=== PATIENT | female | born 1970 | race Caucasian/White ===

== ENCOUNTER 2024-02-11 18:08 | Emergency (ER) | payer BC, SELFPAY ==
[2024-02-11 18:12] VITALS: BP 123/84
[2024-02-11 18:33] LABS: % Basophils 0.8 % (0-2); % Eosinophils 1.4 % (0-6); % Immature Granulocytes 0.2 % (0-0.5); % Lymphocytes 7.9 % (20.5-51.1); % Monocytes 6.7 % (1.7-9.3); Absolute Eosinophils 0.1 10^3/uL (0-0.7); Absolute Lymphocytes 0.4 10^3/uL (1.2-3.4); Absolute Monocytes 0.3 10^3/uL (0.1-0.6); Absolute Neutrophils 4.1 10^3/uL (1.4-6.5); Hematocrit 35.1 % (37.0-47.0); Hemoglobin 12.2 g/dL (12.0-16.0); Mean Corp Hgb Conc. 34.8 g/dL (33.0-37.0); Mean Corpuscular Hgb 34.2 pg (27.0-31.0); Mean Corpuscular Volume 98.3 fL (81.0-99.0); Mean Platelet Volume 11.1 fL (7.4-10.4); Nucleated Red Blood Cells % 0 %; Platelet Count 143 10^3/uL (130-400); Red Blood Cell Count 3.57 10^6/uL (4.20-5.40); Red Cell Dist. Width 14.7 % (11.5-14.5); White Blood Cell Count 4.9 10^3/uL (4.8-10.8)
[2024-02-11 18:45] LABS: HCG, Serum Qualitative Screen Negative
[2024-02-11 18:48] LABS: ALT (SGPT) 25 U/L (0-35); AST (SGOT) 44 U/L (14-36); Albumin 4.5 g/dl (3.5-5.0); Alkaline Phosphatase 158 U/L (38-126); Blood Urea Nitrogen 9 mg/dl (7-17); Calcium 9.7 mg/dl (8.4-10.2); Carbon Dioxide 30 mmol/L (22-30); Chloride 97 mmol/L (98-107); Glucose 111 mg/dl (70-99); Potassium 3.8 mmol/L (3.5-5.1); Sodium 135 mmol/L (135-145); Total Bilirubin 1.1 mg/dl (0.2-1.3); Total Protein 6.9 g/dl (6.3-8.2); eGFR > 60.00
[2024-02-11 18:53] LABS: Lipase 100 U/L (23-300)
[2024-02-11 19:18] VITALS: BP 136/77
[2024-02-11 19:19] VITALS: BMI 21.3
--- NOTE | 2024-02-11 19:35 | ED.GENMED ---
History of Present Illness
General
Chief Complaint: Abdominal Symptoms
Source: patient and spouse
Time Seen by Provider: 02/11/24 19:15
History of Present Illness
History of Present Illness:
53-year-old female presents to the emergency room complaining of intractable nausea and vomiting. 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 Radiation completed about 6 weeks ago or so. She is currently
receiving immunotherapy infusions with the last infusion being about 2 weeks ago. During radiation patient was experiencing significant nausea and vomiting. She has been receiving intermittent IV fluid infusions at [facility] where she has
been receiving her treatment. Her ability to tolerate oral intake seem to be improving however over the past 2 to 3 days it has been worsening again. She vomits as soon as she tends to consume any sort of liquids or solids. She is not
regurgitating secretions however. No diarrhea. No known sick contacts. No fever or chills. Patient does have a discomfort in her epigastrium which equates to a severe hunger feeling. She does not have constant nausea but rather it occurs as
soon as she consumes anything. The epigastric discomfort is constant however.
Past History
Past History
ED Past Medical History: Hypothyroidism
ED Past Surgical History: and Other (thyroid sx)
Social History
Tobacco: Non-smoker
Personal:
Living: with family
Phy Exam
Physical Exam
Physical Exam:
General: Awake, Alert, Oriented X3. No acute distress.
Vitals: unremarkable
Head: Atraumatic
Eyes: Pupils equal, EOMI
Throat: Airway intact, no exudates, somewhat dry mucosa
Neck: Trachea midline
Lungs: Clear and equal b/l
Heart: Regular rate, no murmurs
Abd: Soft, mild epigastric discomfort to palpation, no rebound, No pulsatile mass
Neuro: Nonfocal
Skin: Warm, dry, no rash
Extremities: pulses equal b/l, no edema
Course
Orders/Labs/Results
Orders:
Orders
02/11/24 18:19
Test Result ONCE
02/11/24 18:25
Complete Blood Count/With Diff Urgent
Comprehensive Metabolic Panel Urgent
HCG, Serum Qualitative Screen Urgent
Lipase Urgent
02/11/24 19:33
CT Abd/pel W Iv And Oral Contr Urgent
Comment:
Reason For Exam: intractable n/v, recent radiation to cholangiocarc
Iohexol [Omnipaque] See Protocol PO NOW STA
Ondansetron Injectable [Zofran] 8 mg IV NOW STA
Pantoprazole [Protonix IV] 40 mg IV NOW STA
02/11/24 19:34
EKG [Electrocardiogram (*1)] Urgent
Reason for Study: QTc Monitoring
02/11/24 19:35
EKG- Treatment ONCE
02/11/24 19:45
Lactated Ringers [Lr] 1,000 ml IV BOLUS
Abnormal Lab Results
02/11/24
18:25
RBC 3.57 L 10^6/uL
(4.20-5.40)
Hct 35.1 L %
(37.0-47.0)
MCH 34.2 H pg
(27.0-31.0)
RDW 14.7 H %
(11.5-14.5)
MPV 11.1 H fL
(7.4-10.4)
Absolute Lymphs (auto) 0.4 L 10^3/uL
(1.2-3.4)
Neutrophils % 83.0 H %
(42.2-75.2)
Lymphocytes % 7.9 L %
(20.5-51.1)
Chloride 97 L mmol/L
(98-107)
Glucose 111 H mg/dl
(70-99)
AST 44 H U/L
(14-36)
Alkaline Phosphatase 158 H U/L
(38-126)
02/11/24 18:25
02/11/24 18:25
Vital Signs
Initial and Last Documented VS:
Initial Vital Signs
Temp Pulse Resp BP Pulse Ox
98.4 F 97 16 123/84 99
02/11/24 18:12 02/11/24 18:12 02/11/24 18:12 02/11/24 18:12 02/11/24 18:12
Last Documented Vital Signs
Temp Pulse Resp BP Pulse Ox
98.3 F 71 18 121/80 96
02/11/24 23:15 02/12/24 00:53 02/12/24 00:53 02/12/24 00:53 02/12/24 00:53
MDM/Problems Addressed
Differential Diagnosis Includes:
Biliary obstruction, gastric outlet obstruction, gastritis, duodenal ulcer/duodenitis, viral gastritis
MDM/Problems Addressed:
Patient presents with inability to tolerate liquids. Workup here reveals a normal white blood cell count, normal hemoglobin. Chemistries are reassuring. LFTs show a very minimally elevated AST and a normal ALT. Alk phos mildly elevated. LFTs
all consistent with known cholangiocarcinoma. No evidence for biliary obstruction however. CT performed primarily to exclude gastric outlet obstruction or other bowel obstruction. Oral contrast is distributed throughout the small and large bowel.
Radiology report is negative for high-grade obstruction though they do note edematous changes at the gastric antrum and proximal duodenum. Patient is taking Protonix once a day we will have this increased to twice a day. I will also recommend a
trial of Carafate. Patient will touch base with her doctors at [facility] after [place] to discuss CT findings and further steps. Able to tolerate the oral contrast as well as liquid intake. Her total protein and albumin are normal which
is also somewhat reassuring.
*Radiology
Radiology exam reviewed: radiology read reviewed
*Pulse Oximetry
Patient hypoxic: no
*EKG
Interpreted by ED Provider?: Yes
Interpretation: normal
Heart Rate: 66
Rate: normal
Rhythm: sinus
Lapoint: normal axis
Interval: normal interval
QRS Pattern: normal QRS
Ischemia: no ischemia
*[place]er Interpretation
Rate: normal
Interpretation: normal
Heart Rate: 66
Rhythm: sinus
*Critical Care Note
Total Time (30-74mins, 75-104mins- exclusive of procedures): Not Applicable
Patient Management
Social determinants of health affecting care: Strong social support
ED Attending Note
-
Portions of this chart may have been created with voice recognition software.� Occasional wrong word or��sound alike� substitutions may have occurred due to the inherent limitations of voice recognition software.
Discharge Plan
Departure
Patient Disposition: Home (Routine Discharge)
Date of Disposition: 02/12/24
Time of Disposition: 00:41
Patient with high blood pressure during this ER visit?: No
Condition: Good
Discharge Problem:
Acute nausea with nonbilious vomiting, Gastritis and duodenitis
Instructions: Gastritis, Acute Nausea and Vomiting
Prescriptions:
New
sucralfate [Carafate] 1 gram tablet
1 g PO TID Qty: 90 0RF
No Action
prednisone 10 MG tablet
10 mg PO DAILY
levothyroxine 112 MCG tablet
112 mcg PO DAILY
Referrals:
Uriel Yanes MD [Family Provider] -
Activity Restrictions/Additional Instructions:
Increase Protonix to twice a day. I have sent a prescription for Carafate which you can take before meals (except breakfast when you are taking most of your meds) and before bedtime. Discuss things with your treatment team at [place] after the
holiday.
Interventions
Interventions:
*Risk Screen - Suicide Last Done: 02/11/24 19:19
*General Assessment Last Done: 02/11/24 19:19
*Neglect/Abuse Screening Last Done: 02/11/24 19:19
ED- Fall Risk Assessment Last Done: 02/11/24 19:19
*ED COVID-19 Vaccine History Last Done: 02/11/24 19:19
*Nursing Disposition Last Done: 02/12/24 01:16
WU-Wlfvvk-Rdrpnhiqvy Assessment Last Done: 02/11/24 19:19
Discharge Date and Time
Discharge Date/Time: 02/12/24 01:17
Print Language: PORTUGUESE
[2024-02-11 20:00] VITALS: BP 116/75
[2024-02-11] MEDS: ZOFRAN 8 MG IV (20:09)
[2024-02-11] MEDS: LR 1000 IV (20:09)
[2024-02-11] MEDS: PROTONIX IV 40 MG IV (20:11)
[2024-02-11] MEDS: OMNIPAQUE 50 ML PO (20:49)
[2024-02-11 21:00] VITALS: BP 129/74
[2024-02-11 22:41] VITALS: BP 143/85
[2024-02-11 23:15] VITALS: BP 136/78
[2024-02-12 00:53] VITALS: BP 121/80
== END 2024-02-12 01:17 | disposition home or self-care (01) ==
LOC: EMR 18:08
PROVIDERS: Emergency Medicine; EMERGENCY PHYSICIAN Emergency Medicine; FAMILY PHYSICIAN Family Medicine
DX: K29.70 Gastritis, unspecified, without bleeding (principal); K29.80 Duodenitis without bleeding; E03.9 Hypothyroidism, unspecified; Z79.899 Other long term (current) drug therapy; Z85.89 Personal history of malignant neoplasm of other organs and systems; Z92.21 Personal history of antineoplastic chemotherapy; Z92.3 Personal history of irradiation
CPT/HCPCS: 99284; 96374; 96375; 96361; 74177; 80053; 83690; 84703; 85025; 93005; Q9967

== ENCOUNTER 2024-02-29 19:25 | Inpatient (IN) | payer BC, SELFPAY ==
[2024-02-29] VITALS (10 sets, daily range): BP systolic 103–128; BP diastolic 63–84; PULSE 67–79; BMI 22.1; BMI 22.5
--- NOTE | 2024-02-29 15:12 | ED.GENMED ---
ED Provider Triage
<Jhonatan Vee PA-C - Last Filed: 02/29/24 15:13>
-
Patient seen by provider in Triage?: Seen in Triage
53-year-old female with history of cholangiocarcinoma presents in referral from oncologist for low hemoglobin. Her hemoglobin is dropped significantly more recently. Patient seen at triage stable vital signs but does appear pale
IV team was into handled the patient's port. Labs drawn including CBC CMP type and screen
Seen by provider in triage warrants further assessment
History of Present Illness
<Jhonatan Vee PA-C - Last Filed: 02/29/24 15:13>
General
Chief Complaint: Weakness
Time Seen by Provider: 02/29/24 16:13
<Leidy Escobar DO - Last Filed: 02/29/24 17:31>
History of Present Illness
History of Present Illness:
53-year-old female with history of cholangiocarcinoma status post radiation and chemotherapy presenting to the emergency department for weakness. Patient reports that she had outpatient blood testing that showed a low hemoglobin of 6.7 which has
dropped significantly from her last testing. Does also report dyspnea on exertion. Denies any history of anemia or transfusions. She notes that since getting radiation to her upper abdomen, has had issues for about 2 weeks of pain after eating.
Reports occasional vomiting, without any blood in the vomit. Does note that her stools have been dark. Denies chest pain. Denies any present abdominal pain. Was sent in by her oncologist. Denies additional acute medical complaints.
Past History
<Jhonatan Vee PA-C - Last Filed: 02/29/24 15:13>
Past History
ED Past Medical History: Hypothyroidism
ED Past Surgical History: and Other (thyroid sx)
Social History
Tobacco: Non-smoker
Personal:
Living: with family
Phy Exam
<Leidy Davala, DO - Last Filed: 02/29/24 17:31>
Physical Exam
Physical Exam:
General: Well-appearing, pale
HEENT: protecting airway
Neck: appears supple
CV: Normal heart rate, regular rhythm
Resp: No accessory muscle use, no increased work of breathing
Abd: No distention
Extremities: No deformities, no swelling
Neuro: alert, no focal neurologic deficit
: deferred
Rectal: deferred
Psych: Normal affect
Skin: Intact
Course
<Jhonatan Vee PA-C - Last Filed: 02/29/24 15:13>
Orders/Labs/Results
Orders:
Orders
02/29/24 15:10
CBC/With Diff [Complete Blood Count/With Diff] Urgent
Comprehensive Metabolic Panel Urgent
02/29/24 15:16
Type+Screen Urgent
02/29/24 16:36
* Blood Bank Products Urgent
Blood Bank Products: *Packed RBC Leuko(PRBC's)
Quantity: 2
Transfuse Today: Yes
Reason: Anemia
Abnormal Lab Results
02/29/24 02/29/24
15:10 15:16
WBC 3.4 L 10^3/uL
(4.8-10.8)
RBC 2.13 L 10^6/uL
(4.20-5.40)
Hgb 6.9 L* g/dL
(12.0-16.0)
Hct 21.2 L %
(37.0-47.0)
MCV 99.5 H fL
(81.0-99.0)
MCH 32.4 H pg
(27.0-31.0)
MCHC 32.5 L g/dL
(33.0-37.0)
Plt Count 119 L 10^3/uL
(130-400)
MPV 10.5 H fL
(7.4-10.4)
Absolute Lymphs (auto) 0.3 L 10^3/uL
(1.2-3.4)
Immature Gran % 0.6 H %
(0-0.5)
Neutrophils % 81.1 H %
(42.2-75.2)
Lymphocytes % 8.4 L %
(20.5-51.1)
Calcium 8.3 L mg/dl
(8.4-10.2)
Total Protein 5.8 L g/dl
(6.3-8.2)
Crossmatch IS Only See Detail
02/29/24 15:10
02/29/24 15:10
Vital Signs
Initial and Last Documented VS:
Initial Vital Signs
Temp Pulse Resp BP Pulse Ox
98.2 F 94 16 120/66 97
02/29/24 14:24 02/29/24 14:24 02/29/24 14:24 02/29/24 14:24 02/29/24 14:24
Last Documented Vital Signs
Temp Pulse Resp BP Pulse Ox
98.2 F 94 16 120/66 97
02/29/24 14:24 02/29/24 14:24 02/29/24 14:24 02/29/24 14:24 02/29/24 14:24
<Leidy Escobar, DO - Last Filed: 02/29/24 17:31>
Orders/Labs/Results
Orders:
Orders
02/29/24 15:10
CBC/With Diff [Complete Blood Count/With Diff] Urgent
Comprehensive Metabolic Panel Urgent
02/29/24 15:16
Type+Screen Urgent
02/29/24 16:36
* Blood Bank Products Urgent
Blood Bank Products: *Packed RBC Leuko(PRBC's)
Quantity: 2
Transfuse Today: Yes
Reason: Anemia
Abnormal Lab Results
02/29/24 02/29/24
15:10 15:16
WBC 3.4 L 10^3/uL
(4.8-10.8)
RBC 2.13 L 10^6/uL
(4.20-5.40)
Hgb 6.9 L* g/dL
(12.0-16.0)
Hct 21.2 L %
(37.0-47.0)
MCV 99.5 H fL
(81.0-99.0)
MCH 32.4 H pg
(27.0-31.0)
MCHC 32.5 L g/dL
(33.0-37.0)
Plt Count 119 L 10^3/uL
(130-400)
MPV 10.5 H fL
(7.4-10.4)
Absolute Lymphs (auto) 0.3 L 10^3/uL
(1.2-3.4)
Immature Gran % 0.6 H %
(0-0.5)
Neutrophils % 81.1 H %
(42.2-75.2)
Lymphocytes % 8.4 L %
(20.5-51.1)
Calcium 8.3 L mg/dl
(8.4-10.2)
Total Protein 5.8 L g/dl
(6.3-8.2)
Crossmatch IS Only See Detail
02/29/24 15:10
02/29/24 15:10
Vital Signs
Initial and Last Documented VS:
Initial Vital Signs
Temp Pulse Resp BP Pulse Ox
98.2 F 94 16 120/66 97
02/29/24 14:24 02/29/24 14:24 02/29/24 14:24 02/29/24 14:24 02/29/24 14:24
Last Documented Vital Signs
Temp Pulse Resp BP Pulse Ox
98.2 F 94 16 120/66 97
02/29/24 14:24 02/29/24 14:24 02/29/24 14:24 02/29/24 14:24 02/29/24 14:24
<Leidy Escobar DO - Last Filed: 02/29/24 17:31>
MDM/Problems Addressed
MDM/Problems Addressed:
53-year-old female with history of cholangiocarcinoma presenting to the emergency department with weakness and dyspnea on exertion with concern of anemia. Vital signs are normal.
On exam patient is resting comfortably, no acute distress or discomfort. Blood counts checked prior to my assessment, low at 6.9. On 02/10, blood counts are 12.2, significant drop. Patient is a lot of stomach upset with eating, status post
radiation, as well as dark schools. Patient is Hemoccult positive. Suspect a likely slow bleeding stomach ulcer. Plan for transfusion, patient consented. Discussion with GI, unlikely to get scope of the weekend, however advising admission
overnight for hemodynamic monitoring, and likely facilitation of outpatient scoping next week. Patient agreeable to plan.
<Leidy Escobar DO - Last Filed: 02/29/24 17:31>
*Critical Care Note
Total Time (30-74mins, 75-104mins- exclusive of procedures): 38
comment:
The high probability of a clinically significant, sudden or life threatening deterioration of the GI system(s), GI bleed and anemia, required my full and direct attention, intervention and personal management. The aggregate critical care time was 38
minutes. This time is in addition to time spent performing reported procedures but includes the following:
[x] Data Review and interpretation
[x] Patient assessment and monitoring of vital signs
[x] Documentation
[x] Medication orders and management
ED Attending Note
<Jhonatan Vee PA-C - Last Filed: 02/29/24 15:13>
-
Portions of this chart may have been created with voice recognition software.� Occasional wrong word or��sound alike� substitutions may have occurred due to the inherent limitations of voice recognition software.
Discharge Plan
Departure
Prescriptions:
No Action
prednisone 10 MG tablet
10 mg PO DAILY
levothyroxine 112 MCG tablet
112 mcg PO DAILY
sucralfate [Carafate] 1 gram tablet
1 g PO TID Qty: 90 0RF
Referrals:
Uriel Yanes MD [Family Provider] -
Interventions
Interventions:
*Risk Screen - Suicide Last Done: 02/29/24 14:24
*Neglect/Abuse Screening Last Done: 02/29/24 14:24
Discharge Date and Time
Print Language: LUXEMBOURGISH
[2024-02-29 15:33] LABS: ALT (SGPT) 14 U/L (0-35); AST (SGOT) 30 U/L (14-36); Albumin 3.8 g/dl (3.5-5.0); Alkaline Phosphatase 112 U/L (38-126); Blood Urea Nitrogen 11 mg/dl (7-17); Calcium 8.3 mg/dl (8.4-10.2); Carbon Dioxide 26 mmol/L (22-30); Chloride 101 mmol/L (98-107); Glucose 98 mg/dl (70-99); Potassium 3.6 mmol/L (3.5-5.1); Sodium 136 mmol/L (135-145); Total Bilirubin 0.6 mg/dl (0.2-1.3); Total Protein 5.8 g/dl (6.3-8.2); eGFR > 60.00
[2024-02-29 15:46] LABS: % Basophils 0.9 % (0-2); % Eosinophils 1.5 % (0-6); % Immature Granulocytes 0.6 % (0-0.5); % Lymphocytes 8.4 % (20.5-51.1); % Monocytes 7.5 % (1.7-9.3); % Neutrophils 81.1 % (42.2-75.2); Absolute Eosinophils 0.1 10^3/uL (0-0.7); Absolute Lymphocytes 0.3 10^3/uL (1.2-3.4); Absolute Monocytes 0.3 10^3/uL (0.1-0.6); Absolute Neutrophils 2.7 10^3/uL (1.4-6.5); Hematocrit 21.2 % (37.0-47.0); Hemoglobin 6.9 g/dL (12.0-16.0); Mean Corp Hgb Conc. 32.5 g/dL (33.0-37.0); Mean Corpuscular Hgb 32.4 pg (27.0-31.0); Mean Corpuscular Volume 99.5 fL (81.0-99.0); Mean Platelet Volume 10.5 fL (7.4-10.4); Nucleated Red Blood Cells % 0 %; Platelet Count 119 10^3/uL (130-400); Red Blood Cell Count 2.13 10^6/uL (4.20-5.40); Red Cell Dist. Width 13.7 % (11.5-14.5); White Blood Cell Count 3.4 10^3/uL (4.8-10.8)
--- NOTE | 2024-02-29 18:20 | HPS.HSE ---
Family Physician
-
Family Physician: Uriel Yanes
Chief Complaint
-
anemia
History of Present Illness
53-year-old past medical history of cholangiocarcinoma status post radiation/chemotherapy last received in November currently on immunotherapy received last week, hypothyroidism, anxiety/depression, presenting for weakness. Patient had outpatient
blood work which showed low hemoglobin 6.7. Patient has been having shortness of breath with exertion and dizziness. Denies any history of anemia or transfusion. Since getting radiation to her upper abdomen she has been having 2 weeks of
abdominal pain after eating. She has occasional vomiting without blood. Denies any blood in the vomit. Her stools have been dark. Denies chest pain.
Denies NSAID use. Denies smoking or alcohol use.
Medical History
Past Medical History
Past Medical History: Reports Other (cholangiocarcinoma status post radiation/chemotherapy last received in November currently on immunotherapy received last week, hypothyroidism, anxiety/depression)
Past Surgical History: Reports
Social History
Tobacco: Non-smoker
Alcohol: None
Drug: None
Family History
Family History: Not pertinent
Allergies / Home Medications
Allergies reflects when Allergies were last updated in [facility].
Home Medications with original date entered in [facility]
Allergy/Medication List:
Allergies
Allergy/AdvReac Type Severity Reaction Status Date / Time
No Known Allergies Allergy Verified 02/29/24 14:24
Home Medications
docusate sodium 100 mg capsule (Colace) 100 mg PO DAILYPRN PRN constipation 02/29/24
escitalopram oxalate 5 mg tablet 5 mg PO HS 02/29/24
levothyroxine 100 mcg tablet 100 mcg PO DAILY 02/29/24
ondansetron HCl 8 mg tablet 8 mg PO DAILYPRN PRN nausea 02/29/24
pantoprazole 40 mg tablet,delayed release 40 mg PO DAILY 02/29/24
Review of Systems
-
History Source: Patient
A 12 point ROS was completed and negative except as noted: Yes
Constitutional: Reports No Symptoms
EENT: Reports No Symptoms
Respiratory: Reports No Symptoms
Cardiac: Reports No Symptoms
Abdomen/GI: Reports No Symptoms
: Reports No Symptoms
Musculoskeletal: Reports No Symptoms
Skin: Reports No Symptoms
Neurological: Reports No Symptoms
Endocrine: Reports No Symptoms
Hematologic/Lymphatic: Reports No Symptoms
Psych: Reports No Symptoms
Physical Exam
Vital Signs
Vital Signs
Temp Pulse Resp BP Pulse Ox
98.5 F 83 16 119/70 98
02/29/24 18:11 02/29/24 18:11 02/29/24 18:11 02/29/24 18:11 02/29/24 17:18
Physical Exam
General: Well Developed, Well Nourished and No Apparent Distress
HEENT: NormoCephalic, Moist mucous membranes and Atraumatic
Respiratory: Clear
Cardiac: S1/S2 and Regular Rhythm; No Murmur or Rub
GI: Soft, Non Tender, Non Distended and Normal Bowel Sounds; No Organomegaly
Rectal: Deferred by Provider
Musculoskeletal: No Clubbing, No Cyanosis and No Edema
Skin: No Rash
Neuro: Nonfocal/grossly intact
Laboratory Results
-
02/29/24 15:10
02/29/24 15:10
Laboratory Results
Total Bilirubin 0.6 mg/dl (0.2-1.3) 02/29/24 15:10
AST 30 U/L (14-36) 02/29/24 15:10
ALT 14 U/L (0-35) 02/29/24 15:10
Alkaline Phosphatase 112 U/L (38-126) 02/29/24 15:10
Data Reviewed
-
Lab Data: Labs Reviewed by me
Old Records: Reviewed
Impression/Plan
-
IMPRESSION:
PLAN:
# Macrocytic anemia
# Upper GI bleeding/blood loss anemia suspect gastritis/peptic ulcer from radiation
-Hemoglobin 6.9 from 12 on 02/10
-Hemodynamically stable
-2 units of blood
-Protonix 40 IV twice daily
-Check iron studies, B12 and folate
-GI planning on outpatient endoscopy
-Clear liquid diet
Cholangiocarcinoma status post radiation/chemotherapy
-Currently on immunotherapy received last week
Hypothyroidism
-Continue levothyroxine
Anxiety/depression
-Continue Lexapro
Full code
DVT prophylaxis�SCDs
Clear liquid diet
[2024-02-29] MEDS: PROTONIX IV 40 MG IV (22:06)
[2024-02-29] MEDS: LEXAPRO 5 MG PO (22:09)
[2024-02-29] MEDS: NSS (PRESERVATIVE FREE) 10 ML IV (22:09)
[2024-02-29 23:03] LABS: Iron 49 ug/dl (37-170)
[2024-02-29 23:12] LABS: Percent Saturation 14 % (20-50); Total Iron Binding Capacity 347 ug/dl (265-497)
[2024-03-01 00:41] LABS: Folate 6.5 ng/ml (2.76-20); Vitamin B12 444 pg/ml (239-931)
[2024-03-01 01:11] LABS: Hematocrit 28.4 % (37.0-47.0); Hemoglobin 9.4 g/dL (12.0-16.0)
--- NOTE | 2024-03-01 02:27 | PTCARENOTE ---
Patient received from ED and ambulated to room. Second unit of pRBCs infusing and completed on floor. No S/S of a transfusion reaction noted. She was oriented to room and surroundings. See nursing assessment for physical findings. Patient
states pain at comfortable rate. Resting quietly with call griffith in reach.
[2024-03-01 03:00] VITALS: BP 101/66; BP 105/66; BP 110/74; PULSE 78; PULSE 88; PULSE 96
[2024-03-01 03:51] VITALS: BP 105/66
[2024-03-01] MEDS: SYNTHROID 100 MCG PO (05:57)
[2024-03-01 07:00] VITALS: BP 96/67
[2024-03-01] MEDS: PROTONIX IV 40 MG IV (08:19)
[2024-03-01] MEDS: NSS (PRESERVATIVE FREE) 10 ML IV (08:19)
[2024-03-01 09:17] LABS: % Basophils 0.4 % (0-2); % Eosinophils 1.3 % (0-6); % Immature Granulocytes 0.8 % (0-0.5); % Lymphocytes 8.4 % (20.5-51.1); % Monocytes 8.8 % (1.7-9.3); % Neutrophils 80.3 % (42.2-75.2); Absolute Lymphocytes 0.2 10^3/uL (1.2-3.4); Absolute Monocytes 0.2 10^3/uL (0.1-0.6); Absolute Neutrophils 1.9 10^3/uL (1.4-6.5); Hematocrit 29.6 % (37.0-47.0); Mean Corp Hgb Conc. 33.8 g/dL (33.0-37.0); Mean Corpuscular Volume 88.9 fL (81.0-99.0); Mean Platelet Volume 10.9 fL (7.4-10.4); Nucleated Red Blood Cells % 0 %; Platelet Count 95 10^3/uL (130-400); Red Blood Cell Count 3.33 10^6/uL (4.20-5.40); Red Cell Dist. Width 19.4 % (11.5-14.5); White Blood Cell Count 2.4 10^3/uL (4.8-10.8)
--- NOTE | 2024-03-01 09:24 | CON.GI ---
Consultation
-
Date/Time Consultation Requested: 02/29/24
Date/Time Consultation Performed: 03/01/24
Requesting Provider: Dr. Bender
Performing Provider: Dr. Bowers
Reason for Consultation: Anemia
Medical History
Chief Complaint / HPI
Chief Complaint: Anemia
History of Present Illness:
53 y.o. female with pmhx cholangiocarcinoma s/p chemo and radiation therapy currently on immunotherapy admitted with anemia, after outpatient labs demonstrated a hemoglobin of 6.7. She admits to dyspnea on exertion, dizziness, dyspepsia and
occasional non bloody emesis. She does admit to dark stool. No blood thinners or frequent NSAID use.�She admits to chronic constipation, worse since requiring Zofran for her cancer treatment. She has intermittently taken laxatives but never
regularly, feels nauseous with miralax. She sometimes only moves her bowels once weekly. She has tried colace. Preivously on Linzess but only for a week, does not recall the dose. Bowers it gave her too much diarrhea. Her oncologic care is at [facility]. No
family history of cholangio, pancreatic cancer, CRC or colon polyps. She reports previouos colonoscopy in 2021, states she had a few polyps. CT on 02/10 with findings below, concern for abnormality in gastric antrum or duodenum, felt to be possibly
related to prior treatment.
Hgb 6.9 down from 12 on 02/10, BUN 11. She was transfused with 2 units PRBC. Hemodynamically stable.�Repeat CBC showed appropriate response, 6.9 --> 9.4 --> 10.
CT A/P w/ PO and IV Contrast 02/11/24:
1. Edematous and inflamed appearance of the gastric antrum and proximal duodenum suggestive of a gastritis/duodenitis, possibly sequela of recent therapy.
2. Large ill-defined and rim-enhancing enhancing necrotic mass within the left hepatic lobe consistent with patient's history of cholangiocarcinoma.
3. Multiple soft tissue nodules within the upper abdomen suspicious for peritoneal carcinomatosis.
4. Small volume of perihepatic and pelvic ascites.
Past Medical History
Past Medical History: Other (Cholangiocarcinoma, Chronic Constipation)
Past Surgical History: Other ()
Social History
Tobacco: Non-Smoker
Alcohol: None
Drug: None
Family History
Family History: Reviewed & Not Pertinent
Allergies / Home Medications
Allergy/AdvReac Type Severity Reaction Status Date / Time
No Known Allergies Allergy Verified 02/29/24 14:24
�Medication �Instructions �Recorded
docusate sodium 100 mg capsule 100 mg PO DAILYPRN PRN constipation 02/29/24
(Colace)
escitalopram oxalate 5 mg tablet 5 mg PO HS 02/29/24
levothyroxine 100 mcg tablet 100 mcg PO DAILY 02/29/24
ondansetron HCl 8 mg tablet 8 mg PO DAILYPRN PRN nausea 02/29/24
pantoprazole 40 mg tablet,delayed 40 mg PO DAILY 02/29/24
release
Review of Systems
-
History Source: Patient
All other systems: A 12 pt ROS was Negative except as stated above in HPI
Vital Signs
Temp Pulse Resp BP Pulse Ox
98.9 F 75 18 96/67 99
03/01/24 07:00 03/01/24 07:00 03/01/24 07:00 03/01/24 07:00 03/01/24 07:00
Physical Exam
Exam
General: Well Developed, Well Nourished and No Apparent Distress
GI: Soft, Non Tender, Non Distended and Normal Bowel Sounds
Results
WBC 2.4 10^3/uL (4.8-10.8) L* 03/01/24 08:34
Hgb 10.0 g/dL (12.0-16.0) L 03/01/24 08:34
Hct 29.6 % (37.0-47.0) L 03/01/24 08:34
MCV 88.9 fL (81.0-99.0) D 03/01/24 08:34
Plt Count 95 10^3/uL (130-400) L D 03/01/24 08:34
Absolute Neuts (auto) 1.9 10^3/uL (1.4-6.5) 03/01/24 08:34
Sodium 136 mmol/L (135-145) 02/29/24 15:10
Potassium 3.6 mmol/L (3.5-5.1) 02/29/24 15:10
Chloride 101 mmol/L (98-107) 02/29/24 15:10
Carbon Dioxide 26 mmol/L (22-30) 02/29/24 15:10
BUN 11 mg/dl (7-17) 02/29/24 15:10
Creatinine 0.7 mg/dL (0.6-1.0) 02/29/24 15:10
Calcium 8.3 mg/dl (8.4-10.2) L 02/29/24 15:10
Total Bilirubin 0.6 mg/dl (0.2-1.3) 02/29/24 15:10
AST 30 U/L (14-36) 02/29/24 15:10
ALT 14 U/L (0-35) 02/29/24 15:10
Alkaline Phosphatase 112 U/L (38-126) 02/29/24 15:10
Diagnostic Image Results:
Prior GI Procedures:
EGD:
Colonoscopy:
Assessment / Plan
-
53 y.o. female with pmhx cholangiocarcinoma s/p chemo/XRT now on immunotherapy admitted with symptomatic anemia, epigastric pain and abnormal CT Scan.
A/P:
Hgb 6.9, received 2 units of PRBC with appropriate response, Hgb 10 this morning
BUN normal, expect it to be elevated in setting of upper GI bleed but could have been a slower bleed over time. Given abnormalities on CT scan as well as epigastric pain/dyspepsia, recommend EGD. She prefers outpatient since cannot perform until
Sunday given its the weekend
Will have my office obtain urgent authorization on Sunday, with plans to have Dr. Stuart perform EGD as an outpatient on Sunday (my office will contact her on Sunday). If unremarkable, would recommend outpatient colonoscopy to follow
PPI BID
Discussed bowel regimen-- 1 bottle of mag citrate followed by 2 senokot qHS
Okay for regular diet
Data Reviewed
-
CT Scan: Report Reviewed by me
-
-
Thank you for consultation and allowing me to participate in the patient's care. Please call the [facility] GI physician during the after hours with any questions or concerns.
[2024-03-01 09:25] LABS: ALT (SGPT) 12 U/L (0-35); AST (SGOT) 29 U/L (14-36); Albumin 3.4 g/dl (3.5-5.0); Alkaline Phosphatase 106 U/L (38-126); Blood Urea Nitrogen 8 mg/dl (7-17); Calcium 7.8 mg/dl (8.4-10.2); Carbon Dioxide 28 mmol/L (22-30); Chloride 104 mmol/L (98-107); Estimated Creatinine Clearance 69 ml/min; Glucose 86 mg/dl (70-99); Potassium 3.9 mmol/L (3.5-5.1); Sodium 137 mmol/L (135-145); Total Bilirubin 0.6 mg/dl (0.2-1.3); Total Protein 5.4 g/dl (6.3-8.2); eGFR > 60.00
[2024-03-01 11:00] VITALS: BP 107/73
--- NOTE | 2024-03-01 12:58 | W.PN.HOSP.TC ---
Today's Communication/Plan
-
Discharge
Assessment / Plan
Assessment / Plan
Gen-AAOx3, NAD
HEENT-NC, AT, anicteric, clear oral mm
Neck-supple
CV-reg, no M, +S1/S2
Lungs-clear B/L
Abd-soft, NT, ND
Ext-no edema
Musculoskeletal-no cyanosis, clubbing
Skin-warm and dry
Neuro-grossly non-focal
Psych-calm, cooperative
Symptomatic acute anemia -suspect multifactorial etiology including GI bleed induced acute blood loss, possible immunotherapy induced anemia, etc.
Feels much better with improvement in hemoglobin. Transfused 2 units of blood. Hemoglobin 10 today. Iron saturation 14%, ferritin pending.
Pancytopenia noted on labs. Unclear if due to immunotherapy versus other etiology. Recommend close outpatient follow-up with her oncologist. Discussed with patient.
GI bleed, subacute -heme positive stools noted in the emergency room. Differential diagnosis includes peptic ulcer disease, radiation-induced bleeding, etc. GI consult noted. Plan for outpatient EGD on Sunday, may need colonoscopy as well.
Patient prefers for outpatient workup, does not want to stay in the hospital all weekend.
Plan to discharge on Protonix twice daily. She denies NSAID use.
Has had chronic nausea relieved with Zofran.
Chronic constipation that she attributes to dehydration. Bowel regimen ordered.
Cholangiocarcinoma -treated with chemotherapy, radiation. Currently on immunotherapy. Goes to [facility].
Hypothyroidism -levothyroxine.
Full code
Dispo -stable for discharge today with outpatient follow-up with GI, oncology, PCP.
32 minutes spent in discharge process.
Anticipated Discharge: Today
Subjective/Interval History
-
Date of Service: March 01, 2024
Patient seen and examined. Feeling better. No complaints.
Objective Data
-
Labs:
Laboratory Results
03/01/24 03/01/24
00:46 08:34
WBC 2.4 L*
Hgb 9.4 L D 10.0 L
Hct 28.4 L 29.6 L
Plt Count 95 L D
Sodium 137
Potassium 3.9
Chloride 104
Carbon Dioxide 28
BUN 8
Creatinine 0.7
Glucose 86
Calcium 7.8 L
Total Bilirubin 0.6
AST 29
ALT 12
Alkaline Phosphatase 106
Vital Signs:
Vital Signs
Temp Pulse Resp BP Pulse Ox
98.9 F 75 18 96/67 99
03/01/24 07:00 03/01/24 07:00 03/01/24 07:00 03/01/24 07:00 03/01/24 07:00
I&O
02/29/24 03/01/24 03/02/24
06:59 06:59 06:59
Intake Total 500 / 500
Balance 500 / 500
Review of Systems
-
History Source: Patient
All other systems: Reviewed and negative
--- NOTE | 2024-03-01 13:54 | W.DS.TRANS ---
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
-
Discharge Instructions:
Discharge Diagnosis/Procedures Symptomatic anemia, pancytopenia, constipation
Diet Regular
Activity As tolerated
Driving Restrictions As prior to admission
Bathing Restrictions None
Instructions:
Stand-Alone Forms:
Changes to Home Medications: No
Discharge Medications:
DC Medications w/original date entered in [facility]
docusate sodium 100 mg capsule (Colace) 100 mg PO DAILYPRN PRN constipation 02/29/24
escitalopram oxalate 5 mg tablet 5 mg PO HS 02/29/24
levothyroxine 100 mcg tablet 100 mcg PO DAILY 02/29/24
ondansetron HCl 8 mg tablet 8 mg PO DAILYPRN PRN nausea 02/29/24
pantoprazole 40 mg tablet,delayed release 40 mg PO BID #60 tabs 03/01/24
Home Medication Changes
Pending Results: No
--- NOTE | 2024-03-01 14:39 | CM ---
Patient who is s/p transfusions for anemia.
Spoke with patient patient who resides with her in a 2 story house.
The patient has been independent in ADLs and ambulation.
The patient has no DME, no prior VN.
PCP - Uriel Yanes
Pharmacy - [facility]
The patient was preparing for discharge and says she feels ready for discharge home today. She plans on driving herself home.
No CM d/c needs identified.
Plan home today.
[2024-03-01 15:21] LABS: Ferritin 31.2 ng/ml (11.1-264.0)
== END 2024-03-01 15:16 | disposition home or self-care (01) | DRG 378 ==
LOC: 1 ACUTE 19:25
PROVIDERS: Emergency Medicine; Nurse Practitioner Family; ADMITTING PHYSICIAN Hospitalist; ATTENDING PHYSICIAN Hospitalist; CONSULT PHYSICIAN Internal Medicine; EMERGENCY PHYSICIAN Student in an Organized Health Care Education/Training Program; FAMILY PHYSICIAN Family Medicine
PROC: 30233N1 Transfusion of Nonautologous Red Blood Cells into Peripheral Vein, Percutaneous Approach (ICD-10-PCS; 2024-02-29)
DX: K92.2 Gastrointestinal hemorrhage, unspecified (principal); C22.1 Intrahepatic bile duct carcinoma; D61.818 Other pancytopenia; D62 Acute posthemorrhagic anemia; E03.9 Hypothyroidism, unspecified; D53.9 Nutritional anemia, unspecified; F32.A Depression, unspecified; F41.9 Anxiety disorder, unspecified; Z92.3 Personal history of irradiation; Z92.21 Personal history of antineoplastic chemotherapy
CPT/HCPCS: 36430; 80053; 82607; 82728; 82746; 83540; 83550; 85014; 85018; 85025; 86850; 86900; 86901; 86920; 99291; P9016

== ENCOUNTER 2024-03-04 06:19 | Day surgery (SDC) | payer BC, SELFPAY | END 2024-03-04 15:26 | disposition home or self-care (01) | LOC: GI 06:19 | PROVIDERS: ATTENDING PHYSICIAN Internal Medicine Gastroenterology | DX: D50.0 Iron deficiency anemia secondary to blood loss (chronic) (principal); K22.2 Esophageal obstruction; K44.9 Diaphragmatic hernia without obstruction or gangrene; K31.89 Other diseases of stomach and duodenum; K25.4 Chronic or unspecified gastric ulcer with hemorrhage | CPT/HCPCS: 43239; 88305 ==

== ENCOUNTER 2024-03-14 21:26 | Inpatient (IN) | payer BC, SELFPAY ==
[2024-03-14] VITALS (12 sets, daily range): BP systolic 106–133; BP diastolic 58–80
--- NOTE | 2024-03-14 19:37 | ED.GENMED ---
History of Present Illness
General
Chief Complaint: Abnormal Lab Value
Source: patient, records and physician (Discussed with Dr. Lara Horn, gastrointestinal oncologist, who recommends patient be admitted due to her ongoing GI bleed)
Exam Limitations: none
Time Seen by Provider: 03/14/24 19:35
Nursing documentation reviewed up to this point in time: agreed with
History of Present Illness
History of Present Illness:
53-year-old female presents emergency department due to dark black stool. She has a history of possible radiation damage from her cholangiocarcinoma. Her hemoglobin has been dropping. It was 7.5 earlier in the week, and today dropped to 6.7. She
was sent in by her oncologist.
Past History
Past History
ED Past Medical History: Hypothyroidism
ED Past Surgical History: and Other (thyroid sx)
Social History
Tobacco: Non-smoker
Personal:
Living: with family
Phy Exam
Physical Exam
Physical Exam:
Physical Exam
General: no apparent distress, pale
Neck: supple. no meningeal signs. normal posterior pharynx
Heart: s1/s2 regular rate and rhythm, no murmur. equal radial
pulses.
HEENT: Pupils equal round reactive to light, EOMI
Lungs: no acute respiratory distress. clear bilaterally
Abdomen: normal bowel sounds. not tender. no CVAT
Neuro: alert and oriented. no focal neurological deficits cranial nerves II through XII intact
Skin: no rash
Psychiatric: well kept. interactive and cooperative
Extremities: no edema. no calf tenderness. negative homans. good distal pulses
Course
Orders/Labs/Results
Orders:
Orders
03/14/24 Breakfast
Clear Liquid
03/14/24 19:35
Type And Crossmatch [Type+Screen] Urgent
Basic Metabolic Panel Urgent
Complete Blood Count/With Diff Urgent
Ferritin Urgent
Comment: ADD ON
Folate Urgent
Comment: ADD ON
Iron Urgent
Total Iron Binding Urgent
03/14/24 20:01
Blood Bank Products [* Blood Bank Products] Urgent
's Orders: 1 unit prbcs
Blood Bank Products: *Packed RBC Leuko(PRBC's)
Quantity: 1
Transfuse Today: Yes
Reason: Bleeding
03/14/24 20:06
Pantoprazole [Protonix IV] 80 mg IV NOW STA
03/14/24 21:08
Admit/Transfer Patient As Directed
Co-Sign Provider:
Level of Care: Inpatient admission
Assign to:: Telemetry
Physician / Group: michelle
Diagnosis: GI bleed
Reason for Telemetry: Other
Other Reason for Telemetry: anemia
Date to Stop Telemetry: 03/16/24
Time to Stop Telemetry: 11:00
Reason for Hospitalization: GI bleed
Expected length of stay greater than two midnights?: Yes
ELOS- Estimated Length of Stay in days: 3
I certify the patient meets the requirements for IP care: Yes
03/14/24 21:09
Code Status As Directed
Resuscitation Status: Full Code
PRN Pain Medication Management As Directed
May give lesser potent ordered pain med per pt: Yes
preference::
Protocol:: Medication orders for pain may be administered in a
manner that supports deferring to patient preference
when the pt is:
- Requesting an ordered lesser potent pain medication.
Least to most potent pain medications are defined
as: acetaminophen < NSAID < tramadol < opioids
(morphine, oxycodone, hydromorphone).
- Requesting a lesser dose of the same medication IF
ORDERED.
- Requesting a less intrusive route of administration
if both routes are prescribed by the provider (PO <
IV).
01/24/25 21:23
GASTROINTESTINAL CONSULT Routine
Consulting Provider: Damon Cadet
Was physician already notified: Yes
03/16/24 11:00
DC Protocol for Telemetry ONCE
Abnormal Lab Results
03/14/24
19:35
WBC 3.8 L 10^3/uL
(4.8-10.8)
RBC 2.36 L 10^6/uL
(4.20-5.40)
Hgb 6.8 L* g/dL
(12.0-16.0)
Hct 21.7 L %
(37.0-47.0)
MCHC 31.3 L g/dL
(33.0-37.0)
RDW 15.8 H %
(11.5-14.5)
MPV 10.9 H fL
(7.4-10.4)
Absolute Lymphs (auto) 0.3 L 10^3/uL
(1.2-3.4)
Neutrophils % 81.8 H %
(42.2-75.2)
Lymphocytes % 8.1 L %
(20.5-51.1)
Sodium 131 L mmol/L
(135-145)
Calcium 8.1 L mg/dl
(8.4-10.2)
Iron 35 L ug/dl
(37-170)
% Saturation 9 L %
(20-50)
Crossmatch IS Only See Detail
03/14/24 19:35
03/14/24 19:35
Vital Signs
Initial and Last Documented VS:
Initial Vital Signs
Temp Pulse Resp BP Pulse Ox
98.2 F 77 20 106/58 99
03/14/24 18:13 03/14/24 18:13 03/14/24 18:13 03/14/24 18:13 03/14/24 18:13
Last Documented Vital Signs
Temp Pulse Resp BP Pulse Ox
98.8 F 94 26 108/80 96
03/14/24 21:32 03/14/24 22:45 03/14/24 22:45 03/14/24 22:00 03/14/24 22:15
MDM/Problems Addressed
Differential Diagnosis Includes:
GI bleed, anemia
MDM/Problems Addressed:
53 yo female with GI bleed. 1 unit prbcs given. Admit to hospitalist.
Chronic conditions affecting care: Cancer
Acute Exacerbation and/or Progression of Chronic Illness: Cancer
*Pulse Oximetry
Patient hypoxic: no
*Critical Care Note
Total Time (30-74mins, 75-104mins- exclusive of procedures): 30
comment:
Critical care statement: A total of 30 minutes of critical care time was provided for this patient. This includes management of unstable vital signs, evaluation of the patient at bedside, reviewing the patient's pertinent medical records, discussion
with consultants, review of old EKGs and review of pertinent medical records. This time with separate from time utilized to perform the aforementioned documented procedures
Data Reviewed
Review of Other/Old Records Reveals: Testing (Endoscopy showed oozing of gastric mucosa, but no clear bleed)
Source: records
Patient Management
Social determinants of health affecting care: Living situation and Strong social support
Discussion with other providers: Hospitalist
Escalation/DeEscalation of care consider admission/obs:
Admit indicated
ED Attending Note
-
Portions of this chart may have been created with voice recognition software.� Occasional wrong word or��sound alike� substitutions may have occurred due to the inherent limitations of voice recognition software.
Discharge Plan
Departure
Patient Disposition: Admit
Date of Disposition: 03/14/24
Time of Disposition: 20:22
Admit to: Telemetry
Presentation/result/management discussed w/ accepting MD/DO: Hospitalist
Patient with high blood pressure during this ER visit?: Yes
Condition: Fair
Discharge Problem:
GI (gastrointestinal bleed), Symptomatic anemia
Interventions
Interventions:
*Risk Screen - Suicide Last Done: 03/14/24 19:40
*General Assessment Last Done: 03/14/24 18:13
*Neglect/Abuse Screening Last Done: 03/14/24 19:40
ED- Fall Risk Assessment Last Done: 03/14/24 19:40
*ED COVID-19 Vaccine History Last Done: 03/14/24 19:40
[2024-03-14 19:57] LABS: % Basophils 0.5 % (0-2); % Eosinophils 1.3 % (0-6); % Immature Granulocytes 0.5 % (0-0.5); % Lymphocytes 8.1 % (20.5-51.1); % Monocytes 7.8 % (1.7-9.3); % Neutrophils 81.8 % (42.2-75.2); Absolute Eosinophils 0.1 10^3/uL (0-0.7); Absolute Lymphocytes 0.3 10^3/uL (1.2-3.4); Absolute Monocytes 0.3 10^3/uL (0.1-0.6); Absolute Neutrophils 3.1 10^3/uL (1.4-6.5); Hematocrit 21.7 % (37.0-47.0); Hemoglobin 6.8 g/dL (12.0-16.0); Mean Corp Hgb Conc. 31.3 g/dL (33.0-37.0); Mean Corpuscular Hgb 28.8 pg (27.0-31.0); Mean Corpuscular Volume 91.9 fL (81.0-99.0); Mean Platelet Volume 10.9 fL (7.4-10.4); Nucleated Red Blood Cells % 0 %; Platelet Count 144 10^3/uL (130-400); Red Blood Cell Count 2.36 10^6/uL (4.20-5.40); Red Cell Dist. Width 15.8 % (11.5-14.5); White Blood Cell Count 3.8 10^3/uL (4.8-10.8)
[2024-03-14 20:04] LABS: Blood Urea Nitrogen 10 mg/dl (7-17); Calcium 8.1 mg/dl (8.4-10.2); Carbon Dioxide 25 mmol/L (22-30); Chloride 101 mmol/L (98-107); Glucose 95 mg/dl (70-99); Potassium 3.5 mmol/L (3.5-5.1); Sodium 131 mmol/L (135-145); eGFR > 60.00
[2024-03-14] MEDS: PROTONIX IV 80 MG IV (20:25)
--- NOTE | 2024-03-14 20:49 | HPS.HSE ---
Family Physician
-
Family Physician: ASHLY Booker
Chief Complaint
-
black stool
History of Present Illness
53-year-old female with past medical history for hypothyroidism, cholangiocarcinoma presented to us with dark black stools since December. Patient undergoing EGD on 03/04/2024 with impression of mild Schatzki ring. Small hiatal hernia in the
gastric antrum, nonbleeding clean-based gastric ulcer with no stigmata of bleeding ,Friable gastric mucosa with mild spontaneous bleeding as described. Biopsy with impression of reactive gastropathy with vascular ectasia, no evidence of
malignancy.her last colonoscopy was in 2021.patient was getting transfusion as an outpatient .her last transfusion was a week ago .she had an outpatient lab with impression of 6.8. Her oncology asked her to come to the ER for transfusion. Patient
stated dizziness when she stands up and short of breath with exertion. Patient denied any headache or syncope patient denied any fever, chills, chest pain.patient denied abdominal pain, nausea or vomiting.patient denied dysuria or hematuria.
On arrival hemoglobin is 6.8. Transfusing with 1 unit of blood
Medical History
Past Medical History
Past Medical History: Reports Other
Additional Past Medical History:
Depression
Palpitation
Hypothyroidism
Constipation
Myalgia
Anxiety
Past Surgical History: Reports Other
Additional Past Surgical History:
Thyroidectomy
Social History
Tobacco: Non-smoker
Alcohol: None
Drug: None
Family History
Family History: Not pertinent
Allergies / Home Medications
Allergies reflects when Allergies were last updated in [facility].
Home Medications with original date entered in [facility]
Allergy/Medication List:
Allergies
Allergy/AdvReac Type Severity Reaction Status Date / Time
No Known Allergies Allergy Verified 03/14/24 18:13
Home Medications
docusate sodium 100 mg capsule (Colace) 100 mg PO DAILYPRN PRN constipation 02/29/24
escitalopram oxalate 5 mg tablet 5 mg PO HS 02/29/24
levothyroxine 100 mcg tablet 100 mcg PO DAILY 02/29/24
ondansetron HCl 8 mg tablet 8 mg PO DAILYPRN PRN nausea 02/29/24
pantoprazole 40 mg tablet,delayed release 40 mg PO BID #60 tabs 03/01/24
Review of Systems
-
Constitutional: Reports No Symptoms
EENT: Reports No Symptoms
Respiratory: Reports No Symptoms
Cardiac: Reports No Symptoms
Abdomen/GI: Reports Bloody Stools
: Reports No Symptoms
Musculoskeletal: Reports No Symptoms
Skin: Reports No Symptoms
Neurological: Reports No Symptoms
Endocrine: Reports No Symptoms
Hematologic/Lymphatic: Reports No Symptoms
Psych: Reports No Symptoms
Physical Exam
Vital Signs
Vital Signs
Temp Pulse Resp BP Pulse Ox
98.2 F 77 18 123/60 100
03/14/24 18:13 03/14/24 18:13 03/14/24 19:45 03/14/24 19:44 03/14/24 19:45
Physical Exam
General: Well Developed, Well Nourished and No Apparent Distress
HEENT: NormoCephalic, Moist mucous membranes and Atraumatic
Respiratory: Clear
Cardiac: S1/S2 and Regular Rhythm; No Murmur or Rub
GI: Soft, Non Tender, Non Distended and Normal Bowel Sounds; No Organomegaly
Rectal: Deferred by Provider
Musculoskeletal: No Clubbing, No Cyanosis and No Edema
Skin: No Rash
Neuro: AO x 3 and Nonfocal/grossly intact
Psych: Calm
Laboratory Results
-
03/14/24 19:35
03/14/24 19:35
Data Reviewed
-
Lab Data: Labs Reviewed by me
Impression/Plan
-
# Acute blood loss anemia likely from upper GI bleed
-Hemoglobin 6.8
-Transfusing with 1 unit of blood
-Keep patient n.p.o.
-Trend hemoglobin
-Consult GI
-recent EGD with the impression of mild Schatzki ring. Small hiatal hernia in the gastric antrum, nonbleeding clean-based gastric ulcer with no stigmata of bleeding ,Friable gastric mucosa with mild spontaneous bleeding as described. Biopsy with
impression of reactive gastropathy with vascular ectasia, no evidence of malignancy.
-path was negative for malignancy
# Hyponatremia
-Sodium 131
#Cholangiocarcinoma
-treated with chemotherapy, radiation Goes to [facility].
#Hypothyroidism -levothyroxine.
#depression
-Lexapro continued
#DVT Prophylaxis
-scd
#Full code
patient follows [facility]. her Oncologist is Lara Horn )
--- NOTE | 2024-03-14 21:28 | W.PN.UPDATE ---
Update Note
Progress Note Update
This is an addendum to the H&P written by Colette Deluna on 03/14/2024. Patient seen and examined independently with [employer].
53-year-old female past medical history of cholangiocarcinoma status post radiation/chemotherapy last received in November currently on immunotherapy received last week, hypothyroidism, anxiety/depression, presenting with recurrent anemia and black
loose stools.
She was recently admitted here on 02/28 with similar symptoms at which time she received 2 units of blood. She underwent outpatient endoscopy on 03/04 which showed mild Schatzki's ring, small hiatal hernia, red blood in the gastric antrum,
nonbleeding clean-based superficial gastric ulcer and effects of radiation.
She subsequently received 1 more unit of blood.
Concern for recurrent blood loss anemia and symptomatic anemia secondary to gastritis/peptic ulcer related to radiation. 1 unit of blood. Clear liquid diet, n.p.o. past midnight. Protonix 40 IV twice daily. Check iron studies. GI consulted.
Patient requesting that GI contact her oncologist prior to any further interventions.
[2024-03-14 21:59] LABS: Iron 35 ug/dl (37-170)
[2024-03-14 22:09] LABS: Percent Saturation 9 % (20-50); Total Iron Binding Capacity 379 ug/dl (265-497)
[2024-03-14 23:46] LABS: Ferritin 18.5 ng/ml (11.1-264.0)
[2024-03-15] VITALS (11 sets, daily range): BP systolic 89–121; BP diastolic 56–71; PULSE 75–99; BMI 21.9
[2024-03-15 00:17] LABS: Folate 7.9 ng/ml (2.76-20)
[2024-03-15] MEDS: LEXAPRO PO (00:25)
[2024-03-15 05:46] LABS: Hematocrit 25.5 % (37.0-47.0); Hemoglobin 8.1 g/dL (12.0-16.0); Mean Corp Hgb Conc. 31.8 g/dL (33.0-37.0); Mean Corpuscular Hgb 27.9 pg (27.0-31.0); Mean Corpuscular Volume 87.9 fL (81.0-99.0); Platelet Count 97 10^3/uL (130-400); Red Cell Dist. Width 16.4 % (11.5-14.5); White Blood Cell Count 2.2 10^3/uL (4.8-10.8)
[2024-03-15 05:52] LABS: Blood Urea Nitrogen 8 mg/dl (7-17); Calcium 7.9 mg/dl (8.4-10.2); Carbon Dioxide 26 mmol/L (22-30); Chloride 102 mmol/L (98-107); Glucose 90 mg/dl (70-99); Potassium 3.9 mmol/L (3.5-5.1); Sodium 136 mmol/L (135-145); eGFR > 60.00
[2024-03-15] MEDS: SYNTHROID 100 MCG PO (08:40)
[2024-03-15] MEDS: PROTONIX IV 40 MG IV ×2 (08:41→20:03)
--- NOTE | 2024-03-15 10:18 | CON.GI ---
Consultation
-
Date/Time Consultation Requested: 03/14/24 21:23
Date/Time Consultation Performed: 03/15/24 10:18 AM
Requesting Provider: Colette Deluna
Performing Provider: Dr. Damon Cadet DO
Reason for Consultation: GI Bleed
Medical History
Chief Complaint / HPI
Chief Complaint: Melena
History of Present Illness:
Ms. Voss is a 53 y.o female with past medical history of hypothyroidism, cholangiocarcinoma (s/p chemo/radiation therapy, currently on immunotherapy), chronic anemia, and recent EGD 03/04 found to have a non-bleeding gastric ulcer with friable
mucosa (bx with benign reactive gastropathy/vascular ectasia, suspected from prior radiation) who presented with melena and low Hgb on outpatient labs. Gastroenterology has been consulted for further evaluation and management.
Patient notes ongoing dark black stools over the past several weeks to months, dating back since December. She recently was admitted at on 02/2024 where she presented with symptomatic anemia found to have a Hgb 6.7. Prior CT Abd/pelvis 02/11/24
revealed edematous and inflamed appearance of the gastric antrum and proximal duodenum suggestive of gastritis/duodenitis, possibly sequela of recent therapy along with a large ill-defined and rim-enhancing necrotic mass within the L hepatic lobe
consistent with patient's history of cholangiocarcinoma. She received 2uPRBCs and eventually underwent an EGD on 03/04/2024 which revealed red blood in the gastric antrum, one non-bleeding clean-based superficial gastric ulcer, and diffuse severely
friable mucosa with spontaneous bleeding found in the gastric antrum (biopsies benign with reactive gastropathy/vascular extasia) along with a small hiatal hernia and a mild Schatzki's ring. Her endoscopic findings were felt to be related to delayed
effects of radiation. She has been compliant with her Pantoprazole twice daily and has been taking carafate as well. Since that time, she has still had ongoing and received another 1 uPRBC last week. Additionally, she notes her previous colonoscopy
was back in 2021 (had a few polyps). Otherwise, still noted ongoing dark stools despite her last EGD. Had recent repeat blood work as an outpatient and found to have a Hgb 6.8 where her Oncologist (Dr. Horn) advised her come to the ED for further
evaluation. Does endorse symptoms consisten with symptomatic anemia but no syncopal episodes. No other hematemesis or coffee ground emesis or other abdominal pain. She has been avoiding NSAIDs and EtOH.
In the ED, patient was afebrile and HD-stable. Labs notable for Hgb 6.8 (previously 10s back on 03/01/24) with BUN 10. Iron studies with iron sat 9%, low iron 35, and ferritin 18.5. She was ordered for 1 uPRBC with appropriate correction with repeat
Hgb 8.1.
Past Medical History
Past Medical History: Other (Cholangiocarcinoma, Chronic Constipation, anemia)
Past Surgical History: Other ()
Social History
Tobacco: Non-Smoker
Alcohol: None
Drug: None
Family History
Family History: Reviewed & Not Pertinent
Allergies / Home Medications
Allergy/AdvReac Type Severity Reaction Status Date / Time
No Known Allergies Allergy Verified 03/14/24 18:13
�Medication �Instructions �Recorded
docusate sodium 100 mg capsule 100 mg PO DAILYPRN PRN constipation 02/29/24
(Colace)
escitalopram oxalate 5 mg tablet 5 mg PO HS 02/29/24
levothyroxine 100 mcg tablet 100 mcg PO DAILY 02/29/24
ondansetron HCl 8 mg tablet 8 mg PO DAILYPRN PRN nausea 02/29/24
pantoprazole 40 mg tablet,delayed 40 mg PO BID #60 tabs 03/01/24
release
Review of Systems
-
All other systems: A 12 pt ROS was Negative except as stated above in HPI
Vital Signs
Temp Pulse Resp BP Pulse Ox
98.2 F 73 18 105/56 100
03/15/24 08:51 03/15/24 06:00 03/14/24 23:45 03/15/24 05:32 03/14/24 23:45
Physical Exam
Exam
General: Well Developed, Well Nourished, No Apparent Distress and Comfortable
HEENT: Anicteric
Respiratory: Non Labored Respirations
Cardiac: Regular Rhythm
GI: Soft, Non Tender and Non Distended
Neuro: AO x 3 and Nonfocal/Grossly Intact
Psych: Calm
Results
WBC 2.2 10^3/uL (4.8-10.8) L* 03/15/24 05:08
Hgb 8.1 g/dL (12.0-16.0) L 03/15/24 05:08
Hct 25.5 % (37.0-47.0) L 03/15/24 05:08
MCV 87.9 fL (81.0-99.0) 03/15/24 05:08
Plt Count 97 10^3/uL (130-400) L D 03/15/24 05:08
Absolute Neuts (auto) 3.1 10^3/uL (1.4-6.5) 03/14/24 19:35
Sodium 136 mmol/L (135-145) 03/15/24 05:08
Potassium 3.9 mmol/L (3.5-5.1) 03/15/24 05:08
Chloride 102 mmol/L (98-107) 03/15/24 05:08
Carbon Dioxide 26 mmol/L (22-30) 03/15/24 05:08
BUN 8 mg/dl (7-17) 03/15/24 05:08
Creatinine 0.7 mg/dL (0.6-1.0) 03/15/24 05:08
Calcium 7.9 mg/dl (8.4-10.2) L 03/15/24 05:08
Diagnostic Image Results:
Prior GI Procedures:
EGD 03/04/2024- Impression:
- Mild Schatzki ring.
- Small hiatal hernia.
- Red blood in the gastric antrum.
- Non-bleeding clean-based gastric ulcer with no
stigmata of bleeding.
- Friable gastric mucosa with mild spontaneous
bleeding as described. Biopsied.
- Normal examined duodenum.
Colonoscopy in 2021, reportedly notable for colon polyps
Assessment / Plan
-
Ms. Voss is a 53 y.o female with past medical history of hypothyroidism, cholangiocarcinoma (s/p chemo/radiation therapy, currently on immunotherapy), chronic anemia, and recent EGD 03/04 found to have a non-bleeding gastric ulcer with friable
mucosa (bx with benign reactive gastropathy/vascular ectasia, suspected from prior delayed effects of radiation) who presented with melena and low Hgb on outpatient labs concerning for recurrent UGIB.
#Melena c/f
#Recurrent UGIB
#Recent Gastric Ulcer
#Friable, Oozing Mucosa (felt 2/2 Radiation during recent EGD 03/04/24)
#Acute Blood Loss Anemia
#Chronic POLINA with #Transfusion Dependence
#Hx of Cholaniogcarcinoma
Impression: Patient presenting with ongoing melena over the past several weeks along with acute on chronic anemia with transfusion dependence found to have a hemoglobin of 6's on outpatient blood work concerning for recurrent GI bleed. Last EGD
03/04/2024 revealed red blood in the gastric antrum, one nonbleeding clean-based gastric ulcer with no stigmata of bleeding, and friable gastric mucosa with mild spontaneous bleeding within the gastric antrum. Biopsies were benign with reactive
gastropathy and vascular ectasia. Counselor to be from prior delayed effects of radiation from her cholangiocarcinoma. No other NSAIDs or antiplatelets/anticoagulants. Given her recurrent bleeding she would benefit from a repeat EGD for re-evaluation
along with consideration of Hemospray and/or APC if amenable to endoscopic therapy. Last colonoscopy back on 2021 with a few colon polyps (no report of this), however given her recent EGD revealing active bleeding no concern for a lower GI bleed at
this time. Fortunately, she has responded to 1 unit of blood with appropriate correction and remains hemodynamically stable and would benefit from a repeat endoscopic evaluation.
Recommendations:
- Okay for CLD
- IV PPI 40 mg BiD
- Trend Hgb with serial CBC, transfuse as needed
- IV iron while inpatient, treat for 5 days
- Hold on oral carafate while inpatient as not to obscure visualization prior to upper endoscopy
- Plan for EGD next week on 03/17/2024. Will consider sooner EGD if needed pending clinical course. No plans for a colonoscopy at this time
- Strict avoidance of all NSAIDs
- Will reach out to patient's Oncologist as well (Dr. H[place] [facility] [place] [phone])
- Rest of care per primary team
Discussed with primary internal medicine team. GI will continue to follow.
Thank you for allowing me to participate in the care of this patient. Please do not hesitate to call for any further questions.
Data Reviewed
-
CT Scan: Image Personally Visualized and interpreted and Report Reviewed by me
Old Records: Reviewed
-
-
Thank you for consultation and allowing me to participate in the patient's care. Please call the technician support association GI physician during the after hours with any questions or concerns.
--- NOTE | 2024-03-15 12:46 | W.PN.HOSP.TC ---
Today's Communication/Plan
-
PPI twice daily IV
Clear liquid diet
Trend CBC
EGD Sunday unless rebleeding
Assessment / Plan
Assessment / Plan
#Upper GI bleed
#Iron deficiency
#Acute blood loss anemia
#H/O peptic ulcer disease
#H/O Schatzki ring
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
-Recently hospitalized with upper GI bleeding for which she went EGD showing nonbleeding gastric ulcer and signs of GAVE
-Received 2 units of PRBC on that hospital stay, was discharged that had recurrence
-Received an additional unit of PRBC here yesterday, on IV PPI twice daily now
-GI following, recommended CLD and likely EGD Sunday; will speak with oncologist prior
Plan
-Continue IV PPI twice daily and clear liquid diet
-Trend CBC and transfuse for hemoglobin <7
-IV iron x 5 days for deficiency
-Avoid NSAIDs
-Avoid chemical AC and antiplatelet
#Thrombocytopenia
-Platelet count 97, suspect this is reactive to bleeding
-Trend CBC as above
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
#Status post chemoradiation
-Follows with Dr. Hines at [facility]
-Status post chemotherapy and radiation
-Remains on immunotherapy
DVT prophylaxis: SCDs
Diet: CLD
CODE STATUS: Full code
Anticipated Discharge: > 48 hours
Subjective/Interval History
-
Date of Service: March 15, 2024
Seen and examined at the bedside. at bedside and provided update. No acute events overnight. AFVSS this morning
Status post 1 unit PRBC yesterday, hemoglobin up to 8.1. Patient denies any melena or further signs of bleeding
Denies any acute complaints today, asks when she can eat
Objective Data
-
Labs:
Laboratory Results
03/15/24
05:08
WBC 2.2 L*
Hgb 8.1 L
Hct 25.5 L
Plt Count 97 L D
Sodium 136
Potassium 3.9
Chloride 102
Carbon Dioxide 26
BUN 8
Creatinine 0.7
Glucose 90
Calcium 7.9 L
Vital Signs:
Vital Signs
Temp Pulse Resp BP Pulse Ox
98.6 F 72 18 111/71 100
03/15/24 11:40 03/15/24 11:00 03/14/24 23:45 03/15/24 08:54 03/14/24 23:45
I&O
03/14/24 03/15/24 03/16/24
06:59 06:59 06:59
Intake Total 500 / 500
Balance 500 / 500
Review of Systems
-
History Source: Patient
All other systems: Reviewed and negative
Physical Exam
-
General: Well Developed, No Apparent Distress, Comfortable, Appears Chronically Ill and Other (Thin and frail appearing)
HEENT: Normocephalic, Atraumatic, Moist Mucous Membranes and Anicteric
Respiratory: Clear to Auscultation and Non Labored Respirations
Cardiac: Regular Rhythm and S1/S2; Negative Murmur, Rub or Gallop
GI: Soft, Nontender, Nondistended and Normal Bowel Sounds
Musculoskeletal: No Clubbing, No Cyanosis and No Edema
Skin: Warm, Dry and Normal Turgor; Negative Rash
Neuro: AO x 3 and Nonfocal/Grossly Intact
Psych: Calm
[2024-03-15] MEDS: FERRLECIT 110 MG IV (14:44)
--- NOTE | 2024-03-15 14:48 | W.PN.UPDATE ---
Update Note
Progress Note Update
Spoke with patient's oncologist, Dr. Lara Horn, at [facility] this afternoon. Reviewed patient's recent hospitalization, clinical course, and confirmed prior history. Agrees with pursuing upper endoscopy while she is here at
for further evaluation given the previous concern for radiation-induced vascular ectasias seen during her prior EGD as well as the previous concern for a prior ulcer.
[2024-03-15 17:35] LABS: Hematocrit 28.9 % (37.0-47.0); Hemoglobin 9.1 g/dL (12.0-16.0); Mean Corp Hgb Conc. 31.5 g/dL (33.0-37.0); Mean Corpuscular Hgb 28.3 pg (27.0-31.0); Mean Corpuscular Volume 89.8 fL (81.0-99.0); Mean Platelet Volume 10.1 fL (7.4-10.4); Platelet Count 134 10^3/uL (130-400); Red Blood Cell Count 3.22 10^6/uL (4.20-5.40); Red Cell Dist. Width 16.9 % (11.5-14.5); White Blood Cell Count 3.4 10^3/uL (4.8-10.8)
--- NOTE | 2024-03-15 17:39 | VATNOTE ---
Called by staff interpreter that Chest film was completed, tip of Rt. subclavian port is SVC. Pt. states, 'Pain and feeling of shortness of breath when port was accessed, and every time it is accessed.' Pt. denies symptoms currently. These symptoms are
concerning for a DVT, and pt. is in agreement. The port was flushed per protocol and deaccessed. Pt. will discuss this with her Oncologist. Lab drawn peripherally and pt. has an existing peripheral IV. dredge or barge shore hand aware.
[2024-03-15] MEDS: NSS (PRESERVATIVE FREE) 10 ML IV (20:04)
[2024-03-15] MEDS: LEXAPRO 5 MG PO (21:24)
[2024-03-16] VITALS (7 sets, daily range): BP systolic 99–118; BP diastolic 58–70; PULSE 78–94
--- NOTE | 2024-03-16 06:18 | W.PN.GI.CBS2 ---
Today's Communication / Plan
-
Still with small amount of melena, Hgb remains stable. Plan for EGD with possible APC tomorrow, 03/17/2024. Keep NPO at [place]. See rest of care as outlined below.
Assessment / Plan
-
Ms. Voss is a 53 y.o female with past medical history of hypothyroidism, cholangiocarcinoma (s/p chemo/radiation therapy, currently on immunotherapy), chronic anemia, and recent EGD 03/04 found to have a non-bleeding gastric ulcer with friable
mucosa (bx with benign reactive gastropathy/vascular ectasia, suspected from prior delayed effects of radiation) who presented with melena and low Hgb on outpatient labs concerning for recurrent UGIB.
#Melena c/f
#Recurrent UGIB
#Recent Gastric Ulcer
#Friable, Oozing Mucosa (felt 2/2 Radiation during recent EGD 03/04/24)
#Acute Blood Loss Anemia
#Chronic POLINA with #Transfusion Dependence
#Hx of Cholangiocarcinoma (s/p XRT last session 12/2023, on immunotherapy)
Impression: Patient presenting with ongoing melena over the past several weeks along with acute on chronic anemia with transfusion dependence found to have a hemoglobin of 6's on outpatient blood work concerning for recurrent GI bleed. Last EGD
03/04/2024 revealed red blood in the gastric antrum, one nonbleeding clean-based gastric ulcer with no stigmata of bleeding, and friable gastric mucosa with mild spontaneous bleeding within the gastric antrum. Biopsies were benign with reactive
gastropathy and vascular ectasia. [place] to be from prior delayed effects of radiation from her cholangiocarcinoma. No other NSAIDs or antiplatelets/anticoagulants. Given her recurrent bleeding she would benefit from a repeat EGD for re-evaluation
along with consideration of Hemospray and/or APC if amenable to endoscopic therapy. Last colonoscopy back on 2021 with a few colon polyps (no report of this), however given her recent EGD revealing active bleeding no concern for a lower GI bleed at
this time. Fortunately, she has responded to 1 unit of blood with appropriate correction and remains hemodynamically stable and would benefit from a repeat endoscopic evaluation.
Hgb remains stable after recent 1 uPRBC on 03/15 with Hgb 8-9s. Still with small amount of melena but remains HD-stable without compensatory tachycardia.
Recommendations:
- Regular diet as tolerated, keep NPO at [place]
- IV PPI 40 mg BiD
- Trend Hgb with CBC q daily, transfuse as needed
- IV iron while inpatient, treat for 5 days
- Hold on oral carafate while inpatient as not to obscure visualization prior to upper endoscopy
- Plan for EGD on 03/17/2024, with possible APC if discrete vascular ectasias are visualized given concern for radiation-induced gastritis
- Discussed risks and benefits with patient, amenable to proceeding with EGD tomorrow. Discussed with patient's Oncologist as well ([place] [facility] [place] Will provide patient copies for both her records and her Oncologists records from EGD
report/pictures
- Strict avoidance of all NSAIDs
- Rest of care per primary team
Discussed with primary internal medicine team this AM. GI will continue to follow.
Subjective
Subjective
Date of Service: March 16, 2024
- S/p 1 uPRBC on 03/15 for Hgb 6.8 -> 8.1 -> -> 9.1 -> 8.6
- No acute events overnight
Feeling well, resting comfortably in bed. Had small episode of melena yesterday afternoon. Continues to deny any abdominal pain/discomfort or nausea/vomiting. Spoke with patient's Oncologist, Dr. Horn, yesterday afternoon as well.
Objective
Data Reviewed
Vital Signs and I&O:
Vital Signs
Temp Pulse Resp BP Pulse Ox
99.5 F 82 17 106/58 96
03/16/24 03:06 03/16/24 03:06 03/16/24 03:06 03/16/24 03:06 03/16/24 03:06
I&O
03/14/24 03/15/24 03/16/24
06:59 06:59 06:59
Intake Total 500 / 500 1000 / 1000
Balance 500 / 500 1000 / 1000
Physical Exam
Physical Exam
HEENT: Anicteric and Moist mucous membranes
Pulmonary: Other (Normal WOB on room air)
GI: Soft, Non Distended and Non Tender
Extremities: No Edema
Neuro: Non Focal
[2024-03-16 07:36] LABS: % Basophils 1.1 % (0-2); % Eosinophils 2.5 % (0-6); % Immature Granulocytes 0.7 % (0-0.5); % Lymphocytes 7.1 % (20.5-51.1); % Monocytes 8.2 % (1.7-9.3); % Neutrophils 80.4 % (42.2-75.2); Absolute Eosinophils 0.1 10^3/uL (0-0.7); Absolute Lymphocytes 0.2 10^3/uL (1.2-3.4); Absolute Monocytes 0.2 10^3/uL (0.1-0.6); Absolute Neutrophils 2.3 10^3/uL (1.4-6.5); Hematocrit 26.9 % (37.0-47.0); Hemoglobin 8.6 g/dL (12.0-16.0); Mean Corpuscular Hgb 28.5 pg (27.0-31.0); Mean Corpuscular Volume 89.1 fL (81.0-99.0); Mean Platelet Volume 11.4 fL (7.4-10.4); Nucleated Red Blood Cells % 0 %; Platelet Count 126 10^3/uL (130-400); Red Blood Cell Count 3.02 10^6/uL (4.20-5.40); Red Cell Dist. Width 16.7 % (11.5-14.5); White Blood Cell Count 2.8 10^3/uL (4.8-10.8)
[2024-03-16 07:53] LABS: Blood Urea Nitrogen 6 mg/dl (7-17); Carbon Dioxide 29 mmol/L (22-30); Chloride 103 mmol/L (98-107); Estimated Creatinine Clearance 61 ml/min; Glucose 94 mg/dl (70-99); Potassium 3.9 mmol/L (3.5-5.1); Sodium 138 mmol/L (135-145); eGFR > 60.00
[2024-03-16] MEDS: SYNTHROID 100 MCG PO (08:02)
[2024-03-16] MEDS: PROTONIX IV 40 MG IV ×2 (08:02→19:03)
[2024-03-16] MEDS: NSS (PRESERVATIVE FREE) 10 ML IV ×2 (08:02→19:02)
--- NOTE | 2024-03-16 12:28 | W.PN.HOSP.TC ---
Today's Communication/Plan
-
IV PPI BID
Repeat CBC at 4PM
Will de-escalate to clear liquids if hemoglobin drops or further bleeding noted
N.p.o. after midnight for EGD tomorrow
Assessment / Plan
Assessment / Plan
#Upper GI bleed
#Iron deficiency
#Acute blood loss anemia
#H/O peptic ulcer disease
#H/O Schatzki ring
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
-Recently hospitalized with upper GI bleeding for which she went EGD showing nonbleeding gastric ulcer and signs of GAVE
-Received 2 units of PRBC on that hospital stay, was discharged that had recurrence
-Received an additional unit of PRBC here yesterday, on IV PPI twice daily now
-GI following, recommended CLD and likely EGD Sunday; will speak with oncologist prior
Plan
-Continue IV PPI twice daily and regular diet for now
-Trend CBC and transfuse for hemoglobin <7
-IV iron x 5 days for deficiency
-Avoid NSAIDs
-Avoid chemical AC and antiplatelet
-CBC at 4 PM to reassess hemoglobin
#Thrombocytopenia
-Platelet count 97, suspect this is reactive to bleeding
-Has started to improve with most recent platelet count near 130
-Trend CBC as above
#Neutropenia
-CBC with WBC 2.8 today, ANC 2300
-Currently on neutropenic precautions, no fevers
-Trend CBC and temperature curve
-Consider IV cefepime if fevers present
#Pancytopenia
-Suspect this is multifactorial with POLINA/blood loss anemia, cancer history on immunotherapy s/p chemo
-As of this morning hemoglobin 8.6, platelets near 130, WBC count 2.8
-Previous labs that show iron deficiency, folate levels were adequate
-Will add on B12 levels for tomorrow labs, replete if needed
-Defer against serological workup for now, should follow-up with oncologist at [place]
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
#Status post chemoradiation
-Follows with Dr. Hines at [facility]
-Status post chemotherapy and radiation
-Remains on immunotherapy
DVT prophylaxis: SCDs
Diet: Regular, will de-escalate to CLD if further bleeding
CODE STATUS: Full code
Spoke with wire weaver helper
Anticipated Discharge: 24 - 48 hours
Subjective/Interval History
-
Date of Service: March 16, 2024
Seen and examined at the bedside. No acute events reported overnight. AFVSS this morning
Most recent hemoglobin trend 8.1�9.1�8.6. Patient states she did have a dark bowel movement this morning. Denies nausea/vomiting or abdomen pain
Denies any new complaints today
Objective Data
-
Labs:
Laboratory Results
03/16/24 03/16/24
06:43 16:00
WBC 2.8 L Pending
Hgb 8.6 L Pending
Hct 26.9 L Pending
Plt Count 126 L Pending
Sodium 138
Potassium 3.9
Chloride 103
Carbon Dioxide 29
BUN 6 L
Creatinine 0.8
Glucose 94
Calcium 8.0 L
Vital Signs:
Vital Signs
Temp Pulse Resp BP Pulse Ox
98.5 F 79 16 108/63 100
03/16/24 11:00 03/16/24 11:00 03/16/24 11:00 03/16/24 11:00 03/16/24 11:00
I&O
03/15/24 03/16/24 03/17/24
06:59 06:59 06:59
Intake Total 500 / 500 1000 / 1000
Balance 500 / 500 1000 / 1000
Review of Systems
-
History Source: Patient
All other systems: Reviewed and negative
Physical Exam
-
General: Well Developed, No Apparent Distress, Comfortable and Other (Thin appearing)
HEENT: Normocephalic, Atraumatic, Moist Mucous Membranes and Anicteric
Respiratory: Clear to Auscultation and Non Labored Respirations
Cardiac: Regular Rhythm and S1/S2; Negative Murmur, Rub or Gallop
GI: Soft, Nondistended, Normal Bowel Sounds, Tender (Mild, generalized, no peritoneal signs) and No Hepatosplenomegaly
Musculoskeletal: No Clubbing, No Cyanosis and No Edema
Skin: Warm, Dry and Normal Turgor; Negative Rash
Neuro: AO x 3 and Nonfocal/Grossly Intact
Psych: Calm
Data Reviewed
-
Labs: Labs Reviewed by me and Discussed with Patient
[2024-03-16] MEDS: FERRLECIT 110 MG IV (13:27)
[2024-03-16] MEDS: TYLENOL 650 MG PO (14:04)
--- NOTE | 2024-03-16 14:18 | CM ---
Reviewed the chart notes and spoke with the patient at the bedside. The patient anticipates going to [place] EGD with possible APC tomorrow, 03/17/2024. The patient resides with her spouse in a two story home with no steps to enter. The patient report
no DME/VN/SNF in the past. The patient confirmed her pharmacy of choice is [facility] and PCP is Lilliana Tyler, but uses her oncologist (Lara Horn) more as a PCP. CM continues to be available to patient/family and is monitoring
medical plan for needs at discharge.
Plan: Discharge to home when medically stable. No anticipated needs identified at this time.
[2024-03-16 19:20] LABS: Hematocrit 28.3 % (37.0-47.0); Hemoglobin 8.8 g/dL (12.0-16.0); Mean Corp Hgb Conc. 31.1 g/dL (33.0-37.0); Mean Corpuscular Hgb 27.7 pg (27.0-31.0); Mean Platelet Volume 10.8 fL (7.4-10.4); Platelet Count 148 10^3/uL (130-400); Red Blood Cell Count 3.18 10^6/uL (4.20-5.40); Red Cell Dist. Width 16.4 % (11.5-14.5); White Blood Cell Count 3.7 10^3/uL (4.8-10.8)
[2024-03-16] MEDS: LEXAPRO 5 MG PO (21:39)
[2024-03-17] VITALS (7 sets, daily range): BP systolic 15–131; BP diastolic 60–75
[2024-03-17 07:05] LABS: % Basophils 0.7 % (0-2); % Eosinophils 2.1 % (0-6); % Immature Granulocytes 0.3 % (0-0.5); % Lymphocytes 7.3 % (20.5-51.1); % Neutrophils 81.6 % (42.2-75.2); Absolute Eosinophils 0.1 10^3/uL (0-0.7); Absolute Lymphocytes 0.2 10^3/uL (1.2-3.4); Absolute Monocytes 0.2 10^3/uL (0.1-0.6); Absolute Neutrophils 2.3 10^3/uL (1.4-6.5); Hematocrit 27.9 % (37.0-47.0); Hemoglobin 8.7 g/dL (12.0-16.0); Mean Corp Hgb Conc. 31.2 g/dL (33.0-37.0); Mean Corpuscular Volume 89.7 fL (81.0-99.0); Mean Platelet Volume 11.6 fL (7.4-10.4); Nucleated Red Blood Cells % 0 %; Platelet Count 136 10^3/uL (130-400); Red Blood Cell Count 3.11 10^6/uL (4.20-5.40); Red Cell Dist. Width 16.6 % (11.5-14.5); White Blood Cell Count 2.9 10^3/uL (4.8-10.8)
[2024-03-17 07:42] LABS: Blood Urea Nitrogen 8 mg/dl (7-17); Calcium 8.6 mg/dl (8.4-10.2); Carbon Dioxide 29 mmol/L (22-30); Chloride 102 mmol/L (98-107); Estimated Creatinine Clearance 61 ml/min; Glucose 92 mg/dl (70-99); Potassium 4.4 mmol/L (3.5-5.1); Sodium 136 mmol/L (135-145); eGFR > 60.00
[2024-03-17] MEDS: NSS (PRESERVATIVE FREE) 10 ML IV ×2 (07:59→20:29)
[2024-03-17] MEDS: PROTONIX IV 40 MG IV ×2 (08:00→20:28)
[2024-03-17 08:30] LABS: Vitamin B12 547 pg/ml (239-931)
[2024-03-17] MEDS: ZOFRAN 4 MG IV (09:53)
[2024-03-17] MEDS: SYNTHROID 100 MCG PO (10:28)
[2024-03-17] MEDS: COMPAZINE 5 MG IV (11:21)
[2024-03-17] MEDS: TYLENOL 650 MG PO (11:22)
--- NOTE | 2024-03-17 11:56 | PTCARENOTE ---
Patient received back from EGD around 10:40 AM. She was vomiting some bile mixed with blood. Attending and GI physician Dr. Cadet made aware. Received orders for clear liquid diet and compazine. Attending physician and Dr. Cadet also came up to the
floor to assess and speak with the patient. Will monitor. Dr. Cadet indicates that the patient will not be discharged today. Updated her spouse, Demario at bedside.
--- NOTE | 2024-03-17 12:40 | W.PN.HOSP.TC ---
Today's Communication/Plan
-
Monitor vital signs see plan
Status post EGD today
Per GI keep patient on clears and monitor
Add Carafate
Repeat hemoglobin later today
Assessment / Plan
Assessment / Plan
#Upper GI bleed
#Iron deficiency
#Acute blood loss anemia
#H/O peptic ulcer disease
#H/O Schatzki ring
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
-Recently hospitalized with upper GI bleeding for which she went EGD showing nonbleeding gastric ulcer and signs of GAVE
-Received 2 units of PRBC on that hospital stay, was discharged that had recurrence
Plan
-Continue PPI twice daily. Status post EGD 03/17 with granular and hemorrhagic appearing mucosa in the cardia. Multiple bleeding angiectasia's in the stomach found. Treated with APC. Post EGD patient had episode of vomiting. GI wants to keep
patient on clear liquid diet and further monitor.
-Trend CBC and transfuse for hemoglobin <7
-IV iron x 5 days for deficiency
-Avoid NSAIDs
-Avoid chemical AC and antiplatelet
Carafate 4 times daily
#Thrombocytopenia
monitor
#Neutropenia
monitor
-Trend CBC and temperature curve
-Consider IV cefepime if fevers present
#Pancytopenia
-Suspect this is multifactorial with POLINA/blood loss anemia, cancer history on immunotherapy s/p chemo
Monitor
-Defer against serological workup for now, should follow-up with oncologist at [place]
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
#Status post chemoradiation
-Follows with Dr. Hines at [facility]
-Status post chemotherapy and radiation
-Remains on immunotherapy
DVT prophylaxis: SCDs
CODE STATUS: Full code
General: Well Developed, No Apparent Distress, Comfortable and Other (Thin appearing)
HEENT: Normocephalic, Atraumatic, Moist Mucous Membranes and Anicteric
Respiratory: Clear to Auscultation and Non Labored Respirations
Cardiac: Regular Rhythm and S1/S2; Negative Murmur, Rub or Gallop
GI: Soft, Nondistended, Normal Bowel Sounds, Tender (Mild, generalized, no peritoneal signs)
Musculoskeletal: No Edema
Skin: Warm, Dry and Normal Turgor; Negative Rash
Neuro: AO x 3 and Nonfocal/Grossly Intact
Psych: Calm
Anticipated Discharge: Within 24 hours
Subjective/Interval History
-
Date of Service: March 17, 2024
denies pain
Objective Data
-
Labs:
Laboratory Results
03/17/24
06:39
WBC 2.9 L
Hgb 8.7 L
Hct 27.9 L
Plt Count 136
Sodium 136
Potassium 4.4
Chloride 102
Carbon Dioxide 29
BUN 8
Creatinine 0.8
Glucose 92
Calcium 8.6
Vital Signs:
Vital Signs
Temp Pulse Resp BP Pulse Ox
100.1 F 77 14 131/75 98
03/17/24 10:48 03/17/24 10:48 03/17/24 10:48 03/17/24 10:48 03/17/24 10:48
I&O
03/16/24 03/17/24 03/18/24
06:59 06:59 06:59
Intake Total 1000 / 1000 1550 / 1550
Balance 1000 / 1000 1550 / 1550
[2024-03-17] MEDS: FERRLECIT 110 MG IV (13:56)
[2024-03-17] MEDS: XANAX 0.125 MG PO (15:23)
--- NOTE | 2024-03-17 16:16 | PTCARENOTE ---
Patient reported feeling restlessness, panic, and anxiety. States that in the past she has used xanax to help. Obtained an order for xanax and provided it to patient; also encouraged her to walk around the unit and journal. Patient took the
medication and walked around the unit briefly. Checked back about 45 minutes later, patient is sleeping.
[2024-03-17] MEDS: CARAFATE 1 GRAM PO ×2 (17:59→23:45)
[2024-03-17 21:30] LABS: Hematocrit 27.1 % (37.0-47.0); Hemoglobin 8.7 g/dL (12.0-16.0)
[2024-03-17] MEDS: LEXAPRO 5 MG PO (23:45)
[2024-03-18 07:17] VITALS: BP 100/66
[2024-03-18 07:23] LABS: % Basophils 0.6 % (0-2); % Eosinophils 1.1 % (0-6); % Immature Granulocytes 0.6 % (0-0.5); % Lymphocytes 5.1 % (20.5-51.1); % Neutrophils 86.6 % (42.2-75.2); Absolute Eosinophils 0.1 10^3/uL (0-0.7); Absolute Lymphocytes 0.2 10^3/uL (1.2-3.4); Absolute Monocytes 0.3 10^3/uL (0.1-0.6); Hematocrit 27.7 % (37.0-47.0); Hemoglobin 8.8 g/dL (12.0-16.0); Mean Corp Hgb Conc. 31.8 g/dL (33.0-37.0); Mean Corpuscular Hgb 28.7 pg (27.0-31.0); Mean Corpuscular Volume 90.2 fL (81.0-99.0); Mean Platelet Volume 11.3 fL (7.4-10.4); Nucleated Red Blood Cells % 0 %; Platelet Count 134 10^3/uL (130-400); Red Blood Cell Count 3.07 10^6/uL (4.20-5.40); Red Cell Dist. Width 16.9 % (11.5-14.5); White Blood Cell Count 4.7 10^3/uL (4.8-10.8)
[2024-03-18 07:39] LABS: Blood Urea Nitrogen 7 mg/dl (7-17); Calcium 8.3 mg/dl (8.4-10.2); Carbon Dioxide 24 mmol/L (22-30); Chloride 102 mmol/L (98-107); Estimated Creatinine Clearance 69 ml/min; Glucose 77 mg/dl (70-99); Potassium 3.8 mmol/L (3.5-5.1); Sodium 135 mmol/L (135-145); eGFR > 60.00
[2024-03-18] MEDS: PROTONIX IV 40 MG IV (08:07)
[2024-03-18] MEDS: NSS (PRESERVATIVE FREE) 10 ML IV (08:07)
[2024-03-18] MEDS: CARAFATE 1 GRAM PO (08:07)
[2024-03-18] MEDS: SYNTHROID 100 MCG PO (08:07)
--- NOTE | 2024-03-18 08:25 | W.PN.GI.CBS2 ---
Today's Communication / Plan
-
Hgb stable after recent EGD w/ APC without any further abdominal pain or nausea. Likely related to APC therapy and resolution of prior symptoms. Close outpatient follow-up with both Oncology along with GI. PPI 40 mg BiD along with Carafate as well.
See rest of care as outlined below. GI will sign-off, please recontact with any questions or concerns.
Assessment / Plan
-
Ms. Voss is a 53 y.o female with past medical history of hypothyroidism, cholangiocarcinoma (s/p chemo/radiation therapy, currently on immunotherapy), chronic anemia, and recent EGD 03/04 found to have a non-bleeding gastric ulcer with friable
mucosa (bx with benign reactive gastropathy/vascular ectasia, suspected from prior delayed effects of radiation) who presented with melena and low Hgb on outpatient labs concerning for recurrent UGIB.
#Melena c/f
#Recurrent UGIB
#Recent Gastric Ulcer
#Friable, Oozing Mucosa (felt 2/2 Radiation during recent EGD 03/04/24)
#Acute Blood Loss Anemia
#Chronic POLINA with #Transfusion Dependence
#Hx of Cholangiocarcinoma (s/p XRT last session 12/2023, on immunotherapy)
Impression: Patient presenting with ongoing melena over the past several weeks along with acute on chronic anemia with transfusion dependence found to have a hemoglobin of 6's on outpatient blood work concerning for recurrent GI bleed. Last EGD
03/04/2024 revealed red blood in the gastric antrum, one nonbleeding clean-based gastric ulcer with no stigmata of bleeding, and friable gastric mucosa with mild spontaneous bleeding within the gastric antrum. Biopsies were benign with reactive
gastropathy and vascular ectasia. [place] to be from prior delayed effects of radiation from her cholangiocarcinoma. No other NSAIDs or antiplatelets/anticoagulants. Given her recurrent bleeding she would benefit from a repeat EGD for re-evaluation
along with consideration of Hemospray and/or APC if amenable to endoscopic therapy. Last colonoscopy back on 2021 with a few colon polyps (no report of this), however given her recent EGD revealing active bleeding no concern for a lower GI bleed at
this time. Fortunately, she has responded to 1 unit of blood with appropriate correction and remains hemodynamically stable and would benefit from a repeat endoscopic evaluation.
Hgb remains stable after recent 1 uPRBC on 03/15 with Hgb 8-9s. Still with small amount of melena but remains HD-stable without compensatory tachycardia.
S/p EGD 03/17/24 with multiple bleeding angioectasias within the gastric antrum suspicious for delayed effects from prior radiation, s/p APC for successful hemostasis and non-bleeding, clean-based ulcer within the pre-pyloric/pyloric channel, small
amount of blood in stomach/duodenum, but otherwise grossly unremarkable
Recommendations:
- ADAT to regular diet
- Hgb stable after prior 1 uPRBC this admission with Hgb 8s
- Pantoprazole 40 mg BiD for at least 8 weeks then once daily indefinitely
- Carafate 1 gm qid (at least BiD if able)
- IV iron while inpatient
- Should have a repeat CBC in 1-2 weeks with her Oncologist along with IV iron and serial blood transfusions as needed as well
- Outpatient follow-up with GI for consideration of a repeat EGD with retreatment with APC as needed along with Oncology follow-up after discharge
- Provided patient copies (x2) of procedure report for her Oncologist as well
- Strict avoidance of all NSAIDs
- Rest of care per primary team
Discussed with primary internal medicine team this AM. GI will sign-off, please recontact with any questions or concerns.
Subjective
Subjective
Date of Service: March 18, 2024
- S/p EGD 03/17/24 with multiple bleeding angioectasias within the gastric antrum suspicious for delayed effects from prior radiation, s/p APC for successful hemostasis and non-bleeding, clean-based ulcer within the pre-pyloric/pyloric channel, small
amount of blood in stomach/duodenum, but otherwise grossly unremarkable
- Hgb stable 8s without signs of recurrent bleeding
Feeling much better this morning, denies any further abdominal pain or discomfort. No further nausea or vomiting. Discussed her likely previous discomfort and nausea from prior APC treatment. No further melena or bloody stools.
Objective
Data Reviewed
Laboratory Data:
Laboratory Results
03/18/24 05:51
03/18/24 05:51
Vital Signs and I&O:
Vital Signs
Temp Pulse Resp BP Pulse Ox
99.2 F 87 18 100/66 95
03/18/24 07:17 03/18/24 07:17 03/18/24 07:17 03/18/24 07:17 03/18/24 07:17
I&O
03/17/24 03/18/24 03/19/24
06:59 06:59 06:59
Intake Total 1550 / 1550 1120 / 1120
Balance 1550 / 1550 1120 / 1120
Physical Exam
Physical Exam
HEENT: Anicteric and Moist mucous membranes
Cardiology: Normal Sinus Rhythm
Pulmonary: Clear
GI: Soft, Non Distended and Non Tender
Extremities: No Edema
Neuro: Non Focal
--- NOTE | 2024-03-18 11:19 | W.PN.HOSP.TC ---
Today's Communication/Plan
-
Monitor vitals
See plan
Nausea much improved, hemoglobin stable
Spoke with GI, discharge today
Time of discharge 37 minutes
Assessment / Plan
Assessment / Plan
#Upper GI bleed
#Iron deficiency
#Acute blood loss anemia
#H/O peptic ulcer disease
#H/O Schatzki ring
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
-Recently hospitalized with upper GI bleeding for which she went EGD showing nonbleeding gastric ulcer and signs of GAVE
-Received 2 units of PRBC on that hospital stay, was discharged that had recurrence
Plan
-Continue PPI twice daily. Status post EGD 03/17 with granular and hemorrhagic appearing mucosa in the cardia. Multiple bleeding angiectasia's in the stomach found. Treated with APC. Post EGD patient had episode of vomiting. Now much improved.
On regular diet. Patient to follow-up with GI outpatient
-Trend CBC and transfuse for hemoglobin <7
-IV iron x 5 days for deficiency
-Avoid NSAIDs
-Avoid chemical AC and antiplatelet
Carafate 4 times daily
#Thrombocytopenia
monitor
#Neutropenia
monitor
-Trend CBC and temperature curve
-Consider IV cefepime if fevers present
#Pancytopenia
-Suspect this is multifactorial with POLINA/blood loss anemia, cancer history on immunotherapy s/p chemo
Monitor
-Defer against serological workup for now, should follow-up with oncologist at [place]
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
#Status post chemoradiation
-Follows with Dr. Hines at [facility]
-Status post chemotherapy and radiation
-Remains on immunotherapy
DVT prophylaxis: SCDs
CODE STATUS: Full code
General: Well Developed, No Apparent Distress, Comfortable and Other (Thin appearing)
HEENT: Normocephalic, Atraumatic, Moist Mucous Membranes and Anicteric
Respiratory: Clear to Auscultation and Non Labored Respirations
Cardiac: Regular Rhythm and S1/S2; Negative Murmur, Rub or Gallop
GI: Soft, Nondistended, Normal Bowel Sounds, Tender (Mild, generalized, no peritoneal signs)
Musculoskeletal: No Edema
Neuro: AO x 3 and Nonfocal/Grossly Intact
Psych: Calm
Anticipated Discharge: Today
Subjective/Interval History
-
Date of Service: March 18, 2024
Denies nausea, abdominal pain
Objective Data
-
Labs:
Laboratory Results
03/18/24
05:51
WBC 4.7 L
Hgb 8.8 L
Hct 27.7 L
Plt Count 134
Sodium 135
Potassium 3.8
Chloride 102
Carbon Dioxide 24
BUN 7
Creatinine 0.7
Glucose 77
Calcium 8.3 L
Vital Signs:
Vital Signs
Temp Pulse Resp BP Pulse Ox
99.2 F 87 18 100/66 95
03/18/24 07:17 03/18/24 07:17 03/18/24 07:17 03/18/24 07:17 03/18/24 09:29
I&O
03/17/24 03/18/24 03/19/24
06:59 06:59 06:59
Intake Total 1550 / 1550 1120 / 1120
Balance 1550 / 1550 1120 / 1120
--- NOTE | 2024-03-18 11:23 | W.DCSUMMARY ---
Discharge Summary
Discharge Data
Date of Admission: 03/14/24
Date of Discharge: 03/18/24
-
Pending Results: No
Hospital Course
53-year-old female with past medical history of peptic ulcer disease, Schatzki ring, pancytopenia, cholangiocarcinoma on immunotherapy came to the hospital with upper GI bleed. Patient underwent EGD which showed granular and hemorrhagic appearing
mucosa in the cardia and multiple bleeding angiectasia's which was treated with APC. Patient was seen by GI throughout hospitalization. For her anemia she was also started on IV iron. Over time her symptoms continue to improve and she was able to
tolerate p.o. diet. Once her bleeding stopped and her hemoglobin was stable, she was then discharged home with instructions to follow-up with all her physicians outpatient.
Discharge Plan
-
Patient Disposition: Home (Routine Discharge)
Discharge Diagnosis/Procedures: Recurrent upper GI bleed status post endoscopy
Pancytopenia
Diet: As tolerated
Activity: As tolerated
Driving Restrictions: As prior to admission
Blood Work: CBC next week with primary care provider
Activity Restrictions/Additional Instructions:
Follow-up with oncology soon outpatient
Referrals:
Lilliana Tyler CRNP [Family Provider] - in less than 1 week
Damon Cadet DO [Active] - in four to six weeks
Prescriptions:
New
sucralfate 1 gram Tablet
1 g PO ACHS 30 Days Qty: 120 0RF
Continued
levothyroxine 100 mcg Tablet
100 mcg PO DAILY
docusate sodium [Colace] 100 mg Capsule
100 mg PO DAILYPRN PRN (Reason: constipation)
escitalopram oxalate 5 mg Tablet
5 mg PO HS
ondansetron HCl 8 mg Tablet
8 mg PO DAILYPRN PRN (Reason: nausea)
pantoprazole 40 mg Tablet,Delayed Release (Dr/Ec)
40 mg PO BID Qty: 60 0RF
Discharge Orders:
Discharge Patient (As Directed); Ordered 03/18/24
Ordered By: Salvador Jiménez
Discharge Date and Time
Discharge Date/Time: 03/18/24 13:07
Print Language: BAHAMIAN
[2024-03-18 11:29] VITALS: BP 116/68
--- NOTE | 2024-03-18 14:11 | CM ---
Patient discharged today
No needs
IMM n/a
PLAN: No needs
family to transport
== END 2024-03-18 13:07 | disposition home or self-care (01) | DRG 922 ==
LOC: 2 NORTH 21:26
PROVIDERS: Internal Medicine; Registered Nurse; Student in an Organized Health Care Education/Training Program; ADMITTING PHYSICIAN Hospitalist; ATTENDING PHYSICIAN Internal Medicine; CONSULT PHYSICIAN Student in an Organized Health Care Education/Training Program; EMERGENCY PHYSICIAN Emergency Medicine; FAMILY PHYSICIAN Nurse Practitioner
PROC: 30233N1 Transfusion of Nonautologous Red Blood Cells into Peripheral Vein, Percutaneous Approach (ICD-10-PCS; 2024-03-14)
PROC: 0W3P8ZZ Control Bleeding in Gastrointestinal Tract, Via Natural or Artificial Opening Endoscopic (ICD-10-PCS; 2024-03-17)
DX: T66.XXXA Radiation sickness, unspecified, initial encounter (principal); K25.4 Chronic or unspecified gastric ulcer with hemorrhage; K31.811 Angiodysplasia of stomach and duodenum with bleeding; D61.818 Other pancytopenia; E87.1 Hypo-osmolality and hyponatremia; D62 Acute posthemorrhagic anemia; Z79.890 Hormone replacement therapy; E89.0 Postprocedural hypothyroidism; Z85.05 Personal history of malignant neoplasm of liver; K22.2 Esophageal obstruction; K44.9 Diaphragmatic hernia without obstruction or gangrene; F32.A Depression, unspecified; F41.9 Anxiety disorder, unspecified; Z92.3 Personal history of irradiation; Z92.21 Personal history of antineoplastic chemotherapy; D50.9 Iron deficiency anemia, unspecified; K59.09 Other constipation; Z86.0100 Personal history of colon polyps, unspecified; D69.6 Thrombocytopenia, unspecified; D70.9 Neutropenia, unspecified
CPT/HCPCS: 36430; 71045; 80048; 82607; 82728; 82746; 83540; 83550; 85014; 85018; 85025; 85027; 86850; 86900; 86901; 86920; 96374; 99291; J2916; P9016

== ENCOUNTER 2024-05-14 12:33 | Inpatient (IN) | payer BC, SELFPAY ==
[2024-05-14] VITALS (20 sets, daily range): BP systolic 94–131; BP diastolic 57–86; BMI 20.8; BMI 20.6
--- NOTE | 2024-05-14 07:27 | ED.GENMED ---
History of Present Illness
<Jamin Monroe PA-C - Last Filed: 05/14/24 08:54>
General
Chief Complaint: Vomiting Blood
Source: patient and records
Time Seen by Provider: 05/14/24 07:12
History of Present Illness
History of Present Illness:
53-year-old female with past medical history of cholangiocarcinoma, currently being treated at [facility], presenting to the emergency department for evaluation after she awoke this morning and had 1 episode of hematemesis described to be john
blood with 2 small clots and stating she currently feels lightheaded but otherwise without any further pain or nausea. Patient had similar episode about 2 months ago requiring hospitalization here. She underwent endoscopy and states there was an
area of bleeding but is unable to further elaborate on the findings on the endoscopy. Patient denies any use of anticoagulants. She denies any recent melena or hematochezia. Her last chemo regimen was 2 weeks ago and this was the second dose of
the chemo regimen she is currently on. She notes the first chemo session went well and she was relatively asymptomatic but states this time she feels a little bit more unwell. No reported fevers or any other concerns presently.
Past History
<Jamin Monroe PA-C - Last Filed: 05/14/24 08:54>
Past History
ED Past Medical History: Cancer and Hypothyroidism
ED Past Surgical History: and Other (thyroid sx)
Social History
Tobacco: Non-smoker
Alcohol: None
Drug: None
Personal:
Living: with family
Review of Systems
<Jamin Monroe PA-C - Last Filed: 05/14/24 08:54>
Review of Systems
All Other Systems: ROS reviewed and negative except as documented in HPI and ROS
Phy Exam
<Jamin Monroe PA-C - Last Filed: 05/14/24 08:54>
Physical Exam
Physical Exam:
GENERAL: Alert , in no apparent distress, somewhat pale
EYE: clear conjunctiva b/l
HEAD: NCAT
ENT: mmm.
CARDIAC: Borderline tachycardic rate and rhythm
LUNGS: Clear breath sounds bilaterally, no acute respiratory distress, no wheezes/rales/rhonchi
ABDOMEN: Soft, without focal tenderness, no r/g, no cvat
NEUROLOGICAL: Alert and oriented
SKIN: Warm and dry, skin intact.
MUSCULOSKELETAL: well perfused.
PSYCH: Normal and appropriate interaction.
Scores
<Jamin Monroe PA-C - Last Filed: 05/14/24 08:54>
Heart Failure Risk
Heart Failure Risk Score: Not Applicable
Heart Score for Chest Pain Patients
STEMI patient?: Not applicable
Withdrawal Assessment of Alcohol
Withdrawal Assessment Completed?: Not applicable
Course
<Jamin Monroe PA-C - Last Filed: 05/14/24 08:54>
Orders/Labs/Results
Orders:
Orders
05/14/24 07:23
Pantoprazole [Protonix IV] 80 mg IV NOW STA
05/14/24 07:26
0.9% Sodium Chloride 1000 ml [Nss] 1,000 ml IV BOLUS
05/14/24 07:30
Type+Screen Urgent
Complete Blood Count/With Diff Urgent
Comprehensive Metabolic Panel Urgent
Pantoprazole 80 mg/100 ml Nss [Protonix] 80 mg in 100 ml IV Q10H
05/14/24 07:37
EKG [Electrocardiogram (*1)] Urgent
Reason for Study: Bradycardia / Tachycardia
EKG- Treatment ONCE
05/14/24 07:59
Blood Bank Products [* Blood Bank Products] Urgent
Blood Bank Products: *Packed RBC Leuko(PRBC's)
Quantity: 1
Transfuse Today: Yes
Reason: Bleeding
05/14/24 08:00
Blood Bank Products [* Blood Bank Products] Urgent
Blood Bank Products: *Plt Single Donor Leuko
Quantity: 1
Transfuse Today: Yes
Reason: Thrombocytopenia
05/14/24 08:20
Add On- LAB Routine
Tests Added?: diff for CBC
05/14/24 08:35
HEMATOLOGY CONSULT Routine
Consulting Provider: Rakesh Bonner
Was physician already notified: Yes
Reason for consult: pancytopenia w/ hematemesis, hx/o cholangiocarcinoma, GI req hemonc
05/14/24 08:38
GASTROINTESTINAL CONSULT Routine
Consulting Provider: Cipriano Hayward
Was physician already notified: Yes
Reason for consult: hematemesis
05/14/24 08:40
Protime/PTT Urgent
Comment: REORDERED
Abnormal Lab Results
05/14/24
07:30
WBC 0.2 L* 10^3/uL
(4.8-10.8)
RBC 2.81 L 10^6/uL
(4.20-5.40)
Hgb 8.0 L g/dL
(12.0-16.0)
Hct 24.3 L %
(37.0-47.0)
MCHC 32.9 L g/dL
(33.0-37.0)
RDW 19.9 H %
(11.5-14.5)
Plt Count 14 L* 10^3/uL
(130-400)
Absolute Neuts (auto) 0.0 L* 10^3/uL
(1.4-6.5)
Absolute Lymphs (auto) 0.1 L 10^3/uL
(1.2-3.4)
Absolute Monos (auto) 0.0 L 10^3/uL
(0.1-0.6)
Neutrophils % 15.0 L %
(42.2-75.2)
Lymphocytes % 65.0 H %
(20.5-51.1)
Eosinophils % 15.0 H %
(0-6)
BUN 21 H mg/dl
(7-17)
Glucose 156 H mg/dl
(70-99)
Total Protein 5.7 L g/dl
(6.3-8.2)
05/14/24 07:30
05/14/24 07:30
Vital Signs
Initial and Last Documented VS:
Initial Vital Signs
Temp Pulse Resp BP Pulse Ox
98.3 F 107 20 111/86 100
05/14/24 07:10 05/14/24 07:10 05/14/24 07:10 05/14/24 07:10 05/14/24 07:10
Last Documented Vital Signs
Temp Pulse Resp BP Pulse Ox
98.3 F 93 16 111/86 99
05/14/24 07:10 05/14/24 07:39 05/14/24 07:39 05/14/24 07:10 05/14/24 07:41
Ambulatory Care Nurse consulted with Physician
Ambulatory Care Nurse consulted with physician?: Yes
Name of Physician Consulted: Radha
<Toan Garcia MD - Last Filed: 05/14/24 08:58>
Orders/Labs/Results
Orders:
Orders
05/14/24 07:23
Pantoprazole [Protonix IV] 80 mg IV NOW STA
05/14/24 07:26
0.9% Sodium Chloride 1000 ml [Nss] 1,000 ml IV BOLUS
05/14/24 07:30
Type+Screen Urgent
Complete Blood Count/With Diff Urgent
Comprehensive Metabolic Panel Urgent
Pantoprazole 80 mg/100 ml Nss [Protonix] 80 mg in 100 ml IV Q10H
05/14/24 07:37
EKG [Electrocardiogram (*1)] Urgent
Reason for Study: Bradycardia / Tachycardia
EKG- Treatment ONCE
05/14/24 07:59
Blood Bank Products [* Blood Bank Products] Urgent
Blood Bank Products: *Packed RBC Leuko(PRBC's)
Quantity: 1
Transfuse Today: Yes
Reason: Bleeding
05/14/24 08:00
Blood Bank Products [* Blood Bank Products] Urgent
Blood Bank Products: *Plt Single Donor Leuko
Quantity: 1
Transfuse Today: Yes
Reason: Thrombocytopenia
05/14/24 08:20
Add On- LAB Routine
Tests Added?: diff for CBC
05/14/24 08:35
HEMATOLOGY CONSULT Routine
Consulting Provider: Rakesh Bonner
Was physician already notified: Yes
Reason for consult: pancytopenia w/ hematemesis, hx/o cholangiocarcinoma, GI req hemonc
05/14/24 08:38
GASTROINTESTINAL CONSULT Routine
Consulting Provider: Cipriano Hayward
Was physician already notified: Yes
Reason for consult: hematemesis
05/14/24 08:40
Protime/PTT Urgent
Comment: REORDERED
Abnormal Lab Results
05/14/24
07:30
WBC 0.2 L* 10^3/uL
(4.8-10.8)
RBC 2.81 L 10^6/uL
(4.20-5.40)
Hgb 8.0 L g/dL
(12.0-16.0)
Hct 24.3 L %
(37.0-47.0)
MCHC 32.9 L g/dL
(33.0-37.0)
RDW 19.9 H %
(11.5-14.5)
Plt Count 14 L* 10^3/uL
(130-400)
Absolute Neuts (auto) 0.0 L* 10^3/uL
(1.4-6.5)
Absolute Lymphs (auto) 0.1 L 10^3/uL
(1.2-3.4)
Absolute Monos (auto) 0.0 L 10^3/uL
(0.1-0.6)
Neutrophils % 15.0 L %
(42.2-75.2)
Lymphocytes % 65.0 H %
(20.5-51.1)
Eosinophils % 15.0 H %
(0-6)
BUN 21 H mg/dl
(7-17)
Glucose 156 H mg/dl
(70-99)
Total Protein 5.7 L g/dl
(6.3-8.2)
05/14/24 07:30
05/14/24 07:30
Vital Signs
Initial and Last Documented VS:
Initial Vital Signs
Temp Pulse Resp BP Pulse Ox
98.3 F 107 20 111/86 100
05/14/24 07:10 05/14/24 07:10 05/14/24 07:10 05/14/24 07:10 05/14/24 07:10
Last Documented Vital Signs
Temp Pulse Resp BP Pulse Ox
98.3 F 93 16 111/86 99
05/14/24 07:10 05/14/24 07:39 05/14/24 07:39 05/14/24 07:10 05/14/24 07:41
<Jamin Monroe PA-C - Last Filed: 05/14/24 08:54>
MDM/Problems Addressed
Differential Diagnosis Includes:
Upper GI bleeding, less concern for varices, recurring gastric angioectasias, radiation changes, anemia
MDM/Problems Addressed:
53-year-old female with past medical history of cholangiocarcinoma, currently undergoing chemotherapy at [facility], history of bleeding angioectasia and a nonbleeding gastric ulcer on last endoscopy based off of record review. Patient states she
had been feeling better since her discharge from the hospital back in February. Currently without pain. Only expressing feels a little bit lightheaded at present time. Will check labs including type and screen. Protonix initiated. Will consult
with GI. Anticipate admission
Chronic conditions affecting care: Cancer
<Jamin Monroe PA-C - Last Filed: 05/14/24 08:54>
*Pulse Oximetry
Patient hypoxic: no
*Critical Care Note
Total Time (30-74mins, 75-104mins- exclusive of procedures): Not Applicable
Data Reviewed
Review of Other/Old Records Reveals: Labs, Records and Testing
Source: patient and records
<Jamin Monroe PA-C - Last Filed: 05/14/24 08:54>
Patient Management
Discussion with other providers: Hospitalist and [employer]
Escalation/DeEscalation of care consider admission/obs:
7:25 AM: Discussed with GI about initiation of octreotide given the upper GI bleed. Will hold at this time given GI states this is to prevent rebleeding with angioectasia as opposed to acute bleeding. Awaiting labs with plan to admit to
hospitalist service.
Hospitalist team notified and accepts for continued evaluation and treatment. Hematology team to be consulted as well. Patient remains hemodynamically stable.
ED Attending Note
<Jamin Monroe PA-C - Last Filed: 05/14/24 08:54>
-
Portions of this chart may have been created with voice recognition software.� Occasional wrong word or��sound alike� substitutions may have occurred due to the inherent limitations of voice recognition software.
<Toan Garcia MD - Last Filed: 05/14/24 08:58>
ED Attending Note
Patient seen and examined by attending physician: Yes
ED Attending Note:
Patient history of cholangiocarcinoma, presents to ED for evaluation, after waking up this morning with abdominal pain. Patient went to the bathroom and had a large bowel movement, when she experienced abdominal pain proceeded by 3 episodes of
vomiting, containing bright red blood. Since then, abdominal pain is resolved. Denies fever or chills. Denies chest pain or shortness of breath. Denies dizziness. Denies chest pain or shortness of breath. Denies headache. Patient
unfortunately has had similar episode in the past, requiring hospitalization during which time she received endoscopy.
Physical Exam
General: no apparent distress, not acutely ill. afebrile. pale appearing
Head: nc/at. eomi
Neck: supple. normal range of motion. normal posterior pharynx
Heart: s1/s2 regular rate and rhythm, no murmur.
Lungs: no acute respiratory distress. clear bilaterally
Abdomen: normal bowel sounds. not tender.
Neuro: alert and oriented x 3. no focal neurological deficits
Skin: no rash
Psychiatric: well kept. interactive and cooperative
Extremities: no edema. no calf tenderness.
Endoscopy result from previous admission reviewed.
History and exam consistent with hematemesis, potentially secondary to recent chemotherapy treatment versus exacerbation of previously identified gastric ulcer. Patient will be started on Protonix infusion. Patient may benefit from blood
transfusion as well.
Discussed with on-call GI physician who does not recommend octreotide infusion at this time.
Blood transfusion consent on the chart.
Discharge Plan
Departure
Patient Disposition: Admit
Date of Disposition: 05/14/24
Time of Disposition: 08:30
Presentation/result/management discussed w/ accepting MD/DO: Hospitalist
Discharge Problem:
Acute upper gastrointestinal bleeding
Prescriptions:
No Action
levothyroxine 100 mcg Tablet
100 mcg PO DAILY
docusate sodium [Colace] 100 mg Capsule
100 mg PO DAILYPRN PRN (Reason: constipation)
escitalopram oxalate 5 mg Tablet
5 mg PO HS
ondansetron HCl 8 mg Tablet
8 mg PO DAILYPRN PRN (Reason: nausea)
pantoprazole 40 mg Tablet,Delayed Release (Dr/Ec)
40 mg PO BID Qty: 60 0RF
sucralfate 1 gram Tablet
1 g PO ACHS 30 Days Qty: 120 0RF
Interventions
Interventions:
*Risk Screen - Suicide Last Done: 05/14/24 07:10
*General Assessment Last Done: 05/14/24 07:10
*Neglect/Abuse Screening Last Done: 05/14/24 07:39
*ED- Fall Risk Assessment Last Done: 05/14/24 07:39
*ED COVID-19 Vaccine History Last Done: 05/14/24 07:39
WG-Gjiscl-Arydyxillt Assessment Last Done: 05/14/24 07:42
ED- Cardiac Assessment Last Done: 05/14/24 07:41
ED- Pulmonary Assessment Last Done: 05/14/24 07:41
Discharge Date and Time
Print Language: HONG KONGER
[2024-05-14 07:50] LABS: Hematocrit 24.3 % (37.0-47.0); Mean Corp Hgb Conc. 32.9 g/dL (33.0-37.0); Mean Corpuscular Hgb 28.5 pg (27.0-31.0); Mean Corpuscular Volume 86.5 fL (81.0-99.0); Platelet Count 14 10^3/uL (130-400); Red Blood Cell Count 2.81 10^6/uL (4.20-5.40); Red Cell Dist. Width 19.9 % (11.5-14.5); White Blood Cell Count 0.2 10^3/uL (4.8-10.8)
[2024-05-14] MEDS: NSS 1000 IV ×2 (07:50→15:47)
[2024-05-14 07:53] LABS: ALT (SGPT) 21 U/L (0-35); AST (SGOT) 28 U/L (14-36); Albumin 3.8 g/dl (3.5-5.0); Alkaline Phosphatase 84 U/L (38-126); Blood Urea Nitrogen 21 mg/dl (7-17); Calcium 8.7 mg/dl (8.4-10.2); Carbon Dioxide 25 mmol/L (22-30); Chloride 105 mmol/L (98-107); Estimated Creatinine Clearance 61 ml/min; Glucose 156 mg/dl (70-99); Potassium 3.6 mmol/L (3.5-5.1); Sodium 139 mmol/L (135-145); Total Bilirubin 0.9 mg/dl (0.2-1.3); Total Protein 5.7 g/dl (6.3-8.2); eGFR > 60.00
[2024-05-14 08:38] LABS: Absolute Lymphocytes 0.1 10^3/uL (1.2-3.4); Nucleated Red Blood Cells % 0 %
--- NOTE | 2024-05-14 09:21 | CON.ONC ---
Impression
Impression
Severe pancytopenia, 2* chemotherapy
Stage IV cholangiocarcinoma, patient has been treated at multiple institutions including [facility], [facility], and currently [facility]
Hematemesis
Plan
Plan
Patient being transfused with both 1 unit platelets and 1 unit PRBCs for severe thrombocytopenia and anemia with GI bleed.
Her hematemesis seems to have improved. Patient tells me she had previous GI bleed and it may have been partially related to prior radiation exacerbated by thrombocytopenia.
At this point supportive care as you are doing with supportive care, transfusion support, and GI consultation.
Obviously her FOLFOX chemotherapy will need to be dose adjusted or completely changed to a different regimen because of the severe pancytopenia that resulted from her second cycle of treatment.
No role for inpatient G-CSF as patient was given Neulasta.
Patient History
History of Present Illness
Chief Complaint: Hematemesis
HPI: 53-year-old female with ST IV cholangiocarcinoma, currently being treated at [facility], presenting to the emergency department for evaluation with 1 episode of hematemesis feeling lightheaded but otherwise without pain or nausea. Patient had
similar episode about 2 months ago requiring hospitalization and underwent endoscopy. She is noted to be severely pancytopenic. She was treated last week (Saturday 05/06) with cycle #2 of FOLFOX chemotherapy being administered at [facility] in
[place]. She previously was treated at [facility] and [facility] more locally. She previously was treated with cisplatin + gemcitabine + Durvalumab. She also had previous radiation. Because of her young age and wishes to be aggressive, she reached out to the
[facility] team because she was hoping to be eligible for a clinical research trial but unfortunately with anemia was not eligible. She did receive Neulasta on 05/08.
Since presentation and being given IV fluid she is feeling better and has had no recurrent hematemesis. A platelet transfusion was ordered and is about to be administered.
Past-Medical/Surgical History
PMH: Cholangiocarcinoma, hypothyroidism
PSH: and thyroidectomy
Social History
Tobacco: Non-smoker
Alcohol: None
Drug: None
Personal:
Living: with family
Patient Medication
�Medication �Instructions �Recorded �Confirmed �Last Taken �Type
escitalopram oxalate 5 mg tablet 5 mg PO HS Mental Health/Anxiety 02/29/24 05/14/24 05/13/24 History
ondansetron HCl 8 mg tablet 8 mg PO DAILYPRN PRN nausea 02/29/24 05/14/24 05/12/24 History
pantoprazole 40 mg tablet,delayed 40 mg PO BID #60 tabs 03/01/24 05/14/24 05/13/24 Rx
release
levothyroxine 100 mcg tablet 100 mcg PO DAILY 05/14/24 05/14/24 05/14/24 History
(Synthroid)
sucralfate 1 gram tablet 1 g PO BID 05/14/24 05/14/24 05/13/24 History
Active Medications
Generic Name Dose Route Start Last Admin
Trade Name Freq PRN Reason Stop Dose Admin
Pantoprazole Sodium 80 mg in 100 mls @ 10 mls/hr 05/14/24 07:30
Protonix IV
Q10H MOHIT
8 MG/HR
Physical Exam
-
General: Well Developed, Well Nourished, No Apparent Distress and Comfortable
HEENT: Negative Jaundice
Cardiology: Normal Sinus Rhythm, S1 and S2
Pulmonary: Clear
GI: Soft and Normal Bowel Sounds
Extremities: No C/C/E
Skin: Warm
Labs
Lab Results
WBC 0.2 10^3/uL (4.8-10.8) L* 05/14/24 07:30
RBC 2.81 10^6/uL (4.20-5.40) L 05/14/24 07:30
Hgb 8.0 g/dL (12.0-16.0) L 05/14/24 07:30
Hct 24.3 % (37.0-47.0) L 05/14/24 07:30
MCV 86.5 fL (81.0-99.0) 05/14/24 07:30
MCH 28.5 pg (27.0-31.0) 05/14/24 07:30
MCHC 32.9 g/dL (33.0-37.0) L 05/14/24 07:30
RDW 19.9 % (11.5-14.5) H 05/14/24 07:30
Plt Count 14 10^3/uL (130-400) L* 05/14/24 07:30
MPV Not Reportable 05/14/24 07:30
Abs Immat Gran (auto) 0.0 10^3/uL (0-0.05) 05/14/24 07:30
Absolute Neuts (auto) 0.0 10^3/uL (1.4-6.5) L* 05/14/24 07:30
Absolute Lymphs (auto) 0.1 10^3/uL (1.2-3.4) L 05/14/24 07:30
Absolute Monos (auto) 0.0 10^3/uL (0.1-0.6) L 05/14/24 07:30
Absolute Eos (auto) 0.0 10^3/uL (0-0.7) 05/14/24 07:30
Absolute Basos (auto) 0.0 10^3/uL (0-0.2) 05/14/24 07:30
Immature Gran % 0.0 % (0-0.5) 05/14/24 07:30
Neutrophils % 15.0 % (42.2-75.2) L 05/14/24 07:30
Lymphocytes % 65.0 % (20.5-51.1) H 05/14/24 07:30
Monocytes % 5.0 % (1.7-9.3) 05/14/24 07:30
Eosinophils % 15.0 % (0-6) H 05/14/24 07:30
Basophils % 0.0 % (0-2) 05/14/24 07:30
Creatinine 0.8 mg/dL (0.6-1.0) 05/14/24 07:30
Vital Signs
Vital Signs
Temp Pulse Resp BP Pulse Ox
98.3 F 93 16 111/86 99
05/14/24 07:10 05/14/24 07:39 05/14/24 07:39 05/14/24 07:10 05/14/24 07:41
[2024-05-14 09:32] LABS: INR 1.35; PT 17.2 Sec (11.4-14.6)
--- NOTE | 2024-05-14 09:56 | HPS.HSE ---
Family Physician
-
Family Physician: Uriel Yanes
Chief Complaint
-
Hematemesis
History of Present Illness
Ms. Voss is a 53-year-old female with medical history of peptic ulcer disease, Schatzki ring, stage IV cholangiocarcinoma (on immunotherapy at [facility] [place] in [place]), and pancytopenia who presents with recurrent upper GI bleeding. She
experienced 2 episodes of hematemesis this morning totaling approximately 10 ounces of john red blood. She was recently hospitalized here 2 months ago where she was evaluated for upper GI bleed and underwent upper endoscopy with findings of
hemorrhagic appearing mucosa in the cardia and multiple bleeding angiectasia's which were treated with APC. She had recent follow-up with GI in the outpatient setting this past week and has had no recurrent symptoms until today. She is not
experiencing any current pain or nausea.
In the ED, her blood pressure was low but stable with a systolic around 110 which is consistent with her recent baseline. She was in sinus rhythm with controlled rate. She was afebrile and saturating appropriately on room air. Her labs were
revealing of pancytopenia including WBC 0.2, hemoglobin 8.0, and platelets of 14,000 all of which are likely related to her ongoing cancer treatments. Her chemistry panel was generally unremarkable. She was transfused 1 unit of PRBCs and 1 unit of
platelets in the ED. She has been admitted for further evaluation and management of hematemesis.
Medical History
Past Medical History
Past Medical History: Reports Cancer (Stage IV cholangiocarcinoma), Hypothyroidism, Psychiatric (Depression) and Other (Upper GI bleeding)
Past Surgical History: Reports Other (Thyroidectomy)
Social History
Tobacco: Non-smoker
Alcohol: None
Drug: None
Family History
Family History: Not pertinent
Allergies / Home Medications
Allergies reflects when Allergies were last updated in [facility].
Home Medications with original date entered in [facility]
Allergy/Medication List:
Allergies
Allergy/AdvReac Type Severity Reaction Status Date / Time
No Known Allergies Allergy Verified 05/14/24 07:11
Home Medications
escitalopram oxalate 5 mg tablet 5 mg PO HS Mental Health/Anxiety 02/29/24
ondansetron HCl 8 mg tablet 8 mg PO Q8HPRN PRN nausea 02/29/24
pantoprazole 40 mg tablet,delayed release 40 mg PO BID #60 tabs 03/01/24
levothyroxine 100 mcg tablet (Synthroid) 100 mcg PO DAILY Thyroid 05/14/24
sucralfate 1 gram tablet 1 g PO BID Gastrointestinal Issue 05/14/24
Review of Systems
-
History Source: Patient
A 12 point ROS was completed and negative except as noted: Yes
Physical Exam
Vital Signs
Vital Signs
Temp Pulse Resp BP Pulse Ox
98.0 F 79 12 117/64 99
05/14/24 09:41 05/14/24 09:41 05/14/24 09:41 05/14/24 09:41 05/14/24 09:41
Physical Exam
General: No Apparent Distress
Laboratory Results
-
05/14/24 07:30
05/14/24 07:30
Laboratory Results
PT Cancelled 05/14/24 07:30
INR Cancelled 05/14/24 07:30
APTT Cancelled 05/14/24 07:30
Total Bilirubin 0.9 mg/dl (0.2-1.3) 05/14/24 07:30
AST 28 U/L (14-36) 05/14/24 07:30
ALT 21 U/L (0-35) 05/14/24 07:30
Alkaline Phosphatase 84 U/L (38-126) 05/14/24 07:30
Impression/Plan
-
General: No Apparent Distress, Comfortable and Conversant
HEENT: NormoCephalic, Moist mucous membranes, Atraumatic
Respiratory: Clear and Non Labored Respirations
Cardiac: S1/S2 and Regular Rhythm; No Rub or Gallop
GI: Soft, Non Tender, Non Distended and Normal Bowel Sounds
Musculoskeletal: No Edema, no deformity
: NO Mckeon
Neuro: Awake, Alert, AO x 3 and Nonfocal/grossly intact
Psych: Calm and Intact Judgment/Insight
Ms. Voss is a 53-year-old female with medical history of peptic ulcer disease, Schatzki ring, stage IV cholangiocarcinoma (on immunotherapy at [facility] in [place]), and pancytopenia who presents with recurrent upper GI bleeding. She
experienced 2 episodes of hematemesis this morning totaling approximately 10 ounces of john red blood. She was recently hospitalized here 2 months ago where she was evaluated for upper GI bleed and underwent upper endoscopy with findings of
hemorrhagic appearing mucosa in the cardia and multiple bleeding angiectasia's which were treated with APC. She had recent follow-up with GI in the outpatient setting this past week and has had no recurrent symptoms until today. She is not
experiencing any current pain or nausea.
In the ED, her blood pressure was low but stable with a systolic around 110 which is consistent with her recent baseline. She was in sinus rhythm with controlled rate. She was afebrile and saturating appropriately on room air. Her labs were
revealing of pancytopenia including WBC 0.2, hemoglobin 8.0, and platelets of 14,000 all of which are likely related to her ongoing cancer treatments. Her chemistry panel was generally unremarkable. She was transfused 1 unit of PRBCs and 1 unit of
platelets in the ED. She has been admitted for further evaluation and management of hematemesis.
Hematemesis:
-Suspect recurrent bleeding from known hemorrhagic gastric mucosa
-Continue high-dose IV PPI
-Transfuse 1 unit PRBCs and 1 unit platelets in the ED considering pancytopenia in the setting of ongoing cancer treatments
-Maintain n.p.o.
-GI consult
Pancytopenia:
-Believe secondary to ongoing cancer treatments
-Initial labs showing WBC 0.2, hemoglobin 8.0, and platelets 14,000
-Was transfused 1 unit platelets and 1 unit of PRBCs in the ED
-Received Neulasta as outpatient, no need for inpatient G-CSF
-Heme-onc following, appreciate input
Cholangiocarcinoma:
-Stage IV
-Currently following at [facility] in [place] for ongoing treatment
-Inpatient heme-onc following
CODE STATUS: Full code
[2024-05-14 10:13] LABS: APTT < 20.0 Sec (23.4-35.0)
--- NOTE | 2024-05-14 12:19 | CON.GI ---
Addendum entered and electronically signed by Cipriano Hayward MD 05/14/24 19:30:
The patient was seen and examined by me independently in collaboration with the nurse practitioner.
Past medical history/social history/medications/allergies/family history reviewed.
Lab data and imaging data reviewed.
This is a 53-year-old female past medical history of cholangiocarcinoma status post chemoradiation currently on clinical trial getting chemotherapy last dose Sunday last radiation was in December, presenting with hematemesis. Of note, patient had
admission back in February 2024 when she had dark stool and drop in hemoglobin. She underwent 2 upper endoscopies first with Dr. Stuart March 04 with severe gastritis and friable mucosa with no intervention done. 1 gastric ulcer seen that was
clean-based. Blood was seen as well. Thought likely due to radiation changes. She had a repeat endoscopy done March 17 she was remitted with ongoing bleeding with Dr. Cadet who performed argon plasma coagulation in the stomach. I reviewed the
images of both upper endoscopies and there was severe gastritis and inflammation with bleeding throughout.
As above, she had 3 episodes of hematemesis this morning. I discussed with the emergency room this morning. This has since resolved. Her hemoglobin was 8 but her white blood cell count was 0.2 and her platelets were 14. This is likely due to the
sequela of her chemotherapy. Platelets have been transfused. I discussed with oncology who agrees with holding on endoscopy at this time given her severe pancytopenia. She most likely has recurrent gastritis which is now worsened in the setting
of her thrombocytopenia. Perhaps once her platelets improved, the bleeding will stop without GI intervention. For now, continue PPI and Carafate, I will advance her diet to clear liquids, trend hemoglobin, further recommendations pending clinical
course. Of note, patient has updated her oncology team.
Original Note:
Consultation
-
Date/Time Consultation Requested: 05/14/24 0830
Date/Time Consultation Performed: 05/14/24 1330
Requesting Provider: Desean Preciado DO
Performing Provider: ASHLY Blake, Molly Hayward MD
Reason for Consultation: hematemesis
Medical History
Chief Complaint / HPI
Chief Complaint: vomiting blood
History of Present Illness:
Ms. Voss is a 53 y.o female with past medical history of hypothyroidism with prior thyroidectomy, cholangiocarcinoma-diagnosed August 2022- stage IV with care at [facility] (s/p chemo/radiation therapy/ immunotherapy-- last dose 05/06 cycle 2 folfox
chemo with clinical trial drug at [facility] in [place]. She also has neulasta 05/08 and prior treatment at [facility] and [facility]), chronic anemia, and prior work up in February with rectal bleeding with noted EGD 03/04 found to have a non-bleeding gastric
ulcer with friable mucosa (bx with benign reactive gastropathy/vascular ectasia, suspected from prior radiation). She had repeat EGD 03/17/24 with normal esophagus, granular and hemorrhagic cardia, multiple bleeding angioectasia in stomach found in
antrum, c/w delayed effect from radiation. s/p APC. Non bleeding gastric ulcer with clean base forest III bx not done. She now presents with 2 episode of hematemesis. On admission noted with WBC 0.2, platelets 14,000, hbg 8, ANC 0.0 with stable
chemistry. Last hbg 9.7 on 05/06. She also receives IV iron with her chemo. She has also been on Protonix BID and carafate BID with follow up 05/08 completed in GI office with plan for hold EGD with chemo.
At this time pt admits vomited this am with 3 episode totaling about 1 cup. Along with vomiting she admits to constipation with miralax use and brown diarrhea prior to admission. She also has some nausea with use of Zofran for chemo course. She
otherwise admits to some decreased appetite, wt loss, mild odynophagia right throat with chemo but no abdominal pain, blood or black in stools. Denies NSAID or ETOH use.
Past Medical History
Past Medical History: Hypothyroidism and Other (Cholangiocarcinoma stage IV- current chemo- folfox with clinical trial drug, Chronic Constipation, anemia, GI bleed- AVM's prior radiation related PUD)
Past Surgical History: Other (, thyroidectomy for CA)
Social History
Tobacco: Non-Smoker
Alcohol: None
Drug: None
Personal:
Living: With Family
Family History
Family History: Reviewed & Not Pertinent
Allergies / Home Medications
Allergy/AdvReac Type Severity Reaction Status Date / Time
No Known Allergies Allergy Verified 05/14/24 07:11
�Medication �Instructions �Recorded
escitalopram oxalate 5 mg tablet 5 mg PO HS Mental Health/Anxiety 02/29/24
ondansetron HCl 8 mg tablet 8 mg PO Q8HPRN PRN nausea 02/29/24
pantoprazole 40 mg tablet,delayed 40 mg PO BID #60 tabs 03/01/24
release
levothyroxine 100 mcg tablet 100 mcg PO DAILY Thyroid 05/14/24
(Synthroid)
sucralfate 1 gram tablet 1 g PO BID Gastrointestinal Issue 05/14/24
Review of Systems
-
History Source: Patient
Constitutional: Reports Weight Loss
EENT: Reports Sore Throat (mild right side )
Respiratory: Reports No Symptoms
Abdomen/GI: Reports Nausea, Vomiting (hematemesis ), Diarrhea (x1 prior to admission) and Constipated
: Reports No Symptoms
Musculoskeletal: Reports No Symptoms
Skin: Reports No Symptoms
Neurological: Reports No Symptoms
Endocrine: Reports No Symptoms
Hematologic/Lymphatic: Reports Bleeding
Vital Signs
Temp Pulse Resp BP Pulse Ox
98.1 F 86 13 99/57 97
05/14/24 11:23 05/14/24 11:23 05/14/24 11:23 05/14/24 11:23 05/14/24 11:23
Physical Exam
Exam
General: Well Developed, Well Nourished and No Apparent Distress
HEENT: Normocephalic and Anicteric
Respiratory: Clear
Cardiac: Regular Rhythm
GI: Soft, Non Tender and Non Distended
Musculoskeletal: No Clubbing and No Cyanosis
Skin: Warm and Dry
Neuro: Awake, Alert and AO x 3
Psych: Calm
Results
WBC 0.2 10^3/uL (4.8-10.8) L* 05/14/24 07:30
Hgb 8.0 g/dL (12.0-16.0) L 05/14/24 07:30
Hct 24.3 % (37.0-47.0) L 05/14/24 07:30
MCV 86.5 fL (81.0-99.0) 05/14/24 07:30
Plt Count 14 10^3/uL (130-400) L* 05/14/24 07:30
Absolute Neuts (auto) 0.0 10^3/uL (1.4-6.5) L* 05/14/24 07:30
PT 17.2 Sec (11.4-14.6) H 05/14/24 09:04
INR 1.35 05/14/24 09:04
APTT < 20.0 Sec (23.4-35.0) L 05/14/24 09:04
Sodium 139 mmol/L (135-145) 05/14/24 07:30
Potassium 3.6 mmol/L (3.5-5.1) 05/14/24 07:30
Chloride 105 mmol/L (98-107) 05/14/24 07:30
Carbon Dioxide 25 mmol/L (22-30) 05/14/24 07:30
BUN 21 mg/dl (7-17) H 05/14/24 07:30
Creatinine 0.8 mg/dL (0.6-1.0) 05/14/24 07:30
Calcium 8.7 mg/dl (8.4-10.2) 05/14/24 07:30
Total Bilirubin 0.9 mg/dl (0.2-1.3) 05/14/24 07:30
AST 28 U/L (14-36) 05/14/24 07:30
ALT 21 U/L (0-35) 05/14/24 07:30
Alkaline Phosphatase 84 U/L (38-126) 05/14/24 07:30
Diagnostic Image Results:
CT Abd/pelvis 02/11/24 revealed edematous and inflamed appearance of the gastric antrum and proximal duodenum suggestive of gastritis/duodenitis, possibly sequela of recent therapy along with a large ill-defined and rim-enhancing necrotic mass
within the L hepatic lobe consistent with patient's history of cholangiocarcinoma
Prior GI Procedures:
EGD: 03/04/2024 which revealed red blood in the gastric antrum, one non-bleeding clean-based superficial gastric ulcer, and diffuse severely friable mucosa with spontaneous bleeding found in the gastric antrum (biopsies benign with reactive
gastropathy/vascular extasia) along with a small hiatal hernia and a mild Schatzki's ring. Her endoscopic findings were felt to be related to delayed effects of radiation.
EGD stone 03/17/2024- - Normal proximal esophagus, mid esophagus and distal
esophagus.
- Z-line regular, 36 cm from the incisors.
- Granular and hemorrhagic appearing mucosa in the
cardia.
- Multiple bleeding angioectasias in the stomach found
in the gastric antrum. Endoscopically, consistent with
delayed effects from prior radiation. Treated with
argon plasma coagulation (APC) with successful
hemostasis.
- Non-bleeding gastric ulcer with a clean ulcer base
(Vadim Class III). Not biopsied due to active
bleeding and previously biopsied during prior EGD.
- Otherwise, normal stomach on direct and retroflexion
views.
- Blood in the duodenal bulb.
- Otherwise, normal duodenum up to the third portion
- The examination was otherwise normal.
- No specimens collected.
Colonoscopy: 2021 (had a few polyps)
Assessment / Plan
-
Ms. Voss is a 53 y.o female with past medical history of hypothyroidism prior thyroidectomy, cholangiocarcinoma-diagnosed August 2022- stage IV with care at [facility] (s/p chemo/radiation therapy/ immunotherapy-- last dose 05/06 cycle 2 folfox chemo
with clinical trial drug at [facility] in [place]. She also has neulasta 05/08 and prior treatment at [facility] and [facility]), chronic anemia, and prior work up in February with rectal bleeding with noted EGD 03/04 found to have a non-bleeding gastric ulcer
with friable mucosa (bx with benign reactive gastropathy/vascular ectasia, suspected from prior radiation). She had repeat EGD 03/17/24 with normal esophagus, granular and hemorrhagic cardia, multiple bleeding angioectasia in stomach found in antrum,
c/w delayed effect from radiation. s/p APC. Non bleeding gastric ulcer with clean base forest III bx not done. She now presents with 2 episode of hematemesis. On admission noted with WBC 0.2, platelets 14,000, hbg 8, ANC 0.0 with stable chemistry.
Last hbg 9.7 on 05/06. She also receives IV iron with her chemo. She has also been on Protonix BID and carafate BID with follow up 05/08 completed in GI office with plan for hold EGD with chemo.
-hematemesis
-pancytopenia/neutropenia
-cholangio CA stage IV hx chemo/rad/immunotherapy current [facility] with Folfox and clinical trial drug 05/06 with Neulasta 05/08
-anemia with period iron infusion prior to admission
-hx GI bleed February with rectal bleeding- multiple angioectasia, PUD
-thyroid CA with thyroidectomy/hypothyroidism
PLAN:
etiology of bleeding related to hx angioectasia possible radiation related, PUD, esophagitis with mild odynophagia in setting of severe pancytopenia with platelets down to 14,000
agree with heme eval- transfusion/blood and platelets
follow counts -- appreciate heme for transfusion management
no bleeding since 6:30 am will trial sips clears no reds
will review with Dr. Hayward for clinical monitoring vs need for repeat EGD when counts improve
add protonix BID
cont carafate
will follow
-
-
Thank you for consultation and allowing me to participate in the patient's care. Please call the orthodontic lab technician GI physician during the after hours with any questions or concerns.
[2024-05-14] MEDS: PROTONIX IV 80 MG IV (15:43)
--- NOTE | 2024-05-14 16:55 | PTCARENOTE ---
Pt arrived to [facility] at 1600. Pt. walked from stretcher to bed. Pt. AAOX3, oriented to room. Will continue with ongoing plan of care.
[2024-05-14] MEDS: PROTONIX IV 40 MG IV (20:39)
[2024-05-14] MEDS: NSS (PRESERVATIVE FREE) 10 ML IV (20:40)
[2024-05-14] MEDS: CARAFATE 1 GRAM PO (20:42)
[2024-05-14 20:45] LABS: Hemoglobin 7.9 g/dL (12.0-16.0)
[2024-05-14] MEDS: XANAX 0.25 MG PO (23:14)
[2024-05-15] VITALS (13 sets, daily range): BP systolic 98–125; BP diastolic 50–72; BMI 20.6
[2024-05-15] MEDS: NSS 1000 IV (04:16)
[2024-05-15] MEDS: TYLENOL 650 MG PO ×3 (04:34→20:38)
[2024-05-15] MEDS: SYNTHROID 100 MCG PO (04:34)
--- NOTE | 2024-05-15 04:35 | PTCARENOTE ---
pt with 101.1 oral temp. NUCLEAR EQUIPMENT TEST ENGINEER covering house contacted. Electronic order received for 1x dose of tylenol (refer to APR)
[2024-05-15 05:33] LABS: % Eosinophils 9.1 % (0-6); % Lymphocytes 72.7 % (20.5-51.1); % Monocytes 9.1 % (1.7-9.3); % Neutrophils 9.1 % (42.2-75.2); Absolute Lymphocytes 0.1 10^3/uL (1.2-3.4); Hematocrit 21.1 % (37.0-47.0); Hemoglobin 7.1 g/dL (12.0-16.0); Mean Corp Hgb Conc. 33.6 g/dL (33.0-37.0); Mean Corpuscular Hgb 28.7 pg (27.0-31.0); Mean Corpuscular Volume 85.4 fL (81.0-99.0); Nucleated Red Blood Cells % 0 %; Platelet Count 13 10^3/uL (130-400); Red Blood Cell Count 2.47 10^6/uL (4.20-5.40); Red Cell Dist. Width 17.3 % (11.5-14.5); White Blood Cell Count 0.1 10^3/uL (4.8-10.8)
--- NOTE | 2024-05-15 05:41 | PTCARENOTE ---
Critical lab value communicated to ASHLY alexander.
[2024-05-15 05:52] LABS: Blood Urea Nitrogen 17 mg/dl (7-17); Calcium 7.3 mg/dl (8.4-10.2); Carbon Dioxide 23 mmol/L (22-30); Chloride 111 mmol/L (98-107); Estimated Creatinine Clearance 81 ml/min; Glucose 96 mg/dl (70-99); Potassium 3.8 mmol/L (3.5-5.1); Sodium 139 mmol/L (135-145); eGFR > 60.00
[2024-05-15] MEDS: CALCIUM GLUCONATE 100 IV (06:14)
--- NOTE | 2024-05-15 08:08 | W.PN.ONC2 ---
Today's Communication / Plan
-
.
Impression
Impression
Severe pancytopenia, 2* chemotherapy
neutropenic fever
Stage IV cholangiocarcinoma, patient has been treated at multiple institutions including [facility], [facility], and currently [facility] -on clinical trial, last dose 05/13, completed XRT 12/2023
Hematemesis/GIB
Plan
Plan
transfuse Hgb <7g/dL, platelets <20 with neutropenic fever, <50 if bleeding. s/p 1Unit PRBC and 1U SDP 05/14. Agree with another Unit PRBC and I will order 1U SDP.
neutropenic precautions
avoid NSAIDS, antiplatelet, anticoagulation with platelet count <50
GI following
discussed neutropenic fever with hospitalist who is planning infectious work up, broad spectrum abx, and ID consult
trial drug +FOLFOX may need adjusted based on cytopenias. Pt has been in contact with her trial coordinator
No role for inpatient G-CSF as patient was given Neulasta.
Subjective/Objective
Subjective
developing nasal congestion. denies cough or SOB. denies n/v/d or abdominal pain
Tmax 101.1F
denies overt bleeding
Vital Signs:
Vital Signs
Temp Pulse Resp BP Pulse Ox
99.8 F 90 17 98/58 97
05/15/24 07:31 05/15/24 07:31 05/15/24 07:31 05/15/24 07:31 05/15/24 07:31
Lab Results:
Laboratory Data
WBC 0.1 10^3/uL (4.8-10.8) L* 05/15/24 04:57
Hgb 7.1 g/dL (12.0-16.0) L 05/15/24 04:57
Plt Count 13 10^3/uL (130-400) L* 05/15/24 04:57
PT 17.2 Sec (11.4-14.6) H 05/14/24 09:04
INR 1.35 05/14/24 09:04
APTT < 20.0 Sec (23.4-35.0) L 05/14/24 09:04
eGFR > 60.00 05/15/24 04:57
Physical Exam
General: Well Developed, Well Nourished, No Apparent Distress and Comfortable
HEENT: Negative Jaundice
Cardiology: Normal Sinus Rhythm, S1 and S2
Pulmonary: Clear
GI: Soft and Normal Bowel Sounds
Extremities: No C/C/E
Skin: Warm
--- NOTE | 2024-05-15 08:33 | PHA.VAN.IN ---
Assessment
- Assessment
Renal Function: Appears similar to baseline
Concomitant Antimicrobials: piperacillin/tazobactam
AUC Dosing Plan
- Dosing Variables
Dosing Weight (kg): 49
Dosing CrCl (ml/min): 81
Vd coefficient (L/kg): 0.8
Used higher Vd coefficient as patients with cancer can have enhanced clearance of vancomycin (Pharmacotherapy. 2019;40(95):6845-3962)
Anticipate patient to have higher clearance than population PK predicts
- Empiric Dosing
Initial / Loading Dose: 1000mg - administer after blood cultures collected
Maintenance Regimen: Vanc 750mg Q12H starting at 1800
Estimated AUC (mcg*h/mL): 553
Estimated Peak (mcg*h/mL): 33.2
Estimated Trough (mcg/ml): 15.1
Estimated Half Life (H): 9.7
- Monitoring
No levels ordered at this time: consider levels in next few days
MRSA Screen: Ordered per protocol
Pharmacokinetics Vancomycin I
- -
Patient Age: 53
Patient Sex: Female
Vancomycin Day #: 1
Indication: Neutropenic Fever
Requesting Provider: Dr. Newby
Pertinent Antimicrobial Allergies:
NKDA
Height / Weight:
Height 5 ft 1 in
Actual Weight 49.442 kg
Pertinent Past Medical History: stage IV Cholangiocarcinoma
- Vital Signs / Lab Results
Temp Pulse Resp BP Pulse Ox
99.8 F 90 17 98/58 97
05/15/24 07:31 05/15/24 07:31 05/15/24 07:31 05/15/24 07:31 05/15/24 07:31
Lab Results - Hematology
05/14/24 05/15/24
07:30 04:57
WBC 0.2 L* 0.1 L*
Lab Results - Chemistry
05/14/24 05/15/24
07:30 04:57
BUN 21 H 17
Creatinine 0.8 0.6
Estimated Creat Clear 61 81
Albumin 3.8
[2024-05-15] MEDS: CARAFATE 1 GRAM PO ×2 (09:35→20:23)
[2024-05-15] MEDS: PROTONIX IV 40 MG IV ×2 (09:36→20:24)
[2024-05-15] MEDS: NSS (PRESERVATIVE FREE) 10 ML IV ×2 (09:36→20:24)
[2024-05-15] MEDS: ZOSYN IV ×2 (09:39→14:54)
--- NOTE | 2024-05-15 09:52 | W.PN.GI.CBS2 ---
Addendum entered and electronically signed by Cipriano Hayward MD 05/15/24 14:06:
I saw and examined the patient.
The ENCYCLOPEDIA RESEARCH WORKER or PA's note was reviewed and I agree with the note.
Comment: 53-year-old female past medical history of cholangiocarcinoma status post chemoradiation currently on clinical trial getting chemotherapy last dose Sunday last radiation was in December, presenting with hematemesis. Of note, patient had
admission back in February 2024 when she had dark stool and drop in hemoglobin. She underwent 2 upper endoscopies first with Dr. Stuart March 04 with severe gastritis and friable mucosa with no intervention done. 1 gastric ulcer seen that was
clean-based. Blood was seen as well. Thought likely due to radiation changes. She had a repeat endoscopy done March 17 she was remitted with ongoing bleeding with Dr. Cadet who performed argon plasma coagulation in the stomach. I reviewed the
images of both upper endoscopies and there was severe gastritis and inflammation with bleeding throughout.
As above, she had 3 episodes of hematemesis 05/14 am. This has since resolved. She most likely has recurrent gastritis which is now worsened in the setting of her thrombocytopenia.
Has severe pancytopenia. Perhaps once her platelets improved, the bleeding will stop without GI intervention. Hold on EGD at this time. Trend CBC.
Continue PPI, carafate.
Trial of BRAT diet ordered.
Will follow.
Original Note:
Today's Communication / Plan
-
As per plan
Assessment / Plan
-
Ms. 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 (s/p chemo/radiation therapy/ immunotherapy-- last dose 05/06 cycle 2 folfox chemo
with clinical trial drug at [facility] in [place]. She also has neulasta 05/08 and prior treatment [place] [facility] [place] chronic anemia, and prior work up in February with rectal bleeding with noted EGD 03/04 found to have a non-bleeding gastric ulcer
with friable mucosa (bx with benign reactive gastropathy/vascular ectasia, suspected from prior radiation). She had repeat EGD 03/17/24 with normal esophagus, granular and hemorrhagic cardia, multiple bleeding angioectasia in stomach found in antrum,
c/w delayed effect from radiation. s/p APC. Non bleeding gastric ulcer with clean base forest III bx not done. She now presents with 2 episode of hematemesis. On admission noted with WBC 0.2, platelets 14,000, hbg 8, ANC 0.0 with stable chemistry.
Last hbg 9.7 on 05/06. She also receives IV iron with her chemo. She has also been on Protonix BID and carafate BID with follow up 05/08 completed in GI office with plan for hold EGD with chemo.
Impression:
-hematemesis
-pancytopenia/neutropenia, PLT still 13
-cholangio CA stage IV hx chemo/rad/immunotherapy current [facility] with Folfox and clinical trial drug 05/06 with Neulasta 05/08
-anemia with period iron infusion prior to admission
-hx GI bleed February with rectal bleeding- multiple angioectasia, PUD
-thyroid CA with thyroidectomy/hypothyroidism
PLAN:
PLT and Blood transfusion per Hematology
follow counts -- appreciate heme for transfusion management
no bleeding since 6:30 am on 05/14/24
hold on EGD at present time.
Continue Pantoprazole 40 mg BID
Continue Carafate BID
Continue clear liquid diet at this time. Will Add Ensure clear. Will discuss when we can advance diet.
Workup on going for fever. ID consulted.
Subjective
Subjective
Date of Service: May 15, 2024
Patient tolerating clear liquid diet. No BM or signs of bleeding since arrival. Hgb is 7.1 down from 8.0, transfused 1 unit PRBC. PLT 13 down from 14, trf 1 unit PLT. She continues on Pantoprazole 40 mg IV BID and Carafate 1 gm BID. She did develop
temp this am at 0420 of 101.1, blood culture pending. ID consult pending. Started on Vancomycin and Zosyn. Patient asymptomatic. Patient to start another unit of PRBC now.
Objective
Data Reviewed
Laboratory Data:
Laboratory Results
05/15/24 04:57
05/15/24 04:57
Laboratory Results
PT 17.2 Sec (11.4-14.6) H 05/14/24 09:04
INR 1.35 05/14/24 09:04
APTT < 20.0 Sec (23.4-35.0) L 05/14/24 09:04
Total Bilirubin 0.9 mg/dl (0.2-1.3) 05/14/24 07:30
AST 28 U/L (14-36) 05/14/24 07:30
ALT 21 U/L (0-35) 05/14/24 07:30
Alkaline Phosphatase 84 U/L (38-126) 05/14/24 07:30
Vital Signs and I&O:
Vital Signs
Temp Pulse Resp BP Pulse Ox
99.2 F 78 16 116/50 98
05/15/24 09:47 05/15/24 09:47 05/15/24 09:47 05/15/24 09:47 05/15/24 09:20
I&O
05/14/24 05/15/24 05/16/24
06:59 06:59 06:59
Intake Total 2040
Balance 2040
Physical Exam
Physical Exam
HEENT: Anicteric
Cardiology: Normal Sinus Rhythm and Other (right chest port)
Pulmonary: Clear (mildly decreased right base)
GI: Soft, Distended (mildly distended ), Non Tender and Normal Bowel Sounds
Extremities: No Edema
Neuro: Non Focal
--- NOTE | 2024-05-15 10:21 | CON.ID ---
Consultation
-
Date/Time Consultation Requested: 05/15/24 8:20
Date/Time Consultation Performed: 05/15/24 10:21
Requesting Provider: Dr Newby
Performing Provider: Dr Salas
Reason for Consultation: neutropenic fever, hx of cholangio ca on tx
Chief Complaint / Past History
Chief Complaint
Hematemesis
History of Present Illness
Ms Voss is a 53 year old female with history of stage IV cholangiocarcinoma (cycle #2 of FOLFOX chemotherapy, neulasta 05/08 at [facility], [place]), pancytopenia, PUD who presented here today for recurrent UGI bleeding. Reports two episodes of
hematemesis yesterday AM, ~10 oz john red blood. No pain or nausea. Of note 2 months ago hospitalized here for UGI bleed and upper endoscopy showed hemorrhagic mucosa in the cardia and bleeding angiectasias that were treated. She was previously
treated treated with cisplatin + gemcitabine + Durvalumab and radiation. Overnight she noted onset of mild runny nose which is new. Also loose but not liquid stool which she normally experiences about a week after FOLFOX. No: headache, sinus
tenderness, sore throat, cough, sputum production, nausea, vomiting, constipation, dysuria, new rashes or trouble with her port. Has 3 dogs that are healthy and see vet, no farm animals, no sick contacts. Did travel to [place] last spring.
Since arrival Tmax is 101.1 once orally, bp with intermittent mild hypotension, HR 70s-80s, wbc initially 0.2 now 0.1, hgb 8.0 - baseline from late february 8.8, plt 14 baseline was normal, ANC was 0.0, INR 1.35, Na 139, cr 0.6, t bili 0.9, ast 28,
alt 21, alk phos 84, a single blood culture was done thus far, no imaging done yet, patient is currently on vancomycin and zosyn. Note a febrile transfusion reaction today with T 100.5-100.9 while getting PRBCs. ID is consulted for assistance with
management.
Past History
Additional Past Medical History:
Cancer (Stage IV cholangiocarcinoma), Hypothyroidism, Psychiatric (Depression) and Other (Upper GI bleeding)
Additional Past Surgical History:
Thyroidectomy
Port placement
Allergy History:
No Known Allergies Allergy (Verified 05/14/24 07:11)
Medications Reviewed: Yes
Social History
Tobacco: Non-Smoker
Alcohol: None
Drug: None
Family History
Family History: Not Pertinent
Review of Systems
Review of Systems
General: Fever
All systems: All other systems were reviewed and were negative
Vital Signs
Temp Pulse Resp BP Pulse Ox
99.9 F 70 16 122/69 98
05/15/24 10:08 05/15/24 10:08 05/15/24 10:08 05/15/24 10:08 05/15/24 09:20
Physical Exam
Physical Exam
Constitutional: No Acute Distress and Chronically Ill
Cardiovascular: Regular Rate and S1/S2; Negative Murmur or Rub
Pulmonary: Clear and Symmetric; Negative Wheezes, Rales or Rhonchi
Gastrointestinal: Soft, Non Tender, Non Distended and Normal Bowel Sounds
Skin: Warm and Dry; Negative Rash or Jaundice
Lab / Diagnostic Study Results
05/15/24 04:57
05/15/24 04:57
Abs Immat Gran (auto) 0.0 10^3/uL (0-0.05) 05/15/24 04:57
Absolute Neuts (auto) 0.0 10^3/uL (1.4-6.5) L* 05/15/24 04:57
Absolute Lymphs (auto) 0.1 10^3/uL (1.2-3.4) L 05/15/24 04:57
Absolute Monos (auto) 0.0 10^3/uL (0.1-0.6) L 05/15/24 04:57
Absolute Basos (auto) 0.0 10^3/uL (0-0.2) 05/15/24 04:57
Immature Gran % 0.0 % (0-0.5) 05/15/24 04:57
Neutrophils % 9.1 % (42.2-75.2) L 05/15/24 04:57
Lymphocytes % 72.7 % (20.5-51.1) H 05/15/24 04:57
Monocytes % 9.1 % (1.7-9.3) 05/15/24 04:57
Eosinophils % 9.1 % (0-6) H 05/15/24 04:57
Basophils % 0.0 % (0-2) 05/15/24 04:57
PT 17.2 Sec (11.4-14.6) H 05/14/24 09:04
INR 1.35 05/14/24 09:04
Microbiology Results
Micro:
05/15/24 08:58 Blood Culture - Pending
Blood/Venous
Assessment / Plan
Neutropenic Fever
- possible viral URI
Pancytopenia
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
Hematemsis
Port
- blood cultures x2 sets
- CXR 2 views
- ua reflex to culture
- covid, influenza and RSV swabs
- febrile transfusion reaction this afternoon noted, however 4AM fever was prior to any transfusions
- note that influenza A was positive 05/07/2019; there is declining though still persistent community spread of flu A at this time and we continue to screen as a health system at this time
- agree with vancomycin at this time
- start cefepime, stop zosyn
- follow clinically
--- NOTE | 2024-05-15 11:36 | PTCARENOTE ---
1 unit PRBC infusing. Before starting infusion, pt denied any previous reactions to blood/blood products in the past. During infusion, pt started complaining of chills, denies SOB and any other symptoms. BP 123/67, HR 73, temp 99.8, RR 16, and 99%
on RA. Pt now stating that this has actually happened to her once before and she took a Tylenol and it resolved. Infusion on hold. MD notified. Tylenol administered and transfusion restarted at lower rate per MD order. Will continue to monitor.
--- NOTE | 2024-05-15 14:12 | W.PN.HOSP.TC ---
Addendum entered and electronically signed by Desean Newby DO 05/16/24 08:11:
Correction: Patient did not have recent influenza infection
Original Note:
Today's Communication/Plan
-
Assessment / Plan
Assessment / Plan
General: No Apparent Distress, Comfortable and Conversant
HEENT: NormoCephalic, Moist mucous membranes, Atraumatic
Respiratory: Clear and Non Labored Respirations
Cardiac: S1/S2 and Regular Rhythm; No Rub or Gallop
GI: Soft, Non Tender, Non Distended and Normal Bowel Sounds
Musculoskeletal: No Edema, no deformity
: NO Mckeon
Neuro: Awake, Alert, AO x 3 and Nonfocal/grossly intact
Psych: Calm and Intact Judgment/Insight
Ms. Voss is a 53-year-old female with medical history of peptic ulcer disease, Schatzki ring, stage IV cholangiocarcinoma (on immunotherapy at [facility] in [place]), and pancytopenia who presents with recurrent upper GI bleeding. She
experienced 3 episodes of hematemesis this morning totaling approximately 10 ounces of john red blood. She was recently hospitalized here 2 months ago where she was evaluated for upper GI bleed and underwent upper endoscopy with findings of
hemorrhagic appearing mucosa in the cardia and multiple bleeding angiectasia's which were treated with APC. She had recent follow-up with GI in the outpatient setting this past week and has had no recurrent symptoms until today. She is not
experiencing any current pain or nausea.
In the ED, her blood pressure was low but stable with a systolic around 110 which is consistent with her recent baseline. She was in sinus rhythm with controlled rate. She was afebrile and saturating appropriately on room air. Her labs were
revealing of pancytopenia including WBC 0.2, hemoglobin 8.0, and platelets of 14,000 all of which are likely related to her ongoing cancer treatments. Her chemistry panel was generally unremarkable. She was transfused 1 unit of PRBCs and 1 unit of
platelets in the ED. She was admitted for further evaluation and management of hematemesis.
Hematemesis:
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
-Continue high-dose IV PPI and Carafate
-Transfused 1 unit PRBCs and 1 unit platelets in the ED, transfusing another unit PRBCs this morning
-Tolerating a p.o. diet
-Will hold off on EGD for now and monitor closely
Anemia requiring transfusions:
-Secondary to upper GI bleeding as outlined above
-Being transfused a second unit PRBCs today 05/15, first 1 was transfused yesterday in the ED at time of admission
-Became mildly febrile again with temperatures between 100.5 �F and 100.9 �F during red blood cell transfusion, Tylenol given, no respiratory complaints, transfusing continued at slower rate
Neutropenic fever:
-Febrile with a temperature of 101.7 �F this morning
-Cultures obtained and started on broad-spectrum antibiotics
-Neutropenic precautions
-ID consulted
-Became mildly febrile again with temperatures between 100.5 �F and 100.9 �F during red blood cell transfusion, Tylenol given, no respiratory complaints, transfusing continued at slower rate
-Fevers could potentially be residual from recent influenza A infection
Pancytopenia:
-Believe secondary to ongoing cancer treatments
-Initial labs showing WBC 0.2, hemoglobin 8.0, and platelets 14,000
-Repeat labs today showed WBC 0.1, hemoglobin 7.1, platelets 13,000
-Was transfused 1 unit platelets and 1 unit of PRBCs in the ED, transfusing another unit PRBCs today 05/15
-Having neutropenic fevers today as outlined above
-Receives Neulasta as outpatient, no need for inpatient G-CSF
-Heme-onc following, appreciate input
Cholangiocarcinoma:
-Stage IV
-Currently following at [facility] in [place] for ongoing treatment
-Inpatient heme-onc following
CODE STATUS: Full code
Anticipated Discharge: 24 - 48 hours
Subjective/Interval History
-
Date of Service: May 15, 2024
Patient was seen and examined at bedside this morning. No further hematemesis. She had a neutropenic fever this morning with a temperature of 101.1 �F. She has been started on broad-spectrum antibiotics after obtaining cultures. ID team has been
contacted. She is being transfused another unit PRBCs this morning.
Objective Data
-
Labs:
Laboratory Results
05/15/24
04:57
WBC 0.1 L*
Hgb 7.1 L
Hct 21.1 L
Plt Count 13 L*
Sodium 139
Potassium 3.8
Chloride 111 H
Carbon Dioxide 23
BUN 17
Creatinine 0.6
Glucose 96
Calcium 7.3 L
Vital Signs:
Vital Signs
Temp Pulse Resp BP Pulse Ox
100.5 F H 89 16 118/71 99
05/15/24 13:30 05/15/24 13:30 05/15/24 13:30 05/15/24 13:30 05/15/24 11:30
I&O
05/14/24 05/15/24 05/16/24
06:59 06:59 06:59
Intake Total 2040 250 / 250
Balance 2040 250 / 250
Review of Systems
-
History Source: Patient
All other systems: Reviewed and negative
Physical Exam
-
General: No Apparent Distress
[2024-05-15] MEDS: TYLENOL 500 MG PO (14:54)
[2024-05-15] MEDS: ZOFRAN 4 MG IV (14:56)
[2024-05-15] MEDS: ZOSYN 50 IV (15:00)
--- NOTE | 2024-05-15 15:00 | PTCARENOTE ---
pt had one episode of black tarry stool and small amount of bloody emesis. Md notified. no new orders at this time. Will continue to monitor.
--- NOTE | 2024-05-15 15:45 | CM ---
Spoke with patient's spouse to obtain information for assessment. He stated that patient lives with him in a two story home with two steps to enter. He described her as independent with ADLs, personal care, dressing and bathing. She can do household
chores, cook, clean and do laundry. She has no DME. He has never been to a SNF or had VN.
Patient uses [facility] in [place] for all of her medications.
Her PCP is Uriel Yanes.
Plan: Case management will continue to follow and assist with discharge planning. Home when stable.
[2024-05-15] MEDS: STERILE WATER FOR INJECTION 10 ML IV ×2 (17:00→23:20)
[2024-05-15] MEDS: MAXIPIME 2000 MG IV ×2 (17:00→23:19)
[2024-05-15] MEDS: VANCOCIN 150 IV (18:21)
[2024-05-15] MEDS: XANAX 0.25 MG PO (23:19)
[2024-05-16] VITALS (7 sets, daily range): BP systolic 93–114; BP diastolic 53–76
[2024-05-16] MEDS: NSS 1000 IV (00:39)
[2024-05-16 01:21] LABS: COVID-19 Antigen Negative (Negative)
[2024-05-16] MEDS: VANCOCIN 150 IV ×2 (05:18→17:54)
[2024-05-16] MEDS: SYNTHROID 100 MCG PO (05:18)
--- NOTE | 2024-05-16 06:09 | W.PN.GI.CBS2 ---
Today's Communication / Plan
-
Please see assessment and plan for details.
Assessment / Plan
-
1. GI bleed: In the setting of profound thrombocytopenia/pancytopenia secondary to chemotherapy, though has been hemodynamically stable, overall stable overnight. She responded well to APC in the past with no further bleeding after that, and doubt
any significant pathology to cause bleeding, likely spontaneous bleeding with profound thrombocytopenia. At this point we will hold on any endoscopic workup. Will continue supportive care, transfuse platelets and blood as needed per hematology.
Will continue PPI and Carafate.
Will sign off for now, please call back with any further questions or signs of significant bleeding after platelets have improved.
Subjective
Subjective
Date of Service: May 16, 2024
Patient feeling better overall, no vomiting overnight, no bowel meds. Still with some nosebleeds when wiping nose.
Objective
Data Reviewed
Laboratory Data:
Laboratory Results
PT 17.2 Sec (11.4-14.6) H 05/14/24 09:04
INR 1.35 05/14/24 09:04
APTT < 20.0 Sec (23.4-35.0) L 05/14/24 09:04
Total Bilirubin 0.9 mg/dl (0.2-1.3) 05/14/24 07:30
AST 28 U/L (14-36) 05/14/24 07:30
ALT 21 U/L (0-35) 05/14/24 07:30
Alkaline Phosphatase 84 U/L (38-126) 05/14/24 07:30
Vital Signs and I&O:
Vital Signs
Temp Pulse Resp BP Pulse Ox
100.0 F 93 16 108/59 96
05/15/24 23:03 05/15/24 23:03 05/15/24 23:03 05/15/24 23:03 05/15/24 23:03
I&O
0305/15/24 05/16/24
06:59 06:59 06:59
Intake Total 2040 908 / 908
Balance 2040 90 /
Physical Exam
Physical Exam
General: NAD
Abdomen: normal bowel sounds, soft, no tenderness, no masses or bruits, no ascites
[2024-05-16 06:30] LABS: Urine Albumin Negative (Neg - Trace); Urine Bilirubin Negative (Negative); Urine Character Clear (Clear); Urine Color Yellow; Urine Glucose Negative (Negative); Urine Ketone 1+ (Negative); Urine Leukocyte Negative (Negative); Urine Nitrite Negative (Negative); Urine Occult Blood Negative (Negative); Urine Urobilinogen Negative (Neg - 1+)
[2024-05-16] MEDS: ZOFRAN 4 MG IV (08:48)
[2024-05-16] MEDS: NSS (PRESERVATIVE FREE) 10 ML IV ×2 (08:49→20:01)
[2024-05-16] MEDS: TYLENOL 650 MG PO ×3 (08:49→23:03)
[2024-05-16] MEDS: PROTONIX IV 40 MG IV ×2 (08:49→20:02)
[2024-05-16] MEDS: CARAFATE 1 GRAM PO ×2 (08:49→20:01)
[2024-05-16 08:50] LABS: % Eosinophils 6.7 % (0-6); % Monocytes 6.7 % (1.7-9.3); % Neutrophils 6.6 % (42.2-75.2); Absolute Lymphocytes 0.1 10^3/uL (1.2-3.4); Hematocrit 21.2 % (37.0-47.0); Hemoglobin 7.4 g/dL (12.0-16.0); Mean Corp Hgb Conc. 34.9 g/dL (33.0-37.0); Mean Corpuscular Hgb 28.6 pg (27.0-31.0); Mean Corpuscular Volume 81.9 fL (81.0-99.0); Nucleated Red Blood Cells % 0 %; Platelet Count 16 10^3/uL (130-400); Red Blood Cell Count 2.59 10^6/uL (4.20-5.40); Red Cell Dist. Width 18.3 % (11.5-14.5); White Blood Cell Count 0.2 10^3/uL (4.8-10.8)
[2024-05-16] MEDS: STERILE WATER FOR INJECTION 10 ML IV ×3 (08:50→23:05)
[2024-05-16] MEDS: MAXIPIME 2000 MG IV ×3 (08:50→23:05)
[2024-05-16 09:14] LABS: Blood Urea Nitrogen 10 mg/dl (7-17); Calcium 7.1 mg/dl (8.4-10.2); Carbon Dioxide 25 mmol/L (22-30); Chloride 107 mmol/L (98-107); Estimated Creatinine Clearance 81 ml/min; Glucose 100 mg/dl (70-99); Potassium 3.3 mmol/L (3.5-5.1); Sodium 134 mmol/L (135-145); eGFR > 60.00
--- NOTE | 2024-05-16 10:12 | PHA.VAN.FU ---
Vancomycin Assessment / Plan
- Assessment
Renal Function: Stable
Neutropenia: 0.2
In the past 24 hrs, patient has been: Febrile (101)
- Dosing Plan
Continue: vancomycin 750 mg q12h
Dosing Comments: loading dose of vancomycin 1g was not given on 05/16
- Monitoring Plan
Peak Level: 05/16 @ 20:30
Trough Level: 05/17 @ 0530
- Follow Up
Pharmacy will continue to follow.
Vancomycin Follow UP
- -
Patient Age: 53
Patient Sex: Female
Vancomycin Day #: 2
Indication: Neutropenic Fever
Requesting Provider: Dr. Newby
Pertinent Antimicrobial Allergies:
NKDA
Height / Weight:
Height 5 ft 1 in
Actual Weight 49.442 kg
Pertinent Past Medical History: stage IV Cholangiocarcinoma
- Vital Signs / Lab Results
Temp Pulse Resp BP Pulse Ox
100.4 F H 107 17 114/76 97
05/16/24 07:29 05/16/24 07:29 05/16/24 07:29 05/16/24 07:29 05/16/24 07:29
Lab Results - Hematology
05/14/24 05/15/24 05/16/24
07:30 04:57 08:10
WBC 0.2 L* 0.1 L* 0.2 L*
Lab Results - Chemistry
05/14/24 05/15/24 05/16/24
07:30 04:57 08:10
BUN 21 H 17 10
Creatinine 0.8 0.6 0.6
Estimated Creat Clear 61 81 81
Albumin 3.8
Lab Results - Urine
05/16/24
06:18
Urine Nitrite (Reflex) Negative
Leukocyte Esterase Rfl Negative
Microbiology Results
05/15/24 14:34 Blood Culture - Preliminary
Blood/Venous Staphylococcus aureus
Gram Stain - Preliminary
05/15/24 08:58 Blood Culture - Preliminary
Blood/Venous No Growth in 24 hours- Final report to follow
05/15/24 23:33 Nasal Screen MRSA (PCR) - Final
Nose MRSA not detected - performed by PCR methodology.
05/15/24 23:33 Respiratory Syncytial Virus Ag - Final
Nasal Swab Negative for Respiratory Syncytial Virus.
A false negative result may be obtained with a specimen
collected early in the acute phase. If symptoms persist, a
new specimen should be tested.
05/15/24 23:33 Influenza Types A & B (CIELO) - Final
Nasal Swab Negative for Influenza A & B, NAAT
Negative results must be combined with clinical observations
and patient history.
Nucleic Acid Amplification test (NAAT)performed on the
[employer] platform.
--- NOTE | 2024-05-16 13:18 | W.PN.HOSP.TC ---
Addendum entered and electronically signed by Desean Newby DO 05/16/24 16:12:
Hypokalemia is an additional diagnosis, will replete and continue to monitor
Original Note:
Today's Communication/Plan
-
Assessment / Plan
Assessment / Plan
General: No Apparent Distress, Comfortable and Conversant
HEENT: NormoCephalic, Moist mucous membranes, Atraumatic
Respiratory: Clear and Non Labored Respirations
Cardiac: S1/S2 and Regular Rhythm; No Rub or Gallop
GI: Soft, Non Tender, Non Distended and Normal Bowel Sounds
Musculoskeletal: No Edema, no deformity
: NO Mckeon
Neuro: Awake, Alert, AO x 3 and Nonfocal/grossly intact
Psych: Calm and Intact Judgment/Insight
Ms. Voss is a 53-year-old female with medical history of peptic ulcer disease, Schatzki ring, stage IV cholangiocarcinoma (on immunotherapy at [facility] cancer [place] in [place]), and pancytopenia who presents with recurrent upper GI bleeding. She
experienced 3 episodes of hematemesis this morning totaling approximately 10 ounces of john red blood. She was recently hospitalized here 2 months ago where she was evaluated for upper GI bleed and underwent upper endoscopy with findings of
hemorrhagic appearing mucosa in the cardia and multiple bleeding angiectasia's which were treated with APC. She had recent follow-up with GI in the outpatient setting this past week and has had no recurrent symptoms until today. She is not
experiencing any current pain or nausea.
In the ED, her blood pressure was low but stable with a systolic around 110 which is consistent with her recent baseline. She was in sinus rhythm with controlled rate. She was afebrile and saturating appropriately on room air. Her labs were
revealing of pancytopenia including WBC 0.2, hemoglobin 8.0, and platelets of 14,000 all of which are likely related to her ongoing cancer treatments. Her chemistry panel was generally unremarkable. She was transfused 1 unit of PRBCs and 1 unit of
platelets in the ED. She was admitted for further evaluation and management of hematemesis.
Hematemesis:
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
-Continue high-dose IV PPI and Carafate
-Transfused total of 2 units PRBCs and 2 unit platelets
-Tolerating a p.o. diet
-No plan for endoscopy at this point, GI signing off
Anemia requiring transfusions:
-Secondary to upper GI bleeding as outlined above
-Transfused a total of 2 units PRBCs this admission
-Became mildly febrile again with temperatures between 100.5 �F and 100.9 �F during red blood cell transfusion, Tylenol given, no respiratory complaints, transfusing continued at slower rate
Neutropenic fever:
-Persistently low-grade fevers over the past 24 hours
-Blood cultures growing Staph aureus
-Continue antibiotics with vancomycin and cefepime
-Neutropenic precautions
-ID following, guidance appreciated
-COVID-19 and influenza negative (incorrectly noted yesterday that patient had a recent influenza A infection which is not true, last documented influenza infection was in April 2019)
Pancytopenia:
-Believe secondary to ongoing cancer treatments
-Initial labs showing WBC 0.2, hemoglobin 8.0, and platelets 14,000
-Repeat labs today with no significant change
-Was transfused 2 units PRBCs and 2 units platelets of for this admission
-Having neutropenic fevers today as outlined above
-Receives Neulasta as outpatient, no need for inpatient G-CSF
-Heme-onc following, appreciate input
Cholangiocarcinoma:
-Stage IV
-Currently following at [facility] in [place] for ongoing treatment
-Inpatient heme-onc following
CODE STATUS: Full code
Anticipated Discharge: > 48 hours
Subjective/Interval History
-
Date of Service: May 16, 2024
Patient was seen and examined at bedside this morning. No further chills but continues to have low-grade fevers. Had an episode of emesis overnight after bowel movement was approximately a teaspoon of john red blood. Her bowel movement did
contain melena which is likely residual from her known recent upper GI bleeding. Hemoglobin currently stable but not improved following blood transfusion again yesterday. Feeling well but worried about lack of improvement in labs.
Objective Data
-
Labs:
Laboratory Results
05/16/24
08:10
WBC 0.2 L*
Hgb 7.4 L
Hct 21.2 L
Plt Count 16 L* D
Sodium 134 L
Potassium 3.3 L
Chloride 107
Carbon Dioxide 25
BUN 10
Creatinine 0.6
Glucose 100 H
Calcium 7.1 L
Vital Signs:
Vital Signs
Temp Pulse Resp BP Pulse Ox
99.1 F 107 17 114/76 97
05/16/24 10:49 05/16/24 07:29 05/16/24 07:29 05/16/24 07:29 05/16/24 09:00
I&O
05/15/24 05/16/24 05/17/24
06:59 06:59 06:59
Intake Total 2040 1268 / 1268
Balance 2040 1268 / 1268
Review of Systems
-
History Source: Patient
All other systems: Reviewed and negative
Physical Exam
-
General: No Apparent Distress
--- NOTE | 2024-05-16 13:51 | W.PN.ONC2 ---
Today's Communication / Plan
-
.
Impression
Impression
Severe pancytopenia, 2* chemotherapy
neutropenic fever
Bcx x 1 bottle S Aureus
Stage IV cholangiocarcinoma, patient has been treated at multiple institutions including [facility], [facility], and currently -on clinical trial, last dose FOLFOX + LSTA1 on 05/13, completed XRT 12/2023
Hematemesis/GIB
Plan
Plan
transfuse Hgb <7g/dL, platelets <20 with neutropenic fever, <50 if bleeding.
neutropenic precautions
abx per ID, follow cultures
avoid NSAIDS, antiplatelet, anticoagulation with platelet count <50
GI following
trial drug +FOLFOX may need adjusted based on cytopenias. Pt has been in contact with her trial coordinator
No role for inpatient G-CSF as patient was given Neulasta.
Subjective/Objective
Subjective
no new complaints
Tmax 100.4F
Vital Signs:
Vital Signs
Temp Pulse Resp BP Pulse Ox
99.1 F 107 17 114/76 97
05/16/24 10:49 05/16/24 07:29 05/16/24 07:29 05/16/24 07:29 05/16/24 09:00
Lab Results:
Laboratory Data
WBC 0.2 10^3/uL (4.8-10.8) L* 05/16/24 08:10
Hgb 7.4 g/dL (12.0-16.0) L 05/16/24 08:10
Plt Count 16 10^3/uL (130-400) L* D 05/16/24 08:10
PT 17.2 Sec (11.4-14.6) H 05/14/24 09:04
INR 1.35 05/14/24 09:04
APTT < 20.0 Sec (23.4-35.0) L 05/14/24 09:04
eGFR > 60.00 05/16/24 08:10
Physical Exam
General: Well Developed, Well Nourished, No Apparent Distress and Comfortable
HEENT: Negative Jaundice
Cardiology: Normal Sinus Rhythm, S1 and S2
Pulmonary: Clear
GI: Soft and Normal Bowel Sounds
Extremities: No C/C/E
Skin: Warm
--- NOTE | 2024-05-16 13:54 | W.PN.ID1 ---
Date of Service
Date of Service: May 16, 2024
Today's Communication
- c/w vancomycin at this time
- c/w cefepime
Assessment / Plan
Neutropenic Fever
- possible viral URI
Pancytopenia
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
Hematemsis
Port
- 1 of 2 sets of blood cultures with S aureus
- repeat blood cultures x2 sets today - follow for clearance
- TTE when feasible
- port functional, no tenderness; with marked thrombocytopenia not currently a candidate for removal, patient is receiving antibiotics via the port
- CXR 2 views
- ua negative
- covid, influenza and RSV swabs - negative
- c/w vancomycin at this time - administer via the port
- c/w cefepime
- follow clinically
Chief Complaint
-: Bacteremia and Other (neutropenic fever)
Subjective / Review of Systems
fevers ongoing
bp stable
no rashes, wounds, and the port remains functional and nontender
Vital Signs / Physical Exam
Vital Signs
Vital Signs
Temp Pulse Resp BP Pulse Ox
99.1 F 107 17 114/76 97
05/16/24 10:49 05/16/24 07:29 05/16/24 07:29 05/16/24 07:29 05/16/24 09:00
Physical Exam
Constitutional: No Acute Distress
Cardiovascular: Regular Rate and S1/S2; Negative Murmur or Rub
Pulmonary: Clear and Symmetric; Negative Wheezes or Rales
Gastrointestinal: Soft, Non Tender, Non Distended and Normal Bowel Sounds
Skin: Warm and Dry; Negative Rash or Jaundice
Lines: Port (no tenderness or erythema)
Objective Data
Lab Data
Lab Results
05/16/24 08:10
05/16/24 08:10
PT 17.2 Sec (11.4-14.6) H 05/14/24 09:04
INR 1.35 05/14/24 09:04
APTT < 20.0 Sec (23.4-35.0) L 05/14/24 09:04
Estimated Creat Clear 81 ml/min 05/16/24 08:10
Total Bilirubin 0.9 mg/dl (0.2-1.3) 05/14/24 07:30
AST 28 U/L (14-36) 05/14/24 07:30
ALT 21 U/L (0-35) 05/14/24 07:30
Alkaline Phosphatase 84 U/L (38-126) 05/14/24 07:30
covid ag: negative
Most recent labs reviewed.
Micro Results:
05/15/24 14:34 Blood Culture - Preliminary
Blood/Venous Staphylococcus aureus
Gram Stain - Preliminary
05/15/24 08:58 Blood Culture - Preliminary
Blood/Venous No Growth in 24 hours- Final report to follow
05/15/24 23:33 Nasal Screen MRSA (PCR) - Final
Nose MRSA not detected - performed by PCR methodology.
05/15/24 23:33 Respiratory Syncytial Virus Ag - Final
Nasal Swab Negative for Respiratory Syncytial Virus.
A false negative result may be obtained with a specimen
collected early in the acute phase. If symptoms persist, a
new specimen should be tested.
05/15/24 23:33 Influenza Types A & B (CIELO) - Final
Nasal Swab Negative for Influenza A & B, NAAT
Negative results must be combined with clinical observations
and patient history.
Nucleic Acid Amplification test (NAAT)performed on the
[employer] platform.
Chest X-Ray: Image Reviewed and Report Reviewed (atelectasis)
[2024-05-16] MEDS: KCL 270 MEQ IV (14:30)
--- NOTE | 2024-05-16 15:58 | PN.CDI ---
CDI
- -
CDI:
Physician Documentation Request
Admit Date: 05/14/24 12:33
Dear Doctor Keyonna,
05/16 Potassium level 3.3
05/16 Potassium chloride 40 meq IV
Based on the above, could you clarify in the progress notes, the appropriate diagnosis, if significant, that supports the above abnormalities and additional evaluation, monitoring and/or treatment rendered:
Hypokalemia
Abnormal lab value insignificant
Other
Use of terms such as suspected, likely, concern for, or probable (associated with a specific diagnosis that is being evaluated, monitored, or treated as if it exists) are acceptable and can be coded in the inpatient setting, when documented at the
time of discharge.
Thank you,
Jolie Harris RN, BSN
CDI Specialist
Available via [employer] text
Please use your independent medical judgment in providing your response.
[2024-05-16 20:55] LABS: Vancomycin Peak 17.7 ug/ml (18-26)
[2024-05-16] MEDS: XANAX 0.25 MG PO (23:03)
[2024-05-17 05:55] LABS: Vancomycin Trough 7.6 ug/ml (5-20)
[2024-05-17] MEDS: SYNTHROID 100 MCG PO (06:01)
[2024-05-17] MEDS: VANCOCIN 150 IV ×3 (06:01→21:51)
[2024-05-17 07:00] VITALS: BP 103/58
--- NOTE | 2024-05-17 07:07 | W.PN.ONC2 ---
Today's Communication / Plan
-
HOLD additional PLT as she seems to be alloimmunized and not bleeding. RISKS>BENEFITS at this point bianca for PLT > 10K and no bleeding.
abx per ID, follow cultures
No role for inpatient G-CSF as patient was given Neulasta.
Impression
Impression
Severe pancytopenia, 2* chemotherapy
neutropenic fever
Bcx x 1 bottle S Aureus
Stage IV cholangiocarcinoma, patient has been treated at multiple institutions including [facility], [facility], and currently [facility] -on clinical trial, last dose FOLFOX + LSTA1 on 05/13, completed XRT 12/2023. Received Neulasta
Hematemesis/GIB
Plan
Plan
neutropenic precautions.
transfuse Hgb <7g/dL.
HOLD additional PLT as she seems to be alloimmunized and not bleeding. RISKS>BENEFITS at this point bianca for PLT > 10K and no bleeding.
abx per ID, follow cultures
avoid NSAIDS, antiplatelet, anticoagulation with platelet count <50
trial drug +F OLFOX may need adjusted based on cytopenias. Pt has been in contact with her trial coordinator. Suspect baased on severity of cytopenia (atypical to see with FOLFOX alone), she's getting active drug not placebo.
No role for inpatient G-CSF as patient was given Neulasta.
Subjective/Objective
Chief Complaint
ACS Heme Onc
Subjective
No bleeding or new fevers x past 24 hrs. Clarification from my original consult. She is on FOLFOX + LSTA1/placebo (not FOLFOX alone) suspect the active drug based on severe cytopenias
Vital Signs:
Vital Signs
Temp Pulse Resp BP Pulse Ox
99.2 F 104 16 102/61 98
05/16/24 23:14 05/16/24 23:14 05/16/24 23:14 05/16/24 23:14 05/16/24 23:14
Lab Results:
Laboratory Data
WBC 0.2 10^3/uL (4.8-10.8) L* 05/16/24 08:10
Hgb 7.4 g/dL (12.0-16.0) L 05/16/24 08:10
Plt Count 16 10^3/uL (130-400) L* D 05/16/24 08:10
PT 17.2 Sec (11.4-14.6) H 05/14/24 09:04
INR 1.35 05/14/24 09:04
APTT < 20.0 Sec (23.4-35.0) L 05/14/24 09:04
eGFR > 60.00 05/16/24 08:10
Physical Exam
HEENT: No Jaundice
Cardiology: S1 and S2
Pulmonary: Clear
GI: Soft
Extremities: No C/C/E
[2024-05-17] MEDS: MAXIPIME 2000 MG IV ×2 (07:49→16:22)
[2024-05-17] MEDS: CARAFATE 1 GRAM PO ×2 (07:49→19:40)
[2024-05-17] MEDS: ZOFRAN 4 MG IV (07:50)
[2024-05-17] MEDS: NSS (PRESERVATIVE FREE) 10 ML IV ×2 (07:55→19:40)
[2024-05-17] MEDS: PROTONIX IV 40 MG IV ×2 (07:56→19:40)
[2024-05-17] MEDS: STERILE WATER FOR INJECTION 10 ML IV ×2 (07:59→16:23)
--- NOTE | 2024-05-17 10:10 | PHA.VAN.FU ---
Vancomycin Assessment / Plan
- Assessment
Renal Function: No New Labs Today
In the past 24 hrs, patient has been: Afebrile
Concomitant Antimicrobials: Cefepime
- Assessment - Therapeutic Drug Monitoring
Extrapolated Cmax (mcg/mL): 20.6
Peak level was drawn: Appropriately
Extrapolated Cmin (mcg/mL): 7.2
Trough Drawn: Appropriately
Levels were drawn: At steady state
Calculated AUC (mcg*h/mL): 308
Calculated ke: 0.0955
Calculated half life (H): 7.3
Calculated Vd (L): 50.92
Calculated Vanc CL (ml/min): 81.08
- Dosing Plan
Adjust Regimen to: Vanc 750mg IV Q8H
New Regimen Predicts: AUC (485), Peak (27.6), Trough (14.1)
- Monitoring Plan
Level(s) appropriate: Recheck trough at minimum of weekly intervals, Repeat sooner for changes in renal function or clinical status
- Follow Up
Pharmacy will continue to follow.
Vancomycin Follow UP
- -
Patient Age: 53
Patient Sex: Female
Vancomycin Day #: 3
Indication: Neutropenic Fever
Requesting Provider: Dr. Newby
Pertinent Antimicrobial Allergies:
NKDA
Height / Weight:
Height 5 ft 1 in
Actual Weight 49.442 kg
Pertinent Past Medical History: stage IV Cholangiocarcinoma
- Vital Signs / Lab Results
Temp Pulse Resp BP Pulse Ox
98.6 F 89 16 103/58 100
05/17/24 07:00 05/17/24 07:00 05/17/24 07:00 05/17/24 07:00 05/17/24 07:00
Lab Results - Hematology
05/15/24 05/16/24
04:57 08:10
WBC 0.1 L* 0.2 L*
Lab Results - Chemistry
05/15/24 05/16/24
04:57 08:10
BUN 17 10
Creatinine 0.6 0.6
Estimated Creat Clear 81 81
Microbiology Results
05/15/24 08:58 Blood Culture - Preliminary
Blood/Venous No Growth in 48 hours- Final report to follow
05/15/24 14:34 Blood Culture - Preliminary
Blood/Venous Staphylococcus aureus
Gram Stain - Preliminary
05/15/24 23:33 Nasal Screen MRSA (PCR) - Final
Nose MRSA not detected - performed by PCR methodology.
05/15/24 23:33 Respiratory Syncytial Virus Ag - Final
Nasal Swab Negative for Respiratory Syncytial Virus.
A false negative result may be obtained with a specimen
collected early in the acute phase. If symptoms persist, a
new specimen should be tested.
05/15/24 23:33 Influenza Types A & B (CIELO) - Final
Nasal Swab Negative for Influenza A & B, NAAT
Negative results must be combined with clinical observations
and patient history.
Nucleic Acid Amplification test (NAAT)performed on the
[employer] platform.
Therapeutic Drug Monitoring
Vancomycin Peak 17.7 ug/ml (18-26) L 05/16/24 20:29
Vancomycin Trough 7.6 ug/ml (5-20) 05/17/24 05:20
[2024-05-17] MEDS: TYLENOL 650 MG PO ×2 (11:18→17:58)
[2024-05-17 11:25] LABS: % Eosinophils 6.3 % (0-6); % Lymphocytes 68.8 % (20.5-51.1); % Monocytes 12.5 % (1.7-9.3); % Neutrophils 12.4 % (42.2-75.2); Absolute Lymphocytes 0.1 10^3/uL (1.2-3.4); Hematocrit 18.2 % (37.0-47.0); Hemoglobin 6.4 g/dL (12.0-16.0); Mean Corp Hgb Conc. 35.2 g/dL (33.0-37.0); Mean Corpuscular Hgb 28.6 pg (27.0-31.0); Mean Corpuscular Volume 81.3 fL (81.0-99.0); Mean Platelet Volume 11.1 fL (7.4-10.4); Nucleated Red Blood Cells % 0 %; Platelet Count 28 10^3/uL (130-400); Red Blood Cell Count 2.24 10^6/uL (4.20-5.40); Red Cell Dist. Width 18.5 % (11.5-14.5); White Blood Cell Count 0.2 10^3/uL (4.8-10.8)
[2024-05-17 13:21] VITALS: BP 88/54
--- NOTE | 2024-05-17 13:35 | W.PN.HOSP.TC ---
Today's Communication/Plan
-
Assessment / Plan
Assessment / Plan
General: No Apparent Distress, Comfortable and Conversant
HEENT: NormoCephalic, Moist mucous membranes, Atraumatic
Respiratory: Clear and Non Labored Respirations
Cardiac: S1/S2 and Regular Rhythm; No Rub or Gallop
GI: Soft, Non Tender, Non Distended and Normal Bowel Sounds
Musculoskeletal: No Edema, no deformity
: NO Mckeon
Neuro: Awake, Alert, AO x 3 and Nonfocal/grossly intact
Psych: Calm and Intact Judgment/Insight
Ms. Voss is a 53-year-old female with medical history of peptic ulcer disease, Schatzki ring, stage IV cholangiocarcinoma (on immunotherapy at [facility] cancer [place] in [place]), and pancytopenia who presents with recurrent upper GI bleeding. She
experienced 3 episodes of hematemesis this morning totaling approximately 10 ounces of john red blood. She was recently hospitalized here 2 months ago where she was evaluated for upper GI bleed and underwent upper endoscopy with findings of
hemorrhagic appearing mucosa in the cardia and multiple bleeding angiectasia's which were treated with APC. She had recent follow-up with GI in the outpatient setting this past week and has had no recurrent symptoms until today. She is not
experiencing any current pain or nausea.
In the ED, her blood pressure was low but stable with a systolic around 110 which is consistent with her recent baseline. She was in sinus rhythm with controlled rate. She was afebrile and saturating appropriately on room air. Her labs were
revealing of pancytopenia including WBC 0.2, hemoglobin 8.0, and platelets of 14,000 all of which are likely related to her ongoing cancer treatments. Her chemistry panel was generally unremarkable. She was transfused 1 unit of PRBCs and 1 unit of
platelets in the ED. She was admitted for further evaluation and management of hematemesis.
Hematemesis:
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
-Continue high-dose IV PPI and Carafate
-Transfused total of 2 units PRBCs and 3 unit platelets, hemoglobin dropped to 6.4 this morning and so transfusing another unit of PRBCs (now 3 total units transfused), likely residual from prior GI bleeding
-Tolerating a p.o. diet
-No plan for endoscopy at this point, GI signing off
Anemia requiring transfusions:
-Secondary to upper GI bleeding as outlined above
-Transfusing another unit PRBCs this morning for hemoglobin of 6.4, total of 3 units PRBCs this admission
Neutropenic fever:
-Has been afebrile past 24 hours
-Blood cultures growing Staph aureus, sensitivities pending, repeat cultures negative so far
-Continue antibiotics with vancomycin and cefepime
-Neutropenic precautions
-ID following, guidance appreciated
-COVID-19 and influenza negative
Pancytopenia:
-Believe secondary to ongoing cancer treatments
-Initial labs showing WBC 0.2, hemoglobin 8.0, and platelets 14,000
-Repeat labs today show mild improvement in platelets, no change in WBCs, decreased hemoglobin to 6.4
-Now has been transfused 3 units PRBCs and 3 units platelets of for this admission
-Receives Neulasta as outpatient, no need for inpatient G-CSF
-Heme-onc following, appreciate input
Cholangiocarcinoma:
-Stage IV
-Currently following at [facility] in [place] for ongoing treatment
-Inpatient heme-onc following
CODE STATUS: Full code
Anticipated Discharge: > 48 hours
Subjective/Interval History
-
Date of Service: May 17, 2024
Patient was seen and examined at bedside this morning. Feeling well, no more chills. Still concerned about ongoing blood work abnormalities. No further hematemesis in the past 24 hours.
Objective Data
-
Labs:
Laboratory Results
05/17/24
11:03
WBC 0.2 L*
Hgb 6.4 L*
Hct 18.2 L*
Plt Count 28 L* D
Vital Signs:
Vital Signs
Temp Pulse Resp BP Pulse Ox
99.7 F 90 14 88/54 97
05/17/24 13:21 05/17/24 13:21 05/17/24 13:21 05/17/24 13:21 05/17/24 13:21
I&O
05/16/24 05/17/24 05/18/24
06:59 06:59 06:59
Intake Total 1268 / 1268 1669 / 1669 0 / 0
Balance 1268 / 1268 1669 / 1669 0 / 0
Review of Systems
-
History Source: Patient
All other systems: Reviewed and negative
Physical Exam
-
General: No Apparent Distress
[2024-05-17 15:00] VITALS: BP 106/63
[2024-05-17 16:35] VITALS: BP 99/56
[2024-05-17 22:05] VITALS: BP 106/61
[2024-05-18] MEDS: STERILE WATER FOR INJECTION 10 ML IV ×3 (00:26→15:36)
[2024-05-18] MEDS: MAXIPIME 2000 MG IV ×3 (00:26→15:35)
[2024-05-18] MEDS: VANCOCIN 150 IV (05:27)
[2024-05-18] MEDS: SYNTHROID 100 MCG PO (05:27)
[2024-05-18] MEDS: ZOFRAN 4 MG IV (05:34)
[2024-05-18 07:00] VITALS: BP 95/66
[2024-05-18 07:30] LABS: % Basophils 3.4 % (0-2); % Eosinophils 3.4 % (0-6); % Lymphocytes 41.4 % (20.5-51.1); % Monocytes 10.3 % (1.7-9.3); % Neutrophils 41.5 % (42.2-75.2); Absolute Lymphocytes 0.1 10^3/uL (1.2-3.4); Absolute Neutrophils 0.1 10^3/uL (1.4-6.5); Hemoglobin 8.2 g/dL (12.0-16.0); Mean Corp Hgb Conc. 35.7 g/dL (33.0-37.0); Mean Corpuscular Volume 84.2 fL (81.0-99.0); Nucleated Red Blood Cells % 6.9 %; Platelet Count 22 10^3/uL (130-400); Red Blood Cell Count 2.73 10^6/uL (4.20-5.40); Red Cell Dist. Width 17.5 % (11.5-14.5); White Blood Cell Count 0.3 10^3/uL (4.8-10.8)
[2024-05-18] MEDS: PROTONIX IV 40 MG IV ×2 (08:46→20:08)
[2024-05-18] MEDS: CARAFATE 1 GRAM PO ×2 (08:47→20:08)
[2024-05-18] MEDS: NSS (PRESERVATIVE FREE) 10 ML IV ×2 (08:47→20:08)
[2024-05-18] MEDS: NSS 1000 IV (10:19)
--- NOTE | 2024-05-18 14:17 | W.PN.HOSP.TC ---
Today's Communication/Plan
-
Assessment / Plan
Assessment / Plan
General: No Apparent Distress, Comfortable and Conversant
HEENT: NormoCephalic, Moist mucous membranes, Atraumatic
Respiratory: Clear and Non Labored Respirations
Cardiac: S1/S2 and Regular Rhythm; No Rub or Gallop
GI: Soft, Non Tender, Non Distended and Normal Bowel Sounds
Musculoskeletal: No Edema, no deformity
: NO Mckeon
Neuro: Awake, Alert, AO x 3 and Nonfocal/grossly intact
Psych: Calm and Intact Judgment/Insight
Ms. Voss is a 53-year-old female with medical history of peptic ulcer disease, Schatzki ring, stage IV cholangiocarcinoma (on immunotherapy at [facility] [place] in [place]), and pancytopenia who presents with recurrent upper GI bleeding. She
experienced 3 episodes of hematemesis this morning totaling approximately 10 ounces of john red blood. She was recently hospitalized here 2 months ago where she was evaluated for upper GI bleed and underwent upper endoscopy with findings of
hemorrhagic appearing mucosa in the cardia and multiple bleeding angiectasia's which were treated with APC. She had recent follow-up with GI in the outpatient setting this past week and has had no recurrent symptoms until today. She is not
experiencing any current pain or nausea.
In the ED, her blood pressure was low but stable with a systolic around 110 which is consistent with her recent baseline. She was in sinus rhythm with controlled rate. She was afebrile and saturating appropriately on room air. Her labs were
revealing of pancytopenia including WBC 0.2, hemoglobin 8.0, and platelets of 14,000 all of which are likely related to her ongoing cancer treatments. Her chemistry panel was generally unremarkable. She was transfused 1 unit of PRBCs and 1 unit of
platelets in the ED. She was admitted for further evaluation and management of hematemesis.
Hematemesis:
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
-Continue high-dose IV PPI and Carafate
-Transfused total of 3 units PRBCs and 3 unit platelets, hemoglobin improved to 8.2 this morning
-Tolerating a p.o. diet
-No plan for endoscopy at this point, GI signing off
Anemia requiring transfusions:
-Secondary to upper GI bleeding as outlined above
-Transfused a total of 3 units PRBCs this admission
MSSA bacteremia:
-Repeat cultures negative x 24 hours so far
-Continuing antibiotics with vancomycin
-Follow-up with ID regarding plan for antibiotic duration and potential need for Chemo-Port (hopefully do not need to remove it)
Neutropenic fever:
-Has been afebrile past 48 hours
-Blood cultures growing MSSA, repeat cultures negative so far
-Continue antibiotics with cefepime, discontinue vancomycin
-Neutropenic precautions
-ID following, guidance appreciated
-COVID-19 and influenza negative
Pancytopenia:
-Believe secondary to ongoing cancer treatments
-Initial labs showing WBC 0.2, hemoglobin 8.0, and platelets 14,000
-Repeat labs today show stable platelets and WBC, improved hemoglobin to 8.2
-Now has been transfused 3 units PRBCs and 3 units platelets of for this admission
-Receives Neulasta as outpatient, no need for inpatient G-CSF
-Heme-onc following, appreciate input
Cholangiocarcinoma:
-Stage IV
-Currently following at [facility] in [place] for ongoing treatment
-Inpatient heme-onc following
CODE STATUS: Full code
Anticipated Discharge: 24 - 48 hours
Subjective/Interval History
-
Date of Service: May 18, 2024
Patient was seen and examined at bedside this morning. Her hemoglobin levels have significantly improved today to 8.2. Platelet count and WBC remain low but stable. She is not experiencing any more chills, nausea, or hematemesis.
Objective Data
-
Labs:
Laboratory Results
05/18/24
06:09
WBC 0.3 L*
Hgb 8.2 L D
Hct 23.0 L
Plt Count 22 L* D
Vital Signs:
Vital Signs
Temp Pulse Resp BP Pulse Ox
98.8 F 98 16 95/66 97
05/18/24 07:00 05/18/24 07:00 05/18/24 07:00 05/18/24 07:00 05/18/24 08:50
I&O
05/17/24 05/18/24 05/19/24
06:59 06:59 06:59
Intake Total 1669 / 1669 970 / 970
Balance 1669 / 1669 970 / 970
Review of Systems
-
History Source: Patient
All other systems: Reviewed and negative
Physical Exam
-
General: No Apparent Distress
[2024-05-18 15:00] VITALS: BP 108/70
[2024-05-18] MEDS: SENOKOT-S 1 TABLET PO (15:47)
[2024-05-18] MEDS: XANAX 0.25 MG PO (22:02)
[2024-05-18 23:00] VITALS: BP 104/63
[2024-05-19] MEDS: STERILE WATER FOR INJECTION 10 ML IV ×2 (00:26→07:47)
[2024-05-19] MEDS: MAXIPIME 2000 MG IV ×2 (00:26→07:46)
[2024-05-19 05:41] LABS: Hematocrit 21.2 % (37.0-47.0); Hemoglobin 7.7 g/dL (12.0-16.0); Mean Corp Hgb Conc. 36.3 g/dL (33.0-37.0); Mean Corpuscular Hgb 30.6 pg (27.0-31.0); Mean Corpuscular Volume 84.1 fL (81.0-99.0); Platelet Count 17 10^3/uL (130-400); Red Blood Cell Count 2.52 10^6/uL (4.20-5.40); Red Cell Dist. Width 17.5 % (11.5-14.5); White Blood Cell Count 0.6 10^3/uL (4.8-10.8)
[2024-05-19] MEDS: SYNTHROID 100 MCG PO (06:30)
[2024-05-19 07:33] VITALS: BP 96/62
[2024-05-19] MEDS: NSS (PRESERVATIVE FREE) 10 ML IV ×2 (07:46→20:27)
[2024-05-19] MEDS: CARAFATE 1 GRAM PO ×2 (07:47→20:29)
[2024-05-19] MEDS: PROTONIX IV 40 MG IV ×2 (07:47→20:27)
[2024-05-19 07:57] LABS: % Basophils 1.8 % (0-2); % Eosinophils 3.5 % (0-6); % Lymphocytes 26.3 % (20.5-51.1); % Monocytes 10.5 % (1.7-9.3); % Neutrophils 50.9 % (42.2-75.2); Absolute Lymphocytes 0.2 10^3/uL (1.2-3.4); Absolute Monocytes 0.1 10^3/uL (0.1-0.6); Absolute Neutrophils 0.3 10^3/uL (1.4-6.5); Nucleated Red Blood Cells % 3.5 %
[2024-05-19] MEDS: KCL 40 MEQ PO (09:18)
--- NOTE | 2024-05-19 10:24 | W.PN.HOSP.TC ---
Addendum entered and electronically signed by Abelardo Bender DO 05/19/24 14:55:
Immunocompromised patient
Original Note:
Today's Communication/Plan
-
Bowel regimen
Ambulate
replete potassium
Check magnesium
Continue current care
Assessment / Plan
Assessment / Plan
General: No Apparent Distress, Comfortable and Conversant
HEENT: NormoCephalic, Moist mucous membranes, Atraumatic
Respiratory: Clear and Non Labored Respirations
Cardiac: S1/S2 and Regular Rhythm; No Rub or Gallop
GI: Soft, Non Tender, Non Distended and Normal Bowel Sounds
Musculoskeletal: No Edema, no deformity
: NO Mckeon
Neuro: Awake, Alert, AO x 3 and Nonfocal/grossly intact
Psych: Calm and Intact Judgment/Insight
Ms. Voss is a 53-year-old female with medical history of peptic ulcer disease, Schatzki ring, stage IV cholangiocarcinoma (on immunotherapy at [facility] [place] in [place]), and pancytopenia who presents with recurrent upper GI bleeding. She
experienced 3 episodes of hematemesis this morning totaling approximately 10 ounces of john red blood. She was recently hospitalized here 2 months ago where she was evaluated for upper GI bleed and underwent upper endoscopy with findings of
hemorrhagic appearing mucosa in the cardia and multiple bleeding angiectasia's which were treated with APC. She had recent follow-up with GI in the outpatient setting this past week and has had no recurrent symptoms until today. She is not
experiencing any current pain or nausea.
In the ED, her blood pressure was low but stable with a systolic around 110 which is consistent with her recent baseline. She was in sinus rhythm with controlled rate. She was afebrile and saturating appropriately on room air. Her labs were
revealing of pancytopenia including WBC 0.2, hemoglobin 8.0, and platelets of 14,000 all of which are likely related to her ongoing cancer treatments. Her chemistry panel was generally unremarkable. She was transfused 1 unit of PRBCs and 1 unit of
platelets in the ED. She was admitted for further evaluation and management of hematemesis.
Acute upper GI bleed due to hematemesis:
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
-Continue high-dose IV PPI and Carafate
-Transfused total of 3 units PRBCs and 3 unit platelets, hemoglobin 8.2 yesterday, 7.7 today. Has not had a bowel movement so far in the hospital. Bowel regimen ordered.
-Tolerating a p.o. diet
-No plan for endoscopy at this point, GI signing off
Anemia requiring transfusions:
-Secondary to upper GI bleeding as outlined above
-Transfused a total of 3 units PRBCs this admission
MSSA bacteremia:
-Repeat cultures negative x 48 hours so far
-Continuing antibiotics per infectious disease
-Follow-up with ID regarding plan for antibiotic duration and potential need for Chemo-Port (hopefully do not need to remove it)
Neutropenic fever:
-Has been afebrile past 48 hours
-Blood cultures growing MSSA, repeat cultures negative so far
-Continue antibiotics with cefepime, discontinue vancomycin
-Neutropenic precautions
-ID following, guidance appreciated
-COVID-19 and influenza negative
Chemotherapy induced pancytopenia:
WBC count 0.6, ANC 0.3. Platelet count 17,000.
-Now has been transfused 3 units PRBCs and 3 units platelets of for this admission
-Receives Neulasta as outpatient, no need for inpatient G-CSF
-Heme-onc following, appreciate input
Hypokalemia -replete orally. Check magnesium.
Hyponatremia - 134.
Stage IV cholangiocarcinoma:
-Currently following at [facility] in [place] for ongoing treatment
-Inpatient heme-onc following
Full code
Dispo -anticipate discharge on antibiotics per infectious disease. Patient eager to go home.
Anticipated Discharge: Within 24 hours
Subjective/Interval History
-
Date of Service: May 19, 2024
Patient seen and examined. Complaining of constipation.
Objective Data
-
Labs:
Laboratory Results
05/19/24
04:57
WBC 0.6 L*
Hgb 7.7 L
Hct 21.2 L
Plt Count 17 L* D
Vital Signs:
Vital Signs
Temp Pulse Resp BP Pulse Ox
98.8 F 80 16 96/62 98
05/19/24 07:33 05/19/24 07:33 05/19/24 07:33 05/19/24 07:33 05/19/24 07:33
I&O
05/18/24 05/19/24 05/20/24
06:59 06:59 06:59
Intake Total 970 / 970 720 / 720 1320 / 1320
Balance 970 / 970 720 / 720 1320 / 1320
Review of Systems
-
History Source: Patient
All other systems: Reviewed and negative
--- NOTE | 2024-05-19 10:39 | W.PN.ID1 ---
Date of Service
Date of Service: May 19, 2024
Today's Communication
- port functional, no tenderness; with marked thrombocytopenia not currently a candidate for removal, patient is receiving antibiotics via the port
- possible outpatient removal when thrombocytopenia improving; left message for her oncologist Drew via Mikhail Gaytan her case therapist - [phone]
- switched to cefazolin plan two weeks of therapy via port with eventual port removal and possible later replacement outpatient pending improvement of pancytopenia
Assessment / Plan
Neutropenic Fever
- possible viral URI
Pancytopenia
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
Hematemsis
Port
- 1 of 2 sets of blood cultures with MSSA
- repeat blood cultures x2 sets no growth to date at 48 hours
- TTE when feasible
- port functional, no tenderness; with marked thrombocytopenia not currently a candidate for removal, patient is receiving antibiotics via the port
- possible outpatient removal when thrombocytopenia improving; left message for her oncologist Drew via Mikhail Gaytan her case therapist - [phone]
- switched to cefazolin plan two weeks of therapy via port with eventual port removal and possible later replacement outpatient pending improvement of pancytopenia
- follow clinically
Chief Complaint
-: Bacteremia and Other (neutropenic fever)
Subjective / Review of Systems
remains afebrile
bp stable
Vital Signs / Physical Exam
Vital Signs
Vital Signs
Temp Pulse Resp BP Pulse Ox
98.8 F 80 16 96/62 98
05/19/24 07:33 05/19/24 07:33 05/19/24 07:33 05/19/24 07:33 05/19/24 07:33
Physical Exam
Constitutional: No Acute Distress
Cardiovascular: Regular Rate and S1/S2; Negative Murmur or Rub
Pulmonary: Clear and Symmetric; Negative Wheezes or Rales
Gastrointestinal: Soft, Non Tender, Non Distended and Normal Bowel Sounds
Skin: Warm and Dry; Negative Rash or Jaundice
Lines: Port (no erythema, warmth, tenderness, drainage)
Objective Data
Lab Data
Lab Results
05/19/24 04:57
05/16/24 08:10
PT 17.2 Sec (11.4-14.6) H 05/14/24 09:04
INR 1.35 05/14/24 09:04
APTT < 20.0 Sec (23.4-35.0) L 05/14/24 09:04
Estimated Creat Clear 81 ml/min 05/16/24 08:10
Total Bilirubin 0.9 mg/dl (0.2-1.3) 05/14/24 07:30
AST 28 U/L (14-36) 05/14/24 07:30
ALT 21 U/L (0-35) 05/14/24 07:30
Alkaline Phosphatase 84 U/L (38-126) 05/14/24 07:30
Most recent labs reviewed.
Micro Results:
05/15/24 08:58 Blood Culture - Preliminary
Blood/Venous No Growth in 4 days- Final report to follow
05/16/24 15:00 Blood Culture - Preliminary
Blood/Venous No Growth in 48 hours- Final report to follow
05/16/24 14:26 Blood Culture - Preliminary
Blood/Venous No Growth in 48 hours- Final report to follow
05/15/24 14:34 Blood Culture - Preliminary
Blood/Venous S aureus-Methicillin Sensitive
Gram Stain - Preliminary
05/15/24 23:33 Nasal Screen MRSA (PCR) - Final
Nose MRSA not detected - performed by PCR methodology.
05/15/24 23:33 Respiratory Syncytial Virus Ag - Final
Nasal Swab Negative for Respiratory Syncytial Virus.
A false negative result may be obtained with a specimen
collected early in the acute phase. If symptoms persist, a
new specimen should be tested.
05/15/24 23:33 Influenza Types A & B (CIELO) - Final
Nasal Swab Negative for Influenza A & B, NAAT
Negative results must be combined with clinical observations
and patient history.
Nucleic Acid Amplification test (NAAT)performed on the
[employer] platform.
[2024-05-19 10:42] LABS: Magnesium 1.7 mg/dl (1.6-2.3)
--- NOTE | 2024-05-19 10:50 | PN.CDI ---
CDI
- -
CDI:
Physician Documentation Request
Admit Date: 05/14/24 12:33
Dear Doctor Napoleon,
05/19 Hospitalist PN: 'stage IV cholangiocarcinoma (on immunotherapy at [facility] in [place])...Neutropenic fever:...Continue antibiotics with cefepime, discontinue vancomycin -Neutropenic precautions...Chemotherapy induced pancytopenia'
Based on the above, could you clarify in the progress notes, the appropriate diagnosis, if significant, that supports the above abnormalities and additional evaluation, monitoring and/or treatment rendered:
Immunocompromised
Normal immune status
Other
Use of terms such as suspected, likely, concern for, or probable (associated with a specific diagnosis that is being evaluated, monitored, or treated as if it exists) are acceptable and can be coded in the inpatient setting, when documented at the
time of discharge.
Thank you,
Jolie Harris RN, BSN
CDI Specialist
Available via [place] text
Please use your independent medical judgment in providing your response.
[2024-05-19] MEDS: DULCOLAX 10 MG PO (11:04)
[2024-05-19] MEDS: MIRALAX 17 GRAMS PO (11:05)
[2024-05-19] MEDS: ANCEF 10 IV ×2 (11:17→20:28)
[2024-05-19] MEDS: NSS 1000 IV (11:26)
--- NOTE | 2024-05-19 11:50 | CM ---
CM received Script for IV Cafazolin 2gm IV QH8H from Dr. Salas
Discussed with patient - [facility]
Faxed to Nissa at [facility] to check benefits
PLAN: home with IV antibiotic, waiting for benefits checked
[2024-05-19 15:05] VITALS: BP 106/61
[2024-05-19] MEDS: XANAX 0.25 MG PO (22:06)
[2024-05-19 23:00] VITALS: BP 96/58
--- NOTE | 2024-05-19 23:11 | W.PN.ONC2 ---
Today's Communication / Plan
-
Ideally, port would be removed but not possible with degree of neutropenia.
Wiht port still in place and potientially infected, suggest that pt remain inpt until ANC >500.
Impression
Impression
Severe pancytopenia, 2* chemotherapy
neutropenic fever
Bcx x 1 bottle S Aureus
Stage IV cholangiocarcinoma, patient has been treated at multiple institutions including [facility], [facility], and currently [facility] -on clinical trial, last dose FOLFOX + LSTA1 on 05/13, completed XRT 12/2023. Received Neulasta
Hematemesis/GIB
Plan
Plan
neutropenic precautions.
transfuse Hgb <7g/dL.
HOLD additional PLT as she seems to be alloimmunized and not bleeding. RISKS>BENEFITS at this point bianca for PLT > 10K and no bleeding.
abx per ID, follow cultures
avoid NSAIDS, antiplatelet, anticoagulation with platelet count <50
trial drug +FOLFOX may need adjusted based on cytopenias. Pt has been in contact with her trial coordinator. Suspect baased on severity of cytopenia (atypical to see with FOLFOX alone), she's getting active drug not placebo.
No role for inpatient G-CSF as patient was given Neulasta.
Subjective/Objective
Chief Complaint
Heme/Onc follow up of neutropenia
Subjective
Feels well, denies complaint, anxious to go home. Denies bleeding.
Vital Signs:
Vital Signs
Temp Pulse Resp BP Pulse Ox
98.3 F 82 18 106/61 99
05/19/24 15:05 05/19/24 15:05 05/19/24 15:05 05/19/24 15:05 05/19/24 15:05
Lab Results:
Laboratory Data
WBC 0.6 10^3/uL (4.8-10.8) L* 05/19/24 04:57
Hgb 7.7 g/dL (12.0-16.0) L 05/19/24 04:57
Plt Count 17 10^3/uL (130-400) L* D 05/19/24 04:57
PT 17.2 Sec (11.4-14.6) H 05/14/24 09:04
INR 1.35 05/14/24 09:04
APTT < 20.0 Sec (23.4-35.0) L 05/14/24 09:04
eGFR > 60.00 05/16/24 08:10
Physical Exam
Awake, alert, non-toxic appearing
[2024-05-20] VITALS (7 sets, daily range): BP systolic 90–115; BP diastolic 54–80
[2024-05-20] MEDS: SYNTHROID 100 MCG PO (05:03)
[2024-05-20] MEDS: ANCEF 10 IV ×3 (05:03→19:58)
[2024-05-20 05:24] LABS: Hemoglobin 6.8 g/dL (12.0-16.0); Mean Corp Hgb Conc. 35.8 g/dL (33.0-37.0); Mean Corpuscular Hgb 30.8 pg (27.0-31.0); Platelet Count 13 10^3/uL (130-400); Red Blood Cell Count 2.21 10^6/uL (4.20-5.40); Red Cell Dist. Width 18.1 % (11.5-14.5); White Blood Cell Count 1.3 10^3/uL (4.8-10.8)
[2024-05-20 05:33] LABS: Blood Urea Nitrogen 8 mg/dl (7-17); Calcium 7.8 mg/dl (8.4-10.2); Carbon Dioxide 28 mmol/L (22-30); Chloride 108 mmol/L (98-107); Estimated Creatinine Clearance 81 ml/min; Glucose 90 mg/dl (70-99); Potassium 3.7 mmol/L (3.5-5.1); Sodium 139 mmol/L (135-145); eGFR > 60.00
[2024-05-20] MEDS: MIRALAX 17 GRAMS PO ×2 (07:41→20:01)
[2024-05-20] MEDS: NSS (PRESERVATIVE FREE) 10 ML IV ×2 (07:42→20:01)
[2024-05-20] MEDS: CARAFATE 1 GRAM PO ×2 (07:42→19:59)
[2024-05-20] MEDS: PROTONIX IV 40 MG IV ×2 (07:42→20:01)
--- NOTE | 2024-05-20 10:40 | W.PN.HOSP.TC ---
Today's Communication/Plan
-
Increase bowel regimen
Transfuse
Assessment / Plan
Assessment / Plan
General: No Apparent Distress, Comfortable and Conversant
HEENT: NormoCephalic, Moist mucous membranes, Atraumatic
Respiratory: Clear and Non Labored Respirations
Cardiac: S1/S2 and Regular Rhythm; No Rub or Gallop
GI: Soft, Non Tender, Non Distended and Normal Bowel Sounds
Musculoskeletal: No Edema, no deformity
: NO Mckeon
Neuro: Awake, Alert, AO x 3 and Nonfocal/grossly intact
Psych: Calm and Intact Judgment/Insight
Acute upper GI bleed due to hematemesis:
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
-Continue high-dose IV PPI and Carafate
-Transfused total of 3 units PRBCs and 3 unit platelets. Hemoglobin down to 6.8 this morning, getting fourth unit of blood today. No evidence of active bleeding.
Has not had a bowel movement so far in the hospital. Bowel regimen ordered.
-Tolerating a p.o. diet
-No plan for endoscopy at this point, GI signing off
Anemia requiring transfusions:
-Secondary to upper GI bleeding as outlined above
-Transfused a total of 3 units PRBCs this admission
MSSA bacteremia:
-Repeat cultures negative x 48 hours so far
-Continuing antibiotics per infectious disease
-Follow-up with ID regarding plan for antibiotic duration and potential need for Chemo-Port (hopefully do not need to remove it)
Neutropenic fever:
-Has been afebrile past 48 hours
-Blood cultures growing MSSA, repeat cultures negative so far
-Continue antibiotics with cefepime, discontinue vancomycin
-Neutropenic precautions
-ID following, guidance appreciated
-COVID-19 and influenza negative
Chemotherapy induced pancytopenia:
WBC count improving, 1.3 today. Awaiting differential. Platelet count 13,000.
-Now has been transfused 3 units PRBCs and 3 units platelets of for this admission
-Receives Neulasta as outpatient, no need for inpatient G-CSF
-Heme-onc following, appreciate input
Constipation -will increase bowel regimen. Encourage ambulation.
Hypokalemia -improved.
Hyponatremia -improved.
Stage IV cholangiocarcinoma:
-Currently following at [facility] in [place] for ongoing treatment
-Inpatient heme-onc following
Full code
Dispo -anticipate discharge on antibiotics per infectious disease. Discharge later today if okay with hematology service.
Anticipated Discharge: Today
Subjective/Interval History
-
Date of Service: May 20, 2024
Patient seen and examined. No complaints.
Objective Data
-
Labs:
Laboratory Results
05/20/24
04:39
WBC 1.3 L*
Hgb 6.8 L*
Hct 19.0 L*
Plt Count 13 L* D
Sodium 139
Potassium 3.7
Chloride 108 H
Carbon Dioxide 28
BUN 8
Creatinine 0.6
Glucose 90
Calcium 7.8 L
Vital Signs:
Vital Signs
Temp Pulse Resp BP Pulse Ox
98.2 F 86 16 99/65 100
05/20/24 09:55 05/20/24 09:55 05/20/24 09:55 05/20/24 09:55 05/20/24 09:55
I&O
05/19/24 05/20/24 05/21/24
06:59 06:59 06:59
Intake Total 720 / 720 3120 / 3120 0 / 0
Balance 720 / 720 3120 / 3120 0 / 0
Review of Systems
-
History Source: Patient
All other systems: Reviewed and negative
--- NOTE | 2024-05-20 10:40 | W.PN.ONC ---
Today's Communication / Plan
-
Getting one unit prbcs now
No obvious bleeding (severe constipation argues against ongoing GI bleeding)
neutropenic precautions.
transfuse Hgb <7g/dL.
HOLD additional PLT as she seems to be alloimmunized and not bleeding. RISKS>BENEFITS at this point bianca for PLT > 10K and no bleeding.
abx per ID, for IV cefazolin as outpatient. Port removal to be considered pending plt recovery
trial drug +FOLFOX may need adjusted based on cytopenias. Pt has been in contact with her trial coordinator. Suspect based on severity of cytopenia (atypical to see with FOLFOX alone), she's getting active drug not placebo.
DPD gene mutation testing as outpatient (has order from her treating team). Cannot be tested here as inpatient
No role for inpatient G-CSF as patient was given Neulasta.
Okay for d/c tomorrow if hgb >/= 7.5, platelets stable/improved, and ANC >500.
Impression
Impression
Severe pancytopenia, 2* chemotherapy
neutropenic fever
Bcx x 1 bottle S Aureus
Stage IV cholangiocarcinoma, patient has been treated at multiple institutions including [facility], [facility], and currently [facility] -on clinical trial, last dose FOLFOX + LSTA1 on 05/13, completed XRT 12/2023. Received Neulasta
Hematemesis/GIB
Plan
Plan
Getting one unit prbcs now
No obvious bleeding (severe constipation argues against ongoing GI bleeding)
neutropenic precautions.
transfuse Hgb <7g/dL.
HOLD additional PLT as she seems to be alloimmunized and not bleeding. RISKS>BENEFITS at this point bianca for PLT > 10K and no bleeding.
abx per ID, for IV cefazolin as outpatient. Port removal to be considered pending plt recovery
trial drug +FOLFOX may need adjusted based on cytopenias. Pt has been in contact with her trial coordinator. Suspect based on severity of cytopenia (atypical to see with FOLFOX alone), she's getting active drug not placebo.
DPD gene mutation testing as outpatient (has order from her treating team). Cannot be tested here as inpatient
No role for inpatient G-CSF as patient was given Neulasta.
Okay for d/c tomorrow if hgb >/= 7.5, platelets stable/improved, and ANC >500.
Subjective/Objective
Subjective/Objective
only complaint is constipation
has good appetite
no signs of bleeding
Vital Signs:
Vital Signs
Temp Pulse Resp BP Pulse Ox
98.2 F 86 16 99/65 100
05/20/24 09:55 05/20/24 09:55 05/20/24 09:55 05/20/24 09:55 05/20/24 09:55
Lab Results:
Laboratory Data
WBC 1.3 10^3/uL (4.8-10.8) L* 05/20/24 04:39
Hgb 6.8 g/dL (12.0-16.0) L* 05/20/24 04:39
Plt Count 13 10^3/uL (130-400) L* D 05/20/24 04:39
PT 17.2 Sec (11.4-14.6) H 05/14/24 09:04
INR 1.35 05/14/24 09:04
APTT < 20.0 Sec (23.4-35.0) L 05/14/24 09:04
eGFR > 60.00 05/20/24 04:39
--- NOTE | 2024-05-20 10:49 | W.PN.GI.CBS2 ---
Addendum entered and electronically signed by ASHLY Olvera 05/20/24 13:16:
will sign off if continued issues with constipation or signs of active bleeding call back GI.
Original Note:
Today's Communication / Plan
-
Asked to see as patient asking about EGD with anemia and constipation
etiology of bleeding related to hx angioectasia possible radiation related, PUD, esophagitis with mild odynophagia in setting of severe pancytopenia
cont to transfuse as needed per hematology
s/p 4 unit PRBC and 3 units platelets given this admission
currently no signs of active bleeding and platelets remain 13,000-- reviewed with patient no role for EGD at this time risk greater than benefits with pancytopenia and no signs of active bleeding
cont PPI and carafate BID
if anemia or abdominal pain persists when counts improve can consider
cont neutropenic precautions
cont regular diet
pt no stool for 5 days -- some bloating may be with laxative use cont Miralax and Senna BID
if no stool by tomorrow consider X ray for stool burden and need for change in regiment
encouraged OOB as tolerated
pt did leave message for MD in [place] with persistent pancytopenia- though slight improved WBC today
Assessment / Plan
-
Pt is a 53 y.o female with past medical history of hypothyroidism prior thyroidectomy, cholangiocarcinoma-diagnosed August 2022- stage IV with care at [facility] (s/p chemo/radiation therapy/ immunotherapy-- last dose 05/06 cycle 2 folfox chemo with
clinical trial drug at [facility] in [place]. She also has neulasta 05/08 and prior treatment at [facility] and [facility]), chronic anemia, and prior work up in February with rectal bleeding with noted EGD 03/04 found to have a non-bleeding gastric ulcer with
friable mucosa (bx with benign reactive gastropathy/vascular ectasia, suspected from prior radiation). 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
delayed effect from radiation. s/p APC. Non bleeding gastric ulcer with clean [place] III bx not done. She now presents with 2 episode of hematemesis on 05/14. GI work up held with continued pancytopenia in face of recent chemo/clinical trial.
She continued with some upper abdominal discomfort, pancytopenia and now constipation with bloating.
-hematemesis on admission
-pancytopenia/neutropenia persistent
-constipation with bloating
-cholangio CA stage IV hx chemo/rad/immunotherapy current [facility] with Folfox and clinical trial drug 05/06 with Neulasta 05/08
-anemia with period iron infusion prior to admission
-hx GI bleed February with rectal bleeding- multiple angioectasia, PUD
-thyroid CA with thyroidectomy/hypothyroidism
PLAN:
Asked to see as patient asking about EGD with anemia and constipation
etiology of bleeding related to hx angioectasia possible radiation related, PUD, esophagitis with mild odynophagia in setting of severe pancytopenia
cont to transfuse as needed per hematology
s/p 4 unit PRBC and 3 units platelets given this admission
currently no signs of active bleeding and platelets remain 13,000-- reviewed with patient no role for EGD at this time risk greater than benefits with pancytopenia and no signs of active bleeding
cont PPI and carafate BID
if anemia or abdominal pain persists when counts improve can consider
cont neutropenic precautions
cont regular diet
pt no stool for 5 days -- some bloating may be with laxative use cont Miralax and Senna BID
if no stool by tomorrow consider X ray for stool burden and need for change in regiment
encouraged OOB as tolerated
pt did leave message for MD in [place] with persistent pancytopenia- though slight improved WBC today
Subjective
Subjective
Date of Service: May 20, 2024
asked to see as patient still questioning need for EGD and noted with constipation on regular diet
Objective
Data Reviewed
Laboratory Data:
Laboratory Results
05/20/24 04:39
05/20/24 04:39
Laboratory Results
PT 17.2 Sec (11.4-14.6) H 05/14/24 09:04
INR 1.35 05/14/24 09:04
APTT < 20.0 Sec (23.4-35.0) L 05/14/24 09:04
Magnesium 1.7 mg/dl (1.6-2.3) 05/19/24 10:17
Total Bilirubin 0.9 mg/dl (0.2-1.3) 05/14/24 07:30
AST 28 U/L (14-36) 05/14/24 07:30
ALT 21 U/L (0-35) 05/14/24 07:30
Alkaline Phosphatase 84 U/L (38-126) 05/14/24 07:30
Vital Signs and I&O:
Vital Signs
Temp Pulse Resp BP Pulse Ox
98.2 F 86 16 99/65 100
05/20/24 09:55 05/20/24 09:55 05/20/24 09:55 05/20/24 09:55 05/20/24 09:55
I&O
05/19/24 05/20/24 05/21/24
06:59 06:59 06:59
Intake Total 720 / 720 3120 / 3120 0 / 0
Balance 720 / 720 3120 / 3120 0 / 0
Physical Exam
Physical Exam
HEENT: Anicteric
Cardiology: Normal Sinus Rhythm
Pulmonary: Clear
GI: Soft, Distended and Non Tender
Extremities: No Edema
Neuro: Non Focal
[2024-05-20] MEDS: SENOKOT-S 1 TABLET PO ×2 (10:58→20:00)
[2024-05-20 11:13] LABS: Eosinophils 1 % (0-6); Lymphocytes 14 % (20-51); Monocytes 6 % (2-9)
[2024-05-20 11:14] LABS: Platelets Checked Yes
[2024-05-20 11:16] LABS: Normal RBC Morphology No
[2024-05-20 11:17] LABS: Anisocytosis 1+; Band Neutrophils 10 % (0-3); Hypochromasia 1+; Microcytosis 1+; Segmented Neutrophils 69 % (42-75); Total Cells Counted 100
--- NOTE | 2024-05-20 13:08 | W.PN.ID1 ---
Date of Service
Date of Service: May 20, 2024
Today's Communication
- port functional, no tenderness; with marked thrombocytopenia and neutropenia not currently a candidate for removal, patient is receiving antibiotics via the port
- possible outpatient removal when thrombocytopenia improving; left message for her oncologist Drew via [employer] - [phone], awaiting response
- switched to cefazolin plan two weeks of therapy via port with eventual port removal and possible later replacement outpatient pending improvement of pancytopenia
Assessment / Plan
Neutropenic Fever
- possible viral URI
Pancytopenia
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
Hematemsis
Port
- 1 of 2 sets of blood cultures with MSSA
- repeat blood cultures x2 sets no growth to date at 48 hours
- TTE when feasible
- port functional, no tenderness; with marked thrombocytopenia and neutropenia not currently a candidate for removal, patient is receiving antibiotics via the port
- possible outpatient removal when thrombocytopenia improving; left message for her oncologist Drew via [employer] - [phone], awaiting response
- switched to cefazolin plan two weeks of therapy via port with eventual port removal and possible later replacement outpatient pending improvement of pancytopenia
- follow clinically
Chief Complaint
-: Bacteremia and Other (neutropenic fever)
Subjective / Review of Systems
afebrile
bp stable
no complaints
port remains functional, nontender, no erythema
Vital Signs / Physical Exam
Vital Signs
Vital Signs
Temp Pulse Resp BP Pulse Ox
97.7 F 72 16 102/62 97
05/20/24 11:57 05/20/24 11:57 05/20/24 11:57 05/20/24 11:57 05/20/24 11:57
Physical Exam
Constitutional: No Acute Distress
Cardiovascular: Regular Rate and S1/S2; Negative Murmur or Rub
Pulmonary: Clear and Symmetric; Negative Wheezes or Rales
Gastrointestinal: Soft, Non Tender, Non Distended and Normal Bowel Sounds
Skin: Warm and Dry; Negative Rash or Jaundice
Lines: Port (port remains functional, nontender, no erythema)
Objective Data
Lab Data
Lab Results
05/20/24 04:39
05/20/24 04:39
PT 17.2 Sec (11.4-14.6) H 05/14/24 09:04
INR 1.35 05/14/24 09:04
APTT < 20.0 Sec (23.4-35.0) L 05/14/24 09:04
Estimated Creat Clear 81 ml/min 05/20/24 04:39
Total Bilirubin 0.9 mg/dl (0.2-1.3) 05/14/24 07:30
AST 28 U/L (14-36) 05/14/24 07:30
ALT 21 U/L (0-35) 05/14/24 07:30
Alkaline Phosphatase 84 U/L (38-126) 05/14/24 07:30
Most recent labs reviewed.
Micro Results:
05/15/24 08:58 Blood Culture - Final
Blood/Venous No Growth - Final Report
05/16/24 15:00 Blood Culture - Preliminary
Blood/Venous No Growth in 72 hours- Final report to follow
05/16/24 14:26 Blood Culture - Preliminary
Blood/Venous No Growth in 72 hours- Final report to follow
05/15/24 14:34 Blood Culture - Preliminary
Blood/Venous S aureus-Methicillin Sensitive
Gram Stain - Preliminary
05/15/24 23:33 Nasal Screen MRSA (PCR) - Final
Nose MRSA not detected - performed by PCR methodology.
05/15/24 23:33 Respiratory Syncytial Virus Ag - Final
Nasal Swab Negative for Respiratory Syncytial Virus.
A false negative result may be obtained with a specimen
collected early in the acute phase. If symptoms persist, a
new specimen should be tested.
05/15/24 23:33 Influenza Types A & B (CIELO) - Final
Nasal Swab Negative for Influenza A & B, NAAT
Negative results must be combined with clinical observations
and patient history.
Nucleic Acid Amplification test (NAAT)performed on the
[employer] platform.
--- NOTE | 2024-05-20 14:06 | PN.CDI ---
CDI
- -
CDI:
Physician Documentation Request
Admit Date: 05/14/24 12:33
Dear Doctor Napoleon,
Patient admitted for GI bleed.
05/20 Hospitalist PN: 'Anemia requiring transfusions: -Secondary to upper GI bleeding as outlined above -Transfused a total of 3 units PRBCs this admission'
Laboratory Tests
05/14/24 05/17/24 05/20/24
07:30 11:03 04:39
Hgb 8.0 L 6.4 L* 6.8 L*
Based on the above, could you clarify, in your progress note, which of the following is the most likely type of anemia you are evaluating, monitoring and/or treating?
Acute blood loss anemia
Acute blood loss anemia with baseline chronic anemia (Specify type)
Anemia of chronic disease - indicate if neoplastic disease, CKD or other
Chronic iron deficiency anemia due to blood loss
Other
Use of terms such as suspected, likely, concern for, or probable (associated with a specific diagnosis that is being evaluated, monitored, or treated as if it exists) are acceptable and can be coded in the inpatient setting, when documented at the
time of discharge.
Thank you,
Jolie Harris RN, BSN
CDI Specialist
Available via [place] text
Please use your independent medical judgment in providing your response.
--- NOTE | 2024-05-20 14:23 | CM ---
Patient seen at bedside.
transfuse today
Spoke with Nissa from [facility]
Patient is 100% covered for IV antibiotic
Notified patient
Nissa states teaching performed yesterday at bedside.
PLAN: home, with IV antibiotic when medically stable
[2024-05-20] MEDS: XANAX 0.25 MG PO (22:20)
[2024-05-21] MEDS: SYNTHROID 100 MCG PO (05:18)
[2024-05-21] MEDS: ANCEF 10 IV ×2 (05:18→11:40)
[2024-05-21 07:15] LABS: Hematocrit 23.7 % (37.0-47.0); Hemoglobin 8.2 g/dL (12.0-16.0); Mean Corp Hgb Conc. 34.6 g/dL (33.0-37.0); Mean Corpuscular Hgb 29.7 pg (27.0-31.0); Mean Corpuscular Volume 85.9 fL (81.0-99.0); Platelet Count 12 10^3/uL (130-400); Red Blood Cell Count 2.76 10^6/uL (4.20-5.40); Red Cell Dist. Width 17.1 % (11.5-14.5); White Blood Cell Count 2.3 10^3/uL (4.8-10.8)
[2024-05-21 07:20] VITALS: BP 99/67
[2024-05-21] MEDS: CARAFATE 1 GRAM PO (07:43)
[2024-05-21] MEDS: NSS (PRESERVATIVE FREE) 10 ML IV (07:43)
[2024-05-21] MEDS: PROTONIX IV 40 MG IV (07:43)
[2024-05-21] MEDS: SENOKOT-S 1 TABLET PO (07:43)
[2024-05-21] MEDS: MIRALAX 17 GRAMS PO (07:44)
[2024-05-21 08:14] LABS: Absolute Neutrophils -Man Diff 1.8 10^3/uL (1.4-6.5); Band Neutrophils 11 % (0-3); Lymphocytes 14 % (20-51); Metamyelocytes 2 % (-); Monocytes 4 % (2-9); Segmented Neutrophils 68 % (42-75)
[2024-05-21 08:15] LABS: Anisocytosis Slight; Hypochromasia 1+; Myelocytes 1 % (-); Normal RBC Morphology No; Nucleated Red Blood Cells 1 (-); Platelets Checked Yes; Polychromasia 1+; Total Cells Counted 100
--- NOTE | 2024-05-21 08:55 | W.PN.ONC2 ---
Today's Communication / Plan
-
Stable for discharge home. Oncologic follow-up with CBC testing omn 05/27 @ 230 scheduled.
Impression
Impression
Severe pancytopenia, 2* chemotherapy
neutropenic fever
Bcx x 1 bottle S Aureus
Stage IV cholangiocarcinoma, patient has been treated at multiple institutions including [facility], [facility], and currently [facility] -on clinical trial, last dose FOLFOX + LSTA1 on 05/13, completed XRT 12/2023. Received Neulasta
Hematemesis/GIB
Plan
Plan
Hgb improved following 1 unit prbcs
No obvious bleeding (severe constipation argues against ongoing GI bleeding)
neutropenic precautions.
transfuse Hgb <7g/dL.
HOLD additional PLT as she seems to be alloimmunized and not bleeding. RISKS>BENEFITS at this point bianca for PLT > 10K and no bleeding.
abx per ID, for IV cefazolin as outpatient. Port removal to be considered pending plt recovery
trial drug +FOLFOX may need adjusted based on cytopenias. Pt has been in contact with her trial coordinator. Suspect based on severity of cytopenia (atypical to see with FOLFOX alone), she's getting active drug not placebo.
DPD gene mutation testing as outpatient (has order from her treating team). Cannot be tested here as inpatient
No role for inpatient G-CSF as patient was given Neulasta.
Okay for d/c home. I will see her in follow-up next Saturday 05/27 with CBC. She is now officially off of the above study at [facility] and will be transitioning her care back to the region
Subjective/Objective
Chief Complaint
ACS heme-onc
Subjective
Feels well. No bleeding. No fevers. Currently on a 2-week course of cefazolin through her port which currently can be removed because of severe thrombocytopenia.
Vital Signs:
Vital Signs
Temp Pulse Resp BP Pulse Ox
98.2 F 90 17 99/67 99
05/21/24 07:20 05/21/24 07:20 05/21/24 07:20 05/21/24 07:20 05/21/24 07:20
Lab Results:
Laboratory Data
WBC 2.3 10^3/uL (4.8-10.8) L* 05/21/24 06:38
Hgb 8.2 g/dL (12.0-16.0) L D 05/21/24 06:38
Plt Count 12 10^3/uL (130-400) L* 05/21/24 06:38
PT 17.2 Sec (11.4-14.6) H 05/14/24 09:04
INR 1.35 05/14/24 09:04
APTT < 20.0 Sec (23.4-35.0) L 05/14/24 09:04
eGFR > 60.00 05/20/24 04:39
Physical Exam
HEENT: No Jaundice
Cardiology: S1 and S2
Pulmonary: Clear
GI: Soft
Extremities: No C/C/E
Orders
Orders
Orders From Last 24 Hours
05/21/24 06:38
CBC/With Diff [Complete Blood Count/With Diff] IN AM
Manual Differential Routine
--- NOTE | 2024-05-21 09:58 | W.PN.HOSP.TC ---
Addendum entered and electronically signed by Abelardo Bender DO 05/21/24 12:03:
Acute anemia -suspect multifactorial etiology including acute GI bleed related blood loss anemia, chemotherapy induced pancytopenia, etc.
Original Note:
Today's Communication/Plan
-
Discharge
Assessment / Plan
Assessment / Plan
General: No Apparent Distress, Comfortable and Conversant
HEENT: NormoCephalic, Moist mucous membranes, Atraumatic
Respiratory: Clear and Non Labored Respirations
Cardiac: S1/S2 and Regular Rhythm; No Rub or Gallop
GI: Soft, Non Tender, Non Distended and Normal Bowel Sounds
Musculoskeletal: No Edema, no deformity
: NO Mckeon
Neuro: Awake, Alert, AO x 3 and Nonfocal/grossly intact
Psych: Calm and Intact Judgment/Insight
Acute upper GI bleed due to hematemesis:
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
-Continue high-dose IV PPI and Carafate
-Transfused total of 4 units PRBCs and 3 unit platelets. Hemoglobin improved to 8.2 today. Platelet count stable at 12,000.
Finally had a BM this morning. Recommend twice daily MiraLAX on discharge, Colace, Senokot as needed. Discussed with patient.
-Tolerating a p.o. diet
-No plan for endoscopy at this point, GI signing off
Anemia requiring transfusions:
-Secondary to upper GI bleeding as outlined above
-Transfused a total of 4 units PRBCs this admission
MSSA bacteremia:
-Repeat cultures negative x 48 hours so far
Discharge home on IV cefazolin per infectious disease. Will use Chemo-Port for IV antibiotic administration. Possible Chemo-Port removal eventually as an outpatient once neutropenia resolved and platelet count recovered.
Neutropenic fever: Fever and neutropenia resolved.
Chemotherapy induced pancytopenia:
Counts are improving now.
-Receives Neulasta as outpatient, no need for inpatient G-CSF
-Heme-onc following, appreciate input
Constipation -improving.
Hypokalemia -improved.
Hyponatremia -improved.
Stage IV cholangiocarcinoma:
-Currently following at [facility] in [place] for ongoing treatment
-Inpatient heme-onc following
Full code
Dispo -medically stable for discharge home today. Outpatient follow-up. Discussed with nursing.
35 minutes spent in discharge process.
Anticipated Discharge: Today
Subjective/Interval History
-
Date of Service: May 21, 2024
Patient seen and examined. Finally had a bowel movement this morning. No complaints.
Objective Data
-
Labs:
Laboratory Results
05/21/24
06:38
WBC 2.3 L*
Hgb 8.2 L D
Hct 23.7 L
Plt Count 12 L*
Vital Signs:
Vital Signs
Temp Pulse Resp BP Pulse Ox
98.2 F 90 17 99/67 99
05/21/24 07:20 05/21/24 07:20 05/21/24 07:20 05/21/24 07:20 05/21/24 07:20
I&O
05/20/24 05/21/24 05/22/24
06:59 06:59 06:59
Intake Total 3120 / 3120 2350 / 2350
Balance 3120 / 3120 2350 / 2350
Review of Systems
-
History Source: Patient
All other systems: Reviewed and negative
--- NOTE | 2024-05-21 10:05 | W.DS.TRANS ---
DC Summary - Screen Tender
-
Discharge Instructions:
Discharge Diagnosis/Procedures Neutropenic fever, bacteremia, pancytopenia
Diet Regular
Activity As tolerated
Driving Restrictions As prior to admission
Bathing Restrictions None
Blood Work CBC on May 27 at 2:30 PM.
Other Services VN
Instructions:
Stand-Alone Forms:
Changes to Home Medications: No
Discharge Medications:
DC Medications w/original date entered in [facility]
escitalopram oxalate 5 mg tablet 5 mg PO HS depression/anxiety 02/29/24
ondansetron HCl 8 mg tablet 8 mg PO Q8HPRN PRN nausea 02/29/24
pantoprazole 40 mg tablet,delayed release 40 mg PO BID #60 tabs 03/01/24
alprazolam 0.25 mg tablet (Xanax) 0.25 mg PO HS PRN sleep 05/14/24
levothyroxine 100 mcg tablet (Synthroid) 100 mcg PO DAILY Thyroid 05/14/24
lorazepam 0.5 mg tablet 0.5 mg PO DAILY PRN anxiety 05/14/24
sucralfate 1 gram tablet 1 g PO BID Gastrointestinal Issue 05/14/24
cefazolin 10 gram solution for injection 2 g IV Q8H #0 ea 05/21/24
polyethylene glycol 3350 17 gram oral powder packet 17 g PO BID #0 ea 05/21/24
sennosides 8.6 mg-docusate sodium 50 mg tablet 1 tab PO BID #0 tabs 05/21/24
Home Medication Changes
Pending Results: No
--- NOTE | 2024-05-21 12:20 | CM ---
Patient seen at bedside.
Nissa from [facility] reviewed plan for home IV abx
Patient verbalizes understanding - Medication to be delivered today to home prior to evening dose.
[facility] to do virtual telehealth visit with patient for evening dose
Patient to be discharged to home after her noon dose of IV antibiotic
PLAN: home with IV antibiotic
mother in law to transport
[2024-05-21 13:20] VITALS: BP 110/69
--- NOTE | 2024-05-21 13:21 | PTCARENOTE ---
Pt left w/ subQ port accessed for home antibiotics. Oncology prefers pt to flush w/ normal saline following infusions d/t low platelet count. Spoke w/ home infusion nurse who will have orders changed to reflect this. Pt administered afternoon
dose of antibiotics herself w/o issue.
== END 2024-05-21 13:10 | disposition home health service (06) | DRG 377 ==
LOC: 3 WEST ACU 12:33
PROVIDERS: Physician Assistant Medical; ADMITTING PHYSICIAN Internal Medicine; ATTENDING PHYSICIAN Hospitalist; CONSULT PHYSICIAN Internal Medicine Gastroenterology; CONSULT PHYSICIAN Internal Medicine Hematology & Oncology; EMERGENCY PHYSICIAN Emergency Medicine; FAMILY PHYSICIAN Family Medicine; OTHER PHYSICIAN Student in an Organized Health Care Education/Training Program
PROC: 30233R1 Transfusion of Nonautologous Platelets into Peripheral Vein, Percutaneous Approach (ICD-10-PCS; 2024-05-14)
PROC: 30233N1 Transfusion of Nonautologous Red Blood Cells into Peripheral Vein, Percutaneous Approach (ICD-10-PCS; 2024-05-14)
DX: K92.2 Gastrointestinal hemorrhage, unspecified (principal); D61.810 Antineoplastic chemotherapy induced pancytopenia; C22.1 Intrahepatic bile duct carcinoma; D84.9 Immunodeficiency, unspecified; R78.81 Bacteremia; E87.1 Hypo-osmolality and hyponatremia; D62 Acute posthemorrhagic anemia; R50.81 Fever presenting with conditions classified elsewhere; D70.9 Neutropenia, unspecified; E87.6 Hypokalemia; B95.61 Methicillin susceptible Staphylococcus aureus infection as the cause of diseases classified elsewhere; K59.09 Other constipation; Z11.52 Encounter for screening for COVID-19; Z92.3 Personal history of irradiation; Z85.05 Personal history of malignant neoplasm of liver
CPT/HCPCS: 36430; 71046; 80048; 80053; 80202; 81003; 83735; 85018; 85025; 85610; 85730; 86850; 86900; 86901; 86920; 87040; 87150; 87186; 87205; 87502; 87641; 87807; 87811; 93005; 93306; 93356; 96361; 96374; 99285; P9016; P9073

== ENCOUNTER 2024-05-28 13:57 | Inpatient (IN) | payer BC, SELFPAY ==
[2024-05-28] VITALS (21 sets, daily range): BP systolic 71–114; BP diastolic 53–70; PULSE 69–82
--- NOTE | 2024-05-28 08:17 | ED.GENMED ---
History of Present Illness
General
Chief Complaint: Abnormal Lab Value
Source: patient
Time Seen by Provider: 05/28/24 08:04
History of Present Illness
History of Present Illness:
53-year-old female presents to the emergency room complaining of dizziness upon standing, shortness of breath with minimal exertion. 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
Outpatient testing showed a hemoglobin of 6.2 yesterday. Attempts were made to arrange an outpatient transfusion however the timeframe for this would be several days necessitating her trip to the emergency room. Patient continues to have some
black stool. She is known to GI and has GI follow-up as an outpatient. Additionally patient has been developing some abdominal distention over the past week.
Past History
Past History
ED Past Medical History: Cancer and Hypothyroidism
ED Past Surgical History: and Other (thyroid sx)
Social History
Tobacco: Non-smoker
Alcohol: None
Drug: None
Personal:
Living: with family
Phy Exam
Physical Exam
Physical Exam:
General: Awake, Alert, Oriented X3. No acute distress, quite pale
Vitals: unremarkable
Head: Atraumatic
Eyes: Pupils equal, EOMI
Throat: Airway intact, no exudates
Neck: Trachea midline
Lungs: Clear and equal b/l
Heart: Regular rate, no murmurs
Abd: Soft, distended nontender, No pulsatile mass
Neuro: Nonfocal
Skin: Warm, dry, no rash
Extremities: pulses equal b/l, no edema
Course
Orders/Labs/Results
Orders:
Orders
05/28/24 08:16
Blood Bank Products [* Blood Bank Products] Urgent
Blood Bank Products: *Packed RBC Leuko(PRBC's)
Quantity: 2
Transfuse Today: Yes
Reason: Anemia
US Abdomen Limited Urgent
Comment:
Reason For Exam: abd distension eval for ascities
05/28/24 08:59
Type+Screen Urgent
Complete Blood Count/With Diff Urgent
Comprehensive Metabolic Panel Urgent
Direct Bilirubin Urgent
05/28/24 Lunch
2 Gram Sodium [Sodium, 2 Gram]
05/28/24 11:21
INR [Prothrombin Time] Routine
05/28/24 12:32
Fluid Culture with Gram Stain Routine
SURYA Source: Peritoneal Fluid
Specimen Description:
Comment: Post Procedure
05/28/24 12:34
Body Fluid Albumin Routine
Fluid Source: Peritoneal (Ascites)
Body Fluid Protein Routine
Fluid Source: Peritoneal (Ascites)
Notify MD As Directed
Notify physician if: Notify GI provider rehabilitation program manager of volume removed when paracentesis complete.
IRAD Cytology Routine
Source: Peritoneal Fluid
Clinical Impression: hx cholangio
05/28/24 12:35
IRAD CONSULT Routine
Consulting Provider: Elan Graves
Was physician already notified: Yes
Reason for Consult/Procedure: paracentesis large volume as tolerated for comfort
Acknowledgement that appropriate orders are entered: Yes
Body Fluid Cell Count Routine
What is the Body Fluid: peritoneal fluid
Comment: post procedure
05/28/24 12:37
Blood Bank Products [* Blood Bank Products] Routine
's Orders: please give 1 unit platelet prior to EGD 05/29
Blood Bank Products: *Plt Single Donor Leuko
Quantity: 1
Transfuse Today: Hold for OR
If not transfusing today, when: 05/29/24 AM prior to EGD
Is product needed for scheduled surgery?: Yes
Expected Surgery Date: 05/29/24
Reason: Thrombocytopenia
Other reason: bleeding
Surgical Procedure As Directed
Surgical Procedure: EGD 05/29 will need platelet transfusion prior to procedure
05/28/24 12:[address] Non Medication Order As Directed
Physician Order: please give platelet early AM as aiming for early can in AM
05/28/24 12:56
Add On- LAB Routine
Tests Added?: LFT's
05/28/24 12:59
Admit/Transfer Patient As Directed
Co-Sign Provider:
Level of Care: Inpatient admission
Assign to:: Telemetry
Physician / Group: michelle
Diagnosis: GI bleed
Reason for Telemetry: Other
Other Reason for Telemetry: Gi bleed
Date to Stop Telemetry: 05/30/24
Time to Stop Telemetry: 11:00
Reason for Hospitalization: GI bleed
Expected length of stay greater than two midnights?: Yes
ELOS- Estimated Length of Stay in days: 3
I certify the patient meets the requirements for IP care: Yes
05/28/24 13:00
PRN Pain Medication Management As Directed
May give lesser potent ordered pain med per pt: Yes
preference::
Protocol:: Medication orders for pain may be administered in a
manner that supports deferring to patient preference
when the pt is:
- Requesting an ordered lesser potent pain medication.
Least to most potent pain medications are defined
as: acetaminophen < NSAID < tramadol < opioids
(morphine, oxycodone, hydromorphone).
- Requesting a lesser dose of the same medication IF
ORDERED.
- Requesting a less intrusive route of administration
if both routes are prescribed by the provider (PO <
IV).
05/28/24 13:02
Code Status As Directed
Resuscitation Status: Full Code
05/28/24 13:19
CeFAZolin 2 GRAM [Ancef] 2 grams in 10 ml IV NOW
05/29/24 Breakfast
NPO
Allow oral meds: Yes
Allow clear liquids: 4hrs prior to procedure
NPO for procedure after (time): midnight for GI Procedure tomorrow
Comment: may have unrestricted clear liquids up to 4 hrs prior to scheduled proc
05/30/24 11:00
DC Protocol for Telemetry ONCE
Abnormal Lab Results
05/28/24 05/28/24
08:59 11:21
RBC 1.77 L 10^6/uL
(4.20-5.40)
Hgb 5.7 L* g/dL
(12.0-16.0)
Hct 17.5 L* %
(37.0-47.0)
MCH 32.2 H pg
(27.0-31.0)
MCHC 32.6 L g/dL
(33.0-37.0)
RDW 26.3 H %
(11.5-14.5)
Plt Count 42 L 10^3/uL
(130-400)
Abs Immat Gran (auto) 0.4 H 10^3/uL
(0-0.05)
Absolute Lymphs (auto) 0.3 L 10^3/uL
(1.2-3.4)
Immature Gran % 6.8 H %
(0-0.5)
Neutrophils % 78.9 H %
(42.2-75.2)
Lymphocytes % 4.3 L %
(20.5-51.1)
PT 14.9 H Sec
(11.4-14.6)
Glucose 117 H mg/dl
(70-99)
Calcium 8.1 L mg/dl
(8.4-10.2)
Crossmatch IS Only See Detail
05/28/24 08:59
05/28/24 08:59
Vital Signs
Initial and Last Documented VS:
Initial Vital Signs
Temp Pulse Resp BP Pulse Ox
97.6 F 92 16 113/70 98
05/28/24 07:50 05/28/24 07:50 05/28/24 07:50 05/28/24 07:50 05/28/24 07:50
Last Documented Vital Signs
Temp Pulse Resp BP Pulse Ox
98.7 F 71 21 100/66 98
05/28/24 11:40 05/28/24 13:00 05/28/24 13:00 05/28/24 13:00 05/28/24 13:00
MDM/Problems Addressed
Differential Diagnosis Includes:
Symptomatic anemia from bone marrow suppression, gastritis, peptic ulcer
MDM/Problems Addressed:
Patient presents with symptomatic anemia. Hemoglobin impressively low at 5.7. Chemistries are unremarkable. Ultrasound confirms the presence of a moderate amount of ascites. GI came and evaluated patient here in the emergency room. Recommends
hospitalization as the patient will require platelet transfusion prior to endoscopy which cannot really be coordinated as an outpatient.
*Radiology
Radiology exam reviewed: radiology read reviewed
*Pulse Oximetry
Patient hypoxic: no
*Critical Care Note
Total Time (30-74mins, 75-104mins- exclusive of procedures): Not Applicable
ED Attending Note
-
Portions of this chart may have been created with voice recognition software.� Occasional wrong word or��sound alike� substitutions may have occurred due to the inherent limitations of voice recognition software.
Discharge Plan
Departure
Patient Disposition: Admit
Date of Disposition: 05/28/24
Time of Disposition: 12:37
Admit to: Med/Surg
Presentation/result/management discussed w/ accepting MD/DO: Hospitalist
Condition: Fair
Discharge Problem:
Symptomatic anemia, Upper gastrointestinal bleed
Prescriptions:
No Action
escitalopram oxalate 5 mg Tablet
5 mg PO HS
ondansetron HCl 8 mg Tablet
8 mg PO Q8HPRN PRN (Reason: nausea)
pantoprazole 40 mg Tablet,Delayed Release (Dr/Ec)
40 mg PO BID Qty: 60 0RF
levothyroxine [Synthroid] 100 mcg Tablet
100 mcg PO DAILY
sucralfate 1 gram tablet
1 g PO BID
alprazolam [Xanax] 0.25 mg Tablet
0.25 mg PO HSPRN PRN (Reason: sleep )
lorazepam 0.5 mg Tablet
0.5 mg PO DAILYPRN PRN (Reason: anxiety )
Rx Instructions:
on chemo days if needed
cefazolin 10 gram Recon Soln
2 g IV Q8H Qty: 0 0RF
polyethylene glycol 3350 17 gram powder in packet
17 g PO DAILYPRN PRN (Reason: constipation)
sennosides-docusate sodium 8.6-50 mg tablet
1 tab PO BIDPRN PRN (Reason: constipation)
Referrals:
Uriel Yanes MD [Family Provider] -
Interventions
Interventions:
*Risk Screen - Suicide Last Done: 05/28/24 07:50
*General Assessment Last Done: 05/28/24 10:00
*Neglect/Abuse Screening Last Done: 05/28/24 07:50
*ED- Fall Risk Assessment Last Done: 05/28/24 11:33
*ED COVID-19 Vaccine History Last Done: 05/28/24 10:00
Discharge Date and Time
Print Language: CANADIAN
[2024-05-28 09:25] LABS: Blood Urea Nitrogen 11 mg/dl (7-17); Calcium 8.1 mg/dl (8.4-10.2); Carbon Dioxide 27 mmol/L (22-30); Chloride 104 mmol/L (98-107); Glucose 117 mg/dl (70-99); Potassium 3.6 mmol/L (3.5-5.1); Sodium 137 mmol/L (135-145); eGFR > 60.00
[2024-05-28 09:37] LABS: Hematocrit 17.5 % (37.0-47.0); Hemoglobin 5.7 g/dL (12.0-16.0); Mean Corp Hgb Conc. 32.6 g/dL (33.0-37.0); Mean Corpuscular Hgb 32.2 pg (27.0-31.0); Mean Corpuscular Volume 98.9 fL (81.0-99.0); Platelet Count 42 10^3/uL (130-400); Red Blood Cell Count 1.77 10^6/uL (4.20-5.40); Red Cell Dist. Width 26.3 % (11.5-14.5)
[2024-05-28 10:11] LABS: % Basophils 0.5 % (0-2); % Eosinophils 0.2 % (0-6); % Immature Granulocytes 6.8 % (0-0.5); % Lymphocytes 4.3 % (20.5-51.1); % Monocytes 9.3 % (1.7-9.3); % Neutrophils 78.9 % (42.2-75.2); Absolute Immature Granulocytes 0.4 10^3/uL (0-0.05); Absolute Lymphocytes 0.3 10^3/uL (1.2-3.4); Absolute Monocytes 0.6 10^3/uL (0.1-0.6); Absolute Neutrophils 4.7 10^3/uL (1.4-6.5); Nucleated Red Blood Cells % 1.2 %
[2024-05-28 10:13] LABS: Anisocytosis 1+; Hypochromasia 1+; Macrocytosis Occasional; Normal RBC Morphology No
[2024-05-28 10:14] LABS: Polychromasia 1+; Tear Drop Red Blood Cells 1+
[2024-05-28 11:45] LABS: INR 1.11; PT 14.9 Sec (11.4-14.6)
--- NOTE | 2024-05-28 12:31 | CON.GI ---
Addendum entered and electronically signed by Jannie Friedman DO 05/28/24 15:14:
Patient seen and examined independently of ASHLY. I agree with her note with my additions below
Mrs. Voss is a 53-year-old female with history of stage IV cholangiocarcinoma now with ascites diagnosed in 2022 getting care with last dose May 06 on second cycle of FOLFOX including a clinical trial drug at [facility] in [place]. She is also
radiation and in February had a workup for rectal bleeding and had an endoscopy with a nonbleeding gastric ulcer and friable mucosa. A repeat endoscopy also in February showed multiple bleeding angioectasias consistent with radiation changes and was
APC. Nonbleeding gastric ulcer with clean base. Recent admission from 2 with hematemesis but had profound pancytopenia and was treated conservatively without endoscopic management. Also during that admission had MSSA bacteremia,
neutropenic fever, hyponatremia hypokalemia. Now returns from the outpatient setting after having symptomatic anemia with hemoglobin down to 5.7 from discharge on 05/21/2024 was 8.2. She describes shortness of breath dyspnea on exertion and some
dizziness upon standing. Also new onset ascites with abdominal distention with no prior tap in the past.
She is experiencing some melena at home
# Hemodynamically stable anemia requiring transfusion
--Likely secondary to angioectasias secondary to radiation
--Transfusion then endoscopy for tomorrow morning.
Will give her platelets prior to the endoscopy--
PPI
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
--Unclear if patient has any clot burden in her hepatic vessels or if this is just worsening tumor burden versus peritoneal carcinomatosis
--INR is normal
--Diagnostic and therapeutic paracentesis today
-
# Treat constipation
Original Note:
Consultation
-
Date/Time Consultation Requested: 05/28/24 1130
Date/Time Consultation Performed: 05/28/24 1230
Requesting Provider: Lamont Martins DO
Performing Provider: ASHLY Nicole, Jannie Friedman, DO
Reason for Consultation: anemia, dark stools, abd distention
Medical History
Chief Complaint / HPI
Chief Complaint: shortness of breath, abnormal labs
History of Present Illness:
Pt is a 53 y.o female with past medical history of hypothyroidism with prior thyroidectomy, cholangiocarcinoma-diagnosed August 2022- stage IV with care at [facility] (s/p chemo/radiation therapy/ immunotherapy-- last dose 05/06 cycle 2 folfox chemo
with clinical trial drug at [facility] in [place]. She also has Neulasta 05/08 and prior treatment at [facility] and [facility]), chronic anemia, and prior work up in February with rectal bleeding with noted EGD 03/04 found to have a non-bleeding gastric ulcer
with friable mucosa (bx with benign reactive gastropathy/vascular ectasia, suspected from prior radiation). She had repeat EGD 03/17/24 with normal esophagus, granular and hemorrhagic cardia, multiple bleeding angioectasia in stomach found in antrum,
c/w delayed effect from radiation. s/p APC. Non bleeding gastric ulcer with clean base forest III bx not done. She had admission 05/14-05/21 with hematemesis but profound pancytopenia. Scopes were held and patient also developed constipation during
admission that eventually resolved with laxatives. She was also noted with MSSA bacteremia, neutropenic fever, hyponatremia, hypokalemia during admission. She now returns with abnormal labs with hbg down to 5.7 from 8.2 on 05/21/24. She admits to
dizziness, shortness of breath and fatigue with anemia. She also admits to increased abdominal distention with US completed this am with moderate volume ascites with no prior tap in past. She has had improvement with WBC up to 6,000 and platelets
42,000 and continued to see dark stool daily. She has been eating ok and denies dysphagia, odynophagia, GERD, recurrent vomiting, constipation or red stools. hx colonoscopy 2021 with polyps. Pt is due to return to [facility] in [place] at the end
of the month to reassess treatment options.
.
Past Medical History
Past Medical History: Hypothyroidism and Other (Cholangiocarcinoma stage IV- current chemo- folfox with clinical trial drug, Chronic Constipation, anemia, GI bleed- AVM's prior radiation related PUD, recent admission with pancytopenia )
Past Surgical History: Other (, thyroidectomy for CA)
Social History
Tobacco: Non-Smoker
Alcohol: None
Drug: None
Personal:
Living: With Family
Family History
Family History: Reviewed & Not Pertinent
Allergies / Home Medications
Allergy/AdvReac Type Severity Reaction Status Date / Time
No Known Allergies Allergy Verified 05/14/24 07:11
�Medication �Instructions �Recorded
escitalopram oxalate 5 mg tablet 5 mg PO HS depression/anxiety 02/29/24
ondansetron HCl 8 mg tablet 8 mg PO Q8HPRN PRN nausea 02/29/24
pantoprazole 40 mg tablet,delayed 40 mg PO BID #60 tabs 03/01/24
release
alprazolam 0.25 mg tablet (Xanax) 0.25 mg PO HS PRN sleep 05/14/24
levothyroxine 100 mcg tablet 100 mcg PO DAILY Thyroid 05/14/24
(Synthroid)
lorazepam 0.5 mg tablet 0.5 mg PO DAILY PRN anxiety 05/14/24
sucralfate 1 gram tablet 1 g PO BID Gastrointestinal Issue 05/14/24
cefazolin 10 gram solution for 2 g IV Q8H #0 ea 05/21/24
injection
polyethylene glycol 3350 17 gram 17 g PO BID #0 ea 05/21/24
oral powder packet
sennosides 8.6 mg-docusate sodium 1 tab PO BID #0 tabs 05/21/24
50 mg tablet
Review of Systems
-
History Source: Patient
Constitutional: Reports Weight Gain (with distention)
EENT: Reports No Symptoms
Respiratory: Reports Trouble Breathing
Cardiac: Reports No Symptoms
Abdomen/GI: Reports Abdominal Pain (mild pressure ), Constipated (improved with laxative and daily stools ) and Other (dark stools )
: Reports No Symptoms
Musculoskeletal: Reports No Symptoms
Neurological: Reports Dizzy and Weakness
Endocrine: Reports No Symptoms
Hematologic/Lymphatic: Reports Bleeding
Vital Signs
Temp Pulse Resp BP Pulse Ox
98.7 F 81 22 105/62 99
05/28/24 11:40 05/28/24 12:00 05/28/24 12:00 05/28/24 11:40 05/28/24 12:00
Physical Exam
Exam
General: Other (pale appearing )
HEENT: Normocephalic and Other (pale with ? mild jaundice )
Respiratory: Clear
Cardiac: Regular Rhythm
GI: Soft, Tender (minimal ) and Distended
Musculoskeletal: No Clubbing and No Cyanosis
Skin: Warm and Dry
Neuro: Awake, Alert and AO x 3
Psych: Calm
Results
WBC 6.0 10^3/uL (4.8-10.8) 05/28/24 08:59
Hgb 5.7 g/dL (12.0-16.0) L* 05/28/24 08:59
Hct 17.5 % (37.0-47.0) L* 05/28/24 08:59
MCV 98.9 fL (81.0-99.0) 05/28/24 08:59
Plt Count 42 10^3/uL (130-400) L 05/28/24 08:59
Absolute Neuts (auto) 4.7 10^3/uL (1.4-6.5) 05/28/24 08:59
PT 14.9 Sec (11.4-14.6) H 05/28/24 11:21
INR 1.11 05/28/24 11:21
Sodium 137 mmol/L (135-145) 05/28/24 08:59
Potassium 3.6 mmol/L (3.5-5.1) 05/28/24 08:59
Chloride 104 mmol/L (98-107) 05/28/24 08:59
Carbon Dioxide 27 mmol/L (22-30) 05/28/24 08:59
BUN 11 mg/dl (7-17) 05/28/24 08:59
Creatinine 0.7 mg/dL (0.6-1.0) 05/28/24 08:59
Calcium 8.1 mg/dl (8.4-10.2) L 05/28/24 08:59
Diagnostic Image Results:
CT Abd/pelvis 02/11/24 revealed edematous and inflamed appearance of the gastric antrum and proximal duodenum suggestive of gastritis/duodenitis, possibly sequela of recent therapy along with a large ill-defined and rim-enhancing necrotic mass
within the L hepatic lobe consistent with patient's history of cholangiocarcinoma
Prior GI Procedures:
EGD: 03/04/2024 which revealed red blood in the gastric antrum, one non-bleeding clean-based superficial gastric ulcer, and diffuse severely friable mucosa with spontaneous bleeding found in the gastric antrum (biopsies benign with reactive
gastropathy/vascular extasia) along with a small hiatal hernia and a mild Schatzki's ring. Her endoscopic findings were felt to be related to delayed effects of radiation.
EGD stone 03/17/2024- - Normal proximal esophagus, mid esophagus and distal
esophagus.
- Z-line regular, 36 cm from the incisors.
- Granular and hemorrhagic appearing mucosa in the
cardia.
- Multiple bleeding angioectasias in the stomach found
in the gastric antrum. Endoscopically, consistent with
delayed effects from prior radiation. Treated with
argon plasma coagulation (APC) with successful
hemostasis.
- Non-bleeding gastric ulcer with a clean ulcer base
(Vadim Class III). Not biopsied due to active
bleeding and previously biopsied during prior EGD.
- Otherwise, normal stomach on direct and retroflexion
views.
- Blood in the duodenal bulb.
- Otherwise, normal duodenum up to the third portion
- The examination was otherwise normal.
- No specimens collected.
Colonoscopy: 2021 (had a few polyps)
Assessment / Plan
-
Pt is a 53 y.o female with past medical history of hypothyroidism with prior thyroidectomy, cholangiocarcinoma-diagnosed August 2022- stage IV with care at [facility] (s/p chemo/radiation therapy/ immunotherapy-- last dose 05/06 cycle 2 folfox chemo
with clinical trial drug at [facility] in [place]. She also has Neulasta 05/08 and prior treatment at [facility] and [facility]), chronic anemia, and prior work up in February with rectal bleeding with noted EGD 03/04 found to have a non-bleeding gastric ulcer
with friable mucosa (bx with benign reactive gastropathy/vascular ectasia, suspected from prior radiation). She had repeat EGD 03/17/24 with normal esophagus, granular and hemorrhagic cardia, multiple bleeding angioectasia in stomach found in antrum,
c/w delayed effect from radiation. s/p APC. Non bleeding gastric ulcer with clean base forest III bx not done. She had admission 05/14-05/21 with hematemesis but profound pancytopenia. Scopes were held and patient also developed constipation during
admission that eventually resolved with laxatives. She was also noted with MSSA bacteremia with IV Cefazolin use at home, neutropenic fever, hyponatremia, hypokalemia during admission. She now returns with abnormal labs with hbg down to 5.7
from 8.2 on 05/21/24. She admits to dizziness, shortness of breath and fatigue with anemia. She also admits to increased abdominal distention with US completed this am with moderate volume ascites with no prior tap in past. She has had improvement
with WBC up to 6,000 and platelets 42,000 and continued to see dark stool daily. hx colonoscopy 2021 with polyps. Pt is due to return to [facility] in [place] at the end of the month to reassess treatment options
-symptomatic anemia with persistent dark stool with pancytopenia
-recent hematemesis on prior admission
-recent admit 05/14-05/21 with pancytopenia, MSSA bacteremia (home IV cefazolin), neutropenic fever,
-cholangio CA stage IV hx chemo/rad/immunotherapy current [facility] with Folfox and clinical trial drug 05/06 with Neulasta 05/08
-new ascites
-constipation
-anemia with periodic iron infusion prior to admission
-hx GI bleed February with rectal bleeding- multiple angioectasia, PUD
-thyroid CA with thyroidectomy/hypothyroidism
PLAN:
etiology of bleeding related to hx angioectasia possible radiation related, PUD, esophagitis vs other
still drop in hbg despite some rise in platelet now up to 42 and WBC up to 6,000 on admission
agree with blood transfusion
Plan for EGD in AM with platelet transfusion prior in AM
pt with new ascites will send for paracentesis this afternoon
cont PPI and carafate (would hold AM dose prior to EGD)
abx per medical team as was on IV Cefazolin prior to admission
if anemia or abdominal pain persists when counts improve can consider
2 gram Na diet, NPO in AM
cont bowel regiment with recent constipation
reviewed with ASHLY Mccormack for admission plan
-
-
Thank you for consultation and allowing me to participate in the patient's care. Please call the contact assembler GI physician during the after hours with any questions or concerns.
--- NOTE | 2024-05-28 12:38 | HPS.HSE ---
Family Physician
-
Family Physician: Uriel Yanes
Chief Complaint
-
dizzy
sob
History of Present Illness
53-year-old female with PMH for Cholangiocarcinoma, GI bleed, MSSA bacteremia, hypothyroidism presents to the emergency room complaining of dizziness upon standing, shortness of breath with minimal exertion since Sunday. for past few days, she
noted abdominal distention and nauseous. she had an outpatient lab work with the impression of hgb 6.5. patient denied PRADO or syncope. denied fever, chills, chest pain. stated palpitation. denied abdominal pain, vomiting. she is having dark diarrhea
denied dysuria or hematuria.
US with moderate ascites. hgb of 5.7. 2 units ordered in ER. GI saw the patient. IR consulted for Para.admitting for further management.
Medical History
Past Medical History
Past Medical History: Reports Other
Additional Past Medical History:
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
Papillary thyroid carcinoma
Hypothyroidism myalgia
Constipation
Palpitation
GI bleed
Depression
Anxiety
Iron deficiency anemia
Gastric ulcer
Past Surgical History: Reports Other
Additional Past Surgical History:
Thyroidectomy
Social History
Tobacco: Non-smoker
Alcohol: None
Drug: None
Personal:
Living: With Family
Family History
Family History: Not pertinent
Allergies / Home Medications
Allergies reflects when Allergies were last updated in [employer].
Home Medications with original date entered in [employer]
Allergy/Medication List:
Allergies
Allergy/AdvReac Type Severity Reaction Status Date / Time
No Known Allergies Allergy Verified 05/14/24 07:11
Home Medications
escitalopram oxalate 5 mg tablet 5 mg PO HS depression/anxiety 02/29/24
ondansetron HCl 8 mg tablet 8 mg PO Q8HPRN PRN nausea 02/29/24
pantoprazole 40 mg tablet,delayed release 40 mg PO BID #60 tabs 03/01/24
alprazolam 0.25 mg tablet (Xanax) 0.25 mg PO HS PRN sleep 05/14/24
levothyroxine 100 mcg tablet (Synthroid) 100 mcg PO DAILY Thyroid 05/14/24
lorazepam 0.5 mg tablet 0.5 mg PO DAILY PRN anxiety 05/14/24
sucralfate 1 gram tablet 1 g PO BID Gastrointestinal Issue 05/14/24
cefazolin 10 gram solution for injection 2 g IV Q8H #0 ea 05/21/24
polyethylene glycol 3350 17 gram oral powder packet 17 g PO BID #0 ea 05/21/24
sennosides 8.6 mg-docusate sodium 50 mg tablet 1 tab PO BID #0 tabs 05/21/24
Review of Systems
-
Constitutional: Reports No Symptoms
EENT: Reports No Symptoms
Respiratory: Reports Trouble Breathing
Cardiac: Reports Palpitations
Abdomen/GI: Reports Nausea, Black Stools and Other (distention)
: Reports No Symptoms
Musculoskeletal: Reports No Symptoms
Skin: Reports No Symptoms
Neurological: Reports No Symptoms
Endocrine: Reports No Symptoms
Hematologic/Lymphatic: Reports No Symptoms
Psych: Reports No Symptoms
Physical Exam
Vital Signs
Vital Signs
Temp Pulse Resp BP Pulse Ox
98.7 F 81 22 105/62 99
05/28/24 11:40 05/28/24 12:00 05/28/24 12:00 05/28/24 11:40 05/28/24 12:00
Physical Exam
General: Well Developed, Well Nourished and No Apparent Distress
HEENT: NormoCephalic, Moist mucous membranes and Atraumatic
Respiratory: Clear
Cardiac: S1/S2 and Regular Rhythm; No Murmur or Rub
GI: Soft, Non Tender, Normal Bowel Sounds and Distended; No Organomegaly
Rectal: Deferred by Provider
Musculoskeletal: No Clubbing, No Cyanosis and No Edema
Skin: No Rash
Neuro: AO x 3 and Nonfocal/grossly intact
Psych: Calm
Laboratory Results
-
05/28/24 08:59
05/28/24 08:59
Laboratory Results
PT 14.9 Sec (11.4-14.6) H 05/28/24 11:21
INR 1.11 05/28/24 11:21
Data Reviewed
-
Ultrasound: Report Reviewed by me
Lab Data: Labs Reviewed by me
Impression/Plan
-
# Symptomatic anemia secondary to upper GI bleed
#ascites
- Hemoglobin 5.7
- Ultrasound of abdomen with impression of Moderate volume ascites most pronounced in the lower abdomen.
-transfusing with 2 unts of blood.
-IR consulted for paracentesis
-NPO after MN for repeat EGD in am
-GI consulted
# Chronic thrombocytopenia platelets
#hxt of stage IV cholangiocarcinoma
-platelets 42
-following at [facility] in [place] for ongoing treatment
-patient also follows [facility]
-platelets infusion tomorrow AM
#MSSA bacteremia
-IV Ancef (last does today)
-d/w ID, doxy from 05/29
#anxiety
-lorazepam continued'
#constipation
-bowel regimen from home continued
Full code
#DVT prophylaxis
-scd
--- NOTE | 2024-05-28 13:24 | W.PN.UPDATE ---
Update Note
Progress Note Update
This is an addendum to the H&P written by she was 05/28/2024.� Patient seen and examined independently with FINANCING ANALYST.
53-year-old female past medical history of cholangiocarcinoma status post radiation/chemotherapy on chemotherapy, GI bleeding secondary to angiectasia/PUD, thyroid cancer status post thyroidectomy, hypothyroidism, anxiety/depression, MSSA
bacteremia, chemotherapy-induced pancytopenia presenting with shortness of breath and dizziness and hemoglobin 6.2 on outpatient labs.� Also with abdominal distention.
Labs show hemoglobin 5.7.� Platelets of 42.� Abdominal ultrasound shows moderate volume ascites.
Patient with UGIB likely related to PUD/Angioectasia. Also, with ascites likely from cholangiocarcinoma.�
2 units of PRBC pending.� 1 unit of platelets pending tomorrow.� NPO past midnight.� Protonix 40 IV twice daily.� GI consulted planning on EGD tomorrow.� IR consulted for paracentesis.
Patient completes Cefazolin today for MSSA bacteremia. Discussed with ID and they want to start doxycycline tomorrow.�
[2024-05-28 13:29] LABS: ALT (SGPT) 10 U/L (0-35); AST (SGOT) 36 U/L (14-36); Albumin 2.6 g/dl (3.5-5.0); Alkaline Phosphatase 103 U/L (38-126); Direct Bilirubin 0.2 mg/dl (0.0-0.4); Total Bilirubin 0.6 mg/dl (0.2-1.3); Total Protein 4.3 g/dl (6.3-8.2)
[2024-05-28] MEDS: ANCEF 10 IV ×2 (15:18→21:14)
[2024-05-28 15:58] LABS: Body Fluid Albumin < 1.0 g/dl; Body Fluid Protein < 2.0 g/dl
[2024-05-28 16:03] LABS: Body Fluid Mononuclear 64.1 %; Body Fluid Polymorphonuclear 35.9 %; Body Fluid WBC 231 /CUMM
[2024-05-28 16:40] LABS: Body Fluid Hematocrit < 1.0 %
[2024-05-28 16:47] LABS: Body Fluid Second Tech FB
[2024-05-28] MEDS: CARAFATE 1 GRAM PO (21:12)
[2024-05-28] MEDS: LEXAPRO 5 MG PO (21:12)
[2024-05-28] MEDS: SENOKOT-S 1 TABLET PO (21:12)
[2024-05-28] MEDS: XANAX 0.25 MG PO (21:12)
[2024-05-28] MEDS: NSS (PRESERVATIVE FREE) 10 ML IV (21:13)
[2024-05-28] MEDS: PROTONIX IV 40 MG IV (21:13)
--- NOTE | 2024-05-28 22:56 | PTCARENOTE ---
Patient received in bed on unit at change of shift with 1 unit of PRB already infusing via gravity. Patient AAOx3. Denies pain or discomfort.
[2024-05-29] VITALS (14 sets, daily range): BP systolic 16–111; BP diastolic 49–74; PULSE 65–86
[2024-05-29 01:19] LABS: Hematocrit 29.2 % (37.0-47.0); Hemoglobin 9.9 g/dL (12.0-16.0)
[2024-05-29] MEDS: SYNTHROID 100 MCG PO (05:27)
[2024-05-29] MEDS: MIRALAX PO (09:06)
[2024-05-29] MEDS: VIBRAMYCIN 100 MG PO ×2 (09:06→19:59)
[2024-05-29] MEDS: SENOKOT-S 1 TABLET PO (09:06)
[2024-05-29] MEDS: PROTONIX IV 40 MG IV ×2 (09:07→19:59)
[2024-05-29] MEDS: NSS (PRESERVATIVE FREE) 10 ML IV ×2 (09:07→19:59)
[2024-05-29 09:41] LABS: INR 1.17; PT 15.4 Sec (11.4-14.6)
--- NOTE | 2024-05-29 11:44 | PTCARENOTE ---
05/29- Patient returned from EGD without issue. AAOX3; patient c/o sore throat.
--- NOTE | 2024-05-29 11:50 | W.PN.HOSP.TC ---
Today's Communication/Plan
-
repeat cbc
diflucan
Restart diet 4 hours post endoscopy monitor for tolerance
Assessment / Plan
Assessment / Plan
General: Well Developed, Well Nourished and No Apparent Distress
HEENT: NormoCephalic, Moist mucous membranes and Atraumatic
Respiratory: Clear
Cardiac: S1/S2 and Regular Rhythm; No Murmur or Rub
GI: Soft, Non Tender, Normal Bowel Sounds and Distended; No Organomegaly
Rectal: Deferred by Provider
Musculoskeletal: No Clubbing, No Cyanosis and No Edema
Skin: No Rash
Neuro: AO x 3 and Nonfocal/grossly intact
Psych: Calm
# Symptomatic anemia secondary to upper GI bleed 2/2 esophageal candidiasis
-Hemoglobin 5.7 s/p 2u of PRBC -hgb of 9.9. Repeat pending. s/p 1u of platelets.
-EGD noted
-Patient will need to be on fluconazole 200 mg loading dose today and then 100 mg daily for additional 13 days. Can start diet 4h after EGD.. EKG for Qtc
-GI consulted
#ascites ?due to malignancy
-Ultrasound of abdomen with impression of Moderate volume ascites most pronounced in the lower abdomen.
-s/p paracentesis w 2L of fluid removed
# Chronic thrombocytopenia
#hxt of stage IV cholangiocarcinoma
-following at [facility] in [place] for ongoing treatment
-[facility] also follows [facility]
#MSSA bacteremia
-s/p IV Ancef
-on Doxy 100mg BID. d/w with Dr. Salas-plan is continue doxycycline for 2 weeks for which prescription was provided by her.
#anxiety
-lorazepam continued'
#constipation
-bowel regimen from home continued
Full code
#DVT prophylaxis
-scd
d/w with GI
Anticipated Discharge: Within 24 hours
Subjective/Interval History
-
Date of Service: May 29, 2024
resting in bed comfortably
states better compared to yesterday
Objective Data
-
Labs:
Laboratory Results
05/28/24 05/29/24 05/29/24
17:55 00:44 06:00
WBC Cancelled
Hgb Cancelled 9.9 L D Cancelled
Hct Cancelled 29.2 L Cancelled
Plt Count Cancelled
PT
INR
05/29/24 05/29/24
09:22 11:49
WBC Pending
Hgb Pending
Hct Pending
Plt Count Pending
PT 15.4 H
INR 1.17
Vital Signs:
Vital Signs
Temp Pulse Resp BP Pulse Ox
98.1 F 59 17 107/58 100
05/29/24 10:46 05/29/24 11:15 05/29/24 11:15 05/29/24 11:15 05/29/24 11:15
I&O
05/28/24 05/29/24 05/30/24
06:59 06:59 06:59
Intake Total 982 / 982
Balance 982 / 982
Data Reviewed
-
Total Time Spent with Patient (in minutes): 58
[2024-05-29] MEDS: DIFLUCAN 200 MG PO (12:50)
[2024-05-29 13:01] LABS: % Basophils 0.5 % (0-2); % Eosinophils 0.1 % (0-6); % Immature Granulocytes 3.3 % (0-0.5); % Monocytes 9.4 % (1.7-9.3); % Neutrophils 83.7 % (42.2-75.2); Absolute Immature Granulocytes 0.3 10^3/uL (0-0.05); Absolute Lymphocytes 0.2 10^3/uL (1.2-3.4); Absolute Monocytes 0.7 10^3/uL (0.1-0.6); Absolute Neutrophils 6.3 10^3/uL (1.4-6.5); Hematocrit 30.2 % (37.0-47.0); Hemoglobin 10.4 g/dL (12.0-16.0); Mean Corp Hgb Conc. 34.4 g/dL (33.0-37.0); Mean Corpuscular Hgb 32.1 pg (27.0-31.0); Mean Corpuscular Volume 93.2 fL (81.0-99.0); Mean Platelet Volume 11.1 fL (7.4-10.4); Nucleated Red Blood Cells % 0.7 %; Platelet Count 42 10^3/uL (130-400); Red Blood Cell Count 3.24 10^6/uL (4.20-5.40); Red Cell Dist. Width 20.8 % (11.5-14.5); White Blood Cell Count 7.6 10^3/uL (4.8-10.8)
--- NOTE | 2024-05-29 16:55 | CM ---
program manager reviewed patient's chart and met with patient and patient lives with spouse in a 2 story home, patient is independent with adl's and ambulation, no dme,
PCP: Dr. Yanes
Pharmacy: [facility].
Plan; Home when stable.
[2024-05-29] MEDS: CARAFATE 1 GRAM PO (19:59)
[2024-05-29] MEDS: XANAX 0.25 MG PO (21:23)
[2024-05-29] MEDS: LEXAPRO 5 MG PO (21:23)
[2024-05-30 03:35] VITALS: BP 108/69
[2024-05-30 05:22] LABS: % Basophils 0.7 % (0-2); % Immature Granulocytes 2.9 % (0-0.5); % Lymphocytes 5.6 % (20.5-51.1); % Monocytes 10.3 % (1.7-9.3); % Neutrophils 80.5 % (42.2-75.2); Absolute Immature Granulocytes 0.2 10^3/uL (0-0.05); Absolute Lymphocytes 0.3 10^3/uL (1.2-3.4); Absolute Monocytes 0.6 10^3/uL (0.1-0.6); Absolute Neutrophils 4.4 10^3/uL (1.4-6.5); Hematocrit 31.2 % (37.0-47.0); Hemoglobin 10.6 g/dL (12.0-16.0); Mean Corpuscular Hgb 31.8 pg (27.0-31.0); Mean Corpuscular Volume 93.7 fL (81.0-99.0); Mean Platelet Volume 11.6 fL (7.4-10.4); Nucleated Red Blood Cells % 0.5 %; Platelet Count 51 10^3/uL (130-400); Red Blood Cell Count 3.33 10^6/uL (4.20-5.40); Red Cell Dist. Width 21.9 % (11.5-14.5); White Blood Cell Count 5.5 10^3/uL (4.8-10.8)
[2024-05-30 05:38] LABS: ALT (SGPT) < 10 U/L (0-35); AST (SGOT) 40 U/L (14-36); Albumin 2.5 g/dl (3.5-5.0); Alkaline Phosphatase 116 U/L (38-126); Blood Urea Nitrogen 7 mg/dl (7-17); Calcium 7.5 mg/dl (8.4-10.2); Carbon Dioxide 29 mmol/L (22-30); Chloride 107 mmol/L (98-107); Estimated Creatinine Clearance 69 ml/min; Glucose 87 mg/dl (70-99); Potassium 3.7 mmol/L (3.5-5.1); Sodium 138 mmol/L (135-145); Total Bilirubin 0.8 mg/dl (0.2-1.3); Total Protein 4.3 g/dl (6.3-8.2); eGFR > 60.00
[2024-05-30] MEDS: SYNTHROID 100 MCG PO (05:38)
[2024-05-30 07:30] VITALS: BP 99/69
[2024-05-30] MEDS: SENOKOT-S 1 TABLET PO (08:05)
[2024-05-30] MEDS: VIBRAMYCIN 100 MG PO (08:05)
[2024-05-30] MEDS: DIFLUCAN 100 MG PO (08:05)
[2024-05-30] MEDS: CARAFATE 1 GRAM PO (08:06)
[2024-05-30] MEDS: MIRALAX 17 GRAMS PO (08:08)
[2024-05-30] MEDS: NSS (PRESERVATIVE FREE) 10 ML IV (08:09)
[2024-05-30] MEDS: PROTONIX IV 40 MG IV (08:09)
--- NOTE | 2024-05-30 10:40 | W.PN.HOSP.TC ---
Today's Communication/Plan
-
dc home
po abx/diflucan
Assessment / Plan
Assessment / Plan
General: Well Developed, Well Nourished and No Apparent Distress
HEENT: NormoCephalic, Moist mucous membranes and Atraumatic
Respiratory: Clear
Cardiac: S1/S2 and Regular Rhythm; No Murmur or Rub
GI: Soft, Non Tender, Normal Bowel Sounds and Distended; No Organomegaly
Rectal: Deferred by Provider
Musculoskeletal: No Clubbing, No Cyanosis and No Edema
Skin: No Rash
Neuro: AO x 3 and Nonfocal/grossly intact
Psych: Calm
# Symptomatic anemia secondary to upper GI bleed 2/2 esophageal candidiasis
-Hemoglobin 5.7 s/p 2u of PRBC -hgb of 10.6 g. s/p 1u of platelets. Plt improved to 51k
-EGD noted
-Patient will need to be on fluconazole 200 mg loading dose today and then 100 mg daily for additional 13 days. Can start diet 4h after EGD.. EKG for Qtc wnl at 451
-GI consulted
#ascites ?due to malignancy
-Ultrasound of abdomen with impression of Moderate volume ascites most pronounced in the lower abdomen.
-s/p paracentesis w 2L of fluid removed
# Chronic thrombocytopenia
#hxt of stage IV cholangiocarcinoma
-following at [facility] in [place] for ongoing treatment
-[facility] Bonner
#MSSA bacteremia
-s/p IV Ancef
-on Doxy 100mg BID. d/w with Dr. Salas-plan is continue doxycycline for 2 weeks for which prescription was provided by her.
#anxiety
-lorazepam continued'
#constipation
-bowel regimen from home continued
Full code
#DVT prophylaxis
-scd
More than 30 minutes spent in discharge including
Final examination of the patient
Summarizing hospital stay
Instructions for continuing care to all relevant caregivers
Preparation of discharge records, prescriptions, and referral forms
Total time spent (in minutes): 53
Anticipated Discharge: Today
Subjective/Interval History
-
Date of Service: May 30, 2024
tolerating diet
no abd pain or epigastric pain
Objective Data
-
Labs:
Laboratory Results
05/30/24
04:55
WBC 5.5
Hgb 10.6 L
Hct 31.2 L
Plt Count 51 L D
Sodium 138
Potassium 3.7
Chloride 107
Carbon Dioxide 29
BUN 7
Creatinine 0.7
Glucose 87
Calcium 7.5 L
Total Bilirubin 0.8
AST 40 H
ALT < 10
Alkaline Phosphatase 116
Vital Signs:
Vital Signs
Temp Pulse Resp BP Pulse Ox
98.0 F 64 20 99/69 98
05/30/24 07:30 05/30/24 07:30 05/30/24 07:30 05/30/24 07:30 05/30/24 07:30
I&O
05/29/24 05/30/24 05/31/24
06:59 06:59 06:59
Intake Total 982 / 982 840 / 840
Balance 982 / 982 840 / 840
--- NOTE | 2024-05-30 10:44 | W.DCSUMMARY ---
Discharge Summary
Discharge Data
Date of Admission: 05/28/24
Date of Discharge: 05/30/24
-
Pending Results: No
Hospital Course
54 female past medical history of stage IV cholangiocarcinoma, thrombocytopenia, presenting with weakness. Patient was found to have symptomatic anemia. Patient also had abdominal distention status post paracentesis with 2 L of fluid was removed.
Gastroenterology evaluated patient. Patient was signed IV fluids. Patient underwent blood work which showed a hemoglobin of 5.7. Patient received 2 units of PRBC. Patient also received monitor platelets. Platelets and hemoglobin improved.
Patient underwent endoscopy which showed esophageal candidiasis and patient was started on fluconazole. QTc was within normal limits. Patient will be discharged on p.o. fluconazole. Patient hemoglobin remained stable to be discharged with
recommendation to follow-up with her primary oncologist Dr. Bonner. Post endoscopy patient was tolerating diet without any difficulty.
Discharge Plan
-
Patient Disposition: Home (Routine Discharge)
Discharge Diagnosis/Procedures: Symptomatic anemia status post blood transufsion and status post platelet transfusion
Thrombocytopenia
Esophageal candidiasis
Condition: Fair
Diet: Regular
Activity: As tolerated
Driving Restrictions: As prior to admission
Blood Work: CBC in 1 week with primary doctor
Activity Restrictions/Additional Instructions:
Doxycycline Precautions
�� Take with at least 6 oz H2O
�� Take with food but no calcium containing products like milk or cheese
�� Ideally you would not take any multivitamins, calcium, magnesium or zinc containing products.
�� If you must take one of these products make sure that the pills are by at least 3 hours.
�� Sit up for at least 30 minutes after each dose to prevent heartburn.
�� Your skin will be more sensitive to the sun while you are on doxycycline - it will be very easy for you to get a sunburn.
Referrals:
Uriel Yanes MD [Family Provider] - in less than 1 week
Prescriptions:
New
doxycycline hyclate 100 mg Capsule
100 mg PO Q12 13 Days Qty: 26 0RF
Rx Instructions:
Per Infectious disease recommendation
fluconazole [Diflucan] 100 mg tablet
100 mg PO DAILY Qty: 12 0RF
Continued
escitalopram oxalate 5 mg Tablet
5 mg PO HS
pantoprazole 40 mg Tablet,Delayed Release (Dr/Ec)
40 mg PO BID Qty: 60 0RF
levothyroxine [Synthroid] 100 mcg Tablet
100 mcg PO DAILY
sucralfate 1 gram tablet
1 g PO BID
alprazolam [Xanax] 0.25 mg Tablet
0.25 mg PO HSPRN PRN (Reason: sleep )
lorazepam 0.5 mg Tablet
0.5 mg PO DAILYPRN PRN (Reason: anxiety )
Rx Instructions:
on chemo days if needed
polyethylene glycol 3350 17 gram powder in packet
17 g PO DAILYPRN PRN (Reason: constipation)
sennosides-docusate sodium 8.6-50 mg tablet
1 tab PO BIDPRN PRN (Reason: constipation)
Held
ondansetron HCl 8 mg Tablet
8 mg PO Q8HPRN PRN (Reason: nausea)
Hold Instructions: Resume on 06/14/24. hold while on Diflucan
Discontinued
cefazolin 10 gram Recon Soln
2 g IV Q8H Qty: 0 0RF
Discharge Orders:
Discharge Patient (As Directed); Ordered 05/30/24
Ordered By: Meliton Gtz
Discharge Date and Time
Discharge Date/Time: 05/30/24 13:11
Print Language: KINYARWANDA
--- NOTE | 2024-05-30 10:53 | CM ---
Home today no needs, spouse to transport.
Plan; Home no needs.
[2024-05-30 11:29] VITALS: BP 108/69
== END 2024-05-30 13:11 | disposition home or self-care (01) | DRG 368 ==
LOC: 4 WEST ACU 13:57
PROVIDERS: Nurse Practitioner Adult Health; Radiology Vascular & Interventional Radiology; Registered Nurse; ADMITTING PHYSICIAN Hospitalist; ATTENDING PHYSICIAN Hospitalist; CONSULT PHYSICIAN Internal Medicine; EMERGENCY PHYSICIAN Emergency Medicine; FAMILY PHYSICIAN Family Medicine
PROC: 0W9G3ZZ Drainage of Peritoneal Cavity, Percutaneous Approach (ICD-10-PCS; 2024-05-28)
PROC: 30243N1 Transfusion of Nonautologous Red Blood Cells into Central Vein, Percutaneous Approach (ICD-10-PCS; 2024-05-28)
PROC: 0D568ZZ Destruction of Stomach, Via Natural or Artificial Opening Endoscopic (ICD-10-PCS; 2024-05-29)
PROC: 30243R1 Transfusion of Nonautologous Platelets into Central Vein, Percutaneous Approach (ICD-10-PCS; 2024-05-29)
PROC: 0D598ZZ Destruction of Duodenum, Via Natural or Artificial Opening Endoscopic (ICD-10-PCS; 2024-05-29)
DX: B37.81 Candidal esophagitis (principal); K25.4 Chronic or unspecified gastric ulcer with hemorrhage; K31.811 Angiodysplasia of stomach and duodenum with bleeding; C22.1 Intrahepatic bile duct carcinoma; R18.0 Malignant ascites; R78.81 Bacteremia; D64.81 Anemia due to antineoplastic chemotherapy; T45.1X5A Adverse effect of antineoplastic and immunosuppressive drugs, initial encounter; R79.89 Other specified abnormal findings of blood chemistry; Y92.9 Unspecified place or not applicable; D50.0 Iron deficiency anemia secondary to blood loss (chronic); E89.0 Postprocedural hypothyroidism; K44.9 Diaphragmatic hernia without obstruction or gangrene; K22.2 Esophageal obstruction; D69.6 Thrombocytopenia, unspecified; K22.89 Other specified disease of esophagus; F32.A Depression, unspecified; F41.9 Anxiety disorder, unspecified; B95.61 Methicillin susceptible Staphylococcus aureus infection as the cause of diseases classified elsewhere; Z92.3 Personal history of irradiation; Z85.850 Personal history of malignant neoplasm of thyroid; Z79.890 Hormone replacement therapy; Z86.0100 Personal history of colon polyps, unspecified
CPT/HCPCS: 88305; 36430; 49083; 76705; 80053; 82042; 82248; 84157; 85014; 85018; 85025; 85610; 86850; 86900; 86901; 86920; 87015; 87070; 87205; 88112; 89051; 93005; 99285; P9016; P9073

== ENCOUNTER → 2024-06-06 06:58 | Outpatient (REF) | payer BC, SELFPAY ==
[2024-06-06 07:20] VITALS: BP 114/77; BP_SYST 68
[2024-06-06 08:15] VITALS: BP 117/70; BP_SYST 63
[2024-06-06 08:18] VITALS: BP 117/70
[2024-06-06 09:12] LABS: Body Fluid Mononuclear 92.5 %; Body Fluid Polymorphonuclear 7.5 %; Body Fluid WBC 186 /CUMM
[2024-06-06 09:14] LABS: Body Fluid Second Tech AMA
== END ==
LOC: RADI 06:58
PROVIDERS: ATTENDING PHYSICIAN Nurse Practitioner Adult Health; FAMILY PHYSICIAN Family Medicine
DX: C22.1 Intrahepatic bile duct carcinoma (principal); R18.0 Malignant ascites
CPT/HCPCS: 88305; 49083; 87015; 87070; 87205; 88112; 89051

== ENCOUNTER → 2024-06-27 07:26 | Outpatient (REF) | payer BC, SELFPAY ==
[2024-06-27 07:45] VITALS: BP 104/77; BP_SYST 78
[2024-06-27 08:20] VITALS: BP 109/73
[2024-06-27 09:19] LABS: Body Fluid Mononuclear 87.6 %; Body Fluid Polymorphonuclear 12.4 %; Body Fluid WBC 290 /CUMM
[2024-06-27 09:50] LABS: Body Fluid Second Tech HB
== END ==
LOC: RADI 07:26
PROVIDERS: ATTENDING PHYSICIAN Internal Medicine Medical Oncology; FAMILY PHYSICIAN Nurse Practitioner
DX: C80.1 Malignant (primary) neoplasm, unspecified (principal); R18.0 Malignant ascites
CPT/HCPCS: 49083; 87015; 87070; 87205; 89051

== ENCOUNTER → 2024-07-10 09:00 | Outpatient (REF) | payer BC, SELFPAY ==
[2024-07-10 09:20] VITALS: BP 112/71; BP_SYST 75
[2024-07-10 09:55] VITALS: BP 106/75; BP_SYST 68
[2024-07-10 10:41] LABS: Body Fluid WBC 355 /CUMM
[2024-07-10 10:42] LABS: Body Fluid Mononuclear 50.8 %; Body Fluid Polymorphonuclear 49.2 %
[2024-07-10 11:02] LABS: Body Fluid Second Tech AMA
== END ==
LOC: RADI 09:00
PROVIDERS: ATTENDING PHYSICIAN Internal Medicine Medical Oncology; FAMILY PHYSICIAN Family Medicine
DX: C80.1 Malignant (primary) neoplasm, unspecified (principal); R18.0 Malignant ascites
CPT/HCPCS: 49083; 89051

== ENCOUNTER → 2024-07-23 07:14 | Outpatient (REF) | payer BC, SELFPAY ==
[2024-07-23 07:40] VITALS: BP 118/64; BP_SYST 72
[2024-07-23 08:29] VITALS: BP 124/74
[2024-07-23 09:21] LABS: Body Fluid Mononuclear 70.2 %; Body Fluid Polymorphonuclear 29.8 %; Body Fluid WBC 201 /CUMM
[2024-07-23 09:28] LABS: Body Fluid Second Tech US
== END ==
LOC: RADI 07:14
PROVIDERS: ATTENDING PHYSICIAN Internal Medicine Medical Oncology; FAMILY PHYSICIAN Family Medicine
DX: C80.1 Malignant (primary) neoplasm, unspecified (principal); R18.0 Malignant ascites
CPT/HCPCS: 49083; 89051

== ENCOUNTER → 2024-08-08 08:28 | Outpatient (REF) | payer BC, SELFPAY ==
[2024-08-08 08:41] VITALS: BP 120/75; BP_SYST 72
[2024-08-08 09:17] VITALS: BP 105/63; BP_SYST 72
[2024-08-08 10:22] LABS: Body Fluid Mononuclear 70.9 %; Body Fluid Polymorphonuclear 29.1 %; Body Fluid WBC 148 /CUMM
[2024-08-08 10:28] LABS: Body Fluid Second Tech HB
== END ==
LOC: RADI 08:28
PROVIDERS: ATTENDING PHYSICIAN Internal Medicine Medical Oncology; FAMILY PHYSICIAN Family Medicine
DX: C80.1 Malignant (primary) neoplasm, unspecified (principal); R18.0 Malignant ascites
CPT/HCPCS: 49083; 89051

== ENCOUNTER → 2024-08-20 12:07 | Outpatient (REF) | payer BC, SELFPAY ==
[2024-08-20 12:17] VITALS: BP 119/79; BP_SYST 77
[2024-08-20 13:10] VITALS: BP 106/68
[2024-08-20 14:30] LABS: Body Fluid Second Tech BGK
== END ==
LOC: RADI 12:07
PROVIDERS: Radiology Vascular & Interventional Radiology; ATTENDING PHYSICIAN Internal Medicine Medical Oncology; FAMILY PHYSICIAN Family Medicine
DX: R18.8 Other ascites (principal)
CPT/HCPCS: 49083; 89051

== ENCOUNTER → 2024-09-01 12:51 | Outpatient (REF) | payer BC, SELFPAY ==
[2024-09-01 13:07] VITALS: BP 115/77; BP_SYST 88
[2024-09-01 14:34] LABS: Body Fluid Second Tech AMA
== END ==
LOC: RADI 12:51
PROVIDERS: ATTENDING PHYSICIAN Internal Medicine Medical Oncology; FAMILY PHYSICIAN Family Medicine
DX: C80.1 Malignant (primary) neoplasm, unspecified (principal); R18.0 Malignant ascites
CPT/HCPCS: 49083; 89051

== ENCOUNTER 2024-09-01 19:54 | Emergency (ER) | payer BC, SELFPAY ==
[2024-09-01 19:57] VITALS: BP 92/63
[2024-09-01 20:25] LABS: Hematocrit 22.9 % (37.0-47.0); Hemoglobin 7.6 g/dL (12.0-16.0); Mean Corp Hgb Conc. 33.2 g/dL (33.0-37.0); Mean Corpuscular Volume 98.7 fL (81.0-99.0); Platelet Count 100 10^3/uL (130-400); Red Cell Dist. Width 22.3 % (11.5-14.5)
[2024-09-01 20:44] VITALS: BP 95/67
[2024-09-01 21:00] VITALS: BMI 20.4
--- NOTE | 2024-09-01 21:22 | ED.GENMED ---
History of Present Illness
<Bharat Gusman MD, Resident - Last Filed: 09/01/24 22:49>
General
Chief Complaint: Fever
Source: patient
Time Seen by Provider: 09/01/24 21:08
History of Present Illness
History of Present Illness:
This is a 53-year-old female with known history of thyroid cancers s/p thyroidectomy in 2009, cholangiocarcinoma currently on chemotherapy for last 2 years. She also gets paracentesis every 2 weeks. She received a session of paracentesis today
with they removed 6 L according to the patient. In the afternoon she noticed a fever of 101 she reached out to oncologist who recommended to visit the emergency department for further evaluation. She is on the way to the emergency department she
took 1 tablet of Tylenol.
Reported that her cholangiocarcinoma was not responding too well to the chemotherapy regimen and she was started on a new drug and had her first session 3 days ago on Sunday.
Denies any chest pain, denies trouble breathing, denies nausea vomiting, denies GI or any urinary symptoms, denies any headache, vision changes or any other symptoms. Denies any sick contacts or any recent sickness. Denies any recent travel
Past History
<Bharat Gusman MD, Resident - Last Filed: 09/01/24 22:49>
Past History
ED Past Medical History: Cancer (Cholangiocarcinoma, thyroid cancer), Hypothyroidism, Psychiatric and Other (Chronic anemia)
ED Past Surgical History: and Other (thyroid sx, serial paracentesis)
Patient has exhibited threatening behavior?: No
Social History
Tobacco: Non-smoker
Alcohol: None
Drug: None
Personal:
Living: with family
Family History
Family History: Other (Noncontributory)
Review of Systems
<Bharat Gusman MD, Resident - Last Filed: 09/01/24 22:49>
Review of Systems
All Other Systems: ROS reviewed and negative except as documented in HPI and ROS
Phy Exam
<Bharat Gusman MD, Resident - Last Filed: 09/01/24 22:49>
Physical Exam
Physical Exam:
General: Awake, Alert, Oriented X3. No acute distress, quite pale
Vitals: unremarkable. Known history of low blood pressure. Temperature of 100.1
Head: Atraumatic
Eyes: Pupils equal, EOMI
Throat: Airway intact, no exudates
Neck: Trachea midline
Lungs: Clear and equal b/l
Heart: Regular rate, no murmurs
Abd: Soft, distended nontender, No pulsatile mass. No signs of infection near paracentesis puncture site
Neuro: Nonfocal
Skin: Warm, dry, no rash. Port site on the right upper chest with no obvious redness.
Extremities: pulses equal b/l, no edema
Sepsis
<Bharat Gusman MD, Resident - Last Filed: 09/01/24 22:49>
Sepsis Screening
Sepsis Assessment: Sepsis Ruled Out
Sepsis Screen
Sepsis Screen: Sepsis Ruled Out
Date: 09/01/24
Time: 22:49
Course
<Bharat Gusman MD, Resident - Last Filed: 09/01/24 22:49>
Orders/Labs/Results
Orders:
Orders
09/01/24 20:06
CMP [Comprehensive Metabolic Panel] Urgent
Complete Blood Count/With Diff Urgent
Manual Differential Urgent
09/01/24 21:22
Urinalysis Reflex To Culture Urgent
Date Specimen was Collected: 09/01/24
Time Specimen was Collected: 22:32
CR Chest - 2 Views Urgent
Comment:
Reason For Exam: fever
09/01/24 21:27
Blood Culture Q30M
SURYA Source: Blood/Venous
Specimen Description:
09/01/24 21:30
Blood Culture Q30M
SURYA Source: Blood/Venous
Specimen Description:
Abnormal Lab Results
09/01/24
20:06
WBC 13.4 H 10^3/uL
(4.8-10.8)
RBC 2.32 L 10^6/uL
(4.20-5.40)
Hgb 7.6 L g/dL
(12.0-16.0)
Hct 22.9 L %
(37.0-47.0)
MCH 32.8 H pg
(27.0-31.0)
RDW 22.3 H %
(11.5-14.5)
Plt Count 100 L 10^3/uL
(130-400)
MPV 12.3 H fL
(7.4-10.4)
Abs Neuts (Manual) 13.1 H 10^3/uL
(1.4-6.5)
Segmented Neutrophils 83 H %
(42-75)
Band Neutrophils 15 H %
(0-3)
Lymphocytes (Manual) 0 L %
(20-51)
Monocytes (Manual) 0 L %
(2-9)
Sodium 133 L mmol/L
(135-145)
Glucose 141 H mg/dl
(70-99)
Calcium 7.9 L mg/dl
(8.4-10.2)
AST 133 H U/L
(14-36)
ALT 80 H U/L
(0-35)
Total Protein 4.5 L g/dl
(6.3-8.2)
Albumin 2.7 L g/dl
(3.5-5.0)
09/01/24 20:06
09/01/24 20:06
Vital Signs
Initial and Last Documented VS:
Initial Vital Signs
Temp Pulse Resp BP Pulse Ox
100.1 F 104 20 92/63 96
09/01/24 19:57 09/01/24 19:57 09/01/24 19:57 09/01/24 19:57 09/01/24 19:57
Last Documented Vital Signs
Temp Pulse Resp BP Pulse Ox
100.1 F 96 18 95/67 98
09/01/24 19:57 09/01/24 20:45 09/01/24 20:45 09/01/24 20:44 09/01/24 21:22
<Emiliano Tapia, DO - Last Filed: 09/01/24 22:44>
Orders/Labs/Results
Orders:
Orders
09/01/24 20:06
CMP [Comprehensive Metabolic Panel] Urgent
Complete Blood Count/With Diff Urgent
Manual Differential Urgent
09/01/24 21:22
Urinalysis Reflex To Culture Urgent
Date Specimen was Collected: 09/01/24
Time Specimen was Collected: 22:32
CR Chest - 2 Views Urgent
Comment:
Reason For Exam: fever
09/01/24 21:27
Blood Culture Q30M
SURYA Source: Blood/Venous
Specimen Description:
09/01/24 21:30
Blood Culture Q30M
SURYA Source: Blood/Venous
Specimen Description:
Abnormal Lab Results
09/01/24
20:06
WBC 13.4 H 10^3/uL
(4.8-10.8)
RBC 2.32 L 10^6/uL
(4.20-5.40)
Hgb 7.6 L g/dL
(12.0-16.0)
Hct 22.9 L %
(37.0-47.0)
MCH 32.8 H pg
(27.0-31.0)
RDW 22.3 H %
(11.5-14.5)
Plt Count 100 L 10^3/uL
(130-400)
MPV 12.3 H fL
(7.4-10.4)
Abs Neuts (Manual) 13.1 H 10^3/uL
(1.4-6.5)
Segmented Neutrophils 83 H %
(42-75)
Band Neutrophils 15 H %
(0-3)
Lymphocytes (Manual) 0 L %
(20-51)
Monocytes (Manual) 0 L %
(2-9)
Sodium 133 L mmol/L
(135-145)
Glucose 141 H mg/dl
(70-99)
Calcium 7.9 L mg/dl
(8.4-10.2)
AST 133 H U/L
(14-36)
ALT 80 H U/L
(0-35)
Total Protein 4.5 L g/dl
(6.3-8.2)
Albumin 2.7 L g/dl
(3.5-5.0)
09/01/24 20:06
09/01/24 20:06
Vital Signs
Initial and Last Documented VS:
Initial Vital Signs
Temp Pulse Resp BP Pulse Ox
100.1 F 104 20 92/63 96
09/01/24 19:57 09/01/24 19:57 09/01/24 19:57 09/01/24 19:57 09/01/24 19:57
Last Documented Vital Signs
Temp Pulse Resp BP Pulse Ox
100.1 F 96 18 95/67 98
09/01/24 19:57 09/01/24 20:45 09/01/24 20:45 09/01/24 20:44 09/01/24 21:22
<Bharat Gusman MD, Resident - Last Filed: 09/01/24 22:49>
MDM/Problems Addressed
Differential Diagnosis Includes:
Viral illness vs medication side effect vs other infectious causes vs fever due to malignancy
MDM/Problems Addressed:
CBC with mild elevation of WBC, patient received Neulasta with Kaochlor therapy which could potentially be the reason of elevated WBC. Hemoglobin of 7.6 she has a history of chronic anemia. Reported 2 weeks ago her hemoglobin was 8.4. Platelets
are low 100.
CMP pending.
Patient comfortable offers no complaints at this time
Obtain blood culture
Check chest x-ray
Check urine analysis
Update: Patient offers no new complaints feeling better. Remains afebrile
Chest x-ray with There is blunting of the bilateral costophrenic angles suggestive of trace bilateral pleural effusions. No focal airspace disease
Urinalysis and blood culture still pending.
Shared decision was made with the patient for discharge home. Vitals remained stable. Return precaution reviewed. Patient voiced
He agreed with the plan.
Chronic conditions affecting care: Immunosuppressed
<Bharat Gusman MD, Resident - Last Filed: 09/01/24 22:49>
*Pulse Oximetry
SaO2: 98
Oxygen Mode of Delivery: Room air
Patient hypoxic: no
*Critical Care Note
Total Time (30-74mins, 75-104mins- exclusive of procedures): Not Applicable
ED Attending Note
<Bharat Gusman MD, Resident - Last Filed: 09/01/24 22:49>
-
Portions of this chart may have been created with voice recognition software.� Occasional wrong word or��sound alike� substitutions may have occurred due to the inherent limitations of voice recognition software.
<Emiliano Tapia, DO - Last Filed: 09/01/24 22:44>
ED Attending Note
Patient seen and examined by attending physician: Yes
I performed a history and physical exam of patient and discussed management with resident, I reviewed resident's note and agree with documented findings and plan of care.: Yes
ED Attending Note:
Seen with resident examined independently 53-year-old female cholangiocarcinoma followed at both [facility] and started new chemo recently she has a port, had a paracentesis today developed fever no chest pain no shortness of breath
no abdominal pain no dysuria or frequency--apparently she get Neupogen or Neulasta, her white count is now within hemoglobin noted, has been in the 5 range before the bleeding required transfusion, she looks well here she does have a port chest
x-ray noted report noted
Tells me her blood pressure is always on the low side, she is hesitant to get much fluid as she states it tends to go right into her abdomen with her ascites
Her abdomen still has some ascites but soft and nontender
This point I believe safe to discharge her to home, have ordered blood cultures x 2, will follow-up on those
Discharge Plan
Departure
Patient Disposition: Home (Routine Discharge)
Date of Disposition: 09/01/24
Time of Disposition: 22:43
Patient with high blood pressure during this ER visit?: No
Condition: Fair
Discharge Problem:
Fever
Instructions: Fever, Adult (DC)
Prescriptions:
No Action
escitalopram oxalate 5 mg Tablet
5 mg PO HS
ondansetron HCl 8 mg Tablet
8 mg PO Q8HPRN PRN (Reason: nausea)
pantoprazole 40 mg Tablet,Delayed Release (Dr/Ec)
40 mg PO BID Qty: 60 0RF
levothyroxine [Synthroid] 100 mcg Tablet
100 mcg PO DAILY
sucralfate 1 gram tablet
1 g PO BID
alprazolam [Xanax] 0.25 mg Tablet
0.25 mg PO HSPRN PRN (Reason: sleep )
lorazepam 0.5 mg Tablet
0.5 mg PO DAILYPRN PRN (Reason: anxiety )
Rx Instructions:
on chemo days if needed
polyethylene glycol 3350 17 gram powder in packet
17 g PO DAILYPRN PRN (Reason: constipation)
sennosides-docusate sodium 8.6-50 mg tablet
1 tab PO BIDPRN PRN (Reason: constipation)
Referrals:
Uriel Yanes MD [Family Provider, Family Practice] - Follow up in 1 week
Activity Restrictions/Additional Instructions:
You were seen after [facility] emergency department with concerns of fever. While you were in the emergency department we performed blood work including a complete blood count which showed slight elevation of WBC which could be related to
response to Neulasta. CMP with borderline low sodium, liver enzymes slightly elevated AsT 133, ALt of 80.
Chest x-ray without any focal airspace disease. There is blunting of bilateral costophrenic angle suggestive of trace bilateral pleural effusion. No treatment recommended for that.
Blood cultures were also obtained; result takes few days. If there is any abnormality we will call you with information.
Your vitals remained stable during your stay in the hospital with your blood pressure slightly in the lower side with systolic blood pressure in the 90.
Please return to the emergency department if you develop any worsening, new symptoms or any worrisome symptoms. Please follow-up with your family doctor for further recommendation.
Interventions
Interventions:
*Risk Screen - Suicide Last Done: 09/01/24 19:57
*General Assessment Last Done: 09/01/24 19:57
*Neglect/Abuse Screening Last Done: 09/01/24 19:57
*ED- Fall Risk Assessment Last Done: 09/01/24 21:02
*ED COVID-19 Vaccine History Last Done: 09/01/24 19:57
ED- Neurological Assessment Last Done: 09/01/24 21:02
ED-Skin Assessment Last Done: 09/01/24 21:02
Discharge Date and Time
Print Language: ISRAELI
[2024-09-01 21:26] LABS: Absolute Neutrophils -Man Diff 13.1 10^3/uL (1.4-6.5); Anisocytosis 2+; Macrocytosis 2+; Normal RBC Morphology No; Platelets Checked Yes
[2024-09-01 21:27] LABS: Stomatocytes 1+; Tear Drop Red Blood Cells 1+; Total Cells Counted 100
[2024-09-01 21:30] LABS: ALT (SGPT) 80 U/L (0-35); AST (SGOT) 133 U/L (14-36); Albumin 2.7 g/dl (3.5-5.0); Alkaline Phosphatase 120 U/L (38-126); Blood Urea Nitrogen 17 mg/dl (7-17); Calcium 7.9 mg/dl (8.4-10.2); Carbon Dioxide 30 mmol/L (22-30); Chloride 104 mmol/L (98-107); Estimated Creatinine Clearance 69 ml/min; Glucose 141 mg/dl (70-99); Potassium 4.0 mmol/L (3.5-5.1); Sodium 133 mmol/L (135-145); Total Protein 4.5 g/dl (6.3-8.2); eGFR > 60.00
== END 2024-09-01 22:52 | disposition home or self-care (01) ==
LOC: EMR 19:54
PROVIDERS: Emergency Medicine; EMERGENCY PHYSICIAN Emergency Medicine; FAMILY PHYSICIAN Family Medicine
DX: R50.9 Fever, unspecified (principal); C22.1 Intrahepatic bile duct carcinoma; D84.81 Immunodeficiency due to conditions classified elsewhere; D84.821 Immunodeficiency due to drugs; D64.81 Anemia due to antineoplastic chemotherapy; Z85.850 Personal history of malignant neoplasm of thyroid; E89.0 Postprocedural hypothyroidism; Z79.60 Long term (current) use of unspecified immunomodulators and immunosuppressants
CPT/HCPCS: 71046; 80053; 85025; 87040; 99284

== ENCOUNTER → 2024-09-09 10:29 | Outpatient (REF) | payer BC, SELFPAY ==
[2024-09-09 10:40] VITALS: BP 126/84; BP_SYST 80
[2024-09-09 11:10] VITALS: BP 116/72; BP_SYST 78
[2024-09-09 11:25] VITALS: BP 116/72
[2024-09-09 12:52] LABS: Body Fluid Second Tech RP
== END ==
LOC: RADI 10:29
PROVIDERS: ATTENDING PHYSICIAN Internal Medicine Medical Oncology; FAMILY PHYSICIAN Family Medicine
DX: C80.1 Malignant (primary) neoplasm, unspecified (principal); R18.0 Malignant ascites
CPT/HCPCS: 49083; 89051

== ENCOUNTER → 2024-09-15 09:25 | Outpatient (REF) | payer BC, SELFPAY ==
[2024-09-15 09:30] VITALS: BP 122/83; BP_SYST 77
[2024-09-15 10:30] VITALS: BP 106/77; BP 137/79; BP_SYST 68
[2024-09-15 12:01] LABS: Body Fluid Second Tech EM
== END ==
LOC: RADI 09:25
PROVIDERS: ATTENDING PHYSICIAN Internal Medicine Medical Oncology; FAMILY PHYSICIAN Family Medicine
DX: C80.1 Malignant (primary) neoplasm, unspecified (principal); R18.0 Malignant ascites
CPT/HCPCS: 49083; 89051

== ENCOUNTER → 2024-09-22 09:34 | Outpatient (REF) | payer BC, SELFPAY ==
[2024-09-22 09:45] VITALS: BP 112/74; BP_SYST 76
[2024-09-22 10:25] VITALS: BP 97/55; BP_SYST 82
[2024-09-22 13:19] LABS: Body Fluid Second Tech AMA
== END ==
LOC: RADI 09:34
PROVIDERS: ATTENDING PHYSICIAN Internal Medicine Medical Oncology; FAMILY PHYSICIAN Family Medicine
DX: C80.1 Malignant (primary) neoplasm, unspecified (principal); R18.0 Malignant ascites
CPT/HCPCS: 49083; 89051

== ENCOUNTER → 2024-09-29 12:56 | Outpatient (REF) | payer BC, SELFPAY ==
[2024-09-29 13:10] VITALS: BP 109/72; BP_SYST 79
[2024-09-29 14:03] VITALS: BP 103/73
[2024-09-29 16:28] LABS: Body Fluid Second Tech DW
== END ==
LOC: RADI 12:56
PROVIDERS: ATTENDING PHYSICIAN Internal Medicine Medical Oncology
DX: C80.1 Malignant (primary) neoplasm, unspecified (principal); R18.0 Malignant ascites
CPT/HCPCS: 49083; 89051

== ENCOUNTER → 2024-10-06 09:25 | Outpatient (REF) | payer BC, SELFPAY ==
[2024-10-06 09:50] VITALS: BP 108/73; BP_SYST 89
[2024-10-06 10:45] VITALS: BP 94/64; BP_SYST 81
[2024-10-06 10:52] VITALS: BP 94/64
[2024-10-06 13:01] LABS: Body Fluid Second Tech EM
== END ==
LOC: RADI 09:25
PROVIDERS: ATTENDING PHYSICIAN Internal Medicine Medical Oncology; FAMILY PHYSICIAN Family Medicine
DX: C80.1 Malignant (primary) neoplasm, unspecified (principal); R18.0 Malignant ascites
CPT/HCPCS: 49083; 89051

== ENCOUNTER 2024-10-07 23:13 | Observation (INO) | payer BC, SELFPAY ==
[2024-10-07 17:04] VITALS: BP 115/72
[2024-10-07 17:25] LABS: Urine Character Clear (Clear)
[2024-10-07 17:37] LABS: INR 1.03; PT 13.8 Sec (11.4-14.6)
[2024-10-07 17:40] LABS: ALT (SGPT) 34 U/L (0-35); AST (SGOT) 44 U/L (14-36); Albumin 2.8 g/dl (3.5-5.0); Alkaline Phosphatase 347 U/L (38-126); Blood Urea Nitrogen 13 mg/dl (7-17); Calcium 8.0 mg/dl (8.4-10.2); Carbon Dioxide 26 mmol/L (22-30); Chloride 99 mmol/L (98-107); Glucose 100 mg/dl (70-99); Potassium 3.6 mmol/L (3.5-5.1); Sodium 129 mmol/L (135-145); Total Protein 4.9 g/dl (6.3-8.2); eGFR > 60.00
[2024-10-07 17:50] LABS: Absolute Neutrophils -Man Diff 19.5 10^3/uL (1.4-6.5); Hematocrit 30.2 % (37.0-47.0); Hemoglobin 9.6 g/dL (12.0-16.0); Mean Corp Hgb Conc. 31.8 g/dL (33.0-37.0); Mean Corpuscular Volume 94.7 fL (81.0-99.0); Platelet Count 125 10^3/uL (130-400); Red Cell Dist. Width 20.1 % (11.5-14.5)
[2024-10-07 17:51] LABS: Anisocytosis 2+; Hypochromasia 2+; Macrocytosis 1+; Microcytosis 1+; Normal RBC Morphology No; Platelets Checked Yes; Total Cells Counted 100
--- NOTE | 2024-10-07 18:47 | ED.GENMED ---
History of Present Illness
General
Chief Complaint: Fever
Source: patient
Exam Limitations: none
Time Seen by Provider: 10/07/24 18:45
Nursing documentation reviewed up to this point in time: agreed with
History of Present Illness
History of Present Illness:
Patient is a 54-year-old female past medical history of stage IV cholangiocarcinoma(last paracentesis October 03, 4 days ago )thyroid cancer(2009) followed by [facility] Dr. Silva presents to the ER today for fever. Patient started with fever on
Sunday 3 days ago as high as 100.5. She did have chemotherapy on Sunday and did have a Neulasta injection on Sunday
She has been feeling achy however denies any cough URI symptoms. Denies any urinary frequency urgency. Denies any rash.
She did speak with her oncologist who wanted her to go to the nearest urgent care or ER for labs. Patient did have paracentesis Sunday however denies any abdominal pain or redness to her abdomen.
Past History
Past History
ED Past Medical History: Cancer (Cholangiocarcinoma, thyroid cancer), Hypothyroidism, Psychiatric and Other (Chronic anemia)
ED Past Surgical History: and Other (thyroid sx, serial paracentesis)
Patient has exhibited threatening behavior?: No
Social History
Tobacco: Non-smoker
Alcohol: None
Drug: None
Personal:
Living: with family
Family History
Family History: Other (Noncontributory)
Phy Exam
General Physical Exam
General Presentation: no apparent distress
General age: appears stated age
General Skin: warm and dry
General Habitus: normal
General Mental: alert
General Hydration: appears well hydrated
Cardiovascular Exam
Cardiovascular Exam: regular rate/rhythm, no murmur and normal peripheral pulses
VIRGIL Score
Is patient's age greater than or equal to 65 years: No
Pulmonary Exam
Pulmonary Exam: lungs clear, no respiratory distress and other (Right chest wall with PORT in place no surrounding erythema or drainage )
Gastrointestinal Exam
Gastrointestinal Exam: non tender, soft, ascites and other (Abdomen soft nontender no erythema)
Neurological Exam
Neurological Exam: alert and oriented x3
Musculoskeletal Exam
Musculoskeletal Exam: full ROM
Skin Exam
Skin Exam: normal color and warm/dry
Psychiatric Exam
Psychiatric Exam: normal mood/affect
Course
Orders/Labs/Results
Orders:
Orders
10/07/24 17:15
Complete Blood Count/With Diff Urgent
Comprehensive Metabolic Panel Urgent
Lactic Acid Q4H
Comment: ON ICE, CANCEL 2ND ORDER IF FIRST LACTIC ACID LEVEL <2
Manual Differential Urgent
Prothrombin Time Urgent
Urinalysis Reflex To Culture Urgent
Date Specimen was Collected: 10/07/24
Time Specimen was Collected: 17:07
10/07/24 17:16
Blood Culture Q20M
SRUYA Source: Blood/Venous
Specimen Description:
Comment: Urgent from separate sites. If patient screens positive for possible sepsis
10/07/24 17:35
Blood Culture Q20M
SURYA Source: Blood/Venous
Specimen Description:
Comment: Urgent from separate sites. If patient screens positive for possible sepsis
10/07/24 19:03
0.9% Sodium Chloride 1000 ml [Nss] 1,000 ml IV BOLUS
10/07/24 19:15
COVID-19 Antigen Urgent
Source: Nasal Swab
Influenza A+B Rapid Molecular Urgent
SURYA Source: Nasal Swab
Specimen Description:
10/07/24 19:46
Chest [CR Chest - 2 Views ] Urgent
Comment:
Reason For Exam: fever
Abnormal Lab Results
10/07/24
17:15
WBC 21.3 H 10^3/uL
(4.8-10.8)
RBC 3.19 L 10^6/uL
(4.20-5.40)
Hgb 9.6 L g/dL
(12.0-16.0)
Hct 30.2 L %
(37.0-47.0)
MCHC 31.8 L g/dL
(33.0-37.0)
RDW 20.1 H %
(11.5-14.5)
Plt Count 125 L 10^3/uL
(130-400)
MPV 11.5 H fL
(7.4-10.4)
Abs Neuts (Manual) 19.5 H 10^3/uL
(1.4-6.5)
Segmented Neutrophils 77 H %
(42-75)
Band Neutrophils 15 H %
(0-3)
Lymphocytes (Manual) 2 L %
(20-51)
Sodium 129 L mmol/L
(135-145)
Glucose 100 H mg/dl
(70-99)
Calcium 8.0 L mg/dl
(8.4-10.2)
AST 44 H U/L
(14-36)
Alkaline Phosphatase 347 H U/L
(38-126)
Total Protein 4.9 L g/dl
(6.3-8.2)
Albumin 2.8 L g/dl
(3.5-5.0)
10/07/24 17:15
10/07/24 17:15
Vital Signs
Initial and Last Documented VS:
Initial Vital Signs
Temp Pulse Resp BP Pulse Ox
99.2 F 103 17 115/72 99
10/07/24 17:04 10/07/24 17:04 10/07/24 17:04 10/07/24 17:04 10/07/24 17:04
Last Documented Vital Signs
Temp Pulse Resp BP Pulse Ox
99.2 F 97 18 115/76 99
10/07/24 17:04 10/07/24 21:42 10/07/24 21:42 10/07/24 21:42 10/07/24 21:42
MDM/Problems Addressed
Differential Diagnosis Includes:
Not limited to COVID sepsis UTI pneumonia neutropenic fever/virus/nonneutropenic fever
MDM/Problems Addressed:
As documented patient is a 54-year-old female being treated for cholangiocarcinoma by [facility]. She had chemo on Sunday received Neulasta on Sunday and started with fever on Sunday. She feels achy however has no other URI symptoms. She
denies any abdominal pain UTI symptoms neck pain etc. On exam she is very well-appearing. Patient's white count is elevated at 21,000 again recent Neulasta injection her neutrophils are also elevated 19,000 with 15% bands. Her urine is negative
chest x-ray is negative for pneumonia. Her sodium is mildly low at 129.
She was given normal saline., COVID flu negative. Case reviewed with senior talent management consultant oncology fellow Dr. Thomas( senior talent management consultant for DR Ricardo Cheek )
Dr. Thomas does recommend admitting for empiric antibiotics until blood cultures are negative.
Discussed with patient plan of care if she is willing to stay
*Radiology
Radiology exam reviewed: radiology read reviewed (Small right pleural effusion slightly increased in the left lower effusion unchanged)
*Pulse Oximetry
SaO2: 99
Oxygen Mode of Delivery: Room air
Patient hypoxic: no
*Critical Care Note
Total Time (30-74mins, 75-104mins- exclusive of procedures): Not Applicable
Patient Management
Discussion with other providers: Manager Mall ([facility] )
ED Attending Note
-
Portions of this chart may have been created with voice recognition software.� Occasional wrong word or��sound alike� substitutions may have occurred due to the inherent limitations of voice recognition software.
Discharge Plan
Departure
Patient Disposition: Admit
Date of Disposition: 10/07/24
Time of Disposition: 22:18
Admit to: Med/Surg
Admit to doctor: hospitalist
Presentation/result/management discussed w/ accepting MD/DO: Hospitalist
Patient with high blood pressure during this ER visit?: No
Condition: Fair
Covid-19: Not Applicable
Discharge Problem:
Fever, Acute hyponatremia
Prescriptions:
No Action
escitalopram oxalate 5 mg Tablet
5 mg PO HS
ondansetron HCl 8 mg Tablet
8 mg PO Q8HPRN PRN (Reason: nausea)
pantoprazole 40 mg Tablet,Delayed Release (Dr/Ec)
40 mg PO BID Qty: 60 0RF
levothyroxine [Synthroid] 100 mcg Tablet
100 mcg PO DAILY
sucralfate 1 gram tablet
1 g PO BID
alprazolam [Xanax] 0.25 mg Tablet
0.25 mg PO HSPRN PRN (Reason: sleep )
lorazepam 0.5 mg Tablet
0.5 mg PO DAILYPRN PRN (Reason: anxiety )
Rx Instructions:
on chemo days if needed
polyethylene glycol 3350 17 gram powder in packet
17 g PO DAILYPRN PRN (Reason: constipation)
sennosides-docusate sodium 8.6-50 mg tablet
1 tab PO BIDPRN PRN (Reason: constipation)
Referrals:
Uriel Yanes MD [Family Provider, Family Practice]
Interventions
Interventions:
*Risk Screen - Suicide Last Done: 10/07/24 17:06
*General Assessment Last Done: 10/07/24 17:06
*Neglect/Abuse Screening Last Done: 10/07/24 17:06
*ED COVID-19 Vaccine History Last Done: 10/07/24 17:06
ED- Neurological Assessment Last Done: 10/07/24 19:41
ED-Skin Assessment Last Done: 10/07/24 19:41
Discharge Date and Time
Print Language: GUYANESE
[2024-10-07] MEDS: NSS 1000 IV (19:30)
[2024-10-07 19:42] LABS: COVID-19 Antigen Negative (Negative)
[2024-10-07 21:42] VITALS: BP 115/76
--- NOTE | 2024-10-07 22:25 | HPS.HSE ---
Family Physician
-
Family Physician: Uriel Yanes
Chief Complaint
-
fever
History of Present Illness
Patient is a 54-year-old female with past medical history significant for metastatic cholangiocarcinoma, hypothyroidism, depression/anxiety and GERD who presented to [facility] ED for evaluation of fever at recommendation of primary Oncologist at [place]. Patient reports last Chemo infusion was Sunday (3rd round) and fever started on Sunday she reports associated body aches. She reports getting a Neulasta injection on Sunday. She denies any cough, shortness of breath, nausea, vomiting,
abdominal pain, diarrhea or urinary symptoms.
Medical History
Past Medical History
Past Medical History: Reports Psychiatric
Additional Past Medical History:
metastatic cholangiocarcinoma
hypothyroidism
depression/anxiety
GERD
thyroid cancer
Hx GI bleed
Past Surgical History: Reports Other
Additional Past Surgical History:
:2001, 2000, 2007
thyroidectomy:05/2009
Social History
Tobacco: Non-smoker
Alcohol: None
Drug: None
Personal:
Living: With Family
Employment: Not Employed
Family History
Family History: Not pertinent
Allergies / Home Medications
Allergies reflects when Allergies were last updated in [facility].
Home Medications with original date entered in [facility]
Allergy/Medication List:
Allergies
Allergy/AdvReac Type Severity Reaction Status Date / Time
No Known Allergies Allergy Verified 10/07/24 17:06
Home Medications
escitalopram oxalate 5 mg tablet 5 mg PO HS depression/anxiety 02/29/24
ondansetron HCl 8 mg tablet 8 mg PO Q8HPRN PRN nausea 02/29/24
Held on 05/30/24. Instructions: Resume on 06/14/24. hold while on Diflucan
pantoprazole 40 mg tablet,delayed release 40 mg PO BID #60 tabs 03/01/24
lorazepam 0.5 mg tablet 0.5 mg PO DAILYPRN PRN anxiety 05/14/24
sucralfate 1 gram tablet 1 g PO BID Gastrointestinal Issue 05/14/24
levothyroxine 112 mcg tablet 112 mcg PO DAILY 10/07/24
Review of Systems
-
History Source: Patient
Constitutional: Reports Fever, Fatigue and Chills
EENT: Reports No Symptoms
Respiratory: Reports No Symptoms
Cardiac: Reports No Symptoms
Abdomen/GI: Reports No Symptoms
: Reports No Symptoms
Musculoskeletal: Reports No Symptoms
Skin: Reports No Symptoms
Neurological: Reports No Symptoms
Endocrine: Reports No Symptoms
Hematologic/Lymphatic: Reports No Symptoms
Psych: Reports No Symptoms
Physical Exam
Vital Signs
Vital Signs
Temp Pulse Resp BP Pulse Ox
99.2 F 97 18 115/76 99
10/07/24 17:04 10/07/24 21:42 10/07/24 21:42 10/07/24 21:42 10/07/24 21:42
Physical Exam
General: Well Developed, Well Nourished, No Apparent Distress and Appears Chronically Ill
HEENT: NormoCephalic, Moist mucous membranes and Atraumatic
Respiratory: Clear and Non Labored Respirations
Cardiac: S1/S2 and Regular Rhythm; No Murmur, Rub or Gallop
Breast: Deferred by me
GI: Soft, Non Tender, Non Distended and Normal Bowel Sounds
Rectal: Deferred by Provider
Genito-urinary: Deferred by me
Musculoskeletal: No Clubbing, No Cyanosis and No Edema
Skin: Warm and IV/Catheter Site (port RCW)
Neuro: Awake, AO x 3 and Nonfocal/grossly intact
Hematologic/Lymphatic: No Lymphadenopathy
Psych: Calm and Intact Judgment/Insight
Laboratory Results
-
10/07/24 17:15
10/07/24 17:15
Laboratory Results
PT 13.8 Sec (11.4-14.6) 10/07/24 17:15
INR 1.03 10/07/24 17:15
Lactic Acid Cancelled 10/07/24 21:15
Total Bilirubin 0.7 mg/dl (0.2-1.3) 10/07/24 17:15
AST 44 U/L (14-36) H 10/07/24 17:15
ALT 34 U/L (0-35) 10/07/24 17:15
Alkaline Phosphatase 347 U/L (38-126) H 10/07/24 17:15
Data Reviewed
-
Diagnostic Radiology: Report Reviewed by me (CXR: Small right pleural effusion, slightly increased. Tiny left pleural effusion, unchanged.)
Lab Data: Labs Reviewed by me (WBC 21.6, Na+ 129, Alk Phos 347, )
Impression/Plan
-
IMPRESSION/PLAN:
#fever
#metastatic cholangiocarcinoma
WBC 21.6, Alk Phos 347
CXR: Small right pleural effusion, slightly increased.
Tiny left pleural effusion, unchanged.
Blood Cx: pending
- Admit to med/surg
- IVF NSS 100cc/hr
- IV Zosyn
- supportive care
#hyponatremia
Na+ 129
- urine osmo and urine sodium
- monitor BMP
#hypothyroidism
- continue levothyroxine
#depression/anxiety
- continue escitalopram and PRN lorazepam
#GERD
#Hx GI bleed
- continue pantoprazole and sucralfate
Code status: full code
DVT prophylaxis: lovenox sq
[2024-10-07] MEDS: ZOSYN 50 IV (22:28)
--- NOTE | 2024-10-07 22:29 | W.PN.UPDATE ---
Update Note
Progress Note Update
Patient seen and condition with ASHLY. I agree with the findings on history and physical exam. I concur with assessment and plan.
Briefly, this is a 54-year-old female with past medical history significant for thyroid cancer, cholangiocarcinoma stage IV who is currently on chemotherapy presenting to the emergency department with fevers and chills.
She last received chemo on Sunday. She reported that she had a Neulasta injection on Sunday. She started having fevers Sunday with a temp as high as 100.5 at home. She reports generalized aches and chills. She denies any urinary symptoms. She
denies any respiratory symptoms including cough or congestion or shortness of breath. She has not had any rash. She denies any focal tenderness. She denies any intra-abdominal pain nausea vomiting or diarrhea.
Cholangiocarcinoma is complicated by recurrent ascites for which she gets routine paracenteses weekly on Mondays. She is status post paracentesis yesterday without any complications.
In the emergency department she had a temp of 99.2, blood pressure was 115/76 with a pulse of 97 and she was satting 99% on room air. Chest x-ray shows trace bilateral pleural effusions. COVID test was negative, UA was negative.
She had a white count of 21.3 with 15% bands and hemoglobin of 9.6 platelet of 125. Electrolytes notable for a sodium of 129 otherwise unremarkable. BUN and creatinine were normal. She has no elevation in total bilirubin and a normal AST and ALT.
Assessment and plan
54 y.o with h/o cholangiocarcinoma here with fevers after chemo on sunday and neulasta on sunday. She has no focal findings on hx and physical. Labs notable for leukocytosis likely 2/2 neulasta. No transaminitis or elevated bilirubin. No
abdominal pain/tenderness/nausea/vomiting to suggest and acute intraabdominal process. Had a routine paracentesis without any findings or complications
- admit to med/surg observation
- blood cultures sent
- serial examinations
- d/w her oncology fellow at [facility], recommends empiric Zosyn for now
- monitor till negative cultures x 24/48hours
- Recommend to d/w her primary Oncologist (Dr Silva at [facility] tomorrow).
Hyponatremia -Na 129. Suspect hypovolemic after infusion
- IV NS x 2 L overnight
- check urine Osm and Na
- check tsh
Hypothyroid
- continue levothyroxine
DVT PPX - lovenox sq
Code status - Full Code
[2024-10-08] MEDS: PROTONIX 40 MG PO ×3 (00:01→20:06)
[2024-10-08] MEDS: LEXAPRO 5 MG PO ×2 (00:01→21:45)
--- NOTE | 2024-10-08 02:39 | DOWNTIME ---
There was a [employer] Client Agent Broker Downtime on 10/08/2024 from 0100 to 10/08/2024 at 0235. Downtime documentation of patient's care, including medication administrations, has been reconciled in the electronic record per guidelines. Refer to the
patient's paper chart under the miscellaneous tab to see printed paper medication records and downtime forms.
[2024-10-08] MEDS: CARAFATE PO (02:54)
[2024-10-08 04:00] VITALS: BP 103/65; BMI 21.1
[2024-10-08] MEDS: ZOSYN 50 IV ×4 (04:27→21:45)
[2024-10-08] MEDS: SYNTHROID 112 MCG PO (04:28)
[2024-10-08] MEDS: ZOFRAN 8 MG PO (05:25)
[2024-10-08 05:53] LABS: Hematocrit 24.5 % (37.0-47.0); Hemoglobin 7.9 g/dL (12.0-16.0); Mean Corp Hgb Conc. 32.2 g/dL (33.0-37.0); Mean Corpuscular Volume 94.6 fL (81.0-99.0); Platelet Count 81 10^3/uL (130-400); Red Cell Dist. Width 20.3 % (11.5-14.5)
[2024-10-08 06:09] LABS: Blood Urea Nitrogen 11 mg/dl (7-17); Calcium 7.6 mg/dl (8.4-10.2); Carbon Dioxide 25 mmol/L (22-30); Chloride 103 mmol/L (98-107); Estimated Creatinine Clearance 69 ml/min; Glucose 99 mg/dl (70-99); Potassium 3.6 mmol/L (3.5-5.1); Sodium 131 mmol/L (135-145); eGFR > 60.00
[2024-10-08 07:00] VITALS: BP 93/64
[2024-10-08] MEDS: CARAFATE 1 GRAM PO ×2 (08:14→20:06)
--- NOTE | 2024-10-08 08:59 | W.PN.HOSP.TC ---
Today's Communication/Plan
-
see A/P
Assessment / Plan
Assessment / Plan
HPI: 54-year-old female with past medical history significant for metastatic cholangiocarcinoma, hypothyroidism, depression/anxiety and GERD; who was prompted by primary Oncologist at [facility] to come in for fever.
Patient reports last chemo infusion on Tuesday 10/03 (3rd round) and fever started on Thursday 10/05. She reported associated body aches. She reports getting a Neulasta injection on Sunday. She denies any cough, shortness of breath, nausea, vomiting,
abdominal pain, diarrhea or urinary symptoms.
A/P:
# fever, unknown origin, in setting of metastatic cholangiocarcinoma on chemo
Follow WBC
CXR: Small right pleural effusion, slightly increased. Tiny left pleural effusion, unchanged.
COVID/Flu negative , UA clean
Follow blood Cx
Observe off additional IVF in setting of ascites
Cont IV Zosyn
ID CS
# metastatic cholangiocarcinoma complicated by recurrent ascites for which pt gets routine paracenteses weekly on Mondays.
s/p paracentesis 10/06, no SBP
IR CS for repeat para today 10/08 for rapid reaccumulation of ascites
# hyponatremia 2/2 SIADH and possible dehydration
Sodium level improved from 129 to 131 today
DC further IVF
monitor BMP
# hypothyroidism
# h/o thyroid cancer s/p surgery
TSH 45 , FT4 at 1.3
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
# depression/anxiety
continue escitalopram and PRN lorazepam
# GERD
# Hx GI bleed
continue pantoprazole and sucralfate
Code status: full code
DVT prophylaxis: lovenox sq
total time 51 min
Anticipated Discharge: 24 - 48 hours
Subjective/Interval History
-
Date of Service: October 08, 2024
Objective Data
-
Labs:
Laboratory Results
10/08/24
05:33
WBC 22.8 H
Hgb 7.9 L
Hct 24.5 L
Plt Count 81 L D
Sodium 131 L
Potassium 3.6
Chloride 103
Carbon Dioxide 25
BUN 11
Creatinine 0.7
Glucose 99
Calcium 7.6 L
Vital Signs:
Vital Signs
Temp Pulse Resp BP Pulse Ox
37.1 C 81 18 93/64 97
10/08/24 07:00 10/08/24 07:00 10/08/24 07:00 10/08/24 07:00 10/08/24 07:00
I&O
10/07/24 10/08/24 10/09/24
06:59 06:59 06:59
Intake Total 240 / 240
Balance 240 / 240
Review of Systems
-
History Source: Patient
Abdomen/GI: Reports Other (abdomen distension)
Physical Exam
-
General: Well Developed, No Apparent Distress, Comfortable and Conversant
HEENT: Normocephalic and Atraumatic
Respiratory: Clear to Auscultation and Non Labored Respirations; Negative Accessory Resp Muscle Use
Cardiac: Regular Rhythm and S1/S2
GI: Soft, Nontender, Normal Bowel Sounds, Distended and Other (ascites)
Skin: Warm and Dry
Neuro: Awake and Alert
Psych: Calm and Intact Judgement/Insight
Data Reviewed
-
Diagnostic Radiology: Report Reviewed by me
Labs: Labs Reviewed by me
--- NOTE | 2024-10-08 10:51 | CON.ID ---
Consultation
-
Date/Time Consultation Requested: 10/08/2024 0727
Date/Time Consultation Performed: 10/08/2024 1051
Requesting Provider: Dr. Castro
Performing Provider: Dr. Mitchell
Reason for Consultation: Fever
Chief Complaint / Past History
History of Present Illness
Brenda Voss is a 54-year-old female with a significant past medical history of stage IV cholangiocarcinoma and recurrent ascites being evaluated at the request of Dr. Castro in regards to fever. History is obtained from chart review, following which
patient interview.
The patient reports that she recently received her third cycle of chemotherapy (Abraxane, gemcitabine). She also received Neulasta. She notes that on prior occasions of receiving chemotherapy she also had low-grade temperatures. Yesterday she
called her oncologist regarding the low-grade temperature, and they advised to stop taking Tylenol to see what her true temperature was. She developed a temperature to 100.5 degrees, and at that point in time they sent her to the nearest ER based
upon their protocol.
She reports that she feels somewhat improved since admission. In review of system she denies any headache. She denies any cough or congestion. She denies any abdominal pain, nausea, vomiting. She denies any difficulty with her right anterior
chest port, which has been in place for approximately 2 years.
She reports that she follows closely with [facility], but also is evaluated at in [place] every 4 months or so.
Past History
Additional Past Medical History:
Stage IV cholangiocarcinoma
Recurrent ascites
Hx papillary thyroid carcinoma (2009)
Hypothyroidism
GI bleed
Depression
Anxiety
Iron deficiency anemia
Gastric ulcer
Additional Past Surgical History:
Thyroidectomy
Port-A-Cath placement
Allergy History:
No Known Allergies Allergy (Verified 10/07/24 17:06)
Medications Reviewed: Yes
Current Antibiotics:
Zosyn 3.375 gm IV q.6 hours
Social History
Tobacco: Non-Smoker
Alcohol: None
Drug: None
Personal:
Living: With Family
Employment: Not Employed
Family History
Family History: Not Pertinent
Review of Systems
Vital Signs
Temp Pulse Resp BP Pulse Ox
98.8 F 81 18 93/64 97
10/08/24 07:00 10/08/24 07:00 10/08/24 07:00 10/08/24 07:00 10/08/24 07:00
Physical Exam
Physical Exam
Constitutional: No Acute Distress, Comfortable and Non-toxic
Head: Normocephalic and Other (Alopecia)
Eyes: Pupils Equal, Pupils Round, No Conjunctival Hemorrhage and Sclera Anicteric
Oral: No Thrush and No Ulcers
Cardiovascular: Regular Rate and S1/S2; Negative S3/S4
Pulmonary: Clear and Rhonchi; Negative Wheezes or Rales
Gastrointestinal: Soft, Distended, Normal Bowel Sounds, No Rebound and No Guarding
Extremities: Edema; Negative Cyanosis or Erythema
Skin: Warm and Dry; Negative Rash or Jaundice
Neurological: Awake and Alert
Psychological: Calm
Lab / Diagnostic Study Results
10/08/24 05:33
10/08/24 05:33
Total Counted 100 10/07/24 17:15
Abs Neuts (Manual) 19.5 10^3/uL (1.4-6.5) H 10/07/24 17:15
Segmented Neutrophils 77 % (42-75) H 10/07/24 17:15
Band Neutrophils 15 % (0-3) H 10/07/24 17:15
Lymphocytes (Manual) 2 % (20-51) L 10/07/24 17:15
PT 13.8 Sec (11.4-14.6) 10/07/24 17:15
INR 1.03 10/07/24 17:15
Lactic Acid Cancelled 10/07/24 21:15
Microbiology Results
Micro:
10/07/24 22:26 Blood Culture - Pending
Blood/Venous
10/07/24 19:15 Influenza Types A & B (CIELO) - Final
Nasal Swab Negative for Influenza A & B, NAAT
Negative results must be combined with clinical observations
and patient history.
Nucleic Acid Amplification test (NAAT)performed on the
[employer] NOW platform.
10/07/24 17:16 Blood Culture - Pending
Blood/Venous
Imaging:
10/07/2024 CXR (2 view): no significant focal parenchymal opacification or vascular congestion. Cardiomediastinal silhouette is within limits of normal. No pneumothorax or mediastinal shift. Small right pleural effusion is noted. Please see full
dictation for additional detail.
Assessment / Plan
Outpatient low-grade fever
Stage IV cholangiocarcinoma
- s/p 3rd cycle Abraxane/gemcitabine
Recent Neulasta administration
Leukocytosis
Recurrent ascites
Hx papillary thyroid carcinoma (2009)
Hypothyroidism
GI bleed
Depression
Anxiety
Iron deficiency anemia
Gastric ulcer
Recommendations:
Patient without fever since admission.
Leukocytosis noted, but likely secondary to recent Neulasta administration.
Blood cultures currently pending.
Given history of low-grade fevers after prior chemotherapy rounds, recent fever likely secondary to the same, and infection is less likely.
Continue Zosyn for now, although if blood cultures remain negative, would have no objection to discontinuing and following off of antibiotics.
--- NOTE | 2024-10-08 13:14 | CM ---
Alert awake oriented patient who lives with her Butch in a 2 story home with 3 step to enter and 12 steps to to bed/bath room. She is independent in driving and in all activities of daily living.Observation letter given explained. All
questions answered letter signed on chart. No adaptive devices.Offered VN she declined need.
No VN Hx VN/ No SNF hx
Pharmacy [facility]
PCP Dr Yanes
PLAN Home no needs
[2024-10-08 15:00] VITALS: BP 103/69
[2024-10-08 15:10] VITALS: BP 107/86; BP_SYST 85
[2024-10-08 16:08] VITALS: BP 104/65
[2024-10-08 18:18] LABS: Body Fluid Second Tech CMC
[2024-10-08 23:00] VITALS: BP 103/61
[2024-10-09] MEDS: ZOSYN 50 IV (04:37)
[2024-10-09] MEDS: SYNTHROID 112 MCG PO (04:37)
[2024-10-09 05:50] LABS: Hematocrit 25.1 % (37.0-47.0); Hemoglobin 8.2 g/dL (12.0-16.0); Mean Corp Hgb Conc. 32.7 g/dL (33.0-37.0); Mean Corpuscular Volume 94.4 fL (81.0-99.0); Platelet Count 59 10^3/uL (130-400); Red Cell Dist. Width 20.2 % (11.5-14.5)
[2024-10-09 06:02] LABS: Blood Urea Nitrogen 10 mg/dl (7-17); Calcium 8.2 mg/dl (8.4-10.2); Carbon Dioxide 26 mmol/L (22-30); Chloride 103 mmol/L (98-107); Estimated Creatinine Clearance 60 ml/min; Glucose 108 mg/dl (70-99); Magnesium 1.9 mg/dl (1.6-2.3); Potassium 3.3 mmol/L (3.5-5.1); Sodium 131 mmol/L (135-145); eGFR > 60.00
[2024-10-09 06:24] LABS: Absolute Neutrophils -Man Diff 25.1 10^3/uL (1.4-6.5); Anisocytosis 2+; Macrocytosis 3+; Normal RBC Morphology No; Platelets Checked Yes; Polychromasia 2+; Total Cells Counted 100
[2024-10-09 07:53] VITALS: BP 97/64
[2024-10-09] MEDS: PROTONIX 40 MG PO (08:27)
[2024-10-09] MEDS: KCL 40 MEQ PO (08:27)
[2024-10-09] MEDS: CARAFATE 1 GRAM PO (08:27)
--- NOTE | 2024-10-09 09:27 | W.PN.HOSP.TC ---
Today's Communication/Plan
-
DC today
Assessment / Plan
Assessment / Plan
HPI: 54-year-old female with past medical history significant for metastatic cholangiocarcinoma, hypothyroidism, depression/anxiety and GERD; who was prompted by primary Oncologist at [facility] to come in for fever.
Patient reports last chemo infusion on Tuesday 10/03 (3rd round) and fever started on Thursday 10/05. She reported associated body aches. She reports getting a Neulasta injection on Sunday. She denies any cough, shortness of breath, nausea, vomiting,
abdominal pain, diarrhea or urinary symptoms.
A/P:
# fever, unknown origin, in setting of metastatic cholangiocarcinoma on chemo
Follow WBC
CXR: Small right pleural effusion, slightly increased. Tiny left pleural effusion, unchanged.
COVID/Flu negative , UA clean , blood Cx so far negative
Observe off additional IVF in setting of ascites
DC Zosyn
appreciate ID input
# metastatic cholangiocarcinoma complicated by recurrent ascites for which pt gets routine paracenteses weekly on Mondays.
s/p paracentesis 10/06, no SBP
s/p IR repeat para 10/08 due to rapid reaccumulation of ascites, no SBP
# hyponatremia 2/2 SIADH and possible dehydration
Sodium level improved from 129 to 131 today
DC further IVF
monitor BMP
# hypothyroidism
# h/o thyroid cancer s/p surgery
TSH 45 , FT4 at 1.3
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
# depression/anxiety
continue escitalopram and PRN lorazepam
# GERD
# Hx GI bleed
continue pantoprazole and sucralfate
# Hypokalemia
replete
Check BMP in 1 week, result to PCP
Code status: full code
DVT prophylaxis: lovenox sq
Anticipated Discharge: Today
Subjective/Interval History
-
Date of Service: October 09, 2024
Objective Data
-
Labs:
Laboratory Results
10/09/24
05:16
WBC 28.6 H
Hgb 8.2 L
Hct 25.1 L
Plt Count 59 L D
Sodium 131 L
Potassium 3.3 L
Chloride 103
Carbon Dioxide 26
BUN 10
Creatinine 0.8
Glucose 108 H
Calcium 8.2 L
Vital Signs:
Vital Signs
Temp Pulse Resp BP Pulse Ox
36.7 C 79 17 97/64 96
10/09/24 07:53 10/09/24 07:53 10/09/24 07:53 10/09/24 07:53 10/09/24 07:53
I&O
10/08/24 10/09/24 10/10/24
06:59 06:59 06:59
Intake Total 240 / 240 1440 / 1440
Balance 240 / 240 1440 / 1440
Review of Systems
-
History Source: Patient
Abdomen/GI: Reports Other (abdomen distension has improved )
Physical Exam
-
General: Well Developed, No Apparent Distress, Comfortable and Conversant
HEENT: Normocephalic and Atraumatic
Respiratory: Clear to Auscultation and Non Labored Respirations; Negative Accessory Resp Muscle Use
Cardiac: Regular Rhythm and S1/S2
GI: Soft, Nontender, Normal Bowel Sounds, Distended (improved ) and Other (ascites has improved)
Skin: Warm and Dry
Neuro: Awake and Alert
Psych: Calm and Intact Judgement/Insight
Data Reviewed
-
Diagnostic Radiology: Report Reviewed by me
Labs: Labs Reviewed by me
--- NOTE | 2024-10-09 10:04 | CM ---
Md entered order for discharge.
spoke with patient in room she said she was ready for discharge and her Erik will drive her home.
She declined need for VN.
PLAN: Home no needs
[2024-10-09 10:19] VITALS: BP 100/68
--- NOTE | 2024-10-09 11:36 | W.DCSUMMARY ---
Discharge Summary
Discharge Data
Date of Admission: 10/07/24
Date of Discharge: 10/09/24
Total time spent discharging patient (in min): 40
-
Pending Results: No
Hospital Course
Principal Diagnosis:
Fever, unknown origin, in setting of metastatic cholangiocarcinoma on chemo
Chronic Diagnoses:�
Hyponatremia with SIADH and possible dehydration
Hypothyroidism (TSH 45, FT4 at 1.3)
History of thyroid cancer s/p surgery
Depression/anxiety
GERD
Hx GI bleed, continue pantoprazole and sucralfate
Consultations:�
Infectious disease
Procedures:�
None
Clinical course:�
This is a 54-year-old female with past medical history as stated above, who was prompted by her primary oncologist to come to the emergency room for fever.
Of note, she had recent chemo infusion on Tuesday 10/03 (3rd round) and fever started on Thursday 10/05. She also had Neulasta injection on Sunday.
Problem 1:
fever, unknown origin, in setting of metastatic cholangiocarcinoma on chemo.
Her WBC was significantly elevated, which could be due to the Neulasta injection.
She has had no further fever during this admission.
Her chest x-ray was unrevealing, COVID/Flu were negative, UA clean, and blood negative.
She also underwent paracentesis this admission for symptom control, and her ascites was negative for SBP.
She was very briefly on Zosyn while in the hospital, and no antibiotic was continued.
Problem 2:
Metastatic cholangiocarcinoma complicated by recurrent ascites for which pt gets routine paracenteses weekly on Mondays.
She underwent repeat paracentesis this admission on 10/08/2024, no SBP was noted.
As for the rest of her medical problems, they were stable during her hospital stay.
Discharge Plan
-
Patient Disposition: Home (Routine Discharge)
Discharge Diagnosis/Procedures: fever (none since admission, likely due to chemo);
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
metastatic cholangiocarcinoma with recurrent ascites (status post paracentesis this admission 10/08, No SBP)
Condition: Fair
Diet: As tolerated and Restrict fluids to 48 oz
Activity: As tolerated
Driving Restrictions: As prior to admission
Blood Work: CBC and BMP in 1 week, result to PCP
Referrals:
Uriel Yanes MD [Family Provider, [facility]] - in less than 1 week
Prescriptions:
New
(DME) CBC with diff
See Rx Instructions .Route .MEDSUPPLY Qty: 1 0RF
Rx Instructions:
within 1 week (10/11 to 10/17), result to PCP
# fever
(DME) BMP
See Rx Instructions .Route .MEDSUPPLY Qty: 1 0RF
Rx Instructions:
within 1 week (10/11 to 10/17), result to PCP
# Hypokalemia
Continued
escitalopram oxalate 5 mg Tablet
5 mg PO HS
ondansetron HCl 8 mg Tablet
8 mg PO Q8HPRN PRN (Reason: nausea)
pantoprazole 40 mg Tablet,Delayed Release (Dr/Ec)
40 mg PO BID Qty: 60 0RF
sucralfate 1 gram tablet
1 g PO BID
lorazepam 0.5 mg Tablet
0.5 mg PO DAILYPRN PRN (Reason: anxiety )
Rx Instructions:
on chemo days if needed
levothyroxine 112 mcg Tablet
112 mcg PO DAILY
Discharge Orders:
Discharge Patient (As Directed); Ordered 10/09/24
Ordered By: Cecille Castro
Discharge Date and Time
Discharge Date/Time: 10/09/24 11:07
Print Language: MAURITIAN
== END 2024-10-09 11:07 | disposition home or self-care (01) ==
LOC: 3 WEST ACU 23:13
PROVIDERS: Emergency Medicine; Nurse Practitioner; Nurse Practitioner Family; ADMITTING PHYSICIAN Internal Medicine; ATTENDING PHYSICIAN Internal Medicine; EMERGENCY PHYSICIAN Emergency Medicine; FAMILY PHYSICIAN Family Medicine; OTHER PHYSICIAN Internal Medicine Infectious Disease
DX: R50.9 Fever, unspecified (principal); C22.1 Intrahepatic bile duct carcinoma; C79.9 Secondary malignant neoplasm of unspecified site; E03.9 Hypothyroidism, unspecified; E87.6 Hypokalemia; E22.2 Syndrome of inappropriate secretion of antidiuretic hormone; D50.9 Iron deficiency anemia, unspecified; R18.8 Other ascites; J90 Pleural effusion, not elsewhere classified; D72.829 Elevated white blood cell count, unspecified; F32.A Depression, unspecified; F41.9 Anxiety disorder, unspecified; K21.9 Gastro-esophageal reflux disease without esophagitis; Z90.89 Acquired absence of other organs; Z87.19 Personal history of other diseases of the digestive system; Z87.11 Personal history of peptic ulcer disease; Z79.890 Hormone replacement therapy; Z85.850 Personal history of malignant neoplasm of thyroid; Z92.21 Personal history of antineoplastic chemotherapy; Z11.52 Encounter for screening for COVID-19
CPT/HCPCS: 49083; 71046; 80048; 80053; 81003; 82042; 83605; 83615; 83735; 83935; 84157; 84300; 84439; 84443; 85025; 85027; 85610; 87015; 87040; 87070; 87205; 87502; 87811; 89051; 96365; 99284; G0378

== ENCOUNTER → 2024-10-13 13:27 | Outpatient (REF) | payer BC, SELFPAY ==
[2024-10-13 14:27] VITALS: BP 116/75; BP_SYST 85
[2024-10-13 15:21] VITALS: BP 109/71; BP_SYST 71
== END ==
LOC: RADI 13:27
PROVIDERS: ATTENDING PHYSICIAN Internal Medicine Medical Oncology; FAMILY PHYSICIAN Family Medicine
DX: R18.8 Other ascites (principal)
CPT/HCPCS: 49083

== ENCOUNTER → 2024-10-21 08:53 | Outpatient (REF) | payer BC, SELFPAY ==
[2024-10-21 09:05] VITALS: BP 134/79; BP_SYST 74
[2024-10-21 10:10] VITALS: BP 110/69; BP_SYST 75
[2024-10-21 11:23] LABS: Body Fluid Second Tech EM
== END ==
LOC: RADI 08:53
PROVIDERS: ATTENDING PHYSICIAN Internal Medicine Medical Oncology
DX: R18.8 Other ascites (principal)
CPT/HCPCS: 49083; 89051

== ENCOUNTER → 2024-10-29 07:23 | Outpatient (REF) | payer BC, SELFPAY ==
[2024-10-29 07:48] VITALS: BP 138/74; BP_SYST 71
[2024-10-29 08:20] VITALS: BP 119/75; BP_SYST 71
[2024-10-29 10:35] LABS: Body Fluid Second Tech US
== END ==
LOC: RADI 07:23
PROVIDERS: ATTENDING PHYSICIAN Internal Medicine Medical Oncology; FAMILY PHYSICIAN Family Medicine
DX: C80.1 Malignant (primary) neoplasm, unspecified (principal); R18.0 Malignant ascites
CPT/HCPCS: 49083; 89051

== ENCOUNTER → 2024-11-03 10:24 | Outpatient (REF) | payer BC, SELFPAY ==
[2024-11-03 10:51] VITALS: BP 110/70; BP_SYST 98
[2024-11-03 11:20] VITALS: BP 110/61
[2024-11-03 12:37] LABS: Body Fluid Second Tech US
== END ==
LOC: RADI 10:24
PROVIDERS: Internal Medicine Medical Oncology; ATTENDING PHYSICIAN Radiology Vascular & Interventional Radiology; FAMILY PHYSICIAN Family Medicine
DX: C80.1 Malignant (primary) neoplasm, unspecified (principal); R18.0 Malignant ascites
CPT/HCPCS: 49083; 87015; 87070; 87205; 89051

== ENCOUNTER 2024-11-04 20:16 | Inpatient (IN) | payer BC, SELFPAY ==
[2024-11-04 15:02] VITALS: BP 108/71
[2024-11-04 16:44] VITALS: BP 99/68
[2024-11-04 16:46] VITALS: BMI 20.6
[2024-11-04 17:10] LABS: ALT (SGPT) 46 U/L (0-35); AST (SGOT) 35 U/L (14-36); Albumin 2.5 g/dl (3.5-5.0); Alkaline Phosphatase 411 U/L (38-126); Blood Urea Nitrogen 15 mg/dl (7-17); Calcium 7.6 mg/dl (8.4-10.2); Carbon Dioxide 27 mmol/L (22-30); Chloride 92 mmol/L (98-107); Estimated Creatinine Clearance 80 ml/min; Glucose 109 mg/dl (70-99); Potassium 3.9 mmol/L (3.5-5.1); Sodium 123 mmol/L (135-145); Total Protein 4.5 g/dl (6.3-8.2); eGFR > 60.00
--- NOTE | 2024-11-04 17:14 | ED.GENMED ---
History of Present Illness
<Jamin Monroe PA-C - Last Filed: 11/04/24 18:43>
General
Chief Complaint: Dehydration Symptoms
Source: patient and records
Time Seen by Provider: 11/04/24 16:59
History of Present Illness
History of Present Illness:
54-year-old female with past medical history of biliary duct cancer presenting to the ER at the request of her oncology team for evaluation of lightheadedness, nausea and diminished p.o. intake since her last chemotherapy regimen on Sunday with the
patient stating that her symptoms are usually improved by now, she did take a Zofran ODT prior to arrival which did help with nausea slightly but states she really has only been able to drink a proximal 30 ounces of fluids total in the last 24
hours. Patient states there is no pain associated with this. She denies any fevers, chills, rigors. She has no other concerns. Notes a history of similar in the past. Had a paracentesis performed yesterday.
Past History
<Jamin Monroe PA-C - Last Filed: 11/04/24 18:43>
Past History
ED Past Medical History: Cancer (Cholangiocarcinoma, thyroid cancer), Hypothyroidism, Psychiatric and Other (Chronic anemia)
ED Past Surgical History: and Other (thyroid sx, serial paracentesis)
Patient has exhibited threatening behavior?: No
Social History
Tobacco: Non-smoker
Alcohol: None
Drug: None
Personal:
Living: with family
Family History
Family History: Other (Noncontributory)
Review of Systems
<MARIA ELENA Pierre Last Filed: 11/04/24 18:43>
Review of Systems
All Other Systems: ROS reviewed and negative except as documented in HPI and ROS
Phy Exam
<MARIA ELENA Pierre Last Filed: 11/04/24 18:43>
Physical Exam
Physical Exam:
GENERAL: Alert , in no apparent distress, thin, slightly pale
EYE: conjunctiva clear
Head: Normocephalic atraumatic
NECK: Supple,
ENT: mmm.
LUNGS: no acute respiratory distress
HEART: Borderline tachycardic rate and rhythm, no murmur
NEUROLOGICAL: Alert and oriented
SKIN: Warm and dry, skin intact.
MUSCULOSKELETAL: well perfused.
PSYCH: Normal and appropriate interaction.
Scores
<Jamin Monroe PA-C - Last Filed: 11/04/24 18:43>
Heart Failure Risk
Heart Failure Risk Score: Not Applicable
Heart Score for Chest Pain Patients
STEMI patient?: Not applicable
Withdrawal Assessment of Alcohol
Withdrawal Assessment Completed?: Not applicable
Course
<Jamin Monroe PA-C - Last Filed: 11/04/24 18:43>
Orders/Labs/Results
Orders:
Orders
11/04/24 15:03
Electrocardiogram (*1) Urgent
Reason for Study: Vertigo / Dizzy
EKG- Treatment ONCE
11/04/24 16:42
CMP [Comprehensive Metabolic Panel] Urgent
Complete Blood Count/With Diff Urgent
Serum Osmolality Urgent
11/04/24 17:05
0.9% Sodium Chloride 1000 ml [Nss] 1,000 ml IV BOLUS
11/04/24 17:22
Add On- LAB Urgent
Tests Added?: serum osmolality
11/04/24 18:25
Osmolality, Random Urine Urgent
Date Specimen was Collected: 11/04/24
Time Specimen was Collected: 17:48
Urine Sodium Urgent
Date Specimen was Collected: 11/04/24
Time Specimen was Collected: 17:48
Abnormal Lab Results
11/04/24
16:42
RBC 2.55 L 10^6/uL
(4.20-5.40)
Hgb 8.1 L g/dL
(12.0-16.0)
Hct 24.4 L %
(37.0-47.0)
MCH 31.8 H pg
(27.0-31.0)
RDW 18.6 H %
(11.5-14.5)
Plt Count 80 L 10^3/uL
(130-400)
MPV 10.5 H fL
(7.4-10.4)
Abs Immat Gran (auto) 0.1 H 10^3/uL
(0-0.05)
Absolute Lymphs (auto) 0.1 L 10^3/uL
(1.2-3.4)
Immature Gran % 0.9 H %
(0-0.5)
Neutrophils % 95.9 H %
(42.2-75.2)
Lymphocytes % 1.3 L %
(20.5-51.1)
Monocytes % 1.5 L %
(1.7-9.3)
Sodium 123 L mmol/L
(135-145)
Chloride 92 L mmol/L
(98-107)
Glucose 109 H mg/dl
(70-99)
Serum Osmolality 259 L mOsm/kg
(275-300)
Calcium 7.6 L mg/dl
(8.4-10.2)
ALT 46 H U/L
(0-35)
Alkaline Phosphatase 411 H U/L
(38-126)
Total Protein 4.5 L g/dl
(6.3-8.2)
Albumin 2.5 L g/dl
(3.5-5.0)
11/04/24 16:42
11/04/24 16:42
Vital Signs
Initial and Last Documented VS:
Initial Vital Signs
Temp Pulse Resp BP Pulse Ox
98.2 F 94 16 108/71 100
11/04/24 15:02 11/04/24 15:02 11/04/24 15:02 11/04/24 15:02 11/04/24 15:02
Last Documented Vital Signs
Temp Pulse Resp BP Pulse Ox
98.2 F 94 16 108/71 100
11/04/24 15:02 11/04/24 15:02 11/04/24 15:02 11/04/24 15:02 11/04/24 17:19
<Traci Mckeon MD - Last Filed: 11/04/24 17:58>
Orders/Labs/Results
Orders:
Orders
11/04/24 15:03
Electrocardiogram (*1) Urgent
Reason for Study: Vertigo / Dizzy
EKG- Treatment ONCE
11/04/24 16:42
CMP [Comprehensive Metabolic Panel] Urgent
Complete Blood Count/With Diff Urgent
Serum Osmolality Urgent
11/04/24 17:05
0.9% Sodium Chloride 1000 ml [Nss] 1,000 ml IV BOLUS
11/04/24 17:22
Add On- LAB Urgent
Tests Added?: serum osmolality
11/04/24 18:25
Osmolality, Random Urine Urgent
Date Specimen was Collected: 11/04/24
Time Specimen was Collected: 17:48
Urine Sodium Urgent
Date Specimen was Collected: 11/04/24
Time Specimen was Collected: 17:48
Abnormal Lab Results
11/04/24
16:42
RBC 2.55 L 10^6/uL
(4.20-5.40)
Hgb 8.1 L g/dL
(12.0-16.0)
Hct 24.4 L %
(37.0-47.0)
MCH 31.8 H pg
(27.0-31.0)
RDW 18.6 H %
(11.5-14.5)
Plt Count 80 L 10^3/uL
(130-400)
MPV 10.5 H fL
(7.4-10.4)
Abs Immat Gran (auto) 0.1 H 10^3/uL
(0-0.05)
Absolute Lymphs (auto) 0.1 L 10^3/uL
(1.2-3.4)
Immature Gran % 0.9 H %
(0-0.5)
Neutrophils % 95.9 H %
(42.2-75.2)
Lymphocytes % 1.3 L %
(20.5-51.1)
Monocytes % 1.5 L %
(1.7-9.3)
Sodium 123 L mmol/L
(135-145)
Chloride 92 L mmol/L
(98-107)
Glucose 109 H mg/dl
(70-99)
Serum Osmolality 259 L mOsm/kg
(275-300)
Calcium 7.6 L mg/dl
(8.4-10.2)
ALT 46 H U/L
(0-35)
Alkaline Phosphatase 411 H U/L
(38-126)
Total Protein 4.5 L g/dl
(6.3-8.2)
Albumin 2.5 L g/dl
(3.5-5.0)
11/04/24 16:42
11/04/24 16:42
Vital Signs
Initial and Last Documented VS:
Initial Vital Signs
Temp Pulse Resp BP Pulse Ox
98.2 F 94 16 108/71 100
11/04/24 15:02 11/04/24 15:02 11/04/24 15:02 11/04/24 15:02 11/04/24 15:02
Last Documented Vital Signs
Temp Pulse Resp BP Pulse Ox
98.2 F 94 16 108/71 100
11/04/24 15:02 11/04/24 15:02 11/04/24 15:02 11/04/24 15:02 11/04/24 17:19
<Jamin Monroe PA-C - Last Filed: 11/04/24 18:43>
MDM/Problems Addressed
Differential Diagnosis Includes:
Dehydration
Electrolyte imbalance
Anemia
Volume depletion
ZORAIDA
Hypoalbuminemia from paracentesis
Chemotherapy side effects
MDM/Problems Addressed:
54-year-old female presenting to the ER at the request of her oncology team for possible dehydration in the setting of recent chemotherapy treatment. Patient is in no acute distress. For the most part hemodynamically stable although there is mild
tachycardia. Will check labs, EKG done. Disposition pending. Patient declining anything for nausea at time of my exam.
Chronic conditions affecting care: Cancer
Acute Exacerbation and/or Progression of Chronic Illness: Cancer
<Jamin Monroe PA-C - Last Filed: 11/04/24 18:43>
*Pulse Oximetry
SaO2: 100
Oxygen Mode of Delivery: Room air
Patient hypoxic: no
*Critical Care Note
Total Time (30-74mins, 75-104mins- exclusive of procedures): Not Applicable
Data Reviewed
Review of Other/Old Records Reveals: Labs and Records
<Jamin Monroe PA-C - Last Filed: 11/04/24 18:43>
Patient Management
Discussion with other providers: Hospitalist and Pot Room Supervisor
Escalation/DeEscalation of care consider admission/obs:
Patient sodium 123, albumin 2.5. On record review patient has intermittently had mild hyponatremia but never this low. Given her symptoms combined with difficulty tolerating p.o. presently feel it would be in patient's best interest to be admitted
for continuous observation and trending of her hyponatremia. I notified nephrology who is okay with patient continuing on normal saline. Hospitalist team is aware and accepts for continued evaluation and treatment.
ED Attending Note
<Jamin Monroe PA-C - Last Filed: 11/04/24 18:43>
-
Portions of this chart may have been created with voice recognition software.� Occasional wrong word or��sound alike� substitutions may have occurred due to the inherent limitations of voice recognition software.
<Traci Mckeon MD - Last Filed: 11/04/24 17:58>
ED Attending Note
Patient seen and examined by attending physician: Yes
I performed the substantive portion of visit, reviewed & personally made and approve the management plan that is documented in note by myself or MATTIE.: Yes
ED Attending Note:
54-year-old female 4 days status post chemo, 1 day status post paracentesis, history of cholangiocarcinoma, presents emergency department with dizziness and near syncope at home today. No actual loss of consciousness. States that she typically
feels better by now after getting chemotherapy, but continues to feel weak associated with anorexia, nausea, and intermittent dizziness. No numbness, tingling, chest pain, shortness of breath. On exam, patient awake and alert, oriented and
pleasant. New hyponatremia noted at 123 comparison is from late September at 131. We discussed with nephrology here, recommendation is for normal saline, close monitoring, careful correction. Plan is admission, discussed with hospitalist regarding
plan of care, collect urine for analysis, albumin not recommended at this time as per nephro.
Discharge Plan
Departure
Patient Disposition: Admit
Date of Disposition: 11/04/24
Time of Disposition: 18:11
Presentation/result/management discussed w/ accepting MD/DO: Hospitalist
Discharge Problem:
Acute hyponatremia, Anemia
Prescriptions:
No Action
escitalopram oxalate 5 mg Tablet
5 mg PO HS
ondansetron HCl 8 mg Tablet
8 mg PO Q8HPRN PRN (Reason: nausea)
pantoprazole 40 mg Tablet,Delayed Release (Dr/Ec)
40 mg PO BID Qty: 60 0RF
sucralfate 1 gram tablet
1 g PO BID
levothyroxine [Synthroid] 125 mcg Tablet
125 mcg PO DAILY
Referrals:
Uriel Yanes MD [Family Provider, Family Practice]
Interventions
Interventions:
*Risk Screen - Suicide Last Done: 11/04/24 15:03
*General Assessment Last Done: 11/04/24 16:37
*Neglect/Abuse Screening Last Done: 11/04/24 15:03
*ED- Fall Risk Assessment Last Done: 11/04/24 16:37
*ED COVID-19 Vaccine History Last Done: 11/04/24 16:37
ED- Cardiac Assessment Last Done: 11/04/24 16:46
ED- Neurological Assessment Last Done: 11/04/24 16:37
ED- Pulmonary Assessment Last Done: 11/04/24 16:37
Discharge Date and Time
Print Language: TAMAZIGHT
[2024-11-04] MEDS: NSS 1000 IV (17:17)
[2024-11-04 17:21] LABS: Hematocrit 24.4 % (37.0-47.0); Hemoglobin 8.1 g/dL (12.0-16.0); Mean Corp Hgb Conc. 33.2 g/dL (33.0-37.0); Mean Corpuscular Volume 95.7 fL (81.0-99.0); Nucleated Red Blood Cells % 0 %; Platelet Count 80 10^3/uL (130-400); Red Cell Dist. Width 18.6 % (11.5-14.5)
[2024-11-04 19:01] VITALS: BP 97/75
--- NOTE | 2024-11-04 19:01 | HPS.HSE ---
Family Physician
-
Family Physician: Uriel Yanes
Chief Complaint
-
Lightheadedness, nausea, decreased intake
History of Present Illness
54-year-old female complaining of lightheadedness, nausea, decreased intake since chemotherapy on October 31 her fourth round. She reports using Zofran and ODT only able to drink 30 ounces of fluids in the last 24 hours. She reports she
had paracentesis yesterday getting 3600 cc which she normally gets around 5000 cc. Her abdomen appears to be distended again. She denies fever, chills, chest pain, palpitations, cough, shortness of breath, abdominal pain, vomiting, diarrhea,
urinary symptoms, rash. She had recent elevated TSH due to taking her Synthroid with Protonix she has since corrected that over the past 3 weeks.
She had a recent admission 10/07 - 10/09/2024 secondary to fever unknown origin in setting of metastatic cholangiocarcinoma on chemo
Medical History
Past Medical History
Past Medical History: Reports Psychiatric
Additional Past Medical History:
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
Status post left sacrum radiation
Hyponatremia/SIADH
hypothyroidism
depression/anxiety
GERD
thyroid cancer
Hx GI bleed
Past Surgical History: Reports Other
Additional Past Surgical History:
:2001, 2000, 2007
thyroidectomy:05/2009
Social History
Tobacco: Non-smoker
Alcohol: None
Drug: None
Personal:
Living: With Family
Employment: Not Employed
Family History
Family History: Not pertinent
Allergies / Home Medications
Allergies reflects when Allergies were last updated in [employer].
Home Medications with original date entered in [employer]
Allergy/Medication List:
Allergies
Allergy/AdvReac Type Severity Reaction Status Date / Time
No Known Allergies Allergy Verified 10/07/24 17:06
Home Medications
escitalopram oxalate 5 mg tablet 5 mg PO HS depression/anxiety 02/29/24
ondansetron HCl 8 mg tablet 8 mg PO Q8HPRN PRN nausea 02/29/24
pantoprazole 40 mg tablet,delayed release 40 mg PO BID #60 tabs 03/01/24
sucralfate 1 gram tablet 1 g PO BID Gastrointestinal Issue 05/14/24
levothyroxine 125 mcg tablet (Synthroid) 125 mcg PO DAILY 11/04/24
Review of Systems
-
History Source: Patient and Family (Daughter)
A 12 point ROS was completed and negative except as noted: Yes
Constitutional: Denies Fatigue
EENT: Denies Sore Throat or Runny Nose
Respiratory: Denies Cough or Trouble Breathing
Cardiac: Denies Chest Pain, Diaphoresis, Palpitations or Syncope
Abdomen/GI: Reports Nausea; Denies Abdominal Pain, Vomiting, Diarrhea or Constipated
: Denies Dysuria, Frequency, Flank Pain or Incontinence
Musculoskeletal: Denies Joint Pain or Edema
Skin: Denies Itching or Rash
Neurological: Reports Dizzy and Headache
Endocrine: Reports No Symptoms
Hematologic/Lymphatic: Reports No Symptoms
Psych: Reports Calm
Physical Exam
Vital Signs
Vital Signs
Temp Pulse Resp BP Pulse Ox
98.2 F 94 16 99/68 100
11/04/24 15:02 11/04/24 15:02 11/04/24 15:02 11/04/24 16:44 11/04/24 17:19
Physical Exam
General: Comfortable and Conversant; No Pain, Fever or Chills
HEENT: NormoCephalic, Anicteric, Moist mucous membranes and PERRLA
Respiratory: Clear; No Wheezes, Rales or Rhonchi
Cardiac: S1/S2, Regular Rhythm and Other (Port right upper chest wall); No Murmur, Rub, Gallop or Peripheral Edema
Breast: Deferred by me
GI: Soft, Normal Bowel Sounds and Distended (Soft due to ascites)
Genito-urinary: Deferred by me
Musculoskeletal: No Clubbing, No Cyanosis and No Edema
Skin: Warm and Dry; No Rash or Jaundice
Neuro: AO x 3, No Motor Deficits, Nonfocal/grossly intact, Cranial Nerves Intact and No Sensory Deficits; No Slurred Speech, Facial Droop, Tremors or Sedated
Psych: Calm
Laboratory Results
-
11/04/24 16:42
11/04/24 16:42
Laboratory Results
Total Bilirubin 1.1 mg/dl (0.2-1.3) 11/04/24 16:42
AST 35 U/L (14-36) 11/04/24 16:42
ALT 46 U/L (0-35) H 11/04/24 16:42
Alkaline Phosphatase 411 U/L (38-126) H 11/04/24 16:42
Impression/Plan
-
Impression/plan:
Admit to telemetry
#Symptomatic hyponatremia
#History of hyponatremia with SIADH
NA 123
-IV NSS
- Consult nephrology
- Follow BMP
- Will give albumin IV x 1 dose 12.5 g
#History of recurrent malignant ascites requiring weekly paracentesis
#Status post paracentesis 11/03/2024 3600 cc clear brian ascitic fluid
#Metastatic cholangiocarcinoma to peritoneum and left sacral complicated with recurrent ascites gets weekly paracentesis
#Chronic chemotherapy last dose 10/31/2024 fourth round
#Status post radiation left sacrum
#Chronic elevated alk phos
- Receives Neulasta injections
#Chronic anemia/chronic thrombocytopenia on chemo
Hgb 8.1 appears stable-patient reports typically gets transfused if hemoglobin less than 8
PLT 80 appears stable for patient
Follow CBC
#History of hypothyroidism/thyroid cancer status post surgery
Recent TSH 45, free T4 1.3 Nancy visit
- Continue Synthroid 125 mcg p.o. daily this was a recent change as of 3 weeks ago
Will check TSH with free T4
#Depression/anxiety
Continue Lexapro 5 mg at bedtime
#GERD/GI bleed
Hgb 8.1 appears near baseline
-Continue Protonix 40 mg twice daily, sucralfate 1 g p.o. twice daily
DVT prophylaxis
SCDs
Full code
[2024-11-04 20:00] VITALS: BP 109/66
--- NOTE | 2024-11-04 20:06 | W.PN.UPDATE ---
Update Note
Progress Note Update
Patient seen in conjunction with [facility] [employer] OPERATOR. I agree with the findings on cervical. I concur with assessment and plan listed otherwise.
Briefly, this is a 54-year-old with past medical history is significant for metastatic cholangiocarcinoma with mets to the peritoneum complicated by malignant ascites requiring weekly large-volume paracentesis with last paracentesis yesterday
presenting to the emergency department after labs showed significant hyponatremia. She also has past medical history significant for hypothyroidism secondary to total thyroidectomy for thyroid cancer. She was found to be hypothyroid on recent
admission and that time was ultimately determined that she was taking her levothyroxine appropriately. She was taking it with pantoprazole. This was adjusted and dose increased 3 weeks ago. Patient reports that she had last came more recently
with associated nausea and vomiting and reduced p.o. intake. She he has no edema. She does have increased abdominal girth despite the paracentesis yesterday. There was no signs of an acute infection then. Patient also takes escitalopram
On arrival in the emergency department blood pressure was 100/70 with a pulse rate of 94 and she was satting 98% to 100% on room air.
There was no leukocytosis hemoglobin was 8.1 which is at baseline platelet was 80 which is also close to her baseline. Sodium 123 potassium 3.9 with electrolytes BUN/creatinine otherwise normal. ECG shows a sinus rhythm at a rate of 90. Urine
osmolality is elevated at 755 with a urine sodium that is less than 5.
Hyponatremia -she has ADH and blood likely secondary to suspect combination of hypovolemic hyponatremia from decreased p.o. intake fluid shifts and possibly hypothyroid.
-Admit to MedSurg
-Status post 1 L normal saline, continue IV with normal saline at 100 cc an hour, repeat serum sodium at 11 PM
-Additional volume resuscitation with 2.5 g of albumin after paracentesis
-Check orthostatics
-She is 3 weeks out from her levothyroxine dosage change, check TSH
-Nephrology consult
-Next paracentesis to be determined but no current tense ascites or abdominal discomfort.
DVT prophylaxis�Lovenox subcu
CODE STATUS�full code
[2024-11-04 20:15] VITALS: BP 105/68; BMI 20.2
--- NOTE | 2024-11-04 20:15 | PTCARENOTE ---
Pt arrived to [facility] from ED via stretcher. Pt able to ambulate into room 334. Pt oriented to room, call griffith within reach. AAOx3, able to make needs known, will continue to monitor.
[2024-11-04] MEDS: PROTONIX 40 MG PO (21:06)
[2024-11-04] MEDS: LEXAPRO 5 MG PO (21:06)
[2024-11-04] MEDS: CARAFATE 1 GRAM PO (21:06)
[2024-11-04] MEDS: ALBUMIN 5% 250 IV (21:06)
[2024-11-04 23:00] VITALS: BP 93/58
[2024-11-05 00:19] LABS: Blood Urea Nitrogen 11 mg/dl (7-17); Calcium 6.9 mg/dl (8.4-10.2); Carbon Dioxide 28 mmol/L (22-30); Chloride 96 mmol/L (98-107); Estimated Creatinine Clearance 80 ml/min; Glucose 104 mg/dl (70-99); Potassium 3.6 mmol/L (3.5-5.1); Sodium 126 mmol/L (135-145); eGFR > 60.00
[2024-11-05] MEDS: CALCIUM GLUCONATE 100 IV (00:37)
--- NOTE | 2024-11-05 00:48 | PTCARENOTE ---
Pt 2300 BMP resulted with a Ca of 6.9. ASHLY Ordaz notified. Calcium gluconate 1g/100 ml ordered. Care ongoing.
--- NOTE | 2024-11-05 02:21 | DOWNTIME ---
There was a [employer] Specialist Downtime on 11/05/2024 from 0100 to 11/05/2024 at 0215. Downtime documentation of patient's care, including medication administrations, has been reconciled in the electronic record per guidelines. Refer to the
patient's paper chart under the miscellaneous tab to see printed paper medication records and downtime forms.
[2024-11-05 03:00] VITALS: BP 97/63
[2024-11-05 03:54] VITALS: BMI 19.9
[2024-11-05 05:11] LABS: Hematocrit 21.5 % (37.0-47.0); Hemoglobin 7.1 g/dL (12.0-16.0); Mean Corp Hgb Conc. 33.0 g/dL (33.0-37.0); Mean Corpuscular Volume 96.0 fL (81.0-99.0); Nucleated Red Blood Cells % 0 %; Platelet Count 51 10^3/uL (130-400); Red Cell Dist. Width 18.6 % (11.5-14.5)
[2024-11-05 05:31] LABS: ALT (SGPT) 34 U/L (0-35); AST (SGOT) 32 U/L (14-36); Albumin 2.4 g/dl (3.5-5.0); Alkaline Phosphatase 325 U/L (38-126); Blood Urea Nitrogen 12 mg/dl (7-17); Calcium 7.8 mg/dl (8.4-10.2); Carbon Dioxide 27 mmol/L (22-30); Chloride 98 mmol/L (98-107); Estimated Creatinine Clearance 80 ml/min; Glucose 102 mg/dl (70-99); Potassium 3.7 mmol/L (3.5-5.1); Sodium 126 mmol/L (135-145); Total Protein 4.2 g/dl (6.3-8.2); eGFR > 60.00
[2024-11-05] MEDS: SYNTHROID 125 MCG PO (05:33)
[2024-11-05 06:00] VITALS: BMI 19.9
[2024-11-05 08:00] VITALS: BP 92/68
--- NOTE | 2024-11-05 08:17 | W.PN.HOSP.TC ---
Today's Communication/Plan
-
Repeat BMP and CBC.
Transfuse if hemoglobin drops
Nephrology consult
Assessment / Plan
Assessment / Plan
Impression:
Patient is a 54-year-old with past medical history is significant for metastatic cholangiocarcinoma with mets to the peritoneum complicated by malignant ascites requiring weekly large-volume paracentesis with last paracentesis yesterday presenting
to the emergency department after labs showed significant hyponatremia. She also has past medical history significant for hypothyroidism secondary to total thyroidectomy for thyroid cancer. She was found to be hypothyroid on recent admission and
that time was ultimately determined that she was taking her levothyroxine appropriately. She was taking it with pantoprazole. This was adjusted and dose increased 3 weeks ago. Patient reports that she had last came more recently with associated
nausea and vomiting and reduced p.o. intake. She he has no edema. She does have increased abdominal girth despite the paracentesis yesterday. There was no signs of an acute infection then. Patient also takes escitalopram, in the ER Sodium 123
potassium 3.9 with electrolytes BUN/creatinine otherwise normal. ECG shows a sinus rhythm at a rate of 90. Urine osmolality is elevated at 755 with a urine sodium that is less than 5.
Hemoglobin dropped to 7.1.
Sodium 126
Assessment/plan:
Symptomatic hyponatremia
Sodium improved to 126
Nephrology consulted
Follow BMP
Acute on Chronic anemia/chronic thrombocytopenia on chemo
Hemoglobin and platelet dropped today.
Consent obtained for blood transfusion, but will repeat hemoglobin again at 1 PM
I called the primary oncology office , waiting for callback
History of recurrent malignant ascites requiring weekly paracentesis
Status post paracentesis 11/03/2024 3600 cc clear brian ascitic fluid
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
Chronic chemotherapy last dose 10/31/2024 fourth round
Status post radiation left sacrum
Chronic elevated alk phos
Receives Neulasta injections
History of hypothyroidism/thyroid cancer status post surgery
Recent TSH 45, free T4 1.3 August visit
- Continue Synthroid 125 mcg p.o. daily this was a recent change as of 3 weeks ago
Will check TSH with free T4
Depression/anxiety
Continue Lexapro 5 mg at bedtime
GERD/GI bleed
Hgb 8.1 appears near baseline
-Continue Protonix 40 mg twice daily, sucralfate 1 g p.o. twice daily
CODE STATUS: Full code
DVT prophylaxis: SCDs
Diet: Regular diet
Disposition: Repeat BMP and CBC.
Transfuse if hemoglobin drops
Nephrology consult
Total time spent on today's encounter was 65 minutes which included time spent in counseling the patient/family regarding diagnosis and treatment plan as listed above, goals of care, and symptom management. Case was discussed with nursing staff,
specialists, and care coordinators/case management. All labs and imaging personally reviewed by me. Remainder the time spent in detailed review of previous records, lab data, imaging, and other medical provider documentation.
Anticipated Discharge: 24 - 48 hours
Subjective/Interval History
-
Date of Service: November 05, 2024
Patient seen and examined at bedside, still complaining of abdominal pain, hemoglobin dropped to 7.1, will repeat.
Objective Data
-
Labs:
Laboratory Results
11/04/24 11/05/24 11/05/24
23:45 04:48 04:49
WBC 5.2
Hgb 7.1 L
Hct 21.5 L
Plt Count 51 L D
Sodium 126 L 126 L
Potassium 3.6 3.7
Chloride 96 L 98
Carbon Dioxide 28 27
BUN 11 12
Creatinine 0.5 L 0.5 L
Glucose 104 H 102 H
Calcium 6.9 L* 7.8 L
Total Bilirubin 0.9
AST 32
ALT 34
Alkaline Phosphatase 325 H
Vital Signs:
Vital Signs
Temp Pulse Resp BP Pulse Ox
99.3 F 94 16 92/68 99
11/05/24 08:00 11/05/24 08:00 11/05/24 08:00 11/05/24 08:00 11/05/24 08:00
I&O
11/04/24 11/05/24 11/06/24
06:59 06:59 06:59
Intake Total 200 / 200
Balance 200 / 200
Physical Exam
-
General: Well Developed, Well Nourished, No Apparent Distress and Comfortable
HEENT: Normocephalic, Atraumatic, Moist Mucous Membranes, No Ptosis, PERRLA and Nose Appears Normal
Respiratory: Rales and Non Labored Respirations
Cardiac: Regular Rhythm and S1/S2
Breast: Deferred by me
GI: Tender and Distended
Genito-urinary: No Costovertebral Tender
Musculoskeletal: No Clubbing, No Cyanosis and No Edema
Skin: Warm
Neuro: Awake, Alert, Oriented, AO x 3 and No Motor Deficits
Psych: Calm
Data Reviewed
-
Diagnostic Radiology: Image personally visualized and interpreted and Report Reviewed by me
CT Scan: Image personally visualized and interpreted and Report Reviewed by me
Ultrasound: Image personally visualized and interpreted and Report Reviewed by me
MRI: Image personally visualized and interpreted and Report Reviewed by me
Medical Tests (Nuc Med, Echo etc): Image personally visualized and interpreted and Report Reviewed by me
Labs: Labs Reviewed by me
Old Records: Reviewed
[2024-11-05] MEDS: PROTONIX 40 MG PO ×2 (09:20→21:00)
[2024-11-05] MEDS: CARAFATE 1 GRAM PO ×2 (09:20→21:00)
--- NOTE | 2024-11-05 11:13 | CM ---
Patient seen at bedside on . Patient lives with her patient Butch in a 2 story home with 3 step to enter and 12 steps to to bed/bath room. Patient is independent in all activities of daily living. Patient has no DME at home and plan
is for discharge home with no needs anticipated. PCP is Dr. Yanes, and Pharmacy is [facility]. CM will continue to follow for discharge planning needs.
PLAN: Home no needs
[2024-11-05 11:31] VITALS: BP 110/65
--- NOTE | 2024-11-05 12:33 | PTOTSP ---
CHART REVIEWED. SPOKE WITH RN WHO REPORTS PATIENT INDEPENDENT IN THE ROOM, JUST FEELS TIRED AND HAS A HGB OF 7.1. PATIENT CONTACTED BEDSIDE AND REPORTS THE SAME DECLINING THE NEED FOR SKILLED ACUTE CARE P.T. AT THIS TIME. WILL DISCHARGE FROM P.T.
SERVICES. RN MADE AWARE.
[2024-11-05] MEDS: MAALOX 30 ML PO (13:04)
[2024-11-05] MEDS: BENTYL 20 MG PO (13:04)
[2024-11-05 13:39] LABS: Hematocrit 23.8 % (37.0-47.0); Hemoglobin 8.0 g/dL (12.0-16.0); Mean Corp Hgb Conc. 33.6 g/dL (33.0-37.0); Mean Corpuscular Volume 96.4 fL (81.0-99.0); Platelet Count 68 10^3/uL (130-400); Red Cell Dist. Width 18.5 % (11.5-14.5)
[2024-11-05 13:47] LABS: Blood Urea Nitrogen 11 mg/dl (7-17); Calcium 8.1 mg/dl (8.4-10.2); Estimated Creatinine Clearance 80 ml/min; Glucose 127 mg/dl (70-99); Potassium 3.7 mmol/L (3.5-5.1); Sodium 125 mmol/L (135-145); eGFR > 60.00
[2024-11-05 13:57] LABS: Carbon Dioxide 25 mmol/L (22-30); Chloride 96 mmol/L (98-107)
--- NOTE | 2024-11-05 14:58 | W.CON.NEPH ---
Addendum entered and electronically signed by Desean Greenberg MD 11/05/24 17:12:
I agree with the resident's note with the following addendum
54-year-old female with metastatic lung carcinoma since 2022 previously treated with FOLFOX but then developed significant anemia and was switched to gemcitabine and Abraxane. She is now on fourth cycle of this treatment which has taken about 10
weeks. She has required paracentesis every week for at least 15 paracenteses. Typically about 4 L is removed. She says that about 3 months ago she was also placed on Lasix 20 mg daily as well as spironolactone 50 mg daily. However she does not
take spironolactone because it does not make her feel 'right'. She also does not take Lasix on the days after chemotherapy as she is clearly dehydrated for the following week. She has hypothyroidism not optimally controlled with Synthroid therapy.
She was admitted because of lightheadedness and nausea and poor oral intake since chemotherapy. Sodium level was noted to be low 123. She also had 3.6 L of paracentesis the day prior to admission. She also reports orthostasis and lightheadedness
prior to admission.
Patient is awake alert oriented and in no distress. Mood and affect were pleasant, insight and judgment were good. Pupils are equal round and reactive to light, extraocular movements are intact, sclera were anicteric. Hearing was normal, ears and
nose are intact. Oropharynx was clear. Neck was supple with trachea midline and no thyromegaly. Heart was regular rate and rhythm without rubs. Lower extremities without edema. Lungs were clear to auscultation bilaterally and with normal
excursion. Abdomen was soft, nontender, with normal active bowel sounds, and no hepatosplenomegaly. Skin was without rash and with normal turgor.
Labs reviewed including past labs
EKG 11/04/2024 by my reading shows sinus rhythm septal Q
Assessment
Hyponatremia
Anemia
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
Hypothyroidism
Orthostasis
Plan
Additional IV fluids saline
Follow orthostasis vital signs
Follow BMP
Oral intake is improving.
If orthostasis improves but her sodium remains low we may consider Samsca.
Original Note:
Consultation
-
Date/Time Consultation Requested: 11/05/2024 12:53
Date/Time Consultation Performed: 11/05/2024 15:00
Requesting Provider: Mary Low MD
Performing Provider: Desean Greenberg MD
Reason for Consultation: Hyponatremia
Medical History
-
Chief Complaint: Hyponatremia
History of Present Illness:
This is a 54-year-old female with past medical history of metastatic cholangiocarcinoma with mets to peritoneum complicated by malignant ascites requiring large-volume paracentesis who presented to ED 11/04 for evaluation of lightheadedness,
nausea, decreased oral intake since her last chemotherapy session on Sunday.� Prior to presentation, she had paracentesis the day before, with 3600 cc of fluid drained.� In addition, she was noted to have hyponatremia on lab with sodium 123.� Other
urine studies on presentation with urine osmolality 755, urine sodium less than 5.� In addition, patient with history of hypothyroidism with�dosage increased 3 weeks ago to 125 mcg.� TSH on presentation 20.20.� Given hyponatremia, we are consulted
to evaluate patient for renal standpoint.
Past Medical History
Additional Past Medical History:
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
Status post left sacrum radiation
Hyponatremia/SIADH
hypothyroidism
depression/anxiety
GERD
thyroid cancer
Hx GI bleed
Past Surgical History: Reports Other
Additional Past Surgical History:
:2001, 2000, 2007
thyroidectomy:05/2009
Social History
Tobacco: Non-Smoker
Alcohol: None
Drug: None
Personal:
Family History
Family History: Not Pertinent
Allergies / Home Medications
Allergy/AdvReac Type Severity Reaction Status Date / Time
No Known Allergies Allergy Verified 10/07/24 17:06
�Medication �Instructions �Recorded �Confirmed �Type
escitalopram oxalate 5 mg tablet 5 mg PO HS depression/anxiety 02/29/24 11/04/24 History
ondansetron HCl 8 mg tablet 8 mg PO Q8HPRN PRN nausea 02/29/24 11/04/24 History
pantoprazole 40 mg tablet,delayed 40 mg PO BID #60 tabs 03/01/24 11/04/24 Rx
release
sucralfate 1 gram tablet 1 g PO BID Gastrointestinal Issue 05/14/24 11/04/24 History
levothyroxine 125 mcg tablet 125 mcg PO DAILY Thyroid 11/04/24 11/04/24 History
(Synthroid)
Review of Systems
-
All other systems: Negative unless noted (except as documented in HPI)
Physical Exam
Vital Signs
Vital Signs
Temp Pulse Resp BP Pulse Ox
99.5 F 91 16 110/65 98
11/05/24 11:31 11/05/24 11:31 11/05/24 11:31 11/05/24 11:31 11/05/24 11:31
Lab Results
WBC 7.1 10^3/uL (4.8-10.8) 11/05/24 13:24
RBC 2.47 10^6/uL (4.20-5.40) L 11/05/24 13:24
Hgb 8.0 g/dL (12.0-16.0) L 11/05/24 13:24
Hct 23.8 % (37.0-47.0) L 11/05/24 13:24
Plt Count 68 10^3/uL (130-400) L D 11/05/24 13:24
Sodium 125 mmol/L (135-145) L 11/05/24 13:24
Potassium 3.7 mmol/L (3.5-5.1) 11/05/24 13:24
Chloride 96 mmol/L (98-107) L 11/05/24 13:24
Carbon Dioxide 25 mmol/L (22-30) 11/05/24 13:24
BUN 11 mg/dl (7-17) 11/05/24 13:24
Creatinine 0.6 mg/dL (0.6-1.0) 11/05/24 13:24
eGFR > 60.00 11/05/24 13:24
Glucose 127 mg/dl (70-99) H 11/05/24 13:24
Calcium 8.1 mg/dl (8.4-10.2) L 11/05/24 13:24
Albumin 2.4 g/dl (3.5-5.0) L 11/05/24 04:49
Physical Exam
General: Awake, Alert and No Distress
Respiratory: Clear
Cardiac: S1/S2
Abdomen: Soft and Other (tender)
Musculoskeletal: No Edema
Assessment/Plan
-
Assessment
Hyponatremia
Anemia
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
Hypothyroidism
Plan
Urine sodium< 5, urine [id number]
Etiology likely hypovolemic hyponatremia in the setting of poor oral intake
s/p 1L Bolus NS in ED
Will start IVF NS now
Follow BMP
[2024-11-05 15:21] VITALS: BP 120/74
[2024-11-05] MEDS: NSS 1000 IV (17:57)
[2024-11-05] MEDS: TYLENOL 650 MG PO (18:03)
[2024-11-05 19:39] VITALS: BP 99/66
[2024-11-05] MEDS: LEXAPRO 5 MG PO (21:00)
[2024-11-05] MEDS: ATIVAN 0.5 MG PO (21:30)
[2024-11-05 23:00] VITALS: BP 95/59
[2024-11-06] VITALS (12 sets, daily range): BP systolic 78–123; BP diastolic 64–78; PULSE 85–98; BMI 20.5
[2024-11-06 05:09] LABS: Hematocrit 22.6 % (37.0-47.0); Hemoglobin 7.2 g/dL (12.0-16.0); Mean Corp Hgb Conc. 31.9 g/dL (33.0-37.0); Mean Corpuscular Volume 95.4 fL (81.0-99.0); Nucleated Red Blood Cells % 0 %; Platelet Count 54 10^3/uL (130-400); Red Cell Dist. Width 18.3 % (11.5-14.5)
[2024-11-06 05:21] LABS: ALT (SGPT) 33 U/L (0-35); AST (SGOT) 37 U/L (14-36); Albumin 2.3 g/dl (3.5-5.0); Alkaline Phosphatase 302 U/L (38-126); Blood Urea Nitrogen 10 mg/dl (7-17); Calcium 7.7 mg/dl (8.4-10.2); Carbon Dioxide 26 mmol/L (22-30); Chloride 99 mmol/L (98-107); Estimated Creatinine Clearance 80 ml/min; Glucose 93 mg/dl (70-99); Potassium 4.0 mmol/L (3.5-5.1); Sodium 127 mmol/L (135-145); Total Protein 4.1 g/dl (6.3-8.2); eGFR > 60.00
[2024-11-06] MEDS: SYNTHROID 125 MCG PO (06:06)
[2024-11-06] MEDS: NSS 1000 IV (06:06)
--- NOTE | 2024-11-06 07:01 | W.PN.UPDATE ---
Update Note
Progress Note Update
PT requesting xanax last night. Stated she has had script before but has not taken in a while.
PDMP checked- LOAZEPAM 0.5mg po filled jan 2024. Do not see xanax filled.
Will order one time lorazepam 0.5mg po
[2024-11-06] MEDS: PROTONIX 40 MG PO ×2 (08:27→20:23)
[2024-11-06] MEDS: CARAFATE 1 GRAM PO ×2 (08:27→20:23)
--- NOTE | 2024-11-06 10:07 | W.PN.NEPH.PH ---
Today's Communication / Plan
-
dc IVF
Assessment/Plan
-
Assessment
Hyponatremia
Anemia
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
Hypothyroidism
Plan
samsca today
check orthostatics
cap IVF
follow BMP
-
-
Date of Service: November 06, 2024
CC / HPI / ROS
-
Chief Complaint:
hyponatremia
History of Present Illness:
Na better at 127 with IVF
BP stable
Hgb low 7.7
Review of Systems:
no CP/SOB
no LH
Labs
-
Labs:
WBC 6.6 10^3/uL (4.8-10.8) 11/06/24 04:39
RBC 2.37 10^6/uL (4.20-5.40) L 11/06/24 04:39
Hgb 7.2 g/dL (12.0-16.0) L 11/06/24 04:39
Hct 22.6 % (37.0-47.0) L 11/06/24 04:39
Plt Count 54 10^3/uL (130-400) L D 11/06/24 04:39
Sodium 127 mmol/L (135-145) L 11/06/24 04:39
Potassium 4.0 mmol/L (3.5-5.1) 11/06/24 04:39
Chloride 99 mmol/L (98-107) 11/06/24 04:39
Carbon Dioxide 26 mmol/L (22-30) 11/06/24 04:39
BUN 10 mg/dl (7-17) 11/06/24 04:39
Creatinine 0.6 mg/dL (0.6-1.0) 11/06/24 04:39
eGFR > 60.00 11/06/24 04:39
Glucose 93 mg/dl (70-99) 11/06/24 04:39
Calcium 7.7 mg/dl (8.4-10.2) L 11/06/24 04:39
Albumin 2.3 g/dl (3.5-5.0) L 11/06/24 04:39
Physical Exam
-
Vital Signs:
Vital Signs
Temp Pulse Resp BP Pulse Ox
98.9 F 83 18 102/65 99
11/06/24 07:00 11/06/24 07:00 11/06/24 07:00 11/06/24 07:00 11/06/24 07:00
Cardiovascular:: Regular rate and rhythm
Respiratory:: Bilateral: CTA
Lung Excursion:: Normal
Abdomen:: Nontender and Soft
Bowel Sounds:: Normal
Extremity Edema:: None: Bilateral:
[2024-11-06] MEDS: SAMSCA 7.5 MG PO (10:48)
--- NOTE | 2024-11-06 12:04 | W.PN.HOSP.TC ---
Today's Communication/Plan
-
Monitor BMP and CBC.
Transfuse 1 unit of PRBCs
IR consult for paracentesis.
Assessment / Plan
Assessment / Plan
Impression:
Patient is a 54-year-old with past medical history is significant for metastatic cholangiocarcinoma with mets to the peritoneum complicated by malignant ascites requiring weekly large-volume paracentesis with last paracentesis yesterday presenting
to the emergency department after labs showed significant hyponatremia. She also has past medical history significant for hypothyroidism secondary to total thyroidectomy for thyroid cancer. She was found to be hypothyroid on recent admission and
that time was ultimately determined that she was taking her levothyroxine appropriately. She was taking it with pantoprazole. This was adjusted and dose increased 3 weeks ago. Patient reports that she had last came more recently with associated
nausea and vomiting and reduced p.o. intake. She he has no edema. She does have increased abdominal girth despite the paracentesis yesterday. There was no signs of an acute infection then. Patient also takes escitalopram, in the ER Sodium 123
potassium 3.9 with electrolytes BUN/creatinine otherwise normal. ECG shows a sinus rhythm at a rate of 90. Urine osmolality is elevated at 755 with a urine sodium that is less than 5.
Hemoglobin dropped, ordered blood pressure.
Sodium 127 after IV fluid, which is continued.
IR for paracentesis
Assessment/plan:
Symptomatic hyponatremia
Sodium improved to 127
Nephrology consulted
IV fluid discontinue
Follow BMP
Acute on Chronic anemia/chronic thrombocytopenia on chemo
Hemoglobin and platelet dropped again today.
Consent obtained for blood transfusion, but will repeat hemoglobin again at 1 PM
I called the primary oncology office , waiting for callback
History of recurrent malignant ascites requiring weekly paracentesis
Status post paracentesis 11/03/2024 3600 cc clear brian ascitic fluid
IR consult for therapeutic paracentesis
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
Chronic chemotherapy last dose 10/31/2024 fourth round
Status post radiation left sacrum
Chronic elevated alk phos
Receives Neulasta injections
History of hypothyroidism/thyroid cancer status post surgery
Recent TSH 45, free T4 1.3 August visit
- Continue Synthroid 125 mcg p.o. daily this was a recent change as of 3 weeks ago
Will check TSH with free T4
Depression/anxiety
Continue Lexapro 5 mg at bedtime
GERD/GI bleed
Hgb 8.1 appears near baseline
-Continue Protonix 40 mg twice daily, sucralfate 1 g p.o. twice daily
CODE STATUS: Full code
DVT prophylaxis: SCDs
Diet: Regular diet
Disposition: IR consult for paracentesis
Total time spent on today's encounter was 65 minutes which included time spent in counseling the patient/family regarding diagnosis and treatment plan as listed above, goals of care, and symptom management. Case was discussed with nursing staff,
specialists, and care coordinators/case management. All labs and imaging personally reviewed by me. Remainder the time spent in detailed review of previous records, lab data, imaging, and other medical provider documentation.
Anticipated Discharge: 24 - 48 hours
Subjective/Interval History
-
Date of Service: November 06, 2024
Patient was more abdominal distention today, dropped hemoglobin to 7.2
Objective Data
-
Labs:
Laboratory Results
11/06/24
04:39
WBC 6.6
Hgb 7.2 L
Hct 22.6 L
Plt Count 54 L D
Sodium 127 L
Potassium 4.0
Chloride 99
Carbon Dioxide 26
BUN 10
Creatinine 0.6
Glucose 93
Calcium 7.7 L
Total Bilirubin 0.8
AST 37 H
ALT 33
Alkaline Phosphatase 302 H
Vital Signs:
Vital Signs
Temp Pulse Resp BP Pulse Ox
99.1 F 85 18 106/71 96
11/06/24 10:55 11/06/24 10:55 11/06/24 10:55 11/06/24 10:55 11/06/24 10:55
I&O
11/05/24 11/06/24 11/07/24
06:59 06:59 06:59
Intake Total 440 / 440
Balance 440 / 440
Physical Exam
-
General: Well Developed, Well Nourished, No Apparent Distress and Comfortable
HEENT: Normocephalic, Atraumatic, Moist Mucous Membranes, No Ptosis, PERRLA and Nose Appears Normal
Respiratory: Rales and Non Labored Respirations
Cardiac: Regular Rhythm and S1/S2
Breast: Deferred by me
GI: Tender and Distended
Genito-urinary: No Costovertebral Tender
Musculoskeletal: No Clubbing, No Cyanosis and No Edema
Skin: Warm
Neuro: Awake, Alert, Oriented, AO x 3 and No Motor Deficits
Psych: Calm
[2024-11-06 15:03] LABS: Body Fluid Second Tech BGK
--- NOTE | 2024-11-06 15:42 | PTCARENOTE ---
1 unit PRBC transfused. Transfusion done at 15:40. VSS. Care ongoing.
[2024-11-06] MEDS: ATIVAN 0.5 MG PO (23:15)
[2024-11-06] MEDS: LEXAPRO 5 MG PO (23:15)
[2024-11-07 03:25] VITALS: BP 105/68
[2024-11-07 04:57] LABS: Hematocrit 28.2 % (37.0-47.0); Hemoglobin 9.4 g/dL (12.0-16.0); Mean Corp Hgb Conc. 33.3 g/dL (33.0-37.0); Mean Corpuscular Volume 90.4 fL (81.0-99.0); Nucleated Red Blood Cells % 0.3 %; Platelet Count 43 10^3/uL (130-400); Red Cell Dist. Width 21.9 % (11.5-14.5)
[2024-11-07 06:00] VITALS: BMI 18.8
[2024-11-07] MEDS: SYNTHROID 125 MCG PO (06:00)
[2024-11-07 06:07] LABS: ALT (SGPT) 35 U/L (0-35); AST (SGOT) 49 U/L (14-36); Albumin 2.3 g/dl (3.5-5.0); Alkaline Phosphatase 331 U/L (38-126); Blood Urea Nitrogen 7 mg/dl (7-17); Calcium 7.8 mg/dl (8.4-10.2); Carbon Dioxide 25 mmol/L (22-30); Chloride 103 mmol/L (98-107); Estimated Creatinine Clearance 80 ml/min; Glucose 101 mg/dl (70-99); Potassium 4.0 mmol/L (3.5-5.1); Sodium 129 mmol/L (135-145); Total Protein 4.2 g/dl (6.3-8.2); eGFR > 60.00
[2024-11-07 07:00] VITALS: BP 98/69
[2024-11-07] MEDS: PROTONIX 40 MG PO (08:31)
[2024-11-07] MEDS: CARAFATE 1 GRAM PO (08:31)
[2024-11-07 10:57] VITALS: BP 107/70
--- NOTE | 2024-11-07 12:41 | W.PN.HOSP.TC ---
Today's Communication/Plan
-
Discharge home if okay with nephrology.
Assessment / Plan
Assessment / Plan
Impression:
Patient is a 54-year-old with past medical history is significant for metastatic cholangiocarcinoma with mets to the peritoneum complicated by malignant ascites requiring weekly large-volume paracentesis with last paracentesis yesterday presenting
to the emergency department after labs showed significant hyponatremia. She also has past medical history significant for hypothyroidism secondary to total thyroidectomy for thyroid cancer. She was found to be hypothyroid on recent admission and
that time was ultimately determined that she was taking her levothyroxine appropriately. She was taking it with pantoprazole. This was adjusted and dose increased 3 weeks ago. Patient reports that she had last came more recently with associated
nausea and vomiting and reduced p.o. intake. She he has no edema. She does have increased abdominal girth despite the paracentesis yesterday. There was no signs of an acute infection then. Patient also takes escitalopram, in the ER Sodium 123
potassium 3.9 with electrolytes BUN/creatinine otherwise normal. ECG shows a sinus rhythm at a rate of 90. Urine osmolality is elevated at 755 with a urine sodium that is less than 5.
Hemoglobin dropped, ordered blood pressure.
Sodium 127 after IV fluid, which is continued.
Sodium improved to 129
IR consulted, status paracentesis
Assessment/plan:
Symptomatic hyponatremia
Sodium improved to 127
Nephrology consulted
IV fluid discontinue
11/07
Sodium improved to 129
Acute on Chronic anemia/chronic thrombocytopenia on chemo
Hemoglobin and platelet dropped again today.
Consent obtained for blood transfusion.
I called her primary oncology and discussed with .
Status post 1 unit of blood transfusion---> hemoglobin improved
History of recurrent malignant ascites requiring weekly paracentesis
Status post paracentesis 11/03/2024 3600 cc clear brian ascitic fluid
IR consult. s/p therapeutic paracentesis 11/06
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
Chronic chemotherapy last dose 10/31/2024 fourth round
Status post radiation left sacrum
Chronic elevated alk phos
Receives Neulasta injections
History of hypothyroidism/thyroid cancer status post surgery
Recent TSH 45, free T4 1.3 August visit
- Continue Synthroid 125 mcg p.o. daily this was a recent change as of 3 weeks ago
Will check TSH with free T4
Depression/anxiety
Continue Lexapro 5 mg at bedtime
GERD/GI bleed
Hgb 8.1 appears near baseline
-Continue Protonix 40 mg twice daily, sucralfate 1 g p.o. twice daily
CODE STATUS: Full code
DVT prophylaxis: SCDs
Diet: Regular diet
Disposition: Discharge home if okay with nephrology
Total time spent on today's encounter was 65 minutes which included time spent in counseling the patient/family regarding diagnosis and treatment plan as listed above, goals of care, and symptom management. Case was discussed with nursing staff,
specialists, and care coordinators/case management. All labs and imaging personally reviewed by me. Remainder the time spent in detailed review of previous records, lab data, imaging, and other medical provider documentation.
Anticipated Discharge: Today
Subjective/Interval History
-
Date of Service: November 07, 2024
Patient seen and examined at bedside, denies any chest pain or shortness of breath, no abdominal pain, no nausea, no vomiting, no diarrhea or constipation.
Objective Data
-
Labs:
Laboratory Results
11/07/24
04:34
WBC 5.8
Hgb 9.4 L D
Hct 28.2 L
Plt Count 43 L D
Sodium 129 L
Potassium 4.0
Chloride 103
Carbon Dioxide 25
BUN 7
Creatinine 0.6
Glucose 101 H
Calcium 7.8 L
Total Bilirubin 0.7
AST 49 H
ALT 35
Alkaline Phosphatase 331 H
Vital Signs:
Vital Signs
Temp Pulse Resp BP Pulse Ox
98.2 F 83 17 107/70 98
11/07/24 10:57 11/07/24 10:57 11/07/24 10:57 11/07/24 10:57 11/07/24 10:57
I&O
11/06/24 11/07/24 11/08/24
06:59 06:59 06:59
Intake Total 440 / 440 2290 / 2290
Balance 440 / 440 2290 / 2290
Physical Exam
-
General: Well Developed, Well Nourished, No Apparent Distress and Comfortable
HEENT: Normocephalic, Atraumatic, Moist Mucous Membranes, No Ptosis, PERRLA and Nose Appears Normal
Respiratory: Rales and Non Labored Respirations
Cardiac: Regular Rhythm and S1/S2
Breast: Deferred by me
GI: Tender and Distended (Distention improved compared to yesterday after paracentesis)
Genito-urinary: No Costovertebral Tender
Musculoskeletal: No Clubbing, No Cyanosis and No Edema
Skin: Warm
Neuro: Awake, Alert, Oriented, AO x 3 and No Motor Deficits
Psych: Calm
--- NOTE | 2024-11-07 13:05 | W.DCSUMMARY ---
Discharge Summary
Discharge Data
Date of Admission: 11/04/24
Date of Discharge: 11/07/24
Total time spent discharging patient (in min): 40
-
Pending Results: No
Hospital Course
Hospital course
Patient is a 54-year-old with past medical history is significant for metastatic cholangiocarcinoma with mets to the peritoneum complicated by malignant ascites requiring weekly large-volume paracentesis with last paracentesis yesterday presenting
to the emergency department after labs showed significant hyponatremia. She also has past medical history significant for hypothyroidism secondary to total thyroidectomy for thyroid cancer. She was found to be hypothyroid on recent admission and
that time was ultimately determined that she was taking her levothyroxine appropriately. She was taking it with pantoprazole. This was adjusted and dose increased 3 weeks ago. Patient reports that she had last came more recently with associated
nausea and vomiting and reduced p.o. intake. She he has no edema. She does have increased abdominal girth despite the paracentesis yesterday. There was no signs of an acute infection then. Patient also takes escitalopram, in the ER Sodium 123
potassium 3.9 with electrolytes BUN/creatinine otherwise normal. ECG shows a sinus rhythm at a rate of 90. Urine osmolality is elevated at 755 with a urine sodium that is less than 5.
Hemoglobin dropped, ordered blood pressure.
Sodium 127 after IV fluid, which is continued.
Sodium improved to 129
IR consulted, status paracentesis
During hospitalization patient was treated from the following
Symptomatic hyponatremia
Sodium improved to 127
Nephrology consulted
IV fluid discontinue
11/07
Sodium improved to 129
Acute on Chronic anemia/chronic thrombocytopenia on chemo
Hemoglobin and platelet dropped again today.
Consent obtained for blood transfusion.
I called her primary oncology and discussed with .
Status post 1 unit of blood transfusion---> hemoglobin improved
History of recurrent malignant ascites requiring weekly paracentesis
Status post paracentesis 11/03/2024 3600 cc clear brian ascitic fluid
IR consult. s/p therapeutic paracentesis 11/06
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
Chronic chemotherapy last dose 10/31/2024 fourth round
Status post radiation left sacrum
Chronic elevated alk phos
Receives Neulasta injections
History of hypothyroidism/thyroid cancer status post surgery
Recent TSH 45, free T4 1.3 August visit
- Continue Synthroid 125 mcg p.o. daily this was a recent change as of 3 weeks ago
Will check TSH with free T4
Depression/anxiety
Continue Lexapro 5 mg at bedtime
GERD/GI bleed
Hgb 8.1 appears near baseline
-Continue Protonix 40 mg twice daily, sucralfate 1 g p.o. twice daily
CODE STATUS: Full code
DVT prophylaxis: SCDs
Diet: Regular diet
Disposition: Discharge home.
Total time spent on today's encounter was 40 minutes which included time spent in counseling the patient/family regarding diagnosis and treatment plan as listed above, goals of care, and symptom management. Case was discussed with nursing staff,
specialists, and care coordinators/case management. All labs and imaging personally reviewed by me. Remainder the time spent in detailed review of previous records, lab data, imaging, and other medical provider documentation.
Anticipated Discharge: Today
Discharge Plan
-
Patient Disposition: Home (Routine Discharge)
Discharge Diagnosis/Procedures: Hyponatremia.
Anemia
Diet: Low Sodium
Activity: As tolerated
Blood Work: Repeat CBC and BMP after 1-2 weeks
Referrals:
Dr. Silva (oncologist) [Other]
Referral Note: As scheduled
Uriel Yanes MD [Family Provider, [facility]]
Prescriptions:
Continued
escitalopram oxalate 5 mg Tablet
5 mg PO HS
ondansetron HCl 8 mg Tablet
8 mg PO Q8HPRN PRN (Reason: nausea)
pantoprazole 40 mg Tablet,Delayed Release (Dr/Ec)
40 mg PO BID Qty: 60 0RF
sucralfate 1 gram tablet
1 g PO BID
levothyroxine [Synthroid] 125 mcg Tablet
125 mcg PO DAILY
alprazolam [Xanax] 0.25 mg Tablet
0.25 mg PO HS PRN (Reason: sleep)
Discharge Orders:
Discharge Patient (As Directed); Ordered 11/07/24
Ordered By: Mary Low
Discharge Date and Time
Print Language: SCOTTISH
--- NOTE | 2024-11-07 13:21 | W.PN.NEPH.PH ---
Today's Communication / Plan
-
Okay for discharge from renal
Assessment/Plan
-
Assessment
Hyponatremia
Anemia
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
Hypothyroidism
Plan
Sodium 129
Okay with discharge
BMP with oncology and can follow-up with us outpatient
Fluid restrict 48 ounces less
Protein increase 80+ gram
-
-
Date of Service: November 07, 2024
CC / HPI / ROS
-
Chief Complaint:
hyponatremia
History of Present Illness:
Na better at 127 with IVF
BP stable
Hgb low 7.7
Review of Systems:
no CP/SOB
no LH
Labs
-
Labs:
WBC 5.8 10^3/uL (4.8-10.8) 11/07/24 04:34
RBC 3.12 10^6/uL (4.20-5.40) L 11/07/24 04:34
Hgb 9.4 g/dL (12.0-16.0) L D 11/07/24 04:34
Hct 28.2 % (37.0-47.0) L 11/07/24 04:34
Plt Count 43 10^3/uL (130-400) L D 11/07/24 04:34
Sodium 129 mmol/L (135-145) L 11/07/24 04:34
Potassium 4.0 mmol/L (3.5-5.1) 11/07/24 04:34
Chloride 103 mmol/L (98-107) 11/07/24 04:34
Carbon Dioxide 25 mmol/L (22-30) 11/07/24 04:34
BUN 7 mg/dl (7-17) 11/07/24 04:34
Creatinine 0.6 mg/dL (0.6-1.0) 11/07/24 04:34
eGFR > 60.00 11/07/24 04:34
Glucose 101 mg/dl (70-99) H 11/07/24 04:34
Calcium 7.8 mg/dl (8.4-10.2) L 11/07/24 04:34
Albumin 2.3 g/dl (3.5-5.0) L 11/07/24 04:34
Physical Exam
-
Vital Signs:
Vital Signs
Temp Pulse Resp BP Pulse Ox
98.2 F 83 17 107/70 98
11/07/24 10:57 11/07/24 10:57 11/07/24 10:57 11/07/24 10:57 11/07/24 10:57
Cardiovascular:: Regular rate and rhythm
Respiratory:: Bilateral: CTA
Lung Excursion:: Normal
Abdomen:: Nontender and Soft
Bowel Sounds:: Normal
Extremity Edema:: None: Bilateral:
--- NOTE | 2024-11-07 13:22 | CM ---
MD entered order for discharge.
Spoke with patient in room . She said she was ready for discharge.
Her Demario will drive her home.
Offered VN she declined need.
PLAN Home no needs
[2024-11-07 15:01] VITALS: BP 100/67
== END 2024-11-07 14:47 | disposition home or self-care (01) | DRG 641 ==
LOC: 3 WEST ACU 20:16
PROVIDERS: Clinical Nurse Specialist Family Health; Physician Assistant Medical; Radiology Vascular & Interventional Radiology; ADMITTING PHYSICIAN Internal Medicine; ATTENDING PHYSICIAN General Practice; CONSULT PHYSICIAN Specialist; EMERGENCY PHYSICIAN Emergency Medicine; FAMILY PHYSICIAN Family Medicine
PROC: 0W9G3ZZ Drainage of Peritoneal Cavity, Percutaneous Approach (ICD-10-PCS; 2024-11-06)
PROC: 30243N1 Transfusion of Nonautologous Red Blood Cells into Central Vein, Percutaneous Approach (ICD-10-PCS; 2024-11-06)
DX: E87.1 Hypo-osmolality and hyponatremia (principal); C22.1 Intrahepatic bile duct carcinoma; C78.6 Secondary malignant neoplasm of retroperitoneum and peritoneum; R18.0 Malignant ascites; R18.8 Other ascites; D64.9 Anemia, unspecified; E89.0 Postprocedural hypothyroidism; F32.A Depression, unspecified; F41.9 Anxiety disorder, unspecified; K21.9 Gastro-esophageal reflux disease without esophagitis; Z85.850 Personal history of malignant neoplasm of thyroid; Z92.3 Personal history of irradiation; Z79.890 Hormone replacement therapy; D69.6 Thrombocytopenia, unspecified; Z79.899 Other long term (current) drug therapy; Z85.05 Personal history of malignant neoplasm of liver
CPT/HCPCS: 49083; 80048; 80053; 83930; 83935; 84300; 84439; 84443; 85025; 85027; 86850; 86900; 86901; 86920; 89051; 93005; 96360; 99284; P9016; P9045

== ENCOUNTER → 2024-11-13 07:57 | Outpatient (REF) | payer BC, SELFPAY ==
[2024-11-13 08:15] VITALS: BP 119/87; BP_SYST 81
[2024-11-13 09:15] VITALS: BP 112/69
[2024-11-13 10:12] LABS: Body Fluid Second Tech EF
== END ==
LOC: RADI 07:57
PROVIDERS: ATTENDING PHYSICIAN Internal Medicine Medical Oncology; FAMILY PHYSICIAN Family Medicine
DX: C80.1 Malignant (primary) neoplasm, unspecified (principal); R18.0 Malignant ascites
CPT/HCPCS: 49083; 89051

== ENCOUNTER → 2024-11-20 13:06 | Outpatient (REF) | payer BC, SELFPAY ==
[2024-11-20 13:15] VITALS: BP 119/64; BP_SYST 84
[2024-11-20 15:11] LABS: Body Fluid Second Tech FB
== END ==
LOC: RADI 13:06
PROVIDERS: ATTENDING PHYSICIAN Internal Medicine Medical Oncology; FAMILY PHYSICIAN Family Medicine
DX: R18.8 Other ascites (principal); C22.1 Intrahepatic bile duct carcinoma
CPT/HCPCS: 49083; 89051

== ENCOUNTER 2024-11-26 18:06 | Inpatient (IN) | payer BC, SELFPAY ==
[2024-11-26 12:19] VITALS: BP 110/73
[2024-11-26 12:55] LABS: Hematocrit 26.7 % (37.0-47.0); Hemoglobin 8.5 g/dL (12.0-16.0); Mean Corp Hgb Conc. 31.8 g/dL (33.0-37.0); Mean Corpuscular Volume 90.8 fL (81.0-99.0); Nucleated Red Blood Cells % 1.0 %; Platelet Count 48 10^3/uL (130-400); Red Cell Dist. Width 19.4 % (11.5-14.5)
[2024-11-26 13:03] LABS: ALT (SGPT) 111 U/L (0-35); AST (SGOT) 117 U/L (14-36); Albumin 2.8 g/dl (3.5-5.0); Alkaline Phosphatase 884 U/L (38-126); Blood Urea Nitrogen 13 mg/dl (7-17); Calcium 9.2 mg/dl (8.4-10.2); Carbon Dioxide 29 mmol/L (22-30); Chloride 91 mmol/L (98-107); Glucose 109 mg/dl (70-99); Potassium 5.3 mmol/L (3.5-5.1); Sodium 122 mmol/L (135-145); Total Protein 5.0 g/dl (6.3-8.2); eGFR > 60.00
--- NOTE | 2024-11-26 16:10 | W.CON.NEPH ---
Consultation
-
Date/Time Consultation Requested: 11/26/24 1610
Date/Time Consultation Performed: 11/26/24 1630
Requesting Provider: Jeff Boyd
Performing Provider: oscar Ware
Reason for Consultation: hyponatremia
Medical History
-
Chief Complaint: Hyponatremia
History of Present Illness:
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
feeling tired,lightheadedness, nausea, decreased oral intake since her last chemotherapy session on Last Sunday week ago.�She also with diarrhea post chemo too. Labs noted sodium 122, k 5.3. Given hyponatremia, we are consulted to evaluate patient
for renal standpoint.
She was admitted to last month for very similar complaints. Required IVF and samsca later, sodium was at 129 at d/c. Her intake is poor with GI syp. She offers no CP or sob. No cough. Abd is not quite distended for her. She is due for catheter
placement on this Sunday for ascites drainage. No fever or dysuria.
For depression /anxiety she is on Lexapro, dose noted to be higher on medlist from last d/c.
Her TSH has been abnormal high since last Sep, doses likely were adjusted last d/c.
For GERD she is on PPI BID.
Past Medical History
Additional Past Medical History:
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
Status post left sacrum radiation
Hyponatremia/SIADH
hypothyroidism
depression/anxiety
GERD
thyroid cancer
Hx GI bleed
Past Surgical History: Reports Other
Additional Past Surgical History:
:2001, 2000, 2007
thyroidectomy:05/2009
Social History
Tobacco: Non-Smoker
Alcohol: None
Drug: None
Personal:
Family History
Family History: Not Pertinent
Allergies / Home Medications
Allergy/AdvReac Type Severity Reaction Status Date / Time
No Known Allergies Allergy Verified 11/26/24 12:18
�Medication �Instructions �Recorded �Confirmed �Type
ondansetron HCl 8 mg tablet 8 mg PO Q8HPRN PRN nausea 02/29/24 11/26/24 History
pantoprazole 40 mg tablet,delayed 40 mg PO BID #60 tabs 03/01/24 11/26/24 Rx
release
alprazolam 0.25 mg tablet (Xanax) 0.125 mg PO HS sleep 11/05/24 11/26/24 History
escitalopram oxalate 10 mg tablet 10 mg PO HS 11/26/24 11/26/24 History
(Lexapro)
levothyroxine 150 mcg tablet 150 mcg PO DAILY 11/26/24 11/26/24 History
(Synthroid)
Review of Systems
-
All other systems: Negative unless noted
Physical Exam
Vital Signs
Vital Signs
Temp Pulse Resp BP Pulse Ox
98.2 F 89 18 110/73 99
11/26/24 12:19 11/26/24 12:19 11/26/24 12:19 11/26/24 12:19 11/26/24 12:19
Lab Results
WBC 6.8 10^3/uL (4.8-10.8) 11/26/24 12:28
RBC 2.94 10^6/uL (4.20-5.40) L 11/26/24 12:28
Hgb 8.5 g/dL (12.0-16.0) L 11/26/24 12:28
Hct 26.7 % (37.0-47.0) L 11/26/24 12:28
Plt Count 48 10^3/uL (130-400) L 11/26/24 12:28
Sodium 122 mmol/L (135-145) L 11/26/24 12:28
Potassium 5.3 mmol/L (3.5-5.1) H 11/26/24 12:
Chloride 91 mmol/L (98-107) L 11/26/24 12:
Carbon Dioxide 29 mmol/L (22-30) 11/26/24 12:
BUN 13 mg/dl (7-17) 11/26/24 12:
Creatinine 0.7 mg/dL (0.6-1.0) 11/26/24 12:
eGFR > 60.00 11/26/24 12:
Glucose 109 mg/dl (70-99) H 11/26/24 12:
Calcium 9.2 mg/dl (8.4-10.2) 11/26/24 12:
Albumin 2.8 g/dl (3.5-5.0) L 11/26/24 12:
Physical Exam
General: Awake, Alert, Oriented, AOx3, No Distress and Nontoxic
HEENT: Anicteric, Conjunctivae Clear and Facial Symmetry
Respiratory: Clear, Normal Excursion and Nonlabored Respirations
Cardiac: S1/S2 and Regular Rate/Rhythm
Breast: Deferred by me
Abdomen: Soft, Nontender and Other (distended)
Musculoskeletal: No Edema
Skin: No Rash
Neuro: Nonfocal/Grossly Intact
Psych: Mood/afflect pleasant, Insight/judgement good and Appropriate
Data Reviewed
-
Labs: Labs Reviewed by me and Discussed with Patient
Assessment/Plan
-
Assessment
Hyponatremia
mild hyperkalemia
Anemia
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
Hypothyroidism, thyroid cancer status post surgery
Depression/Anxiety
Plan:
Hyponatremia-aute on chronic
likely multifactorial-possible prerenal and underlying SIADH with malignancy
await urine studies, if U na low suggest isotonic IVF and follow sodium trend
if sodium decreasing try HTS
also check cortisol, update TSH
TSH was abnormal last visit, LT4 dosing per primary
maintain FR 40 ounces/day, encourage solute intake
BP are soft, may benefit from salt tab
d/w pt
She also on SSRI, if sodium difficult to manage may need to look for alternative
[2024-11-26 16:23] VITALS: BP 108/70
--- NOTE | 2024-11-26 16:58 | ED.GENMED ---
History of Present Illness
<Jamin Monroe PA-C - Last Filed: 11/26/24 17:05>
General
Chief Complaint: Abnormal Lab Value
Source: patient and records
Time Seen by Provider: 11/26/24 15:47
History of Present Illness
History of Present Illness:
54-year-old female with past medical history of cholangiocarcinoma with metastases, chronic anemia, recent complications from hyponatremia presenting to the ER for evaluation after she had repeat outpatient labs showing a drop in her hemoglobin and
recurring hyponatremia. Patient notes that for the last couple days she has felt 'awful' noting persistent nausea, diminished p.o. intake, lightheadedness and generalized weakness. She reports that she was going to be started on sodium tablets but
has yet to start this. She denies any current pain, urinary symptoms, bowel changes or any other concerns. Patient recently admitted for similar.
Past History
<MARIA ELENA Pierre Last Filed: 11/26/24 17:05>
Past History
ED Past Medical History: Cancer (Cholangiocarcinoma, thyroid cancer), Hypothyroidism, Psychiatric and Other (Chronic anemia)
ED Past Surgical History: and Other (thyroid sx, serial paracentesis)
Patient has exhibited threatening behavior?: No
Social History
Tobacco: Non-smoker
Alcohol: None
Drug: None
Personal:
Living: with family
Family History
Family History: Other (Noncontributory)
Review of Systems
<Jamin Monroe PA-C - Last Filed: 11/26/24 17:05>
Review of Systems
All Other Systems: ROS reviewed and negative except as documented in HPI and ROS
Phy Exam
<MARIA ELENA Pierre Last Filed: 11/26/24 17:05>
Physical Exam
Physical Exam:
GENERAL: Alert , in no apparent distress, Pale, thin
HEAD: Normocephalic atraumatic
EYE: conjunctiva clear
NECK: Supple
ENT: o/p clr, mmm.
CARDIAC: Regular rate and rhythm
LUNGS: Clear breath sounds bilaterally, no acute respiratory distress, no wheezes/rales/rhonchi
NEUROLOGICAL: Alert and oriented
SKIN: Warm and dry, skin intact.
MUSCULOSKELETAL: well perfused.
PSYCH: Normal and appropriate interaction.
Scores
<Jamin Monroe PA-C - Last Filed: 11/26/24 17:05>
Heart Failure Risk
Heart Failure Risk Score: Not Applicable
Heart Score for Chest Pain Patients
STEMI patient?: Not applicable
Withdrawal Assessment of Alcohol
Withdrawal Assessment Completed?: Not applicable
Course
<Jamin Monroe PA-C - Last Filed: 11/26/24 17:05>
Orders/Labs/Results
Orders:
Orders
11/26/24 12:28
Type+Screen Urgent
Complete Blood Count/With Diff Urgent
Comprehensive Metabolic Panel Urgent
Serum Osmolality Urgent
Comment: ADD ON
11/26/24 15:54
Add On- LAB Urgent
Tests Added?: serum osmolality
Urinalysis Reflex To Culture Urgent
Date Specimen was Collected: 11/26/24
Time Specimen was Collected: 16:03
11/26/24 15:55
Osmolality, Random Urine Urgent
Date Specimen was Collected: 11/26/24
Time Specimen was Collected: 16:03
11/26/24 16:44
Urine Sodium Stat
11/26/24 16:46
NEPHROLOGY CONSULT Routine
Consulting Provider: Debi Oneil
Was physician already notified: Yes
Reason for consult: Recurrent Hyponatremia, persistent diarrhea after chemo
11/26/24 16:56
Admit/Transfer Patient As Directed
Co-Sign Provider:
Level of Care: Inpatient admission
Assign to:: Telemetry
Physician / Group: Dr. Jeff Sutherland/Hospitalists
Diagnosis: Hyponatremia, persistent diarrhea after recent chemotherapy
Reason for Telemetry: Arrhythmia
Date to Stop Telemetry: 11/29/24
Time to Stop Telemetry: 11:00
Reason for Hospitalization: Hyponatremia, persistent diarrhea after recent chemotherapy
Expected length of stay greater than two midnights?: Yes
ELOS- Estimated Length of Stay in days: 3
I certify the patient meets the requirements for IP care: Yes
STOOL [C difficile Antigen & Toxins] Routine
SURYA Source: Feces/Stool
Specimen Description:
Stool Culture Routine
SURYA Source: Feces/Stool
Specimen Description:
Stool For WBC Routine
SURYA Source: Feces/Stool
Specimen Description:
11/26/24 16:59
Code Status As Directed
Resuscitation Status: Full Code
11/29/24 11:00
DC Protocol for Telemetry ONCE
Abnormal Lab Results
11/26/24
12:28
RBC 2.94 L 10^6/uL
(4.20-5.40)
Hgb 8.5 L g/dL
(12.0-16.0)
Hct 26.7 L %
(37.0-47.0)
MCHC 31.8 L g/dL
(33.0-37.0)
RDW 19.4 H %
(11.5-14.5)
Plt Count 48 L 10^3/uL
(130-400)
MPV 11.2 H fL
(7.4-10.4)
Abs Immat Gran (auto) 0.1 H 10^3/uL
(0-0.05)
Absolute Lymphs (auto) 0.2 L 10^3/uL
(1.2-3.4)
Immature Gran % 1.6 H %
(0-0.5)
Neutrophils % 85.8 H %
(42.2-75.2)
Lymphocytes % 3.1 L %
(20.5-51.1)
Sodium 122 L mmol/L
(135-145)
Potassium 5.3 H mmol/L
(3.5-5.1)
Chloride 91 L mmol/L
(98-107)
Glucose 109 H mg/dl
(70-99)
Serum Osmolality 262 L mOsm/kg
(275-300)
AST 117 H U/L
(14-36)
ALT 111 H U/L
(0-35)
Alkaline Phosphatase 884 H U/L
(38-126)
Total Protein 5.0 L g/dl
(6.3-8.2)
Albumin 2.8 L g/dl
(3.5-5.0)
11/26/24 12:28
11/26/24 12:28
Vital Signs
Initial and Last Documented VS:
Initial Vital Signs
Temp Pulse Resp BP Pulse Ox
36.8 C 89 18 110/73 99
11/26/24 12:19 11/26/24 12:19 11/26/24 12:19 11/26/24 12:19 11/26/24 12:19
Last Documented Vital Signs
Temp Pulse Resp BP Pulse Ox
36.8 C 88 16 108/70 98
11/26/24 12:19 11/26/24 16:23 11/26/24 16:23 11/26/24 16:23 11/26/24 17:04
<Adam Collins MD - Last Filed: 11/26/24 17:19>
Orders/Labs/Results
Orders:
Orders
11/26/24 12:28
Type+Screen Urgent
Complete Blood Count/With Diff Urgent
Comprehensive Metabolic Panel Urgent
Serum Osmolality Urgent
Comment: ADD ON
11/26/24 15:54
Add On- LAB Urgent
Tests Added?: serum osmolality
Urinalysis Reflex To Culture Urgent
Date Specimen was Collected: 11/26/24
Time Specimen was Collected: 16:03
11/26/24 15:55
Osmolality, Random Urine Urgent
Date Specimen was Collected: 11/26/24
Time Specimen was Collected: 16:03
11/26/24 16:44
Urine Sodium Stat
11/26/24 16:46
NEPHROLOGY CONSULT Routine
Consulting Provider: Debi Oneil
Was physician already notified: Yes
Reason for consult: Recurrent Hyponatremia, persistent diarrhea after chemo
11/26/24 16:56
Admit/Transfer Patient As Directed
Co-Sign Provider:
Level of Care: Inpatient admission
Assign to:: Telemetry
Physician / Group: Dr. Jeff Sutherland/Hospitalists
Diagnosis: Hyponatremia, persistent diarrhea after recent chemotherapy
Reason for Telemetry: Arrhythmia
Date to Stop Telemetry: 11/29/24
Time to Stop Telemetry: 11:00
Reason for Hospitalization: Hyponatremia, persistent diarrhea after recent chemotherapy
Expected length of stay greater than two midnights?: Yes
ELOS- Estimated Length of Stay in days: 3
I certify the patient meets the requirements for IP care: Yes
STOOL [C difficile Antigen & Toxins] Routine
SURYA Source: Feces/Stool
Specimen Description:
Stool Culture Routine
SURYA Source: Feces/Stool
Specimen Description:
Stool For WBC Routine
SURYA Source: Feces/Stool
Specimen Description:
11/26/24 16:59
Code Status As Directed
Resuscitation Status: Full Code
11/29/24 11:00
DC Protocol for Telemetry ONCE
Abnormal Lab Results
11/26/24
12:28
RBC 2.94 L 10^6/uL
(4.20-5.40)
Hgb 8.5 L g/dL
(12.0-16.0)
Hct 26.7 L %
(37.0-47.0)
MCHC 31.8 L g/dL
(33.0-37.0)
RDW 19.4 H %
(11.5-14.5)
Plt Count 48 L 10^3/uL
(130-400)
MPV 11.2 H fL
(7.4-10.4)
Abs Immat Gran (auto) 0.1 H 10^3/uL
(0-0.05)
Absolute Lymphs (auto) 0.2 L 10^3/uL
(1.2-3.4)
Immature Gran % 1.6 H %
(0-0.5)
Neutrophils % 85.8 H %
(42.2-75.2)
Lymphocytes % 3.1 L %
(20.5-51.1)
Sodium 122 L mmol/L
(135-145)
Potassium 5.3 H mmol/L
(3.5-5.1)
Chloride 91 L mmol/L
(98-107)
Glucose 109 H mg/dl
(70-99)
Serum Osmolality 262 L mOsm/kg
(275-300)
AST 117 H U/L
(14-36)
ALT 111 H U/L
(0-35)
Alkaline Phosphatase 884 H U/L
(38-126)
Total Protein 5.0 L g/dl
(6.3-8.2)
Albumin 2.8 L g/dl
(3.5-5.0)
11/26/24 12:28
11/26/24 12:28
Vital Signs
Initial and Last Documented VS:
Initial Vital Signs
Temp Pulse Resp BP Pulse Ox
36.8 C 89 18 110/73 99
11/26/24 12:19 11/26/24 12:19 11/26/24 12:19 11/26/24 12:19 11/26/24 12:19
Last Documented Vital Signs
Temp Pulse Resp BP Pulse Ox
36.8 C 88 16 108/70 98
11/26/24 12:19 11/26/24 16:23 11/26/24 16:23 11/26/24 16:23 11/26/24 17:04
<Jamin Monroe PA-C - Last Filed: 11/26/24 17:05>
MDM/Problems Addressed
Differential Diagnosis Includes:
Recurrent hyponatremia
SIADH
Medication side effects
Volume overload
ZORAIDA
Cancer complication
Anemia of chronic disease
MDM/Problems Addressed:
54-year-old female presenting to the ER for evaluation of recurring hyponatremia and anemia on outpatient labs. Patient notes symptoms including generalized weakness, fatigue, nausea and diminished p.o. intake. Labs initiated in triage show sodium
of 122 and a hemoglobin of 8.5. Hemoglobin appears to be rate around baseline, sodium lower than normal. Patient's liver function tests are also elevated past baseline which is likely in keeping with her known cholangiocarcinoma. Due to the
persistent symptoms combined with the recurring hyponatremia will admit to hospitalist team. Will notify nephrology as well
Chronic conditions affecting care: Cancer
Acute Exacerbation and/or Progression of Chronic Illness: Cancer
<Jamin Monroe PA-C - Last Filed: 11/26/24 17:05>
*Pulse Oximetry
SaO2: 98
Oxygen Mode of Delivery: Room air
Patient hypoxic: no
*Critical Care Note
Total Time (30-74mins, 75-104mins- exclusive of procedures): Not Applicable
Data Reviewed
Review of Other/Old Records Reveals: Labs, Records and Discharge Summary
Source: patient and records
<Jamin Monroe PA-C - Last Filed: 11/26/24 17:05>
Patient Management
Discussion with other providers: Hospitalist and Criminal Justice Faculty
ED Attending Note
<Jamin Monroe PA-C - Last Filed: 11/26/24 17:05>
-
Portions of this chart may have been created with voice recognition software.� Occasional wrong word or��sound alike� substitutions may have occurred due to the inherent limitations of voice recognition software.
<Adam Collins MD - Last Filed: 11/26/24 17:19>
ED Attending Note
Patient seen and examined by attending physician: Yes
ED Attending Note:
I have seen and evaluated the patient with a [id number] encounter. I have spoken to the advance practicer provider and involved in the medical history, the physical exam, medical decision making.
Evaluation and management service: agree unless noted differently below.
Results interpretation: agree unless noted differently below.
Focused HPI: 54-year-old female with a past medical history of metastatic cholangiocarcinoma presents to the emergency room for evaluation of abnormal labs. Patient had outpatient labs that showed anemia and severe hyponatremia. She has had this
issue in the past. She has been feeling unwell recently with nausea and poor p.o. intake recently.
Physical exam: Awake and alert, chronically ill-appearing but not in acute distress. Vital signs all within normal limits. Not edematous. Mucous membranes slightly dry.
Medical Decision Makin-year-old female with history of metastatic cholangiocarcinoma presents with acute on chronic hyponatremia and anemia. Has had recently poor p.o. intake. Hemoglobin today 8.5 appears stable from prior. She also has
thrombocytopenia which is stable. She is acute on chronic hyponatremia with a sodium of 122 today. Added urine studies. LUISA discussed with nephrology for consultation.. Discussed with hospitalist for admission.
Discharge Plan
Departure
Patient Disposition: Admit
Date of Disposition: 11/26/24
Time of Disposition: 16:58
Presentation/result/management discussed w/ accepting MD/DO: Hospitalist
Discharge Problem:
Hyponatremia, Transaminitis, Anemia
Prescriptions:
No Action
ondansetron HCl 8 mg Tablet
8 mg PO Q8HPRN PRN (Reason: nausea)
pantoprazole 40 mg Tablet,Delayed Release (Dr/Ec)
40 mg PO BID Qty: 60 0RF
alprazolam [Xanax] 0.25 mg Tablet
0.125 mg PO HS
Patient Comments:
11/26/24-earlier pdmp filled 09/26/2022 #30
levothyroxine [Synthroid] 150 mcg Tablet
150 mcg PO DAILY
escitalopram oxalate [Lexapro] 10 mg Tablet
10 mg PO HS
Referrals:
Uriel Yanes MD [Family Provider, Family Practice]
Interventions
Interventions:
*Risk Screen - Suicide Last Done: 11/26/24 12:19
*General Assessment Last Done: 11/26/24 12:19
*Neglect/Abuse Screening Last Done: 11/26/24 12:19
Discharge Date and Time
Print Language: ICELANDIC
--- NOTE | 2024-11-26 17:13 | HPS.HSE ---
Family Physician
-
Family Physician: Uriel Yanes
Chief Complaint
-
Generalized Fatigue, Hyponatremia
History of Present Illness
54-year-old with past medical history significant for chronic hyponatremia, hypothyroidism (secondary to total thyroidectomy for thyroid cancer), metastatic cholangiocarcinoma (followed with [facility] in [place], [place]) with metastases to
the peritoneum complicated by malignant ascites requiring weekly large-volume paracentesis, anemia and thrombocytopenia in the setting of cancer and chemotherapy, depression, anxiety, GERD and GI bleed history, presented to the emergency department
after labs showed significant hyponatremia. Patient said that her last chemotherapy was last Sunday and her diarrhea has persisted well beyond the 2 to 3 days it usually does after chemo, and now she has worsening hyponatremia on outpatient labs.
Her diarrhea has been loose and watery. She denied any fever or any other significant complaints except generalized fatigue.
Medical History
Past Medical History
Past Medical History: Reports Other (As per HPI above)
Past Surgical History: Reports and Other (thyroid surgery, serial paracentesis)
Social History
Tobacco: Non-smoker
Alcohol: None
Drug: None
Family History
Family History: Not pertinent
Allergies / Home Medications
Allergies reflects when Allergies were last updated in [facility].
Home Medications with original date entered in [facility]
Allergy/Medication List:
Allergies
Allergy/AdvReac Type Severity Reaction Status Date / Time
No Known Allergies Allergy Verified 11/26/24 12:18
Home Medications
ondansetron HCl 8 mg tablet 8 mg PO Q8HPRN PRN nausea 02/29/24
pantoprazole 40 mg tablet,delayed release 40 mg PO BID #60 tabs 03/01/24
alprazolam 0.25 mg tablet (Xanax) 0.125 mg PO HS sleep 11/05/24
escitalopram oxalate 10 mg tablet (Lexapro) 10 mg PO HS 11/26/24
levothyroxine 150 mcg tablet (Synthroid) 150 mcg PO DAILY 11/26/24
Review of Systems
-
A 12 point ROS was completed and negative except as noted: Yes
Physical Exam
Vital Signs
Vital Signs
Temp Pulse Resp BP Pulse Ox
98.2 F 88 16 108/70 98
11/26/24 12:19 11/26/24 16:23 11/26/24 16:23 11/26/24 16:23 11/26/24 17:04
Physical Exam
General: No Apparent Distress
HEENT: NormoCephalic
Respiratory: Clear
Cardiac: S1/S2 and Regular Rhythm
GI: Soft, Non Tender and Normal Bowel Sounds
Musculoskeletal: No Cyanosis and No Edema
Skin: Warm and Dry
Neuro: Awake, Alert, AO x 3 and Nonfocal/grossly intact
Psych: Calm and Intact Judgment/Insight
Laboratory Results
-
11/26/24 12:28
11/26/24 12:28
Laboratory Results
Total Bilirubin 0.9 mg/dl (0.2-1.3) 11/26/24 12:28
AST 117 U/L (14-36) H 11/26/24 12:28
ALT 111 U/L (0-35) H 11/26/24 12:28
Alkaline Phosphatase 884 U/L (38-126) H 11/26/24 12:28
Impression/Plan
-
Assessment/Plan
Acute on Chronic Hyponatremia
-Based on results of hyponatremia studies, normal saline for 100 cc/hr for now
-Q4H BMP checks
-If sodium is dropping, then as per my communication with on-call humid system operator, switch IV fluids to Hypertonic Saline at 15 to 20 cc/hr
Diarrhea, persistent, following chemo ~8 days prior to presentation
-Check stool studies including C. Diff
-If stool studies negative, will start Imodium
Hypothyroidism (secondary to total thyroidectomy for thyroid cancer)
-Continue home Levothyroxine
Metastatic Cholangiocarcinoma (followed with [facility] in [place], [place]) with metastases to the peritoneum complicated by malignant ascites requiring weekly large-volume paracentesis
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
Chronic chemotherapy last dose 11/18/24
Status post radiation left sacrum
Chronic elevated alk phos
Receives Neulasta injections
Chronic anemia and thrombocytopenia in the setting of cancer and chemotherapy
-Hgb at 8.5, last admission was between 7.1 and 9.4
-Plts 48, last admission was in the 40s to 80
-Continue to monitor CBC
Depression
-Continue outpatient Lexapro
Anxiety
-Continue outpatient Xanax
GERD
GI bleed history
-Continue outpatient Pantoprazole
DVT Prophylaxis: SCDs only. No chemical prophylaxis given degree of thrombocytopenia.
Code Status: Full Code
[2024-11-26 18:18] LABS: Urine Character Clear (Clear)
[2024-11-26 18:19] VITALS: BP 115/70
[2024-11-26 18:31] LABS: Urine Squamous Cell 0-2 /LPF (Few)
[2024-11-26 18:32] LABS: Urine Red Blood Cell 0-2 /HPF (0-2)
[2024-11-26 20:31] VITALS: BP 109/70
[2024-11-26] MEDS: NSS 1000 IV (20:36)
[2024-11-26 20:42] VITALS: BP 109/70
[2024-11-26 22:43] VITALS: BP 112/69; BMI 18.7
[2024-11-26] MEDS: XANAX 0.125 MG PO (22:55)
[2024-11-26] MEDS: PROTONIX 40 MG PO (22:55)
[2024-11-26] MEDS: LEXAPRO 10 MG PO (22:55)
--- NOTE | 2024-11-26 23:00 | PTCARENOTE ---
Patient received from ED 2230 via stretcher w/ NaCl IVF infusing at 100mls via R subq port. Telemetry order> NSR on monitor, strip placed in patient's chart. VSS. Pt AAOx3, steady on feet. Plan of care discussed including Q4 BMP monitoring. PMH
history/ medications reviewed by this RN and patient.
[2024-11-26 23:27] LABS: Blood Urea Nitrogen 14 mg/dl (7-17); Calcium 8.5 mg/dl (8.4-10.2); Carbon Dioxide 26 mmol/L (22-30); Chloride 93 mmol/L (98-107); Estimated Creatinine Clearance 64 ml/min; Glucose 94 mg/dl (70-99); Potassium 5.2 mmol/L (3.5-5.1); Sodium 120 mmol/L (135-145); eGFR > 60.00
[2024-11-27] VITALS (9 sets, daily range): BP systolic 94–124; BP diastolic 64–75; BMI 18.7
[2024-11-27] MEDS: SODIUM CHLORIDE 3% 250 IV ×2 (00:44→18:46)
--- NOTE | 2024-11-27 00:49 | PTCARENOTE ---
Addendum entered by Talia Hutchison RN 11/27/24 01:14:
Per TIRE INSPECTOR, next BMP for 329
Original Note:
3% Sodium chloride hung per order. Next BMP scheduled 315- confirmed w/ House TIRE INSPECTOR. Plan of care discussed with patient.
[2024-11-27] MEDS: ZOFRAN 8 MG PO (03:28)
[2024-11-27 04:13] LABS: Blood Urea Nitrogen 14 mg/dl (7-17); Calcium 8.5 mg/dl (8.4-10.2); Carbon Dioxide 25 mmol/L (22-30); Chloride 96 mmol/L (98-107); Estimated Creatinine Clearance 64 ml/min; Glucose 104 mg/dl (70-99); Potassium 5.1 mmol/L (3.5-5.1); Sodium 123 mmol/L (135-145); eGFR > 60.00
[2024-11-27] MEDS: SYNTHROID 150 MCG PO (05:49)
--- NOTE | 2024-11-27 07:34 | W.PN.HOSP.TC ---
Today's Communication/Plan
-
See plan
Assessment / Plan
Assessment / Plan
Physical Exam
General: No Apparent Distress
HEENT: NormoCephalic
Respiratory: Clear
Cardiac: S1/S2 and Regular Rhythm
GI: Soft, Non Tender and Normal Bowel Sounds
Musculoskeletal: No Cyanosis and No Edema
Skin: Warm and Dry
Neuro: Awake, Alert, AO x 3 and Nonfocal/grossly intact
Psych: Calm and Intact Judgment/Insight
Assessment/Plan
54-year-old with past medical history significant for chronic hyponatremia, hypothyroidism (secondary to total thyroidectomy for thyroid cancer), metastatic cholangiocarcinoma (followed with [facility] in [place], [place]) with metastases to
the peritoneum complicated by malignant ascites requiring weekly large-volume paracentesis, anemia and thrombocytopenia in the setting of cancer and chemotherapy, depression, anxiety, GERD and GI bleed history, presented to the emergency department
after labs showed significant hyponatremia. Patient said that her last chemotherapy was last Sunday and her diarrhea has persisted well beyond the 2 to 3 days it usually does after chemo, and now she has worsening hyponatremia on outpatient labs.
Her diarrhea has been loose and watery. She denied any fever or any other significant complaints except generalized fatigue.
Acute on Chronic Hyponatremia
-Based on results of hyponatremia studies, normal saline for 100 cc/hr for now
-Q4H BMP checks
-If sodium is dropping, then as per my communication with on-call blow torch burner, switch IV fluids to Hypertonic Saline at 15 to 20 cc/hr
-Continue hypertonic saline with goal of sodium up to 128-130 meq by tonight -- goal of correction of serum sodium is 6-8meq/day
Diarrhea, persistent, following chemo ~8 days prior to presentation
-Diarrhea has resolved
-Patient stated that diarrhea alternates with constipation for her
-Check stool studies including C. Diff, if patient's diarrhea comes back -- in such a case, if C. Diff negative, then can do Imodium
Hypothyroidism (secondary to total thyroidectomy for thyroid cancer)
-Continue home Levothyroxine
Metastatic Cholangiocarcinoma (followed with [facility] in [place], [place]) with metastases to the peritoneum complicated by malignant ascites requiring weekly large-volume paracentesis
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
Chronic chemotherapy last dose 11/18/24
Status post radiation left sacrum
Chronic elevated alk phos
Receives Neulasta injections
-Patient is supposed to get external catheter for paracentesis outpatient tomorrow, but she started she would like it this admission, consulted IR
Chronic anemia and thrombocytopenia in the setting of cancer and chemotherapy
-Hgb dropped to 6.5 today, transfused 1 unit PRBC
-Continue to monitor CBC, and transfuse PRBCs to maintain Hgb
Depression
-Continue outpatient Lexapro
Anxiety
-Continue outpatient Xanax
GERD
GI bleed history
-Continue outpatient Pantoprazole
DVT Prophylaxis: SCDs only. No chemical prophylaxis given degree of thrombocytopenia.
Code Status: Full Code
Anticipated Discharge: Within 24 hours
Subjective/Interval History
-
Date of Service: November 27, 2024
Patient was seen and examined. She reported that her diarrhea has resolved, she denied any abdominal pain, fever or any other complaints.
Objective Data
-
Labs:
Laboratory Results
11/26/24 11/26/24 11/27/24
22:46 23:16 03:34
WBC
Hgb
Hct
Plt Count
Sodium 120 L Cancelled 123 L
Potassium 5.2 H Cancelled 5.1
Chloride 93 L Cancelled 96 L
Carbon Dioxide 26 Cancelled 25
BUN 14 Cancelled 14
Creatinine 0.7 Cancelled 0.7
Glucose 94 Cancelled 104 H
Calcium 8.5 Cancelled 8.5
Total Bilirubin
AST
ALT
Alkaline Phosphatase
11/27/24 11/27/24 11/27/24
06:00 07:16 11:16
WBC Pending
Hgb Pending
Hct Pending
Plt Count Pending
Sodium Pending Pending Pending
Potassium Pending Pending Pending
Chloride Pending Pending Pending
Carbon Dioxide Pending Pending Pending
BUN Pending Pending Pending
Creatinine Pending Pending Pending
Glucose Pending Pending Pending
Calcium Pending Pending Pending
Total Bilirubin Pending
AST Pending
ALT Pending
Alkaline Phosphatase Pending
11/27/24 11/27/24 11/27/24
15:16 19:16 23:16
WBC
Hgb
Hct
Plt Count
Sodium Pending Pending Pending
Potassium Pending Pending Pending
Chloride Pending Pending Pending
Carbon Dioxide Pending Pending Pending
BUN Pending Pending Pending
Creatinine Pending Pending Pending
Glucose Pending Pending Pending
Calcium Pending Pending Pending
Total Bilirubin
AST
ALT
Alkaline Phosphatase
Vital Signs:
Vital Signs
Temp Pulse Resp BP Pulse Ox
98.3 F 85 16 96/64 100
11/27/24 07:29 11/27/24 07:29 11/27/24 07:29 11/27/24 07:29 11/27/24 07:29
I&O
11/26/24 11/27/24 11/28/24
06:59 06:59 06:59
Intake Total 850 / 850
Balance 850 / 850
[2024-11-27] MEDS: PROTONIX 40 MG PO ×2 (08:21→21:00)
[2024-11-27 09:16] LABS: Hematocrit 22.1 % (37.0-47.0); Hemoglobin 6.9 g/dL (12.0-16.0); Mean Corp Hgb Conc. 31.2 g/dL (33.0-37.0); Mean Corpuscular Volume 91.3 fL (81.0-99.0); Nucleated Red Blood Cells % 0.7 %; Platelet Count 35 10^3/uL (130-400); Red Cell Dist. Width 19.7 % (11.5-14.5)
--- NOTE | 2024-11-27 09:32 | CM ---
CM following re: discharge planning.
Reviewed pt's chart, met with pt.
Pt is a 54 year old female, admitted with primary dx of Acute on Chronic Hyponatremia. PMH: chronic hyponatremia, hypothyroidism (secondary to total thyroidectomy for thyroid cancer), metastatic cholangiocarcinoma (followed with [facility] in
[place], [place]) with metastases to the peritoneum complicated by malignant ascites requiring weekly large-volume paracentesis, anemia and thrombocytopenia in the setting of cancer and chemotherapy, depression, anxiety, GERD and GI bleed history.
Pt reports she lives with and 3 children 2SH, 3 steps to enter. 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 No DME, VN or SNF history.
PCP: Uriel Yanes
Pharmacy: [facility]
D/C plan: home with anticipated no needs. to transport at discharge.
CM will follow with discharge plan updates as hospitalization progresses
[2024-11-27 09:45] LABS: Blood Urea Nitrogen 14 mg/dl (7-17); Calcium 8.3 mg/dl (8.4-10.2); Carbon Dioxide 27 mmol/L (22-30); Chloride 97 mmol/L (98-107); Estimated Creatinine Clearance 64 ml/min; Glucose 94 mg/dl (70-99); Potassium 4.8 mmol/L (3.5-5.1); Sodium 125 mmol/L (135-145); eGFR > 60.00
[2024-11-27 09:47] LABS: ALT (SGPT) 74 U/L (0-35); AST (SGOT) 63 U/L (14-36); Albumin 2.3 g/dl (3.5-5.0); Alkaline Phosphatase 587 U/L (38-126); Blood Urea Nitrogen 14 mg/dl (7-17); Calcium 8.3 mg/dl (8.4-10.2); Carbon Dioxide 26 mmol/L (22-30); Chloride 98 mmol/L (98-107); Estimated Creatinine Clearance 64 ml/min; Glucose 92 mg/dl (70-99); Magnesium 2.2 mg/dl (1.6-2.3); Potassium 4.9 mmol/L (3.5-5.1); Sodium 125 mmol/L (135-145); Total Protein 4.3 g/dl (6.3-8.2); eGFR > 60.00
[2024-11-27 11:54] LABS: Hematocrit 20.2 % (37.0-47.0); Hemoglobin 6.5 g/dL (12.0-16.0); Mean Corp Hgb Conc. 32.2 g/dL (33.0-37.0); Mean Corpuscular Volume 90.6 fL (81.0-99.0); Platelet Count 34 10^3/uL (130-400); Red Cell Dist. Width 19.9 % (11.5-14.5)
--- NOTE | 2024-11-27 12:17 | W.PN.NEPH.PH ---
Today's Communication / Plan
-
cont HTS wiht goal of sodium upto 128-130 by tonight
Assessment/Plan
-
Assessment
Hyponatremia
mild hyperkalemia
Anemia
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
Hypothyroidism, thyroid cancer status post surgery
Depression/Anxiety
Plan:
Hyponatremia-aute on chronic
likely multifactorial-possible prerenal and underlying SIADH with malignancy
U osmo high 646, U na <5, sodium decrease with NS hence now on HTS
sodium improving to 125 this morning
goal of correction 6-8meq/day
check cortisol, TSH was abnormal last visit, LT4 dosing per primary
maintain FR 40 ounces/day, encourage solute intake
BP are soft, may benefit from salt tab
likely need PRBC for anemia
d/w pt
She also on SSRI, if sodium difficult to manage may need to look for alternative
-
-
Date of Service: November 27, 2024
CC / HPI / ROS
-
Chief Complaint:
hyponatremia
History of Present Illness:
Na better at 125 with HTS 20cc/hr
BP stable
Hgb low 6.5, plt low 34
Review of Systems:
no CP/SOB
not out of bed yet, over all feels fine
Labs
-
Labs:
WBC 4.8 10^3/uL (4.8-10.8) 11/27/24 11:25
RBC 2.23 10^6/uL (4.20-5.40) L 11/27/24 11:25
Hgb 6.5 g/dL (12.0-16.0) L* 11/27/24 11:25
Hct 20.2 % (37.0-47.0) L* 11/27/24 11:25
Plt Count 34 10^3/uL (130-400) L 11/27/24 11:25
eGFR Cancelled 11/27/24 11:25
Albumin 2.3 g/dl (3.5-5.0) L 11/27/24 08:11
Physical Exam
-
Vital Signs:
Vital Signs
Temp Pulse Resp BP Pulse Ox
98.3 F 85 16 96/64 100
11/27/24 07:29 11/27/24 07:29 11/27/24 07:29 11/27/24 07:29 11/27/24 07:29
Cardiovascular:: Regular rate and rhythm
Respiratory:: Bilateral: CTA
Lung Excursion:: Normal
Abdomen:: Distended, Nontender and Soft
Bowel Sounds:: Normal
Extremity Edema:: None: Bilateral:
Mckeon Catheter: No
[2024-11-27 12:50] LABS: Blood Urea Nitrogen 14 mg/dl (7-17); Calcium 8.3 mg/dl (8.4-10.2); Carbon Dioxide 25 mmol/L (22-30); Chloride 97 mmol/L (98-107); Estimated Creatinine Clearance 64 ml/min; Glucose 94 mg/dl (70-99); Potassium 4.9 mmol/L (3.5-5.1); Sodium 123 mmol/L (135-145); eGFR > 60.00
[2024-11-27 14:44] LABS: Blood Urea Nitrogen 13 mg/dl (7-17); Calcium 8.2 mg/dl (8.4-10.2); Carbon Dioxide 26 mmol/L (22-30); Chloride 97 mmol/L (98-107); Estimated Creatinine Clearance 64 ml/min; Glucose 110 mg/dl (70-99); Potassium 5.0 mmol/L (3.5-5.1); Sodium 124 mmol/L (135-145); eGFR > 60.00
[2024-11-27 15:02] LABS: Cortisol, Random 20.3 ug/dl
[2024-11-27 19:15] LABS: Blood Urea Nitrogen 14 mg/dl (7-17); Calcium 8.1 mg/dl (8.4-10.2); Carbon Dioxide 25 mmol/L (22-30); Chloride 96 mmol/L (98-107); Estimated Creatinine Clearance 64 ml/min; Glucose 103 mg/dl (70-99); Potassium 5.0 mmol/L (3.5-5.1); Sodium 123 mmol/L (135-145); eGFR > 60.00
[2024-11-27] MEDS: LEXAPRO 10 MG PO (21:14)
[2024-11-27] MEDS: XANAX 0.125 MG PO (21:14)
[2024-11-27] MEDS: LASIX 20 MG PO (22:02)
[2024-11-27 22:37] LABS: Hematocrit 25.0 % (37.0-47.0); Hemoglobin 8.2 g/dL (12.0-16.0); Mean Corp Hgb Conc. 32.9 g/dL (33.0-37.0); Mean Corpuscular Volume 86.8 fL (81.0-99.0); Platelet Count 34 10^3/uL (130-400); Red Cell Dist. Width 20.0 % (11.5-14.5)
[2024-11-27 22:38] LABS: Blood Urea Nitrogen 14 mg/dl (7-17); Calcium 8.2 mg/dl (8.4-10.2); Carbon Dioxide 24 mmol/L (22-30); Chloride 98 mmol/L (98-107); Estimated Creatinine Clearance 64 ml/min; Glucose 106 mg/dl (70-99); Potassium 4.8 mmol/L (3.5-5.1); Sodium 123 mmol/L (135-145); eGFR > 60.00
[2024-11-28] VITALS (10 sets, daily range): BP systolic 79–130; BP diastolic 63–81
[2024-11-28] MEDS: MIRALAX 17 GRAMS PO (01:18)
[2024-11-28 04:05] LABS: Blood Urea Nitrogen 15 mg/dl (7-17); Calcium 8.1 mg/dl (8.4-10.2); Carbon Dioxide 23 mmol/L (22-30); Chloride 100 mmol/L (98-107); Estimated Creatinine Clearance 64 ml/min; Glucose 96 mg/dl (70-99); Potassium 4.7 mmol/L (3.5-5.1); Sodium 126 mmol/L (135-145); eGFR > 60.00
[2024-11-28] MEDS: SODIUM CHLORIDE 3% 250 IV (04:31)
[2024-11-28] MEDS: SYNTHROID 150 MCG PO (04:33)
--- NOTE | 2024-11-28 07:39 | W.PN.HOSP.TC ---
Today's Communication/Plan
-
Paracentesis today
Salt tablets -- watching for sodium improvement going into tomorrow
See plan
Assessment / Plan
Assessment / Plan
Physical Exam
General: No Apparent Distress
HEENT: NormoCephalic
Respiratory: Clear
Cardiac: S1/S2 and Regular Rhythm
GI: Soft, Non Tender and Normal Bowel Sounds
Musculoskeletal: No Cyanosis and No Edema
Skin: Warm and Dry
Neuro: Awake, Alert, AO x 3 and Nonfocal/grossly intact
Psych: Calm and Intact Judgment/Insight
Assessment/Plan
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
the peritoneum complicated by malignant ascites requiring weekly large-volume paracentesis, anemia and thrombocytopenia in the setting of cancer and chemotherapy, depression, anxiety, GERD and GI bleed history, presented to the emergency department
after labs showed significant hyponatremia. Patient said that her last chemotherapy was last Sunday and her diarrhea has persisted well beyond the 2 to 3 days it usually does after chemo, and now she has worsening hyponatremia on outpatient labs.
Her diarrhea has been loose and watery. She denied any fever or any other significant complaints except generalized fatigue.
Acute on Chronic Hyponatremia
-Based on results of hyponatremia studies, normal saline for 100 cc/hr for now
-Q4H BMP checks
-If sodium is dropping, then as per my communication with on-call mail sorting supervisor, switch IV fluids to Hypertonic Saline at 15 to 20 cc/hr
-Hypertonic saline previously given.
-Now salt tablets started.
Diarrhea, persistent, following chemo ~8 days prior to presentation
-Diarrhea stopped but then came back as loose stools
-Patient stated that diarrhea alternates with constipation for her
-C. diff negative, follow remaining stool studies
Hypothyroidism (secondary to total thyroidectomy for thyroid cancer)
-Continue home Levothyroxine
Metastatic Cholangiocarcinoma (followed with [facility] in [place], [place]) with metastases to the peritoneum complicated by malignant ascites requiring weekly large-volume paracentesis
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
Chronic chemotherapy last dose 11/18/24
Status post radiation left sacrum
Chronic elevated alk phos
Receives Neulasta injections
-IR paracentesis on 11/28/24 with 4000 mL of serosanguineous fluid removal
Chronic anemia and thrombocytopenia in the setting of cancer and chemotherapy
-Hgb dropped to 6.5 11/27/24, transfused 1 unit PRBC with good improvement in Hgb
-Continue to monitor CBC, and transfuse PRBCs to maintain Hgb
Depression
-Continue outpatient Lexapro
Anxiety
-Continue outpatient Xanax
GERD
GI bleed history
-Continue outpatient Pantoprazole
DVT Prophylaxis: SCDs only. No chemical prophylaxis given degree of thrombocytopenia.
Code Status: Full Code
Anticipated Discharge: Within 24 hours
Subjective/Interval History
-
Date of Service: November 28, 2024
Patient was seen and examined. Some nausea and indigestion with eating but denied any other symptoms or complaints.
Objective Data
-
Labs:
Laboratory Results
11/27/24 11/27/24 11/28/24
19:16 22:17 02:45
WBC 4.6 L
Hgb 8.2 L D
Hct 25.0 L
Plt Count 34 L
Sodium Cancelled 123 L 126 L
Potassium Cancelled 4.8 4.7
Chloride Cancelled 98 100
Carbon Dioxide Cancelled 24 23
BUN Cancelled 14 15
Creatinine Cancelled 0.7 0.7
Glucose Cancelled 106 H 96
Calcium Cancelled 8.2 L 8.1 L
11/28/24 11/28/24
06:00 06:45
WBC Pending
Hgb Pending
Hct Pending
Plt Count Pending
Sodium Pending
Potassium Pending
Chloride Pending
Carbon Dioxide Pending
BUN Pending
Creatinine Pending
Glucose Pending
Calcium Pending
Vital Signs:
Vital Signs
Temp Pulse Resp BP Pulse Ox
98.6 F 80 16 111/66 100
11/28/24 03:35 11/28/24 03:35 11/28/24 03:35 11/28/24 03:35 11/28/24 03:35
I&O
11/27/24 11/28/24 11/29/24
06:59 06:59 06:59
Intake Total 850 / 850 1490 / 1490
Balance 850 / 850 1490 / 1490
[2024-11-28] MEDS: PROTONIX 40 MG PO ×2 (08:11→20:26)
[2024-11-28 09:26] LABS: Hematocrit 25.2 % (37.0-47.0); Hemoglobin 8.1 g/dL (12.0-16.0); Mean Corp Hgb Conc. 32.1 g/dL (33.0-37.0); Mean Corpuscular Volume 88.4 fL (81.0-99.0); Nucleated Red Blood Cells % 0 %; Platelet Count 35 10^3/uL (130-400); Red Cell Dist. Width 20.6 % (11.5-14.5)
[2024-11-28 09:30] LABS: Blood Urea Nitrogen 13 mg/dl (7-17); Calcium 8.1 mg/dl (8.4-10.2); Carbon Dioxide 24 mmol/L (22-30); Chloride 100 mmol/L (98-107); Estimated Creatinine Clearance 64 ml/min; Glucose 110 mg/dl (70-99); Magnesium 1.9 mg/dl (1.6-2.3); Potassium 4.4 mmol/L (3.5-5.1); Sodium 126 mmol/L (135-145); eGFR > 60.00
[2024-11-28] MEDS: MAALOX 30 ML PO ×2 (11:37→18:42)
--- NOTE | 2024-11-28 13:42 | W.PN.NEPH.PH ---
Today's Communication / Plan
-
follow BMP
Assessment/Plan
-
Assessment
Hyponatremia
mild hyperkalemia
Anemia
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
Hypothyroidism, thyroid cancer status post surgery
Depression/Anxiety
Plan:
repeat BMP on 3%may benefit from samsca later
ask CM to check cooper of samsca
plan for lasix and salt tabs tomorrow
-
-
Date of Service: November 28, 2024
CC / HPI / ROS
-
Chief Complaint:
hyponatremia
History of Present Illness:
Na 126
Bp stable
Hgb up to 8.1
Review of Systems:
no CP/SOB
Labs
-
Labs:
WBC 4.5 10^3/uL (4.8-10.8) L 11/28/24 08:47
RBC 2.85 10^6/uL (4.20-5.40) L 11/28/24 08:47
Hgb 8.1 g/dL (12.0-16.0) L 11/28/24 08:47
Hct 25.2 % (37.0-47.0) L 11/28/24 08:47
Plt Count 35 10^3/uL (130-400) L 11/28/24 08:47
Sodium 126 mmol/L (135-145) L 11/28/24 08:47
Potassium 4.4 mmol/L (3.5-5.1) 11/28/24 08:47
Chloride 100 mmol/L (98-107) 11/28/24 08:47
Carbon Dioxide 24 mmol/L (22-30) 11/28/24 08:47
BUN 13 mg/dl (7-17) 11/28/24 08:47
Creatinine 0.7 mg/dL (0.6-1.0) 11/28/24 08:47
eGFR > 60.00 11/28/24 08:47
Glucose 110 mg/dl (70-99) H 11/28/24 08:47
Calcium 8.1 mg/dl (8.4-10.2) L 11/28/24 08:47
Albumin 2.3 g/dl (3.5-5.0) L 11/27/24 08:11
Physical Exam
-
Vital Signs:
Vital Signs
Temp Pulse Resp BP Pulse Ox
98.8 F 82 16 112/73 100
11/28/24 11:46 11/28/24 11:46 11/28/24 11:46 11/28/24 11:46 11/28/24 11:46
Cardiovascular:: Regular rate and rhythm
Respiratory:: Bilateral: CTA
Lung Excursion:: Normal
Abdomen:: Distended, Nontender and Soft
Bowel Sounds:: Normal
Extremity Edema:: None: Bilateral:
--- NOTE | 2024-11-28 14:37 | CM ---
CM following re: discharge planning.
Reviewed pt's chart, met with pt.
Per chart review, paracentesis today, continue supportive care
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
D/C plan: home with anticipated no needs. to transport at discharge.
CM will follow with discharge plan updates as hospitalization progresses
--- NOTE | 2024-11-28 14:48 | VATNOTE ---
Called to obtain labs. Pt. is off the floor in IR.
[2024-11-28 15:40] LABS: Blood Urea Nitrogen 13 mg/dl (7-17); Calcium 8.0 mg/dl (8.4-10.2); Carbon Dioxide 25 mmol/L (22-30); Chloride 100 mmol/L (98-107); Estimated Creatinine Clearance 64 ml/min; Glucose 115 mg/dl (70-99); Potassium 4.0 mmol/L (3.5-5.1); Sodium 126 mmol/L (135-145); eGFR > 60.00
[2024-11-28 16:11] LABS: Body Fluid Second Tech DW
[2024-11-28 18:56] LABS: Blood Urea Nitrogen 13 mg/dl (7-17); Calcium 7.9 mg/dl (8.4-10.2); Carbon Dioxide 25 mmol/L (22-30); Chloride 100 mmol/L (98-107); Estimated Creatinine Clearance 64 ml/min; Glucose 104 mg/dl (70-99); Potassium 4.2 mmol/L (3.5-5.1); Sodium 125 mmol/L (135-145); eGFR > 60.00
[2024-11-28] MEDS: XANAX 0.125 MG PO (21:44)
[2024-11-28] MEDS: SAMSCA 30 MG PO (21:47)
[2024-11-28] MEDS: LEXAPRO 10 MG PO (21:47)
[2024-11-29 03:03] VITALS: BP 98/60
[2024-11-29 04:45] LABS: Hematocrit 25.5 % (37.0-47.0); Hemoglobin 8.4 g/dL (12.0-16.0); Mean Corp Hgb Conc. 32.9 g/dL (33.0-37.0); Mean Corpuscular Volume 89.5 fL (81.0-99.0); Nucleated Red Blood Cells % 0.8 %; Platelet Count 39 10^3/uL (130-400); Red Cell Dist. Width 20.2 % (11.5-14.5)
[2024-11-29 05:03] LABS: Blood Urea Nitrogen 12 mg/dl (7-17); Calcium 7.9 mg/dl (8.4-10.2); Carbon Dioxide 24 mmol/L (22-30); Chloride 104 mmol/L (98-107); Estimated Creatinine Clearance 64 ml/min; Glucose 101 mg/dl (70-99); Magnesium 2.1 mg/dl (1.6-2.3); Potassium 4.7 mmol/L (3.5-5.1); Sodium 129 mmol/L (135-145); eGFR > 60.00
[2024-11-29] MEDS: SYNTHROID 150 MCG PO (05:06)
[2024-11-29 07:01] VITALS: BP 98/62
--- NOTE | 2024-11-29 07:26 | W.PN.HOSP.TC ---
Addendum entered and electronically signed by Jeff Sutherland MD 12/01/24 14:39:
Severe protein calorie malnutrition
Original Note:
Today's Communication/Plan
-
Discharge today
Assessment / Plan
Assessment / Plan
Physical Exam
General: No Apparent Distress
HEENT: NormoCephalic
Respiratory: Clear
Cardiac: S1/S2 and Regular Rhythm
GI: Soft, Non Tender and Normal Bowel Sounds
Musculoskeletal: No Cyanosis and No Edema
Skin: Warm and Dry
Neuro: Awake, Alert, AO x 3 and Nonfocal/grossly intact
Psych: Calm and Intact Judgment/Insight
Assessment/Plan
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 in [place], [place]) with metastases to
the peritoneum complicated by malignant ascites requiring weekly large-volume paracentesis, anemia and thrombocytopenia in the setting of cancer and chemotherapy, depression, anxiety, GERD and GI bleed history, presented to the emergency department
after labs showed significant hyponatremia. Patient said that her last chemotherapy was last Sunday and her diarrhea has persisted well beyond the 2 to 3 days it usually does after chemo, and now she has worsening hyponatremia on outpatient labs.
Her diarrhea has been loose and watery. She denied any fever or any other significant complaints except generalized fatigue.
Acute on Chronic Hyponatremia
-Hypertonic saline previously given.
-I communicated with vegetable vendor Dr. Greenberg today, and I confirmed that patient's discharge medication regimen for hyponatremia should include Lasix 20 mg PO daily and Sodium Chloride 0.5 gram PO BID
Diarrhea, persistent, following chemo ~8 days prior to presentation -- IMPROVED
-Diarrhea stopped but then came back as loose stools
-Patient stated that diarrhea alternates with constipation for her
-C. diff negative, follow remaining stool studies
Premature Supraventricular Complexes
-Outpatient follow-up
Hypothyroidism (secondary to total thyroidectomy for thyroid cancer)
-Continue home Levothyroxine
Metastatic Cholangiocarcinoma (followed with [facility] in [place], [place]) with metastases to the peritoneum complicated by malignant ascites requiring weekly large-volume paracentesis
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
Chronic chemotherapy last dose 11/18/24
Status post radiation left sacrum
Chronic elevated alk phos
Receives Neulasta injections
-IR paracentesis on 11/28/24 with 4000 mL of serosanguineous fluid removal
Chronic anemia and thrombocytopenia in the setting of cancer and chemotherapy
-Hgb dropped to 6.5 11/27/24, transfused 1 unit PRBC with good improvement in Hgb
-Continue to monitor CBC, and transfuse PRBCs to maintain Hgb
Depression
-Continue outpatient Lexapro
Anxiety
-Continue outpatient Xanax
GERD
GI bleed history
-Continue outpatient Pantoprazole
DVT Prophylaxis: SCDs only. No chemical prophylaxis given degree of thrombocytopenia.
Code Status: Full Code
More than 30 minutes spent in discharge including
Final examination of the patient
Summarizing hospital stay
Instructions for continuing care to all relevant caregivers
Preparation of discharge records, prescriptions, and referral forms
Total time spent (in minutes): 35
Anticipated Discharge: Today
Subjective/Interval History
-
Date of Service: November 29, 2024
Patient was seen and examined. She denied any new significant complaints or symptoms, had an unremarkable bowel movement overnight.
Objective Data
-
Labs:
Laboratory Results
11/29/24
04:35
WBC 3.8 L
Hgb 8.4 L
Hct 25.5 L
Plt Count 39 L
Sodium 129 L
Potassium 4.7
Chloride 104
Carbon Dioxide 24
BUN 12
Creatinine 0.7
Glucose 101 H
Calcium 7.9 L
Vital Signs:
Vital Signs
Temp Pulse Resp BP Pulse Ox
98.5 F 85 16 98/60 97
11/29/24 03:03 11/29/24 03:03 11/29/24 03:03 11/29/24 03:03 11/29/24 03:03
I&O
11/28/24 11/29/24 11/30/24
06:59 06:59 06:59
Intake Total 1490 / 1490 1010 / 1010
Balance 1490 / 1490 1010 / 1010
[2024-11-29] MEDS: PROTONIX 40 MG PO (08:40)
[2024-11-29] MEDS: SODIUM CHLORIDE 0.5 GRAM PO (08:40)
[2024-11-29] MEDS: LASIX 20 MG PO (08:53)
[2024-11-29 11:08] VITALS: BP 97/64
[2024-11-29] MEDS: SAMSCA 30 MG PO (11:50)
--- NOTE | 2024-11-29 14:52 | W.PN.NEPH.PH ---
Today's Communication / Plan
-
dc
Assessment/Plan
-
Assessment
Hyponatremia
mild hyperkalemia
Anemia
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
Hypothyroidism, thyroid cancer status post surgery
Depression/Anxiety
Plan:
samsca today
d/c on salt 0.5mg bid and lasix 20mg daily
BMP next week out office will order
has OP f/u 12/09
-
-
Date of Service: November 29, 2024
CC / HPI / ROS
-
Chief Complaint:
hyponatremia
History of Present Illness:
Na up to 129 with samsca
Bp stable
Hgb up to 8.4
Review of Systems:
no CP/SOB
Labs
-
Labs:
WBC 3.8 10^3/uL (4.8-10.8) L 11/29/24 04:35
RBC 2.85 10^6/uL (4.20-5.40) L 11/29/24 04:35
Hgb 8.4 g/dL (12.0-16.0) L 11/29/24 04:35
Hct 25.5 % (37.0-47.0) L 11/29/24 04:35
Plt Count 39 10^3/uL (130-400) L 11/29/24 04:35
Sodium 129 mmol/L (135-145) L 11/29/24 04:35
Potassium 4.7 mmol/L (3.5-5.1) 11/29/24 04:35
Chloride 104 mmol/L (98-107) 11/29/24 04:35
Carbon Dioxide 24 mmol/L (22-30) 11/29/24 04:35
BUN 12 mg/dl (7-17) 11/29/24 04:35
Creatinine 0.7 mg/dL (0.6-1.0) 11/29/24 04:35
eGFR > 60.00 11/29/24 04:35
Glucose 101 mg/dl (70-99) H 11/29/24 04:35
Calcium 7.9 mg/dl (8.4-10.2) L 11/29/24 04:35
Albumin 2.3 g/dl (3.5-5.0) L 11/27/24 08:11
Physical Exam
-
Vital Signs:
Vital Signs
Temp Pulse Resp BP Pulse Ox
98.9 F 84 16 97/64 99
11/29/24 11:08 11/29/24 11:08 11/29/24 11:08 11/29/24 11:08 11/29/24 11:08
Cardiovascular:: Regular rate and rhythm
Respiratory:: Bilateral: CTA
Lung Excursion:: Normal
Abdomen:: Distended, Nontender and Soft
Bowel Sounds:: Normal
Extremity Edema:: None: Bilateral:
[2024-11-29 15:19] VITALS: BP 102/65
--- NOTE | 2024-11-29 16:09 | W.DCSUMMARY ---
Discharge Summary
Discharge Data
Date of Admission: 11/26/24
Date of Discharge: 11/29/24
Total time spent discharging patient (in min): 35
-
Pending Results: No
Hospital Course
54-year-old female with past medical history significant for chronic hyponatremia, hypothyroidism (secondary to total thyroidectomy for thyroid cancer), metastatic cholangiocarcinoma (followed with [facility] in [place], [place]) with
metastases to the peritoneum complicated by malignant ascites requiring weekly large-volume paracentesis, anemia and thrombocytopenia in the setting of cancer and chemotherapy, depression, anxiety, GERD and gastrointestinal bleeding history,
presented to the emergency department after labs showed significant hyponatremia. Patient said that her last chemotherapy was about a week prior, and her diarrhea has persisted well beyond the 2 to 3 days it usually does after chemo, and now she was
having worsening hyponatremia on outpatient labs. Her diarrhea had been loose and watery. She denied any fever or any other significant complaints except generalized fatigue. Patient was initially started on normal saline intravenous fluids but this
was later changed to 3% saline IV fluids. Patient also received Samsca to help improve her sodium Her sodium levels improved, and eventually she was placed on salt tablets and Lasix. Nephrology was consulted. Patient's diarrhea improved. Patient had
paracentesis during this hospitalization, and 4000 cc of peritoneal fluid was removed. She was doing better and stable for discharge, with close outpatient follow-up.
Discharge Plan
-
Patient Disposition: Home (Routine Discharge)
Discharge Diagnosis/Procedures: Acute on Chronic Hyponatremia
Diarrhea, persistent, following chemo ~8 days prior to presentation -- IMPROVED
Premature Supraventricular Complexes
Hypothyroidism (secondary to total thyroidectomy for thyroid cancer)
Metastatic Cholangiocarcinoma (followed with [facility] in [place], [place]) with metastases to the peritoneum complicated by malignant ascites requiring weekly large-volume paracentesis
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
Chronic chemotherapy
Status post radiation left sacrum
Chronic elevated alk phos
Chronic anemia and thrombocytopenia in the setting of cancer and chemotherapy
Depression
Anxiety
GERD
History of Gastrointestinal bleeding
Condition: Good
Diet: Other diet
Additional Diets: Daily oral fluid restriction of 40 ounces daily
Activity: As tolerated
Blood Work: CBC, CMP and Serum Albumin with your primary care provider in 3 to 4 days
Referrals:
Uriel Yanes MD [Family Provider, [facility]] - in less than 1 week
Referral Note: Hospitalization Follow-Up
Additional Discharge Medication Instructions: You may need to get refills of Furosemide and Sodium Chloride Tablets from [place] Dr. Desean Greenberg's office
Prescriptions:
New
furosemide 20 mg Tablet
20 mg PO DAILY Qty: 30 0RF
sodium chloride 1,000 mg Tablet,Soluble
500 mg PO BID Qty: 30 1RF
Continued
ondansetron HCl 8 mg Tablet
8 mg PO Q8HPRN PRN (Reason: nausea)
pantoprazole 40 mg Tablet,Delayed Release (Dr/Ec)
40 mg PO BID Qty: 60 0RF
alprazolam [Xanax] 0.25 mg Tablet
0.125 mg PO HS
Patient Comments:
11/26/24-earlier pdmp filled 09/26/2022 #30
levothyroxine [Synthroid] 150 mcg Tablet
150 mcg PO DAILY
escitalopram oxalate [Lexapro] 10 mg Tablet
10 mg PO HS
Discharge Orders:
Discharge Patient (As Directed); Ordered 11/29/24
Ordered By: Jeff Sutherland
Discharge Date and Time
Discharge Date/Time: 11/29/24 18:30
Print Language: DJIBOUTIAN
--- NOTE | 2024-12-01 07:33 | PN.CDI ---
CDI
- -
CDI:
Physician Documentation Request
Admit Date: 11/26/24 18:06
Dear Doctor Ena,
Please review the following and provide your response in the progress notes.
Clinical Indicators:
- 11/27 Global Lead note indicates severe protein calorie malnutrition
- Unintentional weight loss >5% in 1 month
- Nutrient intake </= 75% estimated energy needs, >/= 1 month
- Moderate subcutaneous loss over orbital
- Severe muscle loss over buccal, temporal
Based on the above information and your assessment, which of the following most accurately represents the patient's nutritional status?
Severe protein calorie malnutrition
Other (please specify)
Angela Criteria ([facility] Hospitalist 2017)
2 or more criteria must be present for either
non severe or severe malnutrition
Note that the criteria differs related to the
presence of an acute or chronic illness
Acute Illness Chronic Illness
Energy Intake Non Severe: <75% for >7 days Non Severe: <75% for >1 month
Severe: <50% for >5 days Severe: <75% for >1 month
Weight Loss Non Severe: 1-2% over 1 week Non Severe: 5% over 1 month
5% over 1 month 7.5% over 3 months
7.5% over 3 months 10% over 6 months
1 year N/A 20% over 1 year
Severe: >2% over 1 week Severe: >5% over 1 month
>5% over 1 month >7.5% over 3 months
>7.5% over 3 months >10% over 6 months
1 year N/A >20% over 1 year
Body Fat Non Severe: Mild Decrease Non Severe: Mild Loss
Severe: Moderate Decrease Severe: Severe Loss
Muscle Mass Non Severe: Mild Decrease Non Severe: Mild Loss
Severe: Moderate Decrease Severe: Severe Loss
Fluid Accumulation Non Severe: Mild Accumulation Non Severe: Mild Accumulation
Severe: Moderate to severe Severe: Moderate to severe
accumulation accumulation
Reduced Ediphone Operator Strength Non Severe: N/A Non Severe: N/A
Severe: Measurably reduced Severe: Measurably reduced
Additional criteria that can be used to Determine if Mild or Moderate Malnutrition ([employer]ck Manual 2018)
Mild Moderate Severe
Albumin gm/dl <3.0 gm/dl <2.5 gm/dl <2.0 gm/dl
Pre Albumin mg/dl <15 gm/dl <10 mg/dl <5.0 mg/dl
BMI <18.5 <17 <16
Use of terms such as suspected, likely, concern for, or probable (associated with a specific diagnosis that is being evaluated, monitored, or treated as if it exists) are acceptable and can be coded in the inpatient setting, when documented at the
time of discharge.
Thank you,
Ronit Live RN
CDI Specialist
Please use your independent medical judgment in providing your response.
== END 2024-11-29 18:30 | disposition home or self-care (01) | DRG 643 ==
LOC: 2 NORTH 18:06
PROVIDERS: Emergency Medicine; Physician Assistant Medical; Radiology Vascular & Interventional Radiology; Specialist; ADMITTING PHYSICIAN Hospitalist; CONSULT PHYSICIAN Internal Medicine; EMERGENCY PHYSICIAN Emergency Medicine; FAMILY PHYSICIAN Family Medicine
PROC: 30243N1 Transfusion of Nonautologous Red Blood Cells into Central Vein, Percutaneous Approach (ICD-10-PCS; 2024-11-27)
PROC: 0W9G3ZZ Drainage of Peritoneal Cavity, Percutaneous Approach (ICD-10-PCS; 2024-11-28)
DX: E22.2 Syndrome of inappropriate secretion of antidiuretic hormone (principal); E43 Unspecified severe protein-calorie malnutrition; C22.1 Intrahepatic bile duct carcinoma; C78.6 Secondary malignant neoplasm of retroperitoneum and peritoneum; C79.51 Secondary malignant neoplasm of bone; R18.0 Malignant ascites; I47.10 Supraventricular tachycardia, unspecified; Z68.1 Body mass index [BMI] 19.9 or less, adult; D64.81 Anemia due to antineoplastic chemotherapy; Z85.850 Personal history of malignant neoplasm of thyroid; E89.0 Postprocedural hypothyroidism; F32.A Depression, unspecified; F41.9 Anxiety disorder, unspecified; K21.9 Gastro-esophageal reflux disease without esophagitis; E87.5 Hyperkalemia; R19.7 Diarrhea, unspecified; R74.8 Abnormal levels of other serum enzymes; D69.59 Other secondary thrombocytopenia; T45.1X5A Adverse effect of antineoplastic and immunosuppressive drugs, initial encounter; Z92.3 Personal history of irradiation; Z79.899 Other long term (current) drug therapy; Z79.890 Hormone replacement therapy
CPT/HCPCS: 49083; 80048; 80053; 81003; 81015; 82533; 83735; 83930; 83935; 84300; 85025; 85027; 86850; 86900; 86901; 86920; 87045; 87046; 87077; 87086; 87088; 87186; 87324; 87427; 87449; 89051; 89055; 93005; 99285; P9016

== ENCOUNTER → 2024-12-05 12:15 | Outpatient (REF) | payer BC, SELFPAY ==
[2024-12-05 12:58] VITALS: BP 107/70; BP_SYST 100
[2024-12-05] MEDS: ANCEF 10 IV (13:27)
[2024-12-05] MEDS: ATIVAN 0.5 MG PO (13:30)
[2024-12-05 15:40] VITALS: BP 110/76
== END ==
LOC: RADI 12:15
PROVIDERS: ATTENDING PHYSICIAN Internal Medicine Medical Oncology; FAMILY PHYSICIAN Family Medicine
DX: R18.8 Other ascites (principal); C22.1 Intrahepatic bile duct carcinoma
CPT/HCPCS: 32550; 49418; 99152; 99153; C1729; C1769

== ENCOUNTER 2024-12-08 21:19 | Inpatient (IN) | payer BC, SELFPAY ==
[2024-12-08 17:51] VITALS: BP 103/70; BMI 18.3
--- NOTE | 2024-12-08 17:51 | EDRN ---
IV team has been paged to access the pts [facility] SQ Port
[2024-12-08 18:34] LABS: Hematocrit 22.2 % (37.0-47.0); Hemoglobin 7.0 g/dL (12.0-16.0); Mean Corp Hgb Conc. 31.5 g/dL (33.0-37.0); Mean Corpuscular Volume 90.6 fL (81.0-99.0); Platelet Count 10 10^3/uL (130-400); Red Cell Dist. Width 20.4 % (11.5-14.5)
--- NOTE | 2024-12-08 18:39 | ED.GENMED ---
History of Present Illness
<Amando Valentin MD, Resident - Last Filed: 12/08/24 19:39>
General
Chief Complaint: Dizziness
Time Seen by Provider: 12/08/24 18:14
History of Present Illness
History of Present Illness:
Patient is a 54-year-old female with PMH of metastatic cholangiocarcinoma s/p radiation and currently on chemotherapy, anemia, thrombocytopenia, and hyponatremia who presented to the [facility] ED for dizziness. Since yesterday, patient has experienced
dizziness with sitting or standing. Patient also endorses chest palpitations, chest tightness, nausea, and dyspnea on exertion (takes patient 30 minutes to walk up flight of steps). Patient has required numerous blood transfusions for anemia
related to her chemotherapy. She has also required numerous paracenteses, which prompted placement of the peritoneal catheter last Sunday. Patient's most recent round of chemotherapy was last Sunday, at which time she had an Hgb of 8.2. Per
patient, her oncologist keeps her Hgb above 8.0. Patient is on her fourth different chemotherapy regimen. Patient states she has a history of GI bleed 2/2 radiation. Denies fever, chills, cough, wheezing, recent illness, vomiting, bleeding, or
easy bruising.
Past History
<Amando Valentin MD, Resident - Last Filed: 12/08/24 19:39>
Past History
ED Past Medical History: Cancer (Metastatic cholangiocarcinoma, thyroid cancer), Hypothyroidism, Psychiatric and Other (Chronic anemia)
ED Past Surgical History: and Other (thyroid sx, serial paracentesis)
Patient has exhibited threatening behavior?: No
Social History
Tobacco: Non-smoker
Alcohol: None
Drug: None
Personal:
Living: with family
Family History
Family History: Other (Noncontributory)
Review of Systems
<Amando Valentin MD, Resident - Last Filed: 12/08/24 19:39>
Review of Systems
Constitutional: Reports fatigue; Denies fever or chills
Respiratory: Reports other (Dyspnea on exertion); Denies cough or hemoptysis
Cardiac: Reports palpitations
ABD/GI: Reports nausea and diarrhea; Denies vomiting or bloody stools
: Denies bleeding
Musculoskeletal: Denies edema
Hematologic/Lymphatic: Denies bleeding or bruising
Phy Exam
<Amando Valentin MD, Resident - Last Filed: 12/08/24 19:39>
Physical Exam
Physical Exam:
General: Appears chronically ill. No acute distress. Conversant.
CV: Mildly tachycardic (100s). S1, S2 noted. No M/R/G. No lower extremity edema.
Pulm: CTAB. No crackles or wheezing.
GI: Soft, distended, mildly TTP. PD catheter in place, no surrounding erythema.
Heme: No jaundice, bruises, or petechiae.
Neuro: A&O x 3. No focal deficits. CN II through XII grossly intact.
Course
<Amando Valentin MD, Resident - Last Filed: 12/08/24 19:39>
Orders/Labs/Results
Orders:
Orders
12/08/24 17:50
EKG [Electrocardiogram (*1)] Urgent
Reason for Study: Vertigo / Dizzy
EKG- Treatment ONCE
12/08/24 18:09
Complete Blood Count/With Diff Urgent
Comprehensive Metabolic Panel Urgent
Magnesium Urgent
Serum Osmolality Urgent
Comment: ADD ON
12/08/24 18:36
CR Chest - 2 Views Urgent
Comment:
Reason For Exam: SOB
12/08/24 19:02
Add On- LAB Urgent
Tests Added?: serum osmolality
12/08/24 19:22
* Blood Bank Products Urgent
Blood Bank Products: *Packed RBC Leuko (PRBC's
Quantity: 1
Transfuse Today: Yes
Reason: Anemia
12/08/24 19:36
Type And Crossmatch [Type+Screen] Urgent
12/08/24 20:00
3% Sodium Chloride 250 ml [Sodium Chloride 3%] 250 ml IV ONCE
Abnormal Lab Results
12/08/24
18:09
RBC 2.45 L 10^6/uL
(4.20-5.40)
Hgb 7.0 L g/dL
(12.0-16.0)
Hct 22.2 L %
(37.0-47.0)
MCHC 31.5 L g/dL
(33.0-37.0)
RDW 20.4 H %
(11.5-14.5)
Plt Count 10 L* 10^3/uL
(130-400)
Sodium 118 L* mmol/L
(135-145)
Chloride 92 L mmol/L
(98-107)
Serum Osmolality 257 L mOsm/kg
(275-300)
Calcium 7.4 L mg/dl
(8.4-10.2)
Total Bilirubin 1.9 H mg/dl
(0.2-1.3)
AST 330 H U/L
(14-36)
ALT 123 H U/L
(0-35)
Alkaline Phosphatase 904 H U/L
(38-126)
Total Protein 3.9 L g/dl
(6.3-8.2)
Albumin 1.9 L g/dl
(3.5-5.0)
12/08/24 18:09
12/08/24 18:09
Vital Signs
Initial and Last Documented VS:
Initial Vital Signs
Temp Pulse Resp BP Pulse Ox
98.8 F 94 16 103/70 100
12/08/24 17:51 10/20/25 17:51 12/08/24 17:51 12/08/24 17:51 12/08/24 17:51
Last Documented Vital Signs
Temp Pulse Resp BP Pulse Ox
98.8 F 93 16 103/70 100
12/08/24 17:51 12/08/24 18:00 12/08/24 17:51 12/08/24 17:51 12/08/24 18:46
<Leidysay Escobar, DO - Last Filed: 12/08/24 19:56>
Orders/Labs/Results
Orders:
Orders
12/08/24 17:50
EKG [Electrocardiogram (*1)] Urgent
Reason for Study: Vertigo / Dizzy
EKG- Treatment ONCE
12/08/24 18:09
Complete Blood Count/With Diff Urgent
Comprehensive Metabolic Panel Urgent
Magnesium Urgent
Serum Osmolality Urgent
Comment: ADD ON
12/08/24 18:36
CR Chest - 2 Views Urgent
Comment:
Reason For Exam: SOB
12/08/24 19:02
Add On- LAB Urgent
Tests Added?: serum osmolality
12/08/24 19:22
* Blood Bank Products Urgent
Blood Bank Products: *Packed RBC Leuko (PRBC's
Quantity: 1
Transfuse Today: Yes
Reason: Anemia
12/08/24 19:36
Type And Crossmatch [Type+Screen] Urgent
12/08/24 20:00
3% Sodium Chloride 250 ml [Sodium Chloride 3%] 250 ml IV ONCE
Abnormal Lab Results
12/08/24
18:09
RBC 2.45 L 10^6/uL
(4.20-5.40)
Hgb 7.0 L g/dL
(12.0-16.0)
Hct 22.2 L %
(37.0-47.0)
MCHC 31.5 L g/dL
(33.0-37.0)
RDW 20.4 H %
(11.5-14.5)
Plt Count 10 L* 10^3/uL
(130-400)
Sodium 118 L* mmol/L
(135-145)
Chloride 92 L mmol/L
(98-107)
Serum Osmolality 257 L mOsm/kg
(275-300)
Calcium 7.4 L mg/dl
(8.4-10.2)
Total Bilirubin 1.9 H mg/dl
(0.2-1.3)
AST 330 H U/L
(14-36)
ALT 123 H U/L
(0-35)
Alkaline Phosphatase 904 H U/L
(38-126)
Total Protein 3.9 L g/dl
(6.3-8.2)
Albumin 1.9 L g/dl
(3.5-5.0)
12/08/24 18:09
12/08/24 18:09
Vital Signs
Initial and Last Documented VS:
Initial Vital Signs
Temp Pulse Resp BP Pulse Ox
98.8 F 94 16 103/70 100
12/08/24 17:51 12/08/24 17:51 12/08/24 17:51 12/08/24 17:51 12/08/24 17:51
Last Documented Vital Signs
Temp Pulse Resp BP Pulse Ox
98.8 F 93 16 103/70 100
12/08/24 17:51 12/08/24 18:00 12/08/24 17:51 12/08/24 17:51 12/08/24 18:46
<Amando Valentin MD, Resident - Last Filed: 12/08/24 19:39>
MDM/Problems Addressed
Differential Diagnosis Includes:
Hyponatremia
Anemia
Thrombocytopenia
MDM/Problems Addressed:
Assessment:
#Hyponatremia
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
Patient also has malignant ascites with a PD catheter, which is likely contributing to her hyponatremia
#Anemia
Suspected acute on chronic anemia 2/2 chemotherapy and chronic disease
Hgb 7.0, decreased from Hgb 8.2 at time of last chemotherapy 12/02 (per patient)
#Thrombocytopenia
Suspected acute on chronic thrombocytopenia 2/2 chemotherapy
Plt 10, decreased from 39 on 11/29
No current signs of bleeding or easy bruising
Plan:
Labs: CBC, CMP, mg
Imaging: Chest x-ray
Other: EKG
Nephrology consulted
Per nephro, hypertonic (3%) saline
1 unit PRBCs ordered, pending
Transfuse Hgb <8.0
Transfuse plt <10, or plt <50 if bleeding present
Chronic conditions affecting care: Cancer (Metastatic cholangiocarcinoma s/p radiation and currently on chemotherapy)
<Amando Valentin MD, Resident - Last Filed: 12/08/24 19:39>
*Pulse Oximetry
SaO2: 100
Oxygen Mode of Delivery: Room air
Patient hypoxic: no
*Critical Care Note
Total Time (30-74mins, 75-104mins- exclusive of procedures): Not Applicable
<Leidy Escobar DO - Last Filed: 12/08/24 19:56>
*EKG
Interpreted by ED Provider?: Yes
EKG Intrepretation Date: 12/08/24
EKG Intrepretation Time: 19:53
Interpretation: normal
Heart Rate: 92
Rate: normal
Rhythm: sinus
[place]: normal axis
Interval: normal interval
QRS Pattern: normal QRS
Ischemia: no ischemia
*Critical Care Note
Total Time (30-74mins, 75-104mins- exclusive of procedures): 37
comment:
The high probability of a clinically significant, sudden or life threatening deterioration of the metabolic system(s) required my full and direct attention, intervention and personal management. The aggregate critical care time was 37 minutes. This
time is in addition to time spent performing reported procedures but includes the following:
[x] Data Review and interpretation
[x] Patient assessment and monitoring of vital signs
[x] Documentation
[x] Medication orders and management
ED Attending Note
<Amando Valentin MD, Resident - Last Filed: 12/08/24 19:39>
-
Portions of this chart may have been created with voice recognition software.� Occasional wrong word or��sound alike� substitutions may have occurred due to the inherent limitations of voice recognition software.
<Leidy Escobar DO - Last Filed: 12/08/24 19:56>
ED Attending Note
Patient seen and examined by attending physician: Yes
I performed the substantive portion of visit, reviewed & personally made and approve the management plan that is documented in note by myself or MATTIE.: Yes
I performed a history and physical exam of patient and discussed management with resident, I reviewed resident's note and agree with documented findings and plan of care.: Yes
ED Attending Note:
54-year-old female with history of metastatic cholangiocarcinoma, following at [facility], presenting to the emergency department for dizziness and lightheadedness. Patient reports symptoms started yesterday, worsened by any type of exertion
or standing up. Notes that she has had dizziness in the past, however this is worse than typical. Last chemotherapy was about a week ago. 3 days ago she had a peritoneal catheter placed due to abdominal ascites. She had been getting about 3-1/2
to 5 L removed every week, and now is getting about a liter removed every other day. She had a liter removed yesterday by her nurse. She notes that she got the catheter in hopes of reducing episodes of hyponatremia. Patient was last admitted at
to the hospital at the beginning of the month for hyponatremia, which time her sodium was about 125. Patient was also anemic at 6.5, requiring blood transfusion. She notes that her oncologist wants her hemoglobin above 8. Denies fever or chest
pain. Does note some palpitations. Vital signs on arrival are normal.
On exam, patient resting comfortably, no acute distress. Unremarkable cardiac and pulmonary exam with mild tachycardia. Mild abdominal distention which patient reports is chronic, no significant tenderness to palpation. Differential
considerations include symptomatic hyponatremia and symptomatic anemia, given prior history. Plan for laboratory analysis. EKG obtained, nonischemic, no arrhythmia.
19:50 - Labs show severe hyponatremia of 118 which I suspect is contributing to patient's symptoms. On review of prior nephrology notes, during recent hospitalization patient was administered hypertonic saline for suspicion of component of SIADH
from her metastatic disease. Did again discuss case with nephrology, recommends hypertonic saline at 20 cc an hour. Hemoglobin is 7, which is a drop. She notes that her hemoglobin was 8.2 1-week ago. Will transfuse. Platelets have also dropped
at 10. Possibly secondary to recent chemotherapy. Patient denies any bleeding. No hemodynamic instability. Will hold platelet transfusion. Plan for admission for symptomatic
Discharge Plan
Departure
Prescriptions:
No Action
ondansetron HCl 8 mg Tablet
8 mg PO Q8HPRN PRN (Reason: nausea)
pantoprazole 40 mg Tablet,Delayed Release (Dr/Ec)
40 mg PO BID Qty: 60 0RF
alprazolam [Xanax] 0.25 mg Tablet
0.125 mg PO HS
Patient Comments:
11/26/24-earlier pdmp filled 09/26/2022 #30
levothyroxine [Synthroid] 150 mcg Tablet
150 mcg PO DAILY
escitalopram oxalate [Lexapro] 10 mg Tablet
10 mg PO HS
furosemide 20 mg Tablet
20 mg PO DAILY Qty: 30 0RF
sodium chloride 1,000 mg Tablet,Soluble
500 mg PO BID Qty: 30 1RF
Referrals:
Uriel Yanse MD [Family Provider, Family Practice]
Interventions
Interventions:
*Risk Screen - Suicide Last Done: 12/08/24 17:51
*General Assessment Last Done: 12/08/24 17:51
*Neglect/Abuse Screening Last Done: 12/08/24 17:51
*ED- Fall Risk Assessment Last Done: 12/08/24 17:51
*ED COVID-19 Vaccine History Last Done: 12/08/24 17:51
*ED Influenza Vaccine History Last Done: 12/08/24 17:51
ED- Neurological Assessment Last Done: 12/08/24 17:51
ED- Cardiac Assessment Last Done: 12/08/24 17:51
ED Swallowing Screen Last Done: 12/08/24 17:51
Discharge Date and Time
Print Language: PERSIAN
[2024-12-08 18:50] LABS: ALT (SGPT) 123 U/L (0-35); AST (SGOT) 330 U/L (14-36); Albumin 1.9 g/dl (3.5-5.0); Alkaline Phosphatase 904 U/L (38-126); Blood Urea Nitrogen 13 mg/dl (7-17); Calcium 7.4 mg/dl (8.4-10.2); Carbon Dioxide 24 mmol/L (22-30); Chloride 92 mmol/L (98-107); Estimated Creatinine Clearance 63 ml/min; Glucose 75 mg/dl (70-99); Magnesium 1.9 mg/dl (1.6-2.3); Potassium 4.3 mmol/L (3.5-5.1); Sodium 118 mmol/L (135-145); Total Protein 3.9 g/dl (6.3-8.2); eGFR > 60.00
[2024-12-08] MEDS: SODIUM CHLORIDE 3% 250 IV (19:45)
[2024-12-08 20:17] LABS: Anisocytosis 2+; Hypochromasia 1+; Macrocytosis 2+; Normal RBC Morphology No; Nucleated Red Blood Cells % 0.5 %; Spherocytes 1+; Stomatocytes 1+; Target Cells Occasional
--- NOTE | 2024-12-08 20:37 | HPS.HSE ---
Addendum entered and electronically signed by Louise Ram MD 12/08/24 23:24:
1 unit platelets ordered.
Original Note:
Family Physician
-
Family Physician: Uriel Yanes
Chief Complaint
-
dizziness
History of Present Illness
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
secondary to angiectasia/PUD, thyroid cancer status post thyroidectomy, hypothyroidism, anxiety/depression, MSSA bacteremia, chemotherapy-induced pancytopenia, hyponatremia presenting to emergency room for dizziness and near syncope starting
yesterday. Since yesterday she has been experiencing dizziness with sitting or standing. She also has chest palpitations, chest tightness nausea and shortness of breath with exertion. She denies fevers or chills, vomiting, bleeding in the stool
or black stool.
Patient typically has diarrhea in the days after chemotherapy but denies any diarrhea currently. Last bowel movement 2 days ago.
She recently received chemotherapy last week at which time she had hemoglobin of 8.2.
She was recently hospitalized for hyponatremia. She received hypertonic saline and Samsca and was eventually placed on salt tablets and Lasix. She follows 48 ounce fluid restriction
She recently had peritoneal catheter placed for weekly paracentesis placed 3 days ago, with instructions for the home visiting nurse to drain 1 L every other day which was performed yesterday. He has some abdominal soreness from this.
She does not smoke or drink alcohol.
Medical History
Past Medical History
Past Medical History: Reports Other (metastatic cholangiocarcinoma with metastasis to peritoneum complicated by malignant ascites requiring weekly large-volume paracentesis, status post radiation/chemotherapy on chemotherapy, GI bleeding secondary
to angiectasia/PUD, thyroid cancer status post thyroidectomy, hypothyroidism, anxiety/dep)
Past Surgical History: Reports Other ( and Other (thyroid sx, serial paracentesis))
Social History
Tobacco: Non-smoker
Alcohol: None
Drug: None
Family History
Family History: Not pertinent
Allergies / Home Medications
Allergies reflects when Allergies were last updated in [employer].
Home Medications with original date entered in [employer]
Allergy/Medication List:
Allergies
Allergy/AdvReac Type Severity Reaction Status Date / Time
No Known Allergies Allergy Verified 11/26/24 12:18
Home Medications
ondansetron HCl 8 mg tablet 8 mg PO Q8HPRN PRN nausea 02/29/24
pantoprazole 40 mg tablet,delayed release 40 mg PO BID #60 tabs 03/01/24
alprazolam 0.25 mg tablet (Xanax) 0.125 mg PO HS sleep 11/05/24
escitalopram oxalate 10 mg tablet (Lexapro) 10 mg PO HS Depression 11/26/24
levothyroxine 150 mcg tablet (Synthroid) 150 mcg PO DAILY Thyroid 11/26/24
furosemide 20 mg tablet 20 mg PO DAILY #30 tabs 11/29/24
sodium chloride 1,000 mg soluble tablet 500 mg (1/2 x 1,000 mg) PO BID #30 tabs 11/29/24
Review of Systems
-
History Source: Patient
A 12 point ROS was completed and negative except as noted: Yes
Constitutional: Reports No Symptoms
EENT: Reports No Symptoms
Respiratory: Reports No Symptoms
Cardiac: Reports No Symptoms
Abdomen/GI: Reports No Symptoms
: Reports No Symptoms
Musculoskeletal: Reports No Symptoms
Skin: Reports No Symptoms
Neurological: Reports No Symptoms
Endocrine: Reports No Symptoms
Hematologic/Lymphatic: Reports No Symptoms
Psych: Reports No Symptoms
Physical Exam
Vital Signs
Vital Signs
Temp Pulse Resp BP Pulse Ox
98.8 F 93 16 103/70 100
12/08/24 17:51 12/08/24 18:00 12/08/24 17:51 12/08/24 17:51 12/08/24 18:46
Physical Exam
General: Well Developed, Well Nourished and No Apparent Distress
HEENT: NormoCephalic, Moist mucous membranes and Atraumatic
Respiratory: Clear
Cardiac: S1/S2 and Regular Rhythm; No Murmur or Rub
GI: Soft, Non Tender, Non Distended and Normal Bowel Sounds; No Organomegaly
Rectal: Deferred by Provider
Musculoskeletal: No Clubbing, No Cyanosis and No Edema
Skin: No Rash
Neuro: Nonfocal/grossly intact
Laboratory Results
-
12/08/24 18:09
12/08/24 18:09
Laboratory Results
Total Bilirubin 1.9 mg/dl (0.2-1.3) H 12/08/24 18:09
AST 330 U/L (14-36) H 12/08/24 18:09
ALT 123 U/L (0-35) H 12/08/24 18:09
Alkaline Phosphatase 904 U/L (38-126) H 12/08/24 18:09
Data Reviewed
-
Lab Data: Labs Reviewed by me
Old Records: Reviewed
Impression/Plan
-
IMPRESSION:
PLAN:
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
- Sodium 118 from 129 on recent discharge
- Check urine sodium, osmolality, TSH
- Hypertonic saline
- Check BMP in 4 hours
-Continue Lasix
-Hold sodium tablet for now
-Continue 48 ounce fluid restriction
- Nephrology consulted
# Symptomatic normocytic anemia secondary to chemotherapy
- Hemoglobin of 7 from 8.4 previous
- Goal hemoglobin greater than 8
- 1 unit of blood transfusion
# Severe thrombocytopenia secondary to chemotherapy
- Platelets of 10 from 39 previously
- No bleeding
# Metastatic cholangiocarcinoma status post radiation/chemotherapy with metastasis to peritoneum complicated by malignant ascites requiring weekly paracentesis
- Recently had peritoneal catheter placed 3 days ago
- Had 1 L drained yesterday and supposed to have 1 L drained every other day so we will need to have IR arrange for this tomorrow
# Worsening transaminitis
- Unclear etiology, continue to monitor
History of GI bleeding secondary to radiation/angiectasia/PUD
- Continue Protonix
Thyroid cancer status post thyroidectomy
Hypothyroidism
- Continue levothyroxine
Anxiety/depression
- Continue Xanax, Lexapro
History of MSSA bacteremia
Full code
DVT prophylaxis- heparin
Regular diet
DVT prophylaxis�SCDs
Full code
[2024-12-08 21:32] VITALS: BP 102/65
[2024-12-08 21:50] VITALS: BP 99/73
[2024-12-08 23:00] VITALS: BP 115/75
[2024-12-08 23:31] VITALS: BP 115/75
--- NOTE | 2024-12-08 23:45 | PTCARENOTE ---
Pt arrived to unit from ED via stretcher. Assisted to bed by staff due to pt reporting weakness. PRBC transfusion in progress upon arrival and completed. Platelets ordered and transfusion initiated by this RN. Pt A&Ox3. VSS. No complaints at this
time. Plan of care ongoing.
[2024-12-08 23:59] VITALS: BP 113/72
[2024-12-09] VITALS (8 sets, daily range): BP systolic 93–113; BP diastolic 53–72; BMI 18.2
[2024-12-09] MEDS: XANAX 0.125 MG PO ×2 (00:07→21:24)
[2024-12-09] MEDS: LIDOCAINE 4% PATCH 1 PATCH TOPICAL ×2 (01:52→21:25)
[2024-12-09 04:56] LABS: Blood Urea Nitrogen 15 mg/dl (7-17); Calcium 7.2 mg/dl (8.4-10.2); Carbon Dioxide 24 mmol/L (22-30); Chloride 97 mmol/L (98-107); Estimated Creatinine Clearance 63 ml/min; Glucose 82 mg/dl (70-99); Potassium 4.5 mmol/L (3.5-5.1); Sodium 123 mmol/L (135-145); eGFR > 60.00
[2024-12-09] MEDS: SYNTHROID 150 MCG PO (05:36)
--- NOTE | 2024-12-09 05:58 | PTCARENOTE ---
Pt Na up from 118 to 123. Pt still getting continuous 3% sodium chloride infusion. ASHLY Yoo notified. Advised to change AM comprehensive metabolic panel to 0700. Plan of care ongoing.
[2024-12-09 07:19] LABS: Absolute Neutrophils -Man Diff 10.4 10^3/uL (1.4-6.5); Hematocrit 24.7 % (37.0-47.0); Hemoglobin 8.0 g/dL (12.0-16.0); Mean Corp Hgb Conc. 32.4 g/dL (33.0-37.0); Mean Corpuscular Volume 87.0 fL (81.0-99.0); Platelet Count 38 10^3/uL (130-400); Red Cell Dist. Width 19.3 % (11.5-14.5)
[2024-12-09 07:20] LABS: Anisocytosis 1+; Normal RBC Morphology No; Platelets Checked Yes; Polychromasia Slight; Total Cells Counted 100
[2024-12-09] MEDS: LASIX 20 MG PO (07:48)
[2024-12-09] MEDS: PROTONIX 40 MG PO ×2 (07:48→20:07)
--- NOTE | 2024-12-09 07:53 | W.PN.HOSP.TC ---
Today's Communication/Plan
-
See plan
Assessment / Plan
Assessment / Plan
Physical Exam
General: Well Developed, Well Nourished and No Apparent Distress
HEENT: Normocephalic, Moist mucous membranes and Atraumatic
Respiratory: Clear
Cardiac: S1/S2 and Regular Rhythm; No Murmur or Rub
GI: Soft, Non Tender, Non Distended and Normal Bowel Sounds
Musculoskeletal: No Cyanosis and No Edema
Skin: Warm. Dry.
Neuro: Nonfocal/grossly intact
Assessment/Plan
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
secondary to angiectasia/PUD, thyroid cancer status post thyroidectomy, hypothyroidism, anxiety/depression, MSSA bacteremia, chemotherapy-induced pancytopenia, hyponatremia presenting to emergency room for dizziness and near syncope starting
yesterday. Since yesterday she has been experiencing dizziness with sitting or standing. She also has chest palpitations, chest tightness nausea and shortness of breath with exertion. She denies fevers or chills, vomiting, bleeding in the stool
or black stool. Patient typically has diarrhea in the days after chemotherapy but denies any diarrhea currently. Last bowel movement 2 days ago. She recently received chemotherapy last week at which time she had hemoglobin of 8.2. She was recently
hospitalized for hyponatremia. She received hypertonic saline and Samsca and was eventually placed on salt tablets and Lasix. She follows 48 ounce fluid restriction. She recently had peritoneal catheter placed for weekly paracentesis placed 3 days
ago, with instructions for the home visiting nurse to drain 1 L every other day which was performed yesterday. He has some abdominal soreness from this. She does not smoke or drink alcohol.
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
- Sodium 118 from 129 on recent discharge
- Hypotension coming in this admission --> worsening ADH levels --> worsened hyponatremia
- Check urine sodium, osmolality, TSH
- Hypertonic saline
- Check BMP in 4 hours
-Continue Lasix
-Continue 48 ounce fluid restriction and Salt tablets
- Nephrology consulted
-Consider decreasing/stopping Lexapro
#Presentation with near syncope, orthostasis symptoms, chest tightness, chest palpitations, dyspnea on exertion
#Hypotension
#Hypoalbuminemia
- EKG and troponins do not suggest ACS
- CT chest with no PE
- Check echo
- Could be from hypoalbuminemia, orthostatic hypotension, chemo
- Stop Lasix (which was started last admission for hyponatremia)
- Provide IV Albumin
# Symptomatic normocytic anemia secondary to chemotherapy
- Hemoglobin of 7 from 8.4 previous
- Goal hemoglobin greater than 8
- 1 unit of blood transfusion on 12/08/24
- Monitor CBC, would transfuse if hgb <8, platelets < 15
- Dr. Martins reached out to her oncologist, Dr. Silva, with update on 12/09/24 -- unfortunately, hospice has been recommended and patient not yet accepting
# Severe thrombocytopenia secondary to chemotherapy
- Platelets of 10 initially. 1 unit platelets have been given this hospitalization.
- No bleeding
# Metastatic cholangiocarcinoma status post radiation/chemotherapy with metastasis to peritoneum complicated by malignant ascites requiring weekly paracentesis
- Recently had peritoneal catheter placed ~3 days prior to presentation
- Had 1 L drained 12/07/24 and supposed to have 1 L drained every other day so IR consult placed
# Worsening transaminitis
- Unclear etiology, continue to monitor
- RUQ ultrasound
History of GI bleeding secondary to radiation/angiectasia/PUD
- Continue Protonix
Thyroid cancer status post thyroidectomy
Hypothyroidism
- Continue levothyroxine
Anxiety/depression
- Continue Xanax, Lexapro
History of MSSA bacteremia
Full code
DVT prophylaxis- heparin
Regular diet
DVT prophylaxis�SCDs
Full code
Anticipated Discharge: 24 - 48 hours
Subjective/Interval History
-
Date of Service: December 09, 2024
Patient was seen and examined. No new symptoms or complaints.
Objective Data
-
Labs:
Laboratory Results
12/09/24 12/09/24 12/09/24
00:00 04:12 06:00
WBC 12.0 H
Hgb 8.0 L
Hct 24.7 L
Plt Count 38 L D
Sodium Cancelled 123 L Cancelled
Potassium Cancelled 4.5 Cancelled
Chloride Cancelled 97 L Cancelled
Carbon Dioxide Cancelled 24 Cancelled
BUN Cancelled 15 Cancelled
Creatinine Cancelled 0.7 Cancelled
Glucose Cancelled 82 Cancelled
Calcium Cancelled 7.2 L Cancelled
Total Bilirubin Cancelled
AST Cancelled
ALT Cancelled
Alkaline Phosphatase Cancelled
12/09/24
07:00
WBC
Hgb
Hct
Plt Count
Sodium Pending
Potassium Pending
Chloride Pending
Carbon Dioxide Pending
BUN Pending
Creatinine Pending
Glucose Pending
Calcium Pending
Total Bilirubin Pending
AST Pending
ALT Pending
Alkaline Phosphatase Pending
Vital Signs:
Vital Signs
Temp Pulse Resp BP Pulse Ox
99.3 F 104 18 101/70 98
12/09/24 07:25 12/09/24 07:48 12/09/24 07:25 12/09/24 07:48 12/09/24 07:25
I&O
12/08/24 12/09/24 12/10/24
06:59 06:59 06:59
Intake Total 1008 / 1008
Balance 1008 / 1008
[2024-12-09 08:49] LABS: ALT (SGPT) 114 U/L (0-35); AST (SGOT) 305 U/L (14-36); Albumin 2.0 g/dl (3.5-5.0); Alkaline Phosphatase 1003 U/L (38-126); Blood Urea Nitrogen 14 mg/dl (7-17); Calcium 7.1 mg/dl (8.4-10.2); Carbon Dioxide 24 mmol/L (22-30); Chloride 98 mmol/L (98-107); Estimated Creatinine Clearance 63 ml/min; Glucose 107 mg/dl (70-99); Potassium 4.5 mmol/L (3.5-5.1); Sodium 124 mmol/L (135-145); Total Protein 3.9 g/dl (6.3-8.2); eGFR > 60.00
--- NOTE | 2024-12-09 08:54 | VNURNOTE ---
Addendum entered by Lenore Nguyen RN 12/09/24 10:48:
[facility] Resumption referral placed in [facility].
Original Note:
Chart reviewed. Patient is current with [facility]. Will continue to follow hospital course and DC plans.
[2024-12-09 08:59] LABS: Troponin I 0.014 ng/ml
--- NOTE | 2024-12-09 09:06 | W.CON.NEPH ---
Consultation
-
Date/Time Consultation Requested: 12/09/2024 7:30 AM
Date/Time Consultation Performed: 12/09/2024 9:00 AM
Requesting Provider: Dr. Jones
Performing Provider: Dr. Lacey
Reason for Consultation: Hyponatremia
Medical History
-
Chief Complaint: Hyponatremia
History of Present Illness:
This is a 54-year-old female with past medical history of metastatic cholangiocarcinoma with mets to peritoneum complicated by malignant ascites requiring large-volume paracentesis weekly, chronic hyponatremia siadh, who presented to ED today for
feeling for dizziness and presyncopal episode. Her sodium on admission was 118. I had instructed hypertonic saline infusion last evening when contacted by the ER. She had been seen by our practice a couple weeks prior when she was admitted to the
hospital for hyponatremia. She was eventually discharged on a fluid restriction salt tablets and Lasix. Her discharge sodium was 129 on 11/29/24.
She was admitted to last month for very similar complaints. Required IVF and samsca .
For depression /anxiety she is on Lexapro, dose noted to be higher on medlist from last d/c.
Past Medical History
Additional Past Medical History:
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
Status post left sacrum radiation
Hyponatremia/SIADH
hypothyroidism
depression/anxiety
GERD
thyroid cancer
Hx GI bleed
Past Surgical History: Reports Other
Additional Past Surgical History:
:2001, 2000, 2007
thyroidectomy:05/2009
Social History
Tobacco: Non-Smoker
Alcohol: None
Drug: None
Personal:
Family History
Family History: Not Pertinent
Allergies / Home Medications
Allergy/AdvReac Type Severity Reaction Status Date / Time
No Known Allergies Allergy Verified 11/26/24 12:18
�Medication �Instructions �Recorded �Confirmed �Type
ondansetron HCl 8 mg tablet 8 mg PO Q8HPRN PRN nausea 02/29/24 12/08/24 History
pantoprazole 40 mg tablet,delayed 40 mg PO BID #60 tabs 03/01/24 12/08/24 Rx
release
alprazolam 0.25 mg tablet (Xanax) 0.125 mg PO HS sleep 11/05/24 12/08/24 History
escitalopram oxalate 10 mg tablet 10 mg PO HS Depression 11/26/24 12/08/24 History
(Lexapro)
levothyroxine 150 mcg tablet 150 mcg PO DAILY Thyroid 11/26/24 12/08/24 History
(Synthroid)
furosemide 20 mg tablet 20 mg PO DAILY #30 tabs 11/29/24 12/08/24 Rx
sodium chloride 1,000 mg soluble 500 mg (1/2 x 1,000 mg) PO BID #30 11/29/24 12/08/24 Rx
tablet tabs
Review of Systems
-
Abdomen/GI: Other (Abdominal distention paracentesis catheter/ascites)
Neurological: Dizzy and Weakness
Physical Exam
Vital Signs
Vital Signs
Temp Pulse Resp BP Pulse Ox
99.3 F 104 18 101/70 98
12/09/24 07:25 12/09/24 07:48 12/09/24 07:25 12/09/24 07:48 12/09/24 08:14
Lab Results
WBC 12.0 10^3/uL (4.8-10.8) H 12/09/24 04:12
RBC 2.84 10^6/uL (4.20-5.40) L 12/09/24 04:12
Hgb 8.0 g/dL (12.0-16.0) L 12/09/24 04:12
Hct 24.7 % (37.0-47.0) L 12/09/24 04:12
Plt Count 38 10^3/uL (130-400) L D 12/09/24 04:12
Sodium 124 mmol/L (135-145) L 12/09/24 08:15
Potassium 4.5 mmol/L (3.5-5.1) 12/09/24 08:15
Chloride 98 mmol/L (98-107) 12/09/24 08:15
Carbon Dioxide 24 mmol/L (22-30) 12/09/24 08:15
BUN 14 mg/dl (7-17) 12/09/24 08:15
Creatinine 0.7 mg/dL (0.6-1.0) 12/09/24 08:15
eGFR > 60.00 12/09/24 08:15
Glucose 107 mg/dl (70-99) H 12/09/24 08:15
Calcium 7.1 mg/dl (8.4-10.2) L 12/09/24 08:15
Albumin 2.0 g/dl (3.5-5.0) L 12/09/24 08:15
Physical Exam
General: AOx3, No Distress and Other (Chronically ill-appearing)
HEENT: PERRL, EOMI, Anicteric, Conjunctivae Clear, Ear/Nose Intact, Hearing Normal, Oropharynx Clear/Moist, Dentition Intact, Facial Symmetry and No JVD
Respiratory: Clear, Normal Excursion and Nonlabored Respirations
Cardiac: S1/S2 and Regular Rate/Rhythm
Breast: Deferred by me
Abdomen: Soft, Nontender and Other (distended)
Rectal: Deferred by Provider
Genito-urinary: No Costovertebral Tender
Musculoskeletal: No Clubbing, No Cyanosis and No Edema
Skin: No Rash, Warm, Dry and No Cyanosis
Neuro: Nonfocal/Grossly Intact
Psych: Mood/afflect pleasant, Insight/judgement good and Appropriate
Data Reviewed
-
Medical Tests (Nuc Med, Echo etc): Other (EKG report reviewed personally sinus rhythm 98 bpm)
Labs: Labs Reviewed by me (BMP CBC urine osmolality urine sodium)
Old Records: Reviewed (Reviewed previous consultation from November 2024 as well as previous sodium level of 129 at discharge on 11/29/2024)
Assessment/Plan
-
Assessment
Hyponatremia
Anemia
Thrombocytopenia
Transaminitis
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
Hypothyroidism, thyroid cancer status post surgery
Depression/Anxiety
Plan:
Status post hypertonic saline infusion last evening
Maintain sodium chloride tabs and fluid restriction
I would withhold her Lasix at this time given her low urine sodium which is consistent with intravascular volume depletion as well as her ongoing hypotension
Hypotension likely precipitating escalated ADH
I will provide IV albumin boluses in the setting of hypoalbuminemia and hypotension
Hypertonic saline infusion completed with sodium rise of 118-124
No further hypertonic indicated following a 6 rise in serum sodium level
If required Samsca can be utilized again was during her last admission she has significant
I would strongly recommend titrating back her Lexapro in the setting of her hyponatremia
--- NOTE | 2024-12-09 09:42 | CON.ONC ---
Consultation
-
Date Consultation Requested: 12/09/24
Date Consultation Performed: 12/09/24
Requesting Provider: Dr Jeff Pham
Performing Provider: Dr Ivon Martins
Reason for Consultation: cholangiocarcinoma
Impression
Impression
metastatic cholangiocarcinoma, malignant ascites, with indwelling abd catheter
symptomatic hyponatremia
anemia, thrombocytopenia from chemo
Plan
Plan
Mgmt of hyponatremia per renal, including albumin infusion
QOD ascites drainage x1 L
Monitor CBC, would transfuse if hgb <8, platelets < 15
I reached out to her oncologist, Dr. Silva, with update. Unfortunately, hospice has been recommended and patient not yet accepting
Brenda to f/u with Dr. Silva for outpatient mgmt
Will sign off, please call with questions
Patient History
History of Present Illness
Brenda is seen today for medical oncology evaluation regarding cholangiocarcinoma.
She is treated by Dr. Silva., At [facility], currently on every other week gemcitabine and Abraxane chemotherapy, most recently given 1 week ago. She has struggled with recurrent malignant ascites, previously undergoing large-volume
paracenteses weekly. An abdominal drainage catheter was placed last week, and she has home visiting nurses to drain her ascites every other day, 1 L at a time.
She presented to the emergency room yesterday with dizziness in the setting of significant hyponatremia, and a sodium of 118. CBC showed hemoglobin of 7 and platelet count of 10 at admission. She was transfused packed red cells and platelets and
CBC this morning shows hemoglobin of 8 and platelet count of 38. Her sodium is up to 124. LFTs are noted for total bilirubin of 3.9, alkaline phosphatase of 1003, AST is 305 and ALT is 114.
Past-Medical/Surgical History
Additional Past Medical History:
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
Status post left sacrum radiation
Hyponatremia/SIADH
hypothyroidism
depression/anxiety
GERD
thyroid cancer
Hx GI bleed
Past Surgical History: Reports Other
Additional Past Surgical History:
:2001, 2000, 2007
thyroidectomy:05/2009
Social History
Tobacco: Non-Smoker
Alcohol: None
Drug: None
Personal:
Family History
Family History: Not Pertinent
Patient Medication
�Medication �Instructions �Recorded �Confirmed �Last Taken �Type
ondansetron HCl 8 mg tablet 8 mg PO Q8HPRN PRN nausea 02/29/24 12/08/24 12/05/24 History
pantoprazole 40 mg tablet,delayed 40 mg PO BID #60 tabs 03/01/24 12/08/24 12/04/24 Rx
release
alprazolam 0.25 mg tablet (Xanax) 0.125 mg PO HS sleep 11/05/24 12/08/24 11/25/24 History
escitalopram oxalate 10 mg tablet 10 mg PO HS Depression 11/26/24 12/08/24 12/04/24 History
(Lexapro)
levothyroxine 150 mcg tablet 150 mcg PO DAILY Thyroid 11/26/24 12/08/24 12/05/24 History
(Synthroid)
furosemide 20 mg tablet 20 mg PO DAILY #30 tabs 11/29/24 12/08/24 12/04/24 Rx
sodium chloride 1,000 mg soluble 500 mg (1/2 x 1,000 mg) PO BID #30 11/29/24 12/08/24 12/04/24 Rx
tablet tabs
Active Medications
Generic Name Dose Route Start Last Admin
Trade Name Freq PRN Reason Stop Dose Admin
Alprazolam 0.125 mg 12/08/24 23:00 12/09/24 00:07
Alprazolam 0.25 Mg Tablet PO 01/05/25 22:59 0.125 mg
HS MOHIT Administration
Escitalopram Oxalate 10 mg 12/09/24 22:00
Escitalopram 10 Mg Tablet PO 01/06/25 21:59
HS MOHIT
Albumin Human 12.5 grams in 50 mls @ 60 mls/hr 12/09/24 09:45
Flexbumin IV 12/09/24 22:34
Q4H MOHIT
Levothyroxine Sodium 150 mcg 12/09/24 06:00 12/09/24 05:36
Levothyroxine 150 Mcg Tablet PO 01/06/25 05:59 150 mcg
DAILY@0600 MOHIT Administration
Ondansetron HCl 8 mg 12/08/24 22:51
Ondansetron 4 Mg Tablet PO 01/05/25 22:50
Q8HPRN PRN
nausea
Pantoprazole Sodium 40 mg 12/09/24 08:00 12/09/24 07:48
Pantoprazole 40 Mg Delayed Release Tablet PO 01/06/25 07:59 40 mg
BID MOHIT Administration
Sodium Chloride 0 flush 12/09/24 02:00
Sodium Chloride 0.9% (Flush) Syringe IV 01/06/25 01:59
PER PROTOCOL MOHIT
Sodium Chloride 1 gram 12/09/24 10:00
Sodium Chloride 1 Gram Tablet PO 01/06/25 09:59
BID MOHIT
Review of Systems
-
All Other Systems: Not reviewed unless documented
Physical Exam
-
General: No Apparent Distress, Conversant and Cachetic
GI: Distended and Tense
Skin: Warm and Dry
Psych: Calm and Intact Judgement/Insight
Labs
Lab Results
WBC 12.0 10^3/uL (4.8-10.8) H 12/09/24 04:12
RBC 2.84 10^6/uL (4.20-5.40) L 12/09/24 04:12
Hgb 8.0 g/dL (12.0-16.0) L 12/09/24 04:12
Hct 24.7 % (37.0-47.0) L 12/09/24 04:12
MCV 87.0 fL (81.0-99.0) 12/09/24 04:12
MCH 28.2 pg (27.0-31.0) 12/09/24 04:12
MCHC 32.4 g/dL (33.0-37.0) L 12/09/24 04:12
RDW 19.3 % (11.5-14.5) H 12/09/24 04:12
Plt Count 38 10^3/uL (130-400) L D 12/09/24 04:12
MPV 11.8 fL (7.4-10.4) H 12/09/24 04:12
Abs Immat Gran (auto) 0.5 10^3/uL (0-0.05) H 12/08/24 18:09
Absolute Neuts (auto) 4.8 10^3/uL (1.4-6.5) 12/08/24 18:09
Absolute Lymphs (auto) 0.2 10^3/uL (1.2-3.4) L 12/08/24 18:09
Absolute Monos (auto) 0.9 10^3/uL (0.1-0.6) H 12/08/24 18:09
Absolute Eos (auto) 0.0 10^3/uL (0-0.7) 12/08/24 18:09
Absolute Basos (auto) 0.0 10^3/uL (0-0.2) 12/08/24 18:09
Immature Gran % 8.0 % (0-0.5) H 12/08/24 18:09
Neutrophils % 74.7 % (42.2-75.2) 12/08/24 18:09
Lymphocytes % 2.3 % (20.5-51.1) L 12/08/24 18:09
Monocytes % 14.1 % (1.7-9.3) H 12/08/24 18:09
Eosinophils % 0.3 % (0-6) 12/08/24 18:09
Basophils % 0.6 % (0-2) 12/08/24 18:09
Creatinine 0.7 mg/dL (0.6-1.0) 12/09/24 08:15
Vital Signs
Vital Signs
Temp Pulse Resp BP Pulse Ox
99.3 F 104 18 101/70 98
12/09/24 07:25 12/09/24 07:48 12/09/24 07:25 12/09/24 07:48 12/09/24 08:14
[2024-12-09] MEDS: FLEXBUMIN 50 IV ×4 (10:12→21:26)
[2024-12-09] MEDS: SODIUM CHLORIDE 1 GRAM PO ×2 (10:13→20:07)
--- NOTE | 2024-12-09 10:40 | CM ---
patient seen at bedside
IA completed
Dx: hyponatremia, anemia
PMH: metastatic cholangiocarcinoma with mets to peritoneum complicated by malignant ascites requiring large-volume paracentesis weekly, chronic hyponatremia siadh
Lives with and children in a 2 story home, 2 NAR[place], flight to bed bath, powder room on 1st floor
PLOF: Independent
Denies DME
Current with [facility], Denies rehab
patient reports she gets treatment at [facility] every other week
PLAN: NAVID with [facility] when stable
[2024-12-09 15:09] LABS: Troponin I < 0.012 ng/ml
[2024-12-09] MEDS: LEXAPRO 10 MG PO (21:25)
[2024-12-09 21:29] LABS: Troponin I < 0.012 ng/ml
[2024-12-10] VITALS (10 sets, daily range): BP systolic 98–118; BP diastolic 54–73
[2024-12-10 02:36] LABS: Hematocrit 20.0 % (37.0-47.0); Hemoglobin 6.5 g/dL (12.0-16.0); Mean Corp Hgb Conc. 32.5 g/dL (33.0-37.0); Mean Corpuscular Volume 87.3 fL (81.0-99.0); Platelet Count 25 10^3/uL (130-400); Red Cell Dist. Width 20.2 % (11.5-14.5)
[2024-12-10 02:41] LABS: ALT (SGPT) 81 U/L (0-35); AST (SGOT) 201 U/L (14-36); Albumin 2.8 g/dl (3.5-5.0); Alkaline Phosphatase 952 U/L (38-126); Blood Urea Nitrogen 12 mg/dl (7-17); Calcium 7.9 mg/dl (8.4-10.2); Carbon Dioxide 23 mmol/L (22-30); Chloride 98 mmol/L (98-107); Estimated Creatinine Clearance 73 ml/min; Glucose 89 mg/dl (70-99); Potassium 3.8 mmol/L (3.5-5.1); Sodium 124 mmol/L (135-145); Total Protein 4.5 g/dl (6.3-8.2); eGFR > 60.00
--- NOTE | 2024-12-10 02:41 | DOWNTIME ---
There was a [employer] Downtime on 12/10/2024 from 0100 to 12/10/2024 at 0215. Downtime documentation of patient's care, including medication administrations, has been reconciled in the electronic record per guidelines. Refer to the
patient's paper chart under the miscellaneous tab to see printed paper medication records and downtime forms.
--- NOTE | 2024-12-10 02:47 | W.PN.UPDATE ---
Update Note
Progress Note Update
AM Critical labs: Hgb 6.5/Hct 20.0, ordered 1 unit PRBC's to transfuse today. Repeat H&H ordered 2 hours post transfusion completion.
[2024-12-10 02:54] LABS: Troponin I < 0.012 ng/ml
[2024-12-10 03:05] LABS: Absolute Neutrophils -Man Diff 16.8 10^3/uL (1.4-6.5); Normal RBC Morphology No
[2024-12-10 03:06] LABS: Anisocytosis 2+; Macrocytosis 1+; Poikilocytosis 1+; Stomatocytes 1+
[2024-12-10 03:11] LABS: Total Cells Counted 100
[2024-12-10 03:12] LABS: Platelets Checked Yes
[2024-12-10] MEDS: SYNTHROID 125 MCG PO (05:38)
[2024-12-10] MEDS: PROTONIX 40 MG PO ×2 (07:53→20:40)
[2024-12-10] MEDS: SODIUM CHLORIDE 1 GRAM PO ×2 (07:53→20:39)
--- NOTE | 2024-12-10 08:09 | W.PN.HOSP.TC ---
Today's Communication/Plan
-
3% saline
IR to drain peritoneal fluid via patient's catheter today
PRBC transfusion
Assessment / Plan
Assessment / Plan
Physical Exam
General: Well Developed, Well Nourished and No Apparent Distress
HEENT: Normocephalic, Moist mucous membranes and Atraumatic
Respiratory: Clear
Cardiac: S1/S2 and Regular Rhythm
GI: Soft, Non Tender, Non Distended and Normal Bowel Sounds
Musculoskeletal: No Cyanosis and No Edema
Skin: Warm. Dry.
Neuro: Nonfocal/grossly intact
Assessment/Plan
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
secondary to angiectasia/PUD, thyroid cancer status post thyroidectomy, hypothyroidism, anxiety/depression, MSSA bacteremia, chemotherapy-induced pancytopenia, hyponatremia presenting to emergency room for dizziness and near syncope starting
yesterday. Since yesterday she has been experiencing dizziness with sitting or standing. She also has chest palpitations, chest tightness nausea and shortness of breath with exertion. She denies fevers or chills, vomiting, bleeding in the stool
or black stool. Patient typically has diarrhea in the days after chemotherapy but denies any diarrhea currently. Last bowel movement 2 days ago. She recently received chemotherapy last week at which time she had hemoglobin of 8.2. She was recently
hospitalized for hyponatremia. She received hypertonic saline and Samsca and was eventually placed on salt tablets and Lasix. She follows 48 ounce fluid restriction. She recently had peritoneal catheter placed for weekly paracentesis placed 3 days
ago, with instructions for the home visiting nurse to drain 1 L every other day which was performed yesterday. He has some abdominal soreness from this. She does not smoke or drink alcohol.
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
- Sodium 118 from 129 on recent discharge
- Hypotension coming in this admission --> worsening ADH levels --> worsened hyponatremia
- Hypertonic saline
- Monitor BMP
- Continue Lasix
- Continue 48 ounce fluid restriction and Salt tablets
- Nephrology consulted
- Consider decreasing/stopping Lexapro
#Presentation with near syncope, orthostasis symptoms, chest tightness, chest palpitations, dyspnea on exertion
#Hypotension
#Hypoalbuminemia
- EKG and troponins do not suggest ACS
- CT chest with no PE
- Echo unrevealing, and similar to previous
- Could be from hypoalbuminemia, orthostatic hypotension, chemo
- Stop Lasix (which was started last admission for hyponatremia)
- Provide IV Albumin
# Symptomatic normocytic anemia secondary to chemotherapy
- Initial hemoglobin of 7 from 8.4 previous
- Goal hemoglobin greater than 8
- 1 unit of red blood cells transfusion given on 12/08/24 and a 2nd unit given on 12/10/24
- Monitor CBC, would transfuse if hgb <8, platelets < 15
- Dr. Martins reached out to her oncologist, Dr. Silva, with update on 12/09/24 -- unfortunately, hospice has been recommended and patient not yet accepting
# Severe thrombocytopenia secondary to chemotherapy
- Platelets of 10 initially. 1 unit platelets have been given this hospitalization on 12/08/24
- No bleeding
# Metastatic cholangiocarcinoma status post radiation/chemotherapy with metastasis to peritoneum complicated by malignant ascites requiring weekly paracentesis
- Recently had peritoneal catheter placed ~3 days prior to presentation
- Had 1 L drained 12/07/24 and supposed to have 1 L drained every other day so IR consult placed
# Worsening transaminitis
- Unclear etiology, continue to monitor
- RUQ ultrasound 12/10/24 showed, as per radiologist's report: hepatic masses most in keeping with the patient's known cholangiocarcinoma, gallbladder wall thickening is favored to be reactive, gallbladder sludge and mild
abdominal ascites.
#History of GI bleeding secondary to radiation/angiectasia/PUD
- Continue Protonix
#Thyroid cancer status post thyroidectomy
#Hypothyroidism
- Continue levothyroxine
#Anxiety/depression
- Continue Xanax, Lexapro -- but consider tapering Lexapro given low sodium
#History of MSSA bacteremia
Full code
DVT prophylaxis- heparin
Regular diet
DVT prophylaxis�SCDs
Full code
Anticipated Discharge: 24 - 48 hours
Subjective/Interval History
-
Date of Service: December 10, 2024
Patient was seen and examined. No new significant symptoms or complaints.
Objective Data
-
Labs:
Laboratory Results
12/10/24 12/10/24
02:15 08:00
WBC 20.1 H
Hgb 6.5 L* Pending
Hct 20.0 L* Pending
Plt Count 25 L* D
Sodium 124 L
Potassium 3.8
Chloride 98
Carbon Dioxide 23
BUN 12
Creatinine 0.6
Glucose 89
Calcium 7.9 L
Total Bilirubin 2.7 H
AST 201 H
ALT 81 H
Alkaline Phosphatase 952 H
Vital Signs:
Vital Signs
Temp Pulse Resp BP Pulse Ox
98.9 F 100 18 118/65 98
12/10/24 06:07 12/10/24 06:07 12/10/24 06:07 12/10/24 06:07 12/10/24 07:56
I&O
12/09/24 12/10/24 12/11/24
06:59 06:59 06:59
Intake Total 1008 / 1008 950 / 950
Balance 1008 / 1008 950 / 950
[2024-12-10 08:42] LABS: Hematocrit 26.0 % (37.0-47.0); Hemoglobin 8.8 g/dL (12.0-16.0)
[2024-12-10] MEDS: REMOVE LIDOCAINE PATCH 1 PATCH REMOVE (09:57)
[2024-12-10] MEDS: MAALOX 30 ML PO ×3 (12:55→23:38)
--- NOTE | 2024-12-10 13:19 | W.PN.NEPH.PH ---
Today's Communication / Plan
-
Hypertonic
Assessment/Plan
-
Assessment
Hyponatremia
Anemia
Thrombocytopenia
Transaminitis
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
Hypothyroidism, thyroid cancer status post surgery
Depression/Anxiety
Plan:
Status post hypertonic saline infusion last evening
Maintain sodium chloride tabs and fluid restriction
Hypotension likely precipitating escalated ADH
Suggest holding Lasix for now
Will restart hypertonic saline
-
-
Date of Service: December 10, 2024
CC / HPI / ROS
-
Chief Complaint:
Hyponatremia
History of Present Illness:
Recurrent hyponatremia in the setting of malignant
Review of Systems:
Abdominal distention
Labs
-
Labs:
WBC 20.1 10^3/uL (4.8-10.8) H 12/10/24 02:15
RBC 2.29 10^6/uL (4.20-5.40) L 12/10/24 02:15
Hgb 8.8 g/dL (12.0-16.0) L D 12/10/24 08:23
Hct 26.0 % (37.0-47.0) L 12/10/24 08:23
Plt Count 25 10^3/uL (130-400) L* D 12/10/24 02:15
Sodium 124 mmol/L (135-145) L 12/10/24 02:15
Potassium 3.8 mmol/L (3.5-5.1) 12/10/24 02:15
Chloride 98 mmol/L (98-107) 12/10/24 02:15
Carbon Dioxide 23 mmol/L (22-30) 12/10/24 02:15
BUN 12 mg/dl (7-17) 12/10/24 02:15
Creatinine 0.6 mg/dL (0.6-1.0) 12/10/24 02:15
eGFR > 60.00 12/10/24 02:15
Glucose 89 mg/dl (70-99) 12/10/24 02:15
Calcium 7.9 mg/dl (8.4-10.2) L 12/10/24 02:15
Albumin 2.8 g/dl (3.5-5.0) L 12/10/24 02:15
Physical Exam
-
Vital Signs:
Vital Signs
Temp Pulse Resp BP Pulse Ox
99.3 F 100 16 106/73 96
12/10/24 11:00 12/10/24 11:00 12/10/24 11:00 12/10/24 11:00 12/10/24 11:00
Cardiovascular:: Regular rate and rhythm
Respiratory:: Bilateral: CTA
Lung Excursion:: Normal
Abdomen:: Distended, Nontender and Soft
Bowel Sounds:: Normal
Extremity Edema:: None: Bilateral:
[2024-12-10] MEDS: SODIUM CHLORIDE 3% 250 IV (13:48)
--- NOTE | 2024-12-10 13:48 | PN.IRAD.UPD ---
Update Note - IRAD
- -
1600 ML BLOODY FLUID REMOVED VIA PERITONEAL ASEPT CATHETER AT BEDSIDE. NEW,CLEAN,DRY DRESSING PLACED OVER SITE. PATIENT TOLERATED PROCEDURE WELL.
--- NOTE | 2024-12-10 15:38 | CM ---
patient chart reviewed
per IRAD note-1600 ML BLOODY FLUID REMOVED VIA PERITONEAL ASEPT CATHETER AT BEDSIDE
Current with [facility]
PLAN: home with [facility] when stable
--- NOTE | 2024-12-10 17:03 | PN.CDI ---
CDI
- -
CDI:
Physician Documentation Request
Admit Date: 12/08/24 21:19
Dear Doctor Ena,
Please review the following and provide your response in the progress notes.
Clinical Indicators:
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
Documented in the record cachexia/BMI 18.2
Nutrition consult 12/09,' CBW (12/09) 96 lbs 2oz BMI 18.2 underweight, Last admission (11/26) 99lb BMI 18.7 underwt/ht, Per RD note from last admission wt 1 month ago reported to be 112lb- reflecting significant 14% wt loss x `1month.....Pt meets
criteria for severe protein calorie malnutrition of chronic illness with>5% wt loss x 1 month, prolonged inadequate po intake <75% for >1 month, Per previous RD note pt does not want supplements. Pt encouraged to try small frequent meals, pt did
state trying to follow tips from dietitian who spoke to her previous admission....'
Based on the above information and your assessment, which of the following most accurately represents the patient's nutritional status?
Severe Protein Calorie Malnutrition
Other (please specify)
[place] Criteria ([facility] 2017)
2 or more criteria must be present for either
non severe or severe malnutrition
Note that the criteria differs related to the
presence of an acute or chronic illness
Acute Illness Chronic Illness
Energy Intake Non Severe: <75% for >7 days Non Severe: <75% for >1 month
Severe: <50% for >5 days Severe: <75% for >1 month
Weight Loss Non Severe: 1-2% over 1 week Non Severe: 5% over 1 month
5% over 1 month 7.5% over 3 months
7.5% over 3 months 10% over 6 months
1 year N/A 20% over 1 year
Severe: >2% over 1 week Severe: >5% over 1 month
>5% over 1 month >7.5% over 3 months
>7.5% over 3 months >10% over 6 months
1 year N/A >20% over 1 year
Body Fat Non Severe: Mild Decrease Non Severe: Mild Loss
Severe: Moderate Decrease Severe: Severe Loss
Muscle Mass Non Severe: Mild Decrease Non Severe: Mild Loss
Severe: Moderate Decrease Severe: Severe Loss
Fluid Accumulation Non Severe: Mild Accumulation Non Severe: Mild Accumulation
Severe: Moderate to severe Severe: Moderate to severe
accumulation accumulation
Reduced High Voltage Electrician Strength Non Severe: N/A Non Severe: N/A
Severe: Measurably reduced Severe: Measurably reduced
Use of terms such as suspected, likely, concern for, or probable (associated with a specific diagnosis that is being evaluated, monitored, or treated as if it exists) are acceptable and can be coded in the inpatient setting, when documented at the
time of discharge.
Thank you,
Haily Ortiz RN
CDI Specialist
[facility]
Please use your independent medical judgment in providing your response.
[2024-12-10] MEDS: LIDOCAINE 4% PATCH 1 PATCH TOPICAL (20:54)
[2024-12-10] MEDS: LEXAPRO 10 MG PO (21:31)
[2024-12-10] MEDS: XANAX 0.125 MG PO (21:31)
[2024-12-11 03:00] VITALS: BP 101/62
[2024-12-11] MEDS: SYNTHROID 125 MCG PO (04:50)
[2024-12-11] MEDS: IMODIUM 2 MG PO ×2 (04:50→14:08)
--- NOTE | 2024-12-11 05:13 | PTCARENOTE ---
Pt having multiple loose stools. Stated MD instructed her to ask for Imodium if diarrhea begins. TUFTING MACHINE FIXER notifed, Imodium 2mg ordered. Call griffith within reach and plan of care ongoing.
[2024-12-11 06:40] LABS: Hematocrit 24.7 % (37.0-47.0); Hemoglobin 8.4 g/dL (12.0-16.0); Mean Corp Hgb Conc. 34.0 g/dL (33.0-37.0); Mean Corpuscular Volume 86.7 fL (81.0-99.0); Red Cell Dist. Width 19.7 % (11.5-14.5)
[2024-12-11 06:42] LABS: ALT (SGPT) 63 U/L (0-35); AST (SGOT) 122 U/L (14-36); Albumin 2.4 g/dl (3.5-5.0); Blood Urea Nitrogen 10 mg/dl (7-17); Calcium 7.9 mg/dl (8.4-10.2); Carbon Dioxide 26 mmol/L (22-30); Chloride 101 mmol/L (98-107); Estimated Creatinine Clearance 73 ml/min; Glucose 117 mg/dl (70-99); Potassium 3.8 mmol/L (3.5-5.1); Sodium 126 mmol/L (135-145); Total Protein 4.2 g/dl (6.3-8.2); eGFR > 60.00
[2024-12-11 06:52] LABS: Alkaline Phosphatase 1192 U/L (38-126)
[2024-12-11 07:00] VITALS: BP 84/62
[2024-12-11 07:26] LABS: Absolute Neutrophils -Man Diff 23.2 10^3/uL (1.4-6.5); Normal RBC Morphology No; Platelets Checked Yes; Total Cells Counted 100
[2024-12-11 07:27] LABS: Anisocytosis 2+; Hypochromasia Slight; Macrocytosis 1+
[2024-12-11 08:34] LABS: Platelet Count 24 10^3/uL (130-400)
[2024-12-11] MEDS: SODIUM CHLORIDE 1 GRAM PO ×2 (08:34→21:03)
[2024-12-11] MEDS: PROTONIX 40 MG PO ×2 (08:34→21:03)
--- NOTE | 2024-12-11 09:40 | W.PN.HOSP.TC ---
Today's Communication/Plan
-
IR to drain 1 Liter tomorrow from patient's abdomen -- does NOT need to be NPO for this
Samsca to help bring up sodium more
Midodrine to help improve blood pressure
Assessment / Plan
Assessment / Plan
Physical Exam
General: Well Developed, Well Nourished and No Apparent Distress
HEENT: Normocephalic, Moist mucous membranes and Atraumatic
Respiratory: Clear
Cardiac: S1/S2 and Regular Rhythm
GI: Soft, Non Tender, Non Distended and Normal Bowel Sounds
Musculoskeletal: No Cyanosis and No Edema
Skin: Warm. Dry.
Neuro: Nonfocal/grossly intact
Assessment/Plan
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
secondary to angiectasia/PUD, thyroid cancer status post thyroidectomy, hypothyroidism, anxiety/depression, MSSA bacteremia, chemotherapy-induced pancytopenia, hyponatremia presenting to emergency room for dizziness and near syncope starting
yesterday. Since yesterday she has been experiencing dizziness with sitting or standing. She also has chest palpitations, chest tightness nausea and shortness of breath with exertion. She denies fevers or chills, vomiting, bleeding in the stool
or black stool. Patient typically has diarrhea in the days after chemotherapy but denies any diarrhea currently. Last bowel movement 2 days ago. She recently received chemotherapy last week at which time she had hemoglobin of 8.2. She was recently
hospitalized for hyponatremia. She received hypertonic saline and Samsca and was eventually placed on salt tablets and Lasix. She follows 48 ounce fluid restriction. She recently had peritoneal catheter placed for weekly paracentesis placed 3 days
ago, with instructions for the home visiting nurse to drain 1 L every other day which was performed yesterday. He has some abdominal soreness from this. She does not smoke or drink alcohol.
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
- Sodium 118 from 129 on recent discharge
- Hypotension coming in this admission --> worsening ADH levels --> worsened hyponatremia
- Hypertonic saline
- Monitor BMP
- Continue Lasix
- Continue 48 ounce fluid restriction and Salt tablets
- Samsca on 12/11/24
- Nephrology consulted
- Consider decreasing/stopping Lexapro
#Presentation with near syncope, orthostasis symptoms, chest tightness, chest palpitations, dyspnea on exertion
#Hypotension
#Hypoalbuminemia
- EKG and troponins do not suggest ACS
- CT chest with no PE
- Echo unrevealing, and similar to previous
- Could be from hypoalbuminemia, orthostatic hypotension, chemo
- Stop Lasix (which was started last admission for hyponatremia)
- Received IV Albumin this hospitalization
# Symptomatic normocytic anemia secondary to chemotherapy
- Initial hemoglobin of 7 from 8.4 previous
- Goal hemoglobin greater than 8
- 1 unit of red blood cells transfusion given on 12/08/24 and a 2nd unit given on 12/10/24
- Monitor CBC, would transfuse if hgb <8, platelets < 15
- Dr. Martins reached out to her oncologist, Dr. Silva, with update on 12/09/24 -- unfortunately, hospice has been recommended and patient not yet accepting
# Severe thrombocytopenia secondary to chemotherapy
- Platelets of 10 initially
- 1 unit of platelets have been given this hospitalization on 12/08/24
- No bleeding
# Metastatic cholangiocarcinoma status post radiation/chemotherapy with metastasis to peritoneum complicated by malignant ascites requiring weekly paracentesis
- Recently had peritoneal catheter placed ~3 days prior to presentation
- Had 1 L drained 12/07/24 and supposed to have 1 L drained every other day so IR consult placed -- 1 L drained by IR on 12/10/24
# Transaminitis
- Suspected from hepatic metastases
- RUQ ultrasound 12/10/24 showed, as per radiologist's report: hepatic masses most in keeping with the patient's known cholangiocarcinoma, gallbladder wall thickening is favored to be reactive, gallbladder sludge and mild
abdominal ascites.
#History of GI bleeding secondary to radiation/angiectasia/PUD
- Continue Protonix
#Thyroid cancer status post thyroidectomy
#Hypothyroidism
- Continue levothyroxine
#Anxiety/depression
- Continue Xanax, Lexapro -- but consider tapering Lexapro given low sodium
#History of MSSA bacteremia
#Severe Protein Calorie Malnutrition
Regular diet
DVT prophylaxis�SCDs
Full code
Anticipated Discharge: 24 - 48 hours
Subjective/Interval History
-
Date of Service: December 11, 2024
Patient was seen and examined. She had some diarrhea and also some back pain.
Objective Data
-
Labs:
Laboratory Results
12/11/24
06:08
WBC 24.2 H
Hgb 8.4 L
Hct 24.7 L
Plt Count 24 L*
Sodium 126 L
Potassium 3.8
Chloride 101
Carbon Dioxide 26
BUN 10
Creatinine 0.5 L
Glucose 117 H
Calcium 7.9 L
Total Bilirubin 1.8 H
AST 122 H
ALT 63 H
Alkaline Phosphatase 1192 H
Vital Signs:
Vital Signs
Temp Pulse Resp BP Pulse Ox
99.0 F 97 17 84/62 95
12/11/24 07:00 12/11/24 07:00 12/11/24 07:00 12/11/24 07:00 12/11/24 07:00
I&O
12/10/24 12/11/24 12/12/24
06:59 06:59 06:59
Intake Total 950 / 950 620 / 620 480 / 480
Balance 950 / 950 620 / 620 480 / 480
[2024-12-11 11:00] VITALS: BP 101/69
[2024-12-11] MEDS: REMOVE LIDOCAINE PATCH 1 PATCH REMOVE (12:51)
[2024-12-11] MEDS: ROXICODONE 5 MG PO (14:09)
[2024-12-11] MEDS: MAALOX 30 ML PO (14:13)
[2024-12-11 14:52] VITALS: BP 116/62
--- NOTE | 2024-12-11 15:50 | W.PN.NEPH.PH ---
Today's Communication / Plan
-
Samsca
Assessment/Plan
-
Assessment
Hyponatremia
Anemia
Thrombocytopenia
Transaminitis
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
Hypothyroidism, thyroid cancer status post surgery
Depression/Anxiety
Plan:
fluid restriction
Remains on salt tab
Hypotension likely precipitating escalated ADH
Suggest holding Lasix for now
Sodium improved with hypertonic saline
Will give Samsca x 1
-
-
Date of Service: December 11, 2024
CC / HPI / ROS
-
Chief Complaint:
Hyponatremia
History of Present Illness:
Recurrent hyponatremia in the setting of malignant
Review of Systems:
Abdominal distention
Labs
-
Labs:
WBC 24.2 10^3/uL (4.8-10.8) H 12/11/24 06:08
RBC 2.85 10^6/uL (4.20-5.40) L 12/11/24 06:08
Hgb 8.4 g/dL (12.0-16.0) L 12/11/24 06:08
Hct 24.7 % (37.0-47.0) L 12/11/24 06:08
Plt Count 24 10^3/uL (130-400) L* 12/11/24 06:08
Sodium 126 mmol/L (135-145) L 12/11/24 06:08
Potassium 3.8 mmol/L (3.5-5.1) 12/11/24 06:08
Chloride 101 mmol/L (98-107) 12/11/24 06:08
Carbon Dioxide 26 mmol/L (22-30) 12/11/24 06:08
BUN 10 mg/dl (7-17) 12/11/24 06:08
Creatinine 0.5 mg/dL (0.6-1.0) L 12/11/24 06:08
eGFR > 60.00 12/11/24 06:08
Glucose 117 mg/dl (70-99) H 12/11/24 06:08
Calcium 7.9 mg/dl (8.4-10.2) L 12/11/24 06:08
Albumin 2.4 g/dl (3.5-5.0) L 12/11/24 06:08
Physical Exam
-
Vital Signs:
Vital Signs
Temp Pulse Resp BP Pulse Ox
98.5 F 89 17 116/62 99
12/11/24 14:52 12/11/24 14:52 12/11/24 14:52 12/11/24 14:52 12/11/24 14:52
Cardiovascular:: Regular rate and rhythm
Respiratory:: Bilateral: CTA
Lung Excursion:: Normal
Abdomen:: Distended, Nontender and Soft
Bowel Sounds:: Normal
Extremity Edema:: None: Bilateral:
--- NOTE | 2024-12-11 16:34 | CM ---
Patient chart reviewed
current with [facility]
referral in [facility]
PLAN: Home, [facility] with [facility] when stable
[2024-12-11] MEDS: SAMSCA 30 MG PO (17:39)
[2024-12-11 19:28] VITALS: BP 106/66
[2024-12-11] MEDS: LEXAPRO 10 MG PO (21:03)
[2024-12-11] MEDS: LIDOCAINE 4% PATCH 1 PATCH TOPICAL (21:03)
[2024-12-11] MEDS: XANAX 0.125 MG PO (22:02)
[2024-12-11 23:39] VITALS: BP 102/66
[2024-12-12] VITALS (10 sets, daily range): BP systolic 98–113; BP diastolic 58–73; PULSE 83–104; O2SAT 99
[2024-12-12] MEDS: SYNTHROID 125 MCG PO (05:36)
[2024-12-12] MEDS: MAALOX 30 ML PO ×2 (06:05→12:39)
[2024-12-12 06:52] LABS: ALT (SGPT) 50 U/L (0-35); AST (SGOT) 63 U/L (14-36); Albumin 2.5 g/dl (3.5-5.0); Alkaline Phosphatase 1067 U/L (38-126); Blood Urea Nitrogen 8 mg/dl (7-17); Calcium 8.5 mg/dl (8.4-10.2); Carbon Dioxide 27 mmol/L (22-30); Chloride 102 mmol/L (98-107); Estimated Creatinine Clearance 73 ml/min; Glucose 98 mg/dl (70-99); Potassium 4.3 mmol/L (3.5-5.1); Sodium 129 mmol/L (135-145); Total Protein 4.5 g/dl (6.3-8.2); eGFR > 60.00
[2024-12-12 07:35] LABS: Hematocrit 27.9 % (37.0-47.0); Hemoglobin 8.9 g/dL (12.0-16.0); Mean Corp Hgb Conc. 31.9 g/dL (33.0-37.0); Mean Corpuscular Volume 89.7 fL (81.0-99.0); Nucleated Red Blood Cells % 1.1 %; Platelet Count 29 10^3/uL (130-400); Red Cell Dist. Width 21.0 % (11.5-14.5)
--- NOTE | 2024-12-12 07:36 | PTCARENOTE ---
Lab informed this RN of critical plt value, result= 29. made aware.
[2024-12-12] MEDS: PROTONIX 40 MG PO ×2 (08:08→20:45)
[2024-12-12] MEDS: SODIUM CHLORIDE 1 GRAM PO ×2 (08:08→20:45)
--- NOTE | 2024-12-12 08:56 | W.PN.HOSP.TC ---
Today's Communication/Plan
-
1 unit platelets
Assessment / Plan
Assessment / Plan
Physical Exam
General: Well Developed, Well Nourished and No Apparent Distress
HEENT: Normocephalic, Moist mucous membranes and Atraumatic
Respiratory: Clear
Cardiac: S1/S2 and Regular Rhythm
GI: Soft, Non Tender, Non Distended and Normal Bowel Sounds
Musculoskeletal: No Cyanosis and No Edema
Skin: Warm. Dry.
Neuro: Nonfocal/grossly intact
Assessment/Plan
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
secondary to angiectasia/PUD, thyroid cancer status post thyroidectomy, hypothyroidism, anxiety/depression, MSSA bacteremia, chemotherapy-induced pancytopenia, hyponatremia presenting to emergency room for dizziness and near syncope starting
yesterday. Since yesterday she has been experiencing dizziness with sitting or standing. She also has chest palpitations, chest tightness nausea and shortness of breath with exertion. She denies fevers or chills, vomiting, bleeding in the stool
or black stool. Patient typically has diarrhea in the days after chemotherapy but denies any diarrhea currently. Last bowel movement 2 days ago. She recently received chemotherapy last week at which time she had hemoglobin of 8.2. She was recently
hospitalized for hyponatremia. She received hypertonic saline and Samsca and was eventually placed on salt tablets and Lasix. She follows 48 ounce fluid restriction. She recently had peritoneal catheter placed for weekly paracentesis placed 3 days
ago, with instructions for the home visiting nurse to drain 1 L every other day which was performed yesterday. He has some abdominal soreness from this. She does not smoke or drink alcohol.
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
- Sodium 118 from 129 on recent discharge
- Hypotension coming in this admission --> worsening ADH levels --> worsened hyponatremia
- Hypertonic saline
- Monitor BMP
- Continue Lasix
- Continue 60 ounce fluid restriction and Salt tablets (patient requested easing FR of 48 ounces to 60 ounces)
- Samsca on 12/11/24
- Nephrology consulted
- Consider decreasing/stopping Lexapro
#Presentation with near syncope, orthostasis symptoms, chest tightness, chest palpitations, dyspnea on exertion
#Hypotension
#Hypoalbuminemia
- EKG and troponins do not suggest ACS
- CT chest with no PE
- Echo unrevealing, and similar to previous
- Could be from hypoalbuminemia, orthostatic hypotension, chemo
- Stop Lasix (which was started last admission for hyponatremia)
- Received IV Albumin this hospitalization
# Symptomatic normocytic anemia secondary to chemotherapy
- Initial hemoglobin of 7 from 8.4 previous
- Goal hemoglobin greater than 8
- 1 unit of red blood cells transfusion given on 12/08/24 and a 2nd unit given on 12/10/24
- Monitor CBC, would transfuse if hgb <8, platelets < 15
- Dr. Martins reached out to her oncologist, Dr. Silva, with update on 12/09/24 -- unfortunately, hospice has been recommended and patient not yet accepting
# Severe thrombocytopenia secondary to chemotherapy
- Platelets of 10 initially
- 1 unit of platelets have been given this hospitalization on 12/08/24
- Given nosebleeds, another 1 unit platelets given on 12/12/24
- No bleeding
# Metastatic cholangiocarcinoma status post radiation/chemotherapy with metastasis to peritoneum complicated by malignant ascites requiring weekly paracentesis
- Recently had peritoneal catheter placed ~3 days prior to presentation
- Had 1 L drained 12/07/24 and supposed to have 1 L drained every other day so IR consult placed -- 1 L drained by IR on 12/10/24
# Transaminitis
- Suspected from hepatic metastases
- RUQ ultrasound 12/10/24 showed, as per radiologist's report: hepatic masses most in keeping with the patient's known cholangiocarcinoma, gallbladder wall thickening is favored to be reactive, gallbladder sludge and mild
abdominal ascites.
#History of GI bleeding secondary to radiation/angiectasia/PUD
- Continue Protonix
#Thyroid cancer status post thyroidectomy
#Hypothyroidism
- Continue levothyroxine
#Anxiety/depression
- Continue Xanax, Lexapro -- but consider tapering Lexapro given low sodium
#History of MSSA bacteremia
#Severe Protein Calorie Malnutrition
Regular diet
DVT prophylaxis�SCDs
Full code
Anticipated Discharge: Within 24 hours
Subjective/Interval History
-
Date of Service: December 12, 2024
Patient was seen and examined. She reported some intermittent nose bleeds.
Objective Data
-
Labs:
Laboratory Results
12/12/24
06:02
WBC 20.4 H
Hgb 8.9 L
Hct 27.9 L
Plt Count 29 L* D
Sodium 129 L
Potassium 4.3
Chloride 102
Carbon Dioxide 27
BUN 8
Creatinine 0.5 L
Glucose 98
Calcium 8.5
Total Bilirubin 1.5 H
AST 63 H
ALT 50 H
Alkaline Phosphatase 1067 H
Vital Signs:
Vital Signs
Temp Pulse Resp BP Pulse Ox
98.3 F 89 16 101/69 96
12/12/24 08:06 12/12/24 08:08 12/12/24 08:06 12/12/24 08:08 12/12/24 08:06
I&O
12/11/24 12/12/24 12/13/24
06:59 06:59 06:59
Intake Total 620 / 620 1979
Balance 620 / 620 1979
--- NOTE | 2024-12-12 10:31 | PTCARENOTE ---
IR nurse informed this RN that she removed 1200 mL from drain and that patient has been getting drained every other day and that no one will be in Sunday or Sunday so if patient needs to be drained Sunday then have nurse on duty carly text on-call
physician for IR.
--- NOTE | 2024-12-12 10:37 | PN.IRAD.UPD ---
Update Note - IRAD
- -
1200 ml bloody fluid drained via right PERITONEAL ASEPT catheter at bedside. New dry,clean dressing placed over site . Patient tolerated procedure well. RN notified.
--- NOTE | 2024-12-12 11:07 | CM ---
patient seen ambulating today with PT
Current with [facility]
referral in [facility]
PLAN: Home with [facility] when stable
[2024-12-12] MEDS: REMOVE LIDOCAINE PATCH 1 PATCH REMOVE (11:44)
--- NOTE | 2024-12-12 12:45 | W.PN.NEPH.PH ---
Today's Communication / Plan
-
Maintain fluid restriction as best as possible
Maintain sodium tablets 1 g twice daily
Assessment/Plan
-
Assessment
Hyponatremia
Anemia
Thrombocytopenia
Transaminitis
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
Hypothyroidism, thyroid cancer status post surgery
Depression/Anxiety
Plan:
Samsca was provided on 12/11/2024 with rise in sodium to 129
fluid restriction to continue, but patient says she cannot to less than 60 ounce
Remains on salt tab
Hypotension likely precipitating escalated ADH as well as malignancy
Suggest holding Lasix for now due to ongoing hypotension
-
-
Date of Service: December 12, 2024
CC / HPI / ROS
-
Chief Complaint:
Hyponatremia
History of Present Illness:
Recurrent hyponatremia in the setting of malignancy
Hemodynamically labile on low-dose midodrine support
Sodium rise from 126-129 following Samsca administration on 12/11/2024
Review of Systems:
No chest pain or shortness of
Abdominal distention
Labs
-
Labs:
WBC 20.4 10^3/uL (4.8-10.8) H 12/12/24 06:02
RBC 3.11 10^6/uL (4.20-5.40) L 12/12/24 06:02
Hgb 8.9 g/dL (12.0-16.0) L 12/12/24 06:02
Hct 27.9 % (37.0-47.0) L 12/12/24 06:02
Plt Count 29 10^3/uL (130-400) L* D 12/12/24 06:02
Sodium 129 mmol/L (135-145) L 12/12/24 06:02
Potassium 4.3 mmol/L (3.5-5.1) 12/12/24 06:02
Chloride 102 mmol/L (98-107) 12/12/24 06:02
Carbon Dioxide 27 mmol/L (22-30) 12/12/24 06:02
BUN 8 mg/dl (7-17) 12/12/24 06:02
Creatinine 0.5 mg/dL (0.6-1.0) L 12/12/24 06:02
eGFR > 60.00 12/12/24 06:02
Glucose 98 mg/dl (70-99) 12/12/24 06:02
Calcium 8.5 mg/dl (8.4-10.2) 12/12/24 06:02
Albumin 2.5 g/dl (3.5-5.0) L 12/12/24 06:02
Physical Exam
-
Vital Signs:
Vital Signs
Temp Pulse Resp BP Pulse Ox
98.3 F 83 18 103/65 99
12/12/24 08:06 12/12/24 12:39 12/12/24 11:17 12/12/24 12:39 12/12/24 11:17
Cardiovascular:: Regular rate and rhythm
Respiratory:: Bilateral: CTA
Lung Excursion:: Normal
Abdomen:: Distended, Nontender and Soft
Bowel Sounds:: Normal
Extremity Edema:: None: Bilateral:
--- NOTE | 2024-12-12 15:56 | PTCARENOTE ---
Pt requested Imodium, made aware, new order provided, see MAR.
[2024-12-12] MEDS: IMODIUM 2 MG PO ×2 (15:57→23:56)
--- NOTE | 2024-12-12 17:43 | PTCARENOTE ---
1 unit of platelets started as ordered. Pt resting in bed comfortably, no signs or symptoms of reaction. Will continue to monitor.
[2024-12-12] MEDS: LIDOCAINE 4% PATCH 1 PATCH TOPICAL (21:03)
[2024-12-12] MEDS: LEXAPRO 10 MG PO (21:03)
[2024-12-12] MEDS: XANAX 0.125 MG PO (21:04)
[2024-12-13 03:14] VITALS: BP 101/64
[2024-12-13] MEDS: SYNTHROID 125 MCG PO (05:37)
[2024-12-13] MEDS: SODIUM CHLORIDE 1 GRAM PO ×2 (07:52→20:39)
[2024-12-13] MEDS: PROTONIX 40 MG PO ×2 (07:52→20:40)
--- NOTE | 2024-12-13 08:23 | W.PN.HOSP.TC ---
Today's Communication/Plan
-
See plan
Assessment / Plan
Assessment / Plan
Physical Exam
General: Well Developed, Well Nourished and No Apparent Distress
HEENT: Normocephalic, Moist mucous membranes and Atraumatic
Respiratory: Clear
Cardiac: S1/S2 and Regular Rhythm
GI: Soft, Non Tender, Non Distended and Normal Bowel Sounds
Musculoskeletal: No Cyanosis and No Edema
Skin: Warm. Dry.
Neuro: Nonfocal/grossly intact
Assessment/Plan
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
secondary to angiectasia/PUD, thyroid cancer status post thyroidectomy, hypothyroidism, anxiety/depression, MSSA bacteremia, chemotherapy-induced pancytopenia, hyponatremia presenting to emergency room for dizziness and near syncope starting
yesterday. Since yesterday she has been experiencing dizziness with sitting or standing. She also has chest palpitations, chest tightness nausea and shortness of breath with exertion. She denies fevers or chills, vomiting, bleeding in the stool
or black stool. Patient typically has diarrhea in the days after chemotherapy but denies any diarrhea currently. Last bowel movement 2 days ago. She recently received chemotherapy last week at which time she had hemoglobin of 8.2. She was recently
hospitalized for hyponatremia. She received hypertonic saline and Samsca and was eventually placed on salt tablets and Lasix. She follows 48 ounce fluid restriction. She recently had peritoneal catheter placed for weekly paracentesis placed 3 days
ago, with instructions for the home visiting nurse to drain 1 L every other day which was performed yesterday. He has some abdominal soreness from this. She does not smoke or drink alcohol.
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
- Sodium 118 from 129 on recent discharge
- Hypotension coming in this admission --> worsening ADH levels --> worsened hyponatremia
- Hypertonic saline
- Monitor BMP
- Continue Lasix
- Continue 60 ounce fluid restriction and Salt tablets (patient requested easing FR of 48 ounces to 60 ounces)
- Samsca on 12/11/24
- Nephrology consulted
- Consider decreasing/stopping Lexapro
#Watery Diarrhea
- Check stool studies
- Can resume Imodium once C. diff is checked
#Presentation with near syncope, orthostasis symptoms, chest tightness, chest palpitations, dyspnea on exertion
#Hypotension
#Hypoalbuminemia
- EKG and troponins do not suggest ACS
- CT chest with no PE
- Echo unrevealing, and similar to previous
- Could be from hypoalbuminemia, orthostatic hypotension, chemo
- Stop Lasix (which was started last admission for hyponatremia)
- Received IV Albumin this hospitalization
# Symptomatic normocytic anemia secondary to chemotherapy
- Initial hemoglobin of 7 from 8.4 previous
- Goal hemoglobin greater than 8
- 1 unit of red blood cells transfusion given on 12/08/24 and a 2nd unit given on 12/10/24
- Monitor CBC, would transfuse if hgb <8, platelets < 15
- Dr. Martins reached out to her oncologist, Dr. Silva, with update on 12/09/24 -- unfortunately, hospice has been recommended and patient not yet accepting
# Severe thrombocytopenia secondary to chemotherapy
- Platelets of 10 initially
- 1 unit of platelets have been given this hospitalization on 12/08/24
- Given nosebleeds, gave another 1 unit platelets given on 12/12/24 with good improvement in platelets
- Nosebleeds have stopped as of 12/13/24
# Metastatic cholangiocarcinoma status post radiation/chemotherapy with metastasis to peritoneum complicated by malignant ascites requiring weekly paracentesis
- Recently had peritoneal catheter placed ~3 days prior to presentation
- Had 1 L drained 12/07/24 and supposed to have 1 L drained every other day so IR consult placed -- 1 L drained by IR on 12/10/24 and another 1 L on 12/12/24
# Transaminitis
- Suspected from hepatic metastases
- RUQ ultrasound 12/10/24 showed, as per radiologist's report: hepatic masses most in keeping with the patient's known cholangiocarcinoma, gallbladder wall thickening is favored to be reactive, gallbladder sludge and mild
abdominal ascites.
#History of GI bleeding secondary to radiation/angiectasia/PUD
- Continue Protonix
#Thyroid cancer status post thyroidectomy
#Hypothyroidism
- Continue levothyroxine
#Anxiety/depression
- Continue Xanax, Lexapro -- but consider tapering Lexapro given low sodium
#History of MSSA bacteremia
#Severe Protein Calorie Malnutrition
Regular diet
DVT prophylaxis�SCDs
Full code
Anticipated Discharge: Within 24 hours
Subjective/Interval History
-
Date of Service: December 13, 2024
Patient was seen and examined. She reported watery diarrhea.
Objective Data
-
Labs:
Laboratory Results
12/13/24
08:03
WBC Pending
Hgb Pending
Hct Pending
Plt Count Pending
Sodium Pending
Potassium Pending
Chloride Pending
Carbon Dioxide Pending
BUN Pending
Creatinine Pending
Glucose Pending
Calcium Pending
Vital Signs:
Vital Signs
Temp Pulse Resp BP Pulse Ox
98.3 F 74 17 101/65 96
12/13/24 03:14 12/13/24 03:14 12/13/24 03:14 12/13/24 07:52 12/13/24 03:14
I&O
12/12/24 12/13/24 12/14/24
06:59 06:59 06:59
Intake Total 1979 1458 / 1458
Balance 1979 1458 / 1458
[2024-12-13 08:24] LABS: Hematocrit 26.0 % (37.0-47.0); Hemoglobin 8.2 g/dL (12.0-16.0); Mean Corp Hgb Conc. 31.5 g/dL (33.0-37.0); Mean Corpuscular Volume 91.9 fL (81.0-99.0); Platelet Count 68 10^3/uL (130-400); Red Cell Dist. Width 22.2 % (11.5-14.5)
[2024-12-13 08:29] VITALS: BP 101/65
[2024-12-13 08:58] LABS: Blood Urea Nitrogen 5 mg/dl (7-17); Calcium 8.6 mg/dl (8.4-10.2); Carbon Dioxide 29 mmol/L (22-30); Chloride 102 mmol/L (98-107); Estimated Creatinine Clearance 73 ml/min; Glucose 95 mg/dl (70-99); Potassium 4.0 mmol/L (3.5-5.1); Sodium 129 mmol/L (135-145); eGFR > 60.00
--- NOTE | 2024-12-13 10:54 | W.PN.NEPH.PH ---
Today's Communication / Plan
-
Follow lites while patient inpatient
Assessment/Plan
-
Assessment
Hyponatremia
Anemia
Thrombocytopenia
Transaminitis
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
Hypothyroidism, thyroid cancer status post surgery
Depression/Anxiety
Plan:
Samsca was provided on 12/11/2024 with rise in sodium to 129
fluid restriction to continue, but patient says she cannot to less than 60 ounce
Remains on salt tab
Hypotension likely precipitating escalated ADH as well as malignancy
Suggest holding Lasix for now due to ongoing hypotension
-
-
Date of Service: December 13, 2024
CC / HPI / ROS
-
Chief Complaint:
Hyponatremia
History of Present Illness:
Recurrent hyponatremia in the setting of malignancy
Hemodynamically labile on low-dose midodrine support
Sodium rise from 126-129 following Samsca administration on 12/11/2024
Review of Systems:
No chest pain or shortness of
Abdominal distention
Some ongoing GI issues per patient
Labs
-
Labs:
WBC 16.2 10^3/uL (4.8-10.8) H 12/13/24 08:03
RBC 2.83 10^6/uL (4.20-5.40) L 12/13/24 08:03
Hgb 8.2 g/dL (12.0-16.0) L 12/13/24 08:03
Hct 26.0 % (37.0-47.0) L 12/13/24 08:03
Plt Count 68 10^3/uL (130-400) L D 12/13/24 08:03
Sodium 129 mmol/L (135-145) L 12/13/24 08:03
Potassium 4.0 mmol/L (3.5-5.1) 12/13/24 08:03
Chloride 102 mmol/L (98-107) 12/13/24 08:03
Carbon Dioxide 29 mmol/L (22-30) 12/13/24 08:03
BUN 5 mg/dl (7-17) L 12/13/24 08:03
Creatinine 0.5 mg/dL (0.6-1.0) L 12/13/24 08:03
eGFR > 60.00 12/13/24 08:03
Glucose 95 mg/dl (70-99) 12/13/24 08:03
Calcium 8.6 mg/dl (8.4-10.2) 12/13/24 08:03
Albumin 2.5 g/dl (3.5-5.0) L 12/12/24 06:02
Physical Exam
-
Vital Signs:
Vital Signs
Temp Pulse Resp BP Pulse Ox
98.7 F 81 18 101/65 96
12/13/24 08:29 12/13/24 08:29 12/13/24 08:29 12/13/24 08:29 12/13/24 08:29
Cardiovascular:: Regular rate and rhythm
Respiratory:: Bilateral: CTA
Lung Excursion:: Normal
Abdomen:: Distended, Nontender and Soft
Bowel Sounds:: Normal
Extremity Edema:: None: Bilateral:
[2024-12-13] MEDS: REMOVE LIDOCAINE PATCH 1 PATCH REMOVE (11:20)
[2024-12-13 12:24] VITALS: BP 106/65
--- NOTE | 2024-12-13 15:34 | CON.GI ---
Consultation
-
Date/Time Consultation Requested: 12/13/24 9:40am
Date/Time Consultation Performed: 12/13/24 3:35pm
Requesting Provider: Jeff Sutherland
Performing Provider: David Chapin
Reason for Consultation: Diarrhea
Medical History
Chief Complaint / HPI
Chief Complaint: Diarrhea
History of Present Illness:
54yo female hx metastatic cholangiocarcinoma dx'd at [facility] and currently seen at [facility], getting chemo gemcitabine/abraxane s/p 5 cycles. Has been admitted to hospital last 3 cycles for hyponatremia and anemia. She usually gets diarrhea
couple days after chemo. Last chemo 12/02. She was admitted again for hyponatremia and anemia, then developed diarrhea 12/10 with 4 watery stools, nonbloody. Had 2 episodes yesterday and none today. She has had GI bleed from presumed XRT
gastropathy on several EGDs, most recently May 2024. Denies recent bleeding
Past Medical History
Past Medical History: Other (metastatic cholangiocarcinoma, ascites peritoneal catheter)
Past Surgical History:
Social History
Tobacco: Non-Smoker
Alcohol: None
Family History
Family History: Reviewed & Not Pertinent
Allergies / Home Medications
Allergy/AdvReac Type Severity Reaction Status Date / Time
No Known Allergies Allergy Verified 11/26/24 12:18
�Medication �Instructions �Recorded
ondansetron HCl 8 mg tablet 8 mg PO Q8HPRN PRN nausea 02/29/24
pantoprazole 40 mg tablet,delayed 40 mg PO BID #60 tabs 03/01/24
release
alprazolam 0.25 mg tablet (Xanax) 0.125 mg PO HS sleep 11/05/24
escitalopram oxalate 10 mg tablet 10 mg PO HS Depression 11/26/24
(Lexapro)
levothyroxine 150 mcg tablet 150 mcg PO DAILY Thyroid 11/26/24
(Synthroid)
furosemide 20 mg tablet 20 mg PO DAILY #30 tabs 11/29/24
sodium chloride 1,000 mg soluble 500 mg (1/2 x 1,000 mg) PO BID #30 11/29/24
tablet tabs
Review of Systems
-
All other systems: A 12 pt ROS was Negative except as stated above in HPI
Vital Signs
Temp Pulse Resp BP Pulse Ox
97.7 F 82 19 106/65 98
12/13/24 12:24 12/13/24 12:24 12/13/24 12:24 12/13/24 12:24 12/13/24 12:24
Physical Exam
Exam
General: No Apparent Distress
HEENT: Normocephalic and Atraumatic
Respiratory: Non Labored Respirations
GI: Soft, Non Tender, Distended and Other (peritoneal catheter)
Results
WBC 16.2 10^3/uL (4.8-10.8) H 12/13/24 08:03
Hgb 8.2 g/dL (12.0-16.0) L 12/13/24 08:03
Hct 26.0 % (37.0-47.0) L 12/13/24 08:03
MCV 91.9 fL (81.0-99.0) 12/13/24 08:03
Plt Count 68 10^3/uL (130-400) L D 12/13/24 08:03
Absolute Neuts (auto) 15.6 10^3/uL (1.4-6.5) H 12/12/24 06:02
Sodium 129 mmol/L (135-145) L 12/13/24 08:03
Potassium 4.0 mmol/L (3.5-5.1) 12/13/24 08:03
Chloride 102 mmol/L (98-107) 12/13/24 08:03
Carbon Dioxide 29 mmol/L (22-30) 12/13/24 08:03
BUN 5 mg/dl (7-17) L 12/13/24 08:03
Creatinine 0.5 mg/dL (0.6-1.0) L 12/13/24 08:03
Calcium 8.6 mg/dl (8.4-10.2) 12/13/24 08:03
Total Bilirubin 1.5 mg/dl (0.2-1.3) H 12/12/24 06:02
AST 63 U/L (14-36) H 12/12/24 06:02
ALT 50 U/L (0-35) H 12/12/24 06:02
Alkaline Phosphatase 1067 U/L (38-126) H 12/12/24 06:02
Diagnostic Image Results:
Prior GI Procedures:
EGD:
Colonoscopy:
Assessment / Plan
-
Summary: 54yo female hx metastatic cholangiocarcinoma treated at [facility] currently s/p round 5 gemcitabine/abraxane. Last 3 rounds has had hyponatremia/anemia requiring admission. Last chemo 12/02. Began with diarrhea 12/10, improving.
Impression:
Diarrhea
Metastatic cholangiocarcinoma
Ascites- peritoneal catheter to drain
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
Hyponatremia
Recommendations:
Check stool c diff if further diarrhea
Montior stools
If recurrent diarrhea, and negative C diff, treat with imodium or lomotil if needed.
-
-
Thank you for consultation and allowing me to participate in the patient's care. Please call the international marketing specialist GI physician during the after hours with any questions or concerns.
[2024-12-13 16:42] VITALS: BP 109/65
[2024-12-13 19:24] VITALS: BP 107/63
[2024-12-13] MEDS: XANAX 0.125 MG PO (21:59)
[2024-12-13] MEDS: LIDOCAINE 4% PATCH 1 PATCH TOPICAL (22:00)
[2024-12-13] MEDS: LEXAPRO 10 MG PO (22:00)
[2024-12-13 23:46] VITALS: BP 105/66
[2024-12-14 03:31] VITALS: BP 116/64
[2024-12-14 04:42] LABS: Hematocrit 24.8 % (37.0-47.0); Hemoglobin 8.0 g/dL (12.0-16.0); Mean Corp Hgb Conc. 32.3 g/dL (33.0-37.0); Mean Corpuscular Volume 92.9 fL (81.0-99.0); Platelet Count 59 10^3/uL (130-400); Red Cell Dist. Width 22.6 % (11.5-14.5)
[2024-12-14 05:01] LABS: ALT (SGPT) 30 U/L (0-35); AST (SGOT) 37 U/L (14-36); Albumin 2.2 g/dl (3.5-5.0); Alkaline Phosphatase 764 U/L (38-126); Blood Urea Nitrogen 4 mg/dl (7-17); Calcium 8.4 mg/dl (8.4-10.2); Carbon Dioxide 28 mmol/L (22-30); Chloride 101 mmol/L (98-107); Estimated Creatinine Clearance 73 ml/min; Glucose 94 mg/dl (70-99); Magnesium 2.3 mg/dl (1.6-2.3); Potassium 3.8 mmol/L (3.5-5.1); Sodium 128 mmol/L (135-145); Total Protein 4.1 g/dl (6.3-8.2); eGFR > 60.00
[2024-12-14] MEDS: SYNTHROID 125 MCG PO (06:17)
[2024-12-14 08:08] VITALS: BP 104/72
[2024-12-14] MEDS: SODIUM CHLORIDE 1 GRAM PO (08:33)
[2024-12-14] MEDS: PROTONIX 40 MG PO (08:33)
--- NOTE | 2024-12-14 10:13 | PN.IRAD.UPD ---
Update Note - IRAD
- -
Drained peritoneal Asept catheter for 1000 ml beside. (Blood tinged fluid) Site cleaned and dressed.
--- NOTE | 2024-12-14 10:26 | W.PN.NEPH.PH ---
Today's Communication / Plan
-
Maintain fluid restriction and salt tabs
Sodium stable at 120
Assessment/Plan
-
Assessment
Hyponatremia
Anemia
Thrombocytopenia
Transaminitis
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
Hypothyroidism, thyroid cancer status post surgery
Depression/Anxiety
Plan:
Samsca was provided on 12/11/2024 with rise in sodium to 128
fluid restriction to continue, but patient says she cannot to less than 60 ounce, we are doing the best we can
Remains on salt tab BID
Hypotension likely precipitating escalated ADH as well as malignancy
C. difficile antigen and toxin negative re diarrhea
Suggest holding Lasix for now due to ongoing hypotension
Stable for discharge from nephrology standpoint
-
-
Date of Service: December 14, 2024
CC / HPI / ROS
-
Chief Complaint:
Hyponatremia
History of Present Illness:
Recurrent hyponatremia in the setting of malignancy
Hemodynamically labile on low-dose midodrine support
Sodium rise from 126-129 following Samsca administration on 12/11/2024, now 120
Review of Systems:
No chest pain or shortness of
Abdominal distention
Some ongoing diarrhea
Labs
-
Labs:
WBC 17.1 10^3/uL (4.8-10.8) H 12/14/24 04:04
RBC 2.67 10^6/uL (4.20-5.40) L 12/14/24 04:04
Hgb 8.0 g/dL (12.0-16.0) L 12/14/24 04:04
Hct 24.8 % (37.0-47.0) L 12/14/24 04:04
Plt Count 59 10^3/uL (130-400) L 12/14/24 04:04
Sodium 128 mmol/L (135-145) L 12/14/24 04:04
Potassium 3.8 mmol/L (3.5-5.1) 12/14/24 04:04
Chloride 101 mmol/L (98-107) 12/14/24 04:04
Carbon Dioxide 28 mmol/L (22-30) 12/14/24 04:04
BUN 4 mg/dl (7-17) L 12/14/24 04:04
Creatinine 0.5 mg/dL (0.6-1.0) L 12/14/24 04:04
eGFR > 60.00 12/14/24 04:04
Glucose 94 mg/dl (70-99) 12/14/24 04:04
Calcium 8.4 mg/dl (8.4-10.2) 12/14/24 04:04
Albumin 2.2 g/dl (3.5-5.0) L 12/14/24 04:04
Physical Exam
-
Vital Signs:
Vital Signs
Temp Pulse Resp BP Pulse Ox
98.4 F 83 17 104/72 96
12/14/24 08:08 12/14/24 08:33 12/14/24 08:08 12/14/24 08:33 12/14/24 08:08
Cardiovascular:: Regular rate and rhythm
Respiratory:: Bilateral: CTA
Lung Excursion:: Normal
Abdomen:: Distended, Nontender and Soft
Bowel Sounds:: Normal
Extremity Edema:: None: Bilateral:
--- NOTE | 2024-12-14 11:41 | W.PN.GI.CBS2 ---
Today's Communication / Plan
-
C diff negative
Diarrhea has resolved
Will sign off.
Assessment / Plan
-
Summary: 54yo female hx metastatic cholangiocarcinoma treated at [facility] currently s/p round 5 gemcitabine/abraxane. Last 3 rounds has had hyponatremia/anemia requiring admission. Last chemo 12/02. Began with diarrhea 12/10, improving.
Impression:
Diarrhea
Metastatic cholangiocarcinoma
Ascites- peritoneal catheter to drain
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
Hyponatremia
Subjective
Subjective
Date of Service: December 14, 2024
Had small BM yesterday, but enough to send stool sample. No BM today
Objective
Data Reviewed
Laboratory Data:
Laboratory Results
12/14/24 04:04
12/14/24 04:04
Laboratory Results
Magnesium 2.3 mg/dl (1.6-2.3) 12/14/24 04:04
Total Bilirubin 1.2 mg/dl (0.2-1.3) 12/14/24 04:04
AST 37 U/L (14-36) H 12/14/24 04:04
ALT 30 U/L (0-35) 12/14/24 04:04
Alkaline Phosphatase 764 U/L (38-126) H 12/14/24 04:04
Vital Signs and I&O:
Vital Signs
Temp Pulse Resp BP Pulse Ox
98.4 F 83 17 104/72 96
12/14/24 08:08 12/14/24 08:33 12/14/24 08:08 12/14/24 08:33 12/14/24 08:08
I&O
12/13/24 12/14/24 12/15/24
06:59 06:59 06:59
Intake Total 1458 / 1458 1540 / 1540
Balance 1458 / 1458 1540 / 1540
Physical Exam
Physical Exam
GI: Soft, Distended and Other (RLQ peritoneal catheter bandaged)
[2024-12-14 12:33] VITALS: BP 101/63
[2024-12-14] MEDS: REMOVE LIDOCAINE PATCH 1 PATCH REMOVE (13:04)
--- NOTE | 2024-12-14 13:54 | W.PN.HOSP.TC ---
Today's Communication/Plan
-
Discharge today
Assessment / Plan
Assessment / Plan
Physical Exam
General: Well Developed, Well Nourished and No Apparent Distress
HEENT: Normocephalic, Moist mucous membranes and Atraumatic
Respiratory: Clear
Cardiac: S1/S2 and Regular Rhythm
GI: Soft, Non Tender, Non Distended and Normal Bowel Sounds
Musculoskeletal: No Cyanosis and No Edema
Skin: Warm. Dry.
Neuro: Nonfocal/grossly intact
Assessment/Plan
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
secondary to angiectasia/PUD, thyroid cancer status post thyroidectomy, hypothyroidism, anxiety/depression, MSSA bacteremia, chemotherapy-induced pancytopenia, hyponatremia presenting to emergency room for dizziness and near syncope starting
yesterday. Since yesterday she has been experiencing dizziness with sitting or standing. She also has chest palpitations, chest tightness nausea and shortness of breath with exertion. She denies fevers or chills, vomiting, bleeding in the stool
or black stool. Patient typically has diarrhea in the days after chemotherapy but denies any diarrhea currently. Last bowel movement 2 days ago. She recently received chemotherapy last week at which time she had hemoglobin of 8.2. She was recently
hospitalized for hyponatremia. She received hypertonic saline and Samsca and was eventually placed on salt tablets and Lasix. She follows 48 ounce fluid restriction. She recently had peritoneal catheter placed for weekly paracentesis placed 3 days
ago, with instructions for the home visiting nurse to drain 1 L every other day which was performed yesterday. He has some abdominal soreness from this. She does not smoke or drink alcohol.
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
- Sodium 118 from 129 on recent discharge
- Hypotension coming in this admission --> worsening ADH levels --> worsened hyponatremia
- Hypertonic saline and Samsca were given with improvement
- STOP Lasix
- Continue 60 ounce fluid restriction and Salt Tablets BID (patient requested easing FR of 48 ounces to 60 ounces)
- Nephrology consulted
- Patient said she will trial a decrease in Lexapro at home
#Watery Diarrhea
- Stool studies were ordered
- C. Diff negative
- Continue Imodium
#Presentation with near syncope, orthostasis symptoms, chest tightness, chest palpitations, dyspnea on exertion
#Hypotension
#Hypoalbuminemia
- The above symptoms resolved
- EKG and troponins do not suggest ACS
- CT chest with no PE
- Echo unrevealing, and similar to previous
- Could be from hypoalbuminemia, orthostatic hypotension, chemo
- Stop Lasix (which was started last admission for hyponatremia)
- Received IV Albumin this hospitalization
# Symptomatic normocytic anemia secondary to chemotherapy
- 1 unit of red blood cells transfusion given on 12/08/24 and a 2nd unit given on 12/10/24
- Monitor CBC, would transfuse if hgb <8, platelets < 15
- Dr. Martins reached out to her oncologist, Dr. Silva, with update on 12/09/24 -- unfortunately, hospice has been recommended and patient not yet accepting
# Severe thrombocytopenia secondary to chemotherapy
- Platelets of 10 initially
- 1 unit of platelets have been given this hospitalization on 12/08/24
- Given nosebleeds, gave another 1 unit platelets given on 12/12/24 with good improvement in platelets
- Nosebleeds have stopped as of 12/13/24
# Metastatic cholangiocarcinoma status post radiation/chemotherapy with metastasis to peritoneum complicated by malignant ascites requiring weekly paracentesis
- Recently had peritoneal catheter placed ~3 days prior to presentation
- Had 1 L drained 12/07/24 and supposed to have 1 L drained every other day so IR consult placed -- 1 L drained by IR on 12/10/24, another 1 L on 12/12/24 and a third 1 L on 12/14/24
# Transaminitis
- Suspected from hepatic metastases
- RUQ ultrasound 12/10/24 showed, as per radiologist's report: hepatic masses most in keeping with the patient's known cholangiocarcinoma, gallbladder wall thickening is favored to be reactive, gallbladder sludge and mild
abdominal ascites.
#History of GI bleeding secondary to radiation/angiectasia/PUD
- Continue Protonix
#Thyroid cancer status post thyroidectomy
#Hypothyroidism
- Continue levothyroxine
#Anxiety/depression
- Continue Xanax, Lexapro -- but consider tapering Lexapro given low sodium
#History of MSSA bacteremia
#Severe Protein Calorie Malnutrition
Regular diet
DVT prophylaxis�SCDs
Full code
More than 30 minutes spent in discharge including
Final examination of the patient
Summarizing hospital stay
Instructions for continuing care to all relevant caregivers
Preparation of discharge records, prescriptions, and referral forms
Total time spent (in minutes): 40
Anticipated Discharge: Today
Subjective/Interval History
-
Date of Service: December 14, 2024
Patient was seen and examined. She reported the frequency of diarrhea has improved. She is feeling okay, and is okay with going home today.
Objective Data
-
Labs:
Laboratory Results
12/14/24
04:04
WBC 17.1 H
Hgb 8.0 L
Hct 24.8 L
Plt Count 59 L
Sodium 128 L
Potassium 3.8
Chloride 101
Carbon Dioxide 28
BUN 4 L
Creatinine 0.5 L
Glucose 94
Calcium 8.4
Total Bilirubin 1.2
AST 37 H
ALT 30
Alkaline Phosphatase 764 H
Vital Signs:
Vital Signs
Temp Pulse Resp BP Pulse Ox
98.3 F 82 18 101/63 100
12/14/24 12:33 12/14/24 13:15 12/14/24 12:33 12/14/24 13:15 12/14/24 12:33
I&O
12/13/24 12/14/24 12/15/24
06:59 06:59 06:59
Intake Total 1458 / 1458 1540 / 1540
Balance 1458 / 1458 1540 / 1540
--- NOTE | 2024-12-14 15:47 | CM ---
Pt to return home with [facility] today.
[2024-12-14 16:03] VITALS: BP 116/72
== END 2024-12-14 16:34 | disposition home health service (06) | DRG 643 ==
LOC: 3 WEST ACU 21:19
PROVIDERS: Nurse Practitioner Family; ADMITTING PHYSICIAN Hospitalist; ATTENDING PHYSICIAN Hospitalist; CONSULT PHYSICIAN Specialist; EMERGENCY PHYSICIAN Student in an Organized Health Care Education/Training Program; FAMILY PHYSICIAN Family Medicine; OTHER PHYSICIAN Internal Medicine Hematology & Oncology
PROC: 30243N1 Transfusion of Nonautologous Red Blood Cells into Central Vein, Percutaneous Approach (ICD-10-PCS; 2024-12-08)
PROC: 30243R1 Transfusion of Nonautologous Platelets into Central Vein, Percutaneous Approach (ICD-10-PCS; 2024-12-08)
DX: E22.2 Syndrome of inappropriate secretion of antidiuretic hormone (principal); E43 Unspecified severe protein-calorie malnutrition; C22.1 Intrahepatic bile duct carcinoma; C78.6 Secondary malignant neoplasm of retroperitoneum and peritoneum; R18.0 Malignant ascites; Z68.1 Body mass index [BMI] 19.9 or less, adult; R64 Cachexia; Z92.3 Personal history of irradiation; Z87.11 Personal history of peptic ulcer disease; Z85.850 Personal history of malignant neoplasm of thyroid; E89.0 Postprocedural hypothyroidism; F41.9 Anxiety disorder, unspecified; F32.A Depression, unspecified; I95.9 Hypotension, unspecified; E88.09 Other disorders of plasma-protein metabolism, not elsewhere classified; D64.81 Anemia due to antineoplastic chemotherapy; T45.1X5A Adverse effect of antineoplastic and immunosuppressive drugs, initial encounter; Z79.890 Hormone replacement therapy; D69.59 Other secondary thrombocytopenia; E86.9 Volume depletion, unspecified; K21.9 Gastro-esophageal reflux disease without esophagitis; Z79.899 Other long term (current) drug therapy; Z86.19 Personal history of other infectious and parasitic diseases
CPT/HCPCS: 71275; 76700; 80048; 80053; 83735; 83930; 83935; 84300; 84439; 84443; 84484; 85014; 85018; 85025; 85027; 86850; 86900; 86901; 86920; 87045; 87046; 87324; 87427; 87449; 89055; 93005; 93308; 93321; 93325; 97162; 99285; P9016; P9047; P9073; Q9967